=== PATIENT | female | born 1970 | race Caucasian/White ===

== ENCOUNTER 2016-11-20 14:54 | Emergency (ER) | payer OTHER ==
[~2016-11-20] VITALS: Ht 172.7 cm; Wt 94.3 kg
[~2016-11-20 14:54] MED LIST: AMPH30TA2 PO; DOCU100C31 PO; GABA1CAP5 PO; HYDR1CAP85 PO; IBUP-1427 PO; OMEP20TA PO; VENL150C PO; VENL75CA PO
[2016-11-20 14:56] VITALS: TEMP 36.7; Ht 172.7 cm; Wt 94.3 kg
[2016-11-20] MEDS ORDERED: KETOROLAC TROMETHAMINE 60 MG/2 ML VIAL IM STA (15:26)
[2016-11-20] MEDS ORDERED: TYLENOL #3 HOME PACK PO ONE (15:30)
[2016-11-20] MEDS ORDERED: AMOX500C3 PO (15:32)
--- NOTE | 2016-11-20 15:38 | EMERGENCY ROOM VISIT NOTE ---
History First contact with patient: 15:01 Chief Complaint: HEADACHE Stated Complaint: SEVERE HEADACHE/JAW/EAR PAIN History of Present Illness The patient is a 46 year old female who presents to the Emergency Room with complaints of jaw pain intermittently over the past 6 months. The patient states that she has had intermittent dental pain for the past 6 months. She states that her teeth have been falling out. She has seen a dentist and does have an appointment this week for a consultation to have her teeth extracted. The patient states that she has pain throughout her jaw which also gives her a headache and left ear pain. She states she was seen a few weeks ago at a walk- in clinic and referred here, but at that time she was in too much pain to come here. She states the pain makes it difficult for her to eat. She rates the discomfort a 7/10. She has been taking Tylenol and ibuprofen without relief. She is a smoker. She denies any fevers, chest pain, shortness of breath or neck pain/stiffness. Review of Systems A complete 10 point review of systems was reviewed with the patient with pertinent positives and negatives as per history of present illness. All else were negative. Past Medical/Surgical History Medical Problems: (1) Chronic pain syndrome (2) Diabetes mellitus type 2 (3) dyslipidemia (4) endometrial cryoablation (5) History of - section (6) History of - tubal ligation (7) History of cholecystectomy (8) Nasal polyp (9) Sepsis (10) Ulcer Surgical Problems: (1) Hx of cholecystectomy Family History Cancer Diabetes mellitus Gallbladder disease Heart disease Hypertension Kidney stones Social History Smoking Status: Current Every Day Smoker Alcohol Use: none Marital Status: single Housing Status: unknown Occupation Status: other Current/Historical Medications Scheduled Amoxicillin (Amoxil), 500 MG PO BID Gabapentin (Gabapentin), 600 MG PO TID Methadone Hcl (Methadone Hcl), 144 MG PO QAM Omeprazole (Prilosec), 20 MG PO BID Venlafaxine Hcl (Effexor Extended Rel), 75 MG PO DAILY Venlafaxine Hcl (Effexor Extended Rel), 150 MG PO DAILY Scheduled PRN Acetaminophen/Codeine (Tylenol W/Codeine #3), 1-2 TABS PO Q4H PRN for Pain Clonazepam (Klonopin), 1 MG PO DAILY PRN for Anxiety Docusate Sodium (Docusate Sodium), 100 MG PO BID PRN for Constipation Allergies Coded Allergies: Tramadol (Unverified Allergy, Unknown, SEIZURE, 06/05/16) Promethazine (Verified Adverse Reaction, Mild, JITTERY, 06/05/16) PER PATIENT, GETS JITTERY. NOT ALLERGY Physical Exam Vital Signs Date Time Temp Pulse Resp B/P Pulse Ox O2 Delivery O2 Flow Rate FiO2 11/20/16 16:15 91 18 131/70 96 11/20/16 14:56 36.7 123 18 145/77 94 Room Air Physical Exam VITALS: Vitals are noted on the nurse's note and reviewed by myself. Vital signs stable. GENERAL: This is a 46-year-old female, in no acute distress, nondiaphoretic, well-developed well-nourished. SKIN: The skin was without rashes. EARS: External auditory canals clear, tympanic membranes pearly adams without erythema or effusion bilaterally. EYES: Pupils equal round and reactive to light and accommodation. NOSE: Patent, turbinates without inflammation or discharge. No sinus tenderness. MOUTH: Mucous membranes moist. The teeth are very carious. There is no obvious swelling or erythema of the gums. There is no discharge or any sign of an abscess. NECK: Supple without nuchal rigidity. No lymphadenopathy. HEART: Regular rate and rhythm without murmurs gallops or rubs. LUNGS: Clear to auscultation bilaterally without wheezes, rales or rhonchi. NEURO: Patient was alert and oriented to person place and time. Medical Decision & Procedures Medications Administered Medications (Trade) Dose Ordered Sig/Orestes Route Start Time Stop Time Status Last Admin Dose Admin Ketorolac Tromethamine (Toradol Inj) 60 mg NOW STAT IM 11/20/16 15:26 11/20/16 15:28 DC 11/20/16 15:34 60 MG Acetaminophen/ Codeine Phosphate (TYLENOL W/ CODEINE #3 Home Pack) 1 homepack UD ONCE PO 11/20/16 15:30 11/20/16 15:31 DC 11/20/16 15:34 1 HOMEPACK Medical Decision Differential diagnosis includes dental pain, dental infection, TMJ disorder, among others. The patient was evaluated as above. Her pain appears to be dental in nature. She does not appear to have an infection. The patient was treated with an injection of Toradol here. She will be given a short course of Tylenol with codeine, but she was instructed to follow-up with her dentist for any further treatment of her chronic dental pain. This pain has been ongoing for 6 months and she was informed that the emergency department is not able to treat her chronic pain. She verbalized understanding of my assessment and treatment plan and was discharged home in good condition. Impression Primary Impression: Chronic dental pain Departure Information Dispostion Home / Self-Care Condition GOOD Prescriptions Acetaminophen/Codeine (Tylenol W/Codeine #3) 300 Mg/30 Mg Tab 1-2 TABS PO Q4H Y for Pain, #15 TAB For Initial Treatment Prov: Lexis Dunlap ., ALEX 11/20/16 Referrals No Doctor, Assigned (PCP) Patient Instructions My [facility] Additional Instructions You have been prescribed Tylenol with Codeine to be used for pain control. Take 1-2 tablets every 4-6 hours as needed for pain. This is a narcotic medication. You cannot drive or consume alcohol while on this medicine. This medicine should only be used for pain that cannot be controlled with over-the- counter pain medicines. For pain control, you can use the following [id number] medicines (if >12 yo): - Regular strength (325mg/tab) Tylenol (acetaminophen) 2 tabs every 4-6 hours as needed. Do not exceed 12 tablets in a 24 hour period. Avoid taking more than 4 grams (4000 mg) of Tylenol per day. This includes any other sources of acetaminophen you may take on a regular basis. - Regular strength (200 mg/tab) Advil (ibuprofen) 1-2 tabs every 4-6 hours as needed. Do not exceed a dose of 3200 mg per day. Follow-up with your dentist as scheduled. Return to the emergency department with high fevers, neck swelling or any other new/concerning symptoms.
[2016-11-20] MEDS ORDERED: AMXUD2505 PO (16:00)
[2016-11-20] MEDS ORDERED: ACET-749 PO (16:01)
[2016-11-20 16:15] VITALS: BP 131/70; PULSE 91; O2SAT 96
[2016-12-18] MEDS ORDERED: NRN600 PO (15:32)
[2017-03-02] MEDS ORDERED: EFFSR150 PO (15:32)
[2017-03-02] MEDS ORDERED: CLC100 PO (15:32)
[2017-03-02] MEDS ORDERED: EFFSR75 PO (15:32)
[2017-03-02] MEDS ORDERED: OMEP20CA9 PO (15:32)
[2017-03-02] MEDS ORDERED: CLON1TAB3 PO (17:35)
[2017-03-15] MEDS ORDERED: PRED-301 PO (13:07)
== END 2016-11-20 16:25 | disposition home or self-care (01) ==
LOC: C.EDB 14:55 → C.EDA 16:25
DX: K08.89 Other specified disorders of teeth and supporting structures (principal); K02.9 Dental caries, unspecified; F17.200 Nicotine dependence, unspecified, uncomplicated; G89.4 Chronic pain syndrome; E11.9 Type 2 diabetes mellitus without complications; E78.5 Hyperlipidemia, unspecified; J33.9 Nasal polyp, unspecified; Z98.51 Tubal ligation status; Z83.3 Family history of diabetes mellitus; Z82.49 Family history of ischemic heart disease and other diseases of the circulatory system; Z84.1 Family history of disorders of kidney and ureter

== ENCOUNTER 2016-12-18 17:41 | Emergency (ER) | payer OTHER ==
[~2016-12-18] VITALS: Ht 172.7 cm; Wt 94.9 kg
[~2016-12-18 17:41] MED LIST changes: +ACET-749 PO; +AMOX500C3 PO; -AMPH30TA2 PO; -DOCU100C31 PO; -GABA1CAP5 PO; -HYDR1CAP85 PO; -IBUP-1427 PO; +NRN600 PO; -OMEP20TA PO; -VENL150C PO; -VENL75CA PO
[2016-12-18 17:59] VITALS: TEMP 36.9; Ht 172.7 cm; Wt 94.9 kg
--- NOTE | 2016-12-18 18:22 | EMERGENCY ROOM VISIT NOTE ---
History Report prepared by Corinna: Kathie Hernandez Under the Supervision of: Elvira MayesO. First contact with patient: 18:02 Chief Complaint: RIB PAIN Stated Complaint: R FRONT AND BACK RIB PAIN,FEVER,SOB History of Present Illness The patient is a 46 year old female who presents to the Emergency Room with complaints of persistent, worsening right sided rib pain to the anterior and posterior aspects that began several weeks ago. She currently rates her discomfort as a 6/10 in severity. The patient states that she developed the pain a few weeks ago, but states that the pain has worsened. She states that she has difficulty holding her grandson due to the pain. The patient describes the pain as a pulsating pain and additionally associates shortness of breath. She reports a history of pneumonia and states that she is an every day smoker. The patient states that she is scheduled for mouth surgery this month for an extensive infection. She reports a fever of 101-102 degrees Fahrenheit over the past several days. The patient states that her symptoms feel worse than her pneumonia. She additionally notes multiple sick contacts. The patient denies any change in bowel movements or urinary symptoms. She denies any recent fall, trauma, or injury. The patient denies any recent travel. She denies any history of hypertension, kidney disease, or heart disease. Source of History: patient Onset: several weeks ago Position: other (right sided rib) Symptom Intensity: 6/10 Quality: other (pulsating) Timing: worsening, other (persistent) Associated Symptoms: + fevers, + SOB, No urinary symptoms Review of Systems See HPI for pertinent positives & negatives. A total of 10 systems reviewed and were otherwise negative. Past Medical & Surgical Medical Problems: (1) Chronic pain syndrome (2) Diabetes mellitus type 2 (3) dyslipidemia (4) endometrial cryoablation (5) History of - section (6) History of - tubal ligation (7) History of cholecystectomy (8) Nasal polyp (9) Sepsis (10) Ulcer Surgical Problems: (1) Hx of cholecystectomy Family History Cancer Diabetes mellitus Gallbladder disease Heart disease Hypertension Kidney stones Social History Smoking Status: Current Every Day Smoker Alcohol Use: none Marital Status: single Housing Status: unknown Occupation Status: other Current/Historical Medications Scheduled Docusate Sodium (Docusate Sodium), 100 MG PO DAILY Gabapentin (Gabapentin), 600 MG PO TID Levofloxacin (Levaquin), 750 MG PO DAILY Methadone Hcl (Methadone Hcl), 144 MG PO QAM Omeprazole (Prilosec), 20 MG PO BID Prednisone (Prednisone Tab), 3 TAB PO DAILY Venlafaxine Hcl (Effexor Extended Rel), 75 MG PO DAILY Venlafaxine Hcl (Effexor Extended Rel), 150 MG PO DAILY Scheduled PRN Clonazepam (Klonopin), 1 MG PO DAILY PRN for Anxiety Allergies Coded Allergies: Tramadol (Unverified Allergy, Unknown, SEIZURE, 06/05/16) Promethazine (Verified Adverse Reaction, Mild, JITTERY, 06/05/16) PER PATIENT, GETS JITTERY. NOT ALLERGY Physical Exam Vital Signs Date Time Temp Pulse Resp B/P (MAP) Pulse Ox O2 Delivery O2 Flow Rate FiO2 12/19/16 01:07 79 18 109/65 97 Room Air 12/19/16 01:06 79 20 97 Room Air 12/19/16 00:13 78 18 94/62 93 Room Air 12/18/16 22:49 81 20 108/55 93 Room Air 12/18/16 20:58 73 20 121/58 98 Room Air 12/18/16 19:39 84 20 133/70 94 Room Air 12/18/16 17:59 36.9 93 16 135/82 95 Room Air Physical Exam GENERAL: alert, well appearing, well nourished, no distress, non-toxic EYE EXAM: normal conjunctiva, PERRL and EOM's grossly intact OROPHARYNX: no exudate, no erythema, lips, buccal mucosa, and tongue normal and mucous membranes are dry, poor dentition. NECK: supple, no nuchal rigidity, no adenopathy, non-tender LUNGS: Decreased breath sounds at the right base posteriorly, slight crackle, no wheezes, rhonchi, or rales. Normal chest wall mechanics HEART: no murmurs, S1 normal and S2 normal ABDOMEN: abdomen soft, non-tender, normo-active bowel sounds, no masses, no rebound or guarding. BACK: Back is symmetrical on inspection and there is no deformity, no midline tenderness, no CVA tenderness. SKIN: no rashes and no bruising UPPER EXTREMITIES: upper extremities are grossly normal. LOWER EXTREMITIES: No pitting edema. NEURO EXAM: Normal sensorium, cranial nerves II-XII [grossly] intact, normal speech, no [gross] weakness of arms, no [gross] weakness of legs. [No drift. Finger to nose intact. Gross sensation intact.] Medical Decision & Procedures ER Provider Diagnostic Interpretation: Radiology results have been interpreted by the radiologist and reviewed by me. CHEST 2 VIEWS ROUTINE HISTORY: Short of breath. Cough. COMPARISON: Chest 06/05/2016. FINDINGS: The lungs are clear. Cardiac silhouette is normal in size. No pleural effusions. No pneumothorax. Cholecystectomy. Old distal left clavicle fracture. IMPRESSION: No acute process. Electronically signed by: Dawood Banda M.D. 12/18/2016 7:25 PM Dictated Date/Time: 12/18/2016 7:23 PM ABDOMINAL ULTRASOUND, RIGHT UPPER QUADRANT HISTORY: Right upper quadrant abdominal pain.. COMPARISON: Abdomen and pelvis CT 02/24/2015. FINDINGS: Pancreas: The head of the pancreas appears unremarkable. The majority of the body and tail are obscured by overlying bowel gas. Liver: The liver is echogenic consistent with fatty change. Mild intrahepatic bile duct dilatation, unchanged. Gallbladder: The gallbladder is surgically absent. CBD: 1.4 cm in diameter. This remains unchanged. Right kidney: No hydronephrosis. IMPRESSION: 1. Intra and extra hepatic bile duct dilatation, unchanged. This may be due to the patient's postcholecystectomy state. 2. Hepatic steatosis. Electronically signed by: Dawood Banda M.D. 12/18/2016 9:37 PM Dictated Date/Time: 12/18/2016 9:34 PM CTA CHEST: No central pulmonary embolus. Patchy ground-glass opacities bilaterally that may be from edema, pneumonia, hemorrhage or allergic reaction. There is a broader differential. Mediastinal and hilar adenopathy. Generous size liver and spleen. Slightly nodular liver. Cholecystectomy and biliary ectasia. Radiologist: Mirta Magana MD Study ready at 3286 and initial results transmitted at 1988 Laboratory Results 12/18/16 18:30 Red Blood Count 4.28, Mean Corpuscular Volume 92.1, Mean Corpuscular Hemoglobin 29.9, Mean Corpuscular Hemoglobin Concent 32.5, Mean Platelet Volume 9.5, Neutrophils (%) (Auto) 59.3, Lymphocytes (%) (Auto) 29.3, Monocytes (%) (Auto) 5.1, Eosinophils (%) (Auto) 5.1, Basophils (%) (Auto) 0.5, Neutrophils # (Auto) 6.35, Lymphocytes # (Auto) 3.13, Monocytes # (Auto) 0.54, Eosinophils # (Auto) 0.54, Basophils # (Auto) 0.05 12/18/16 18:30 Test 12/18/16 18:30 12/18/16 21:10 White Blood Count 10.68 K/uL (4.8-10.8) Red Blood Count 4.28 M/uL (4.2-5.4) Hemoglobin 12.8 g/dL (12.0-16.0) Hematocrit 39.4 % (37-47) Mean Corpuscular Volume 92.1 fL (80-100) Mean Corpuscular Hemoglobin 29.9 pg (25-34) Mean Corpuscular Hemoglobin Concent 32.5 g/dl (32-36) Platelet Count 226 K/uL (130-400) Mean Platelet Volume 9.5 fL (7.4-10.4) Neutrophils (%) (Auto) 59.3 % Lymphocytes (%) (Auto) 29.3 % Monocytes (%) (Auto) 5.1 % Eosinophils (%) (Auto) 5.1 % Basophils (%) (Auto) 0.5 % Neutrophils # (Auto) 6.35 K/uL (1.4-6.5) Lymphocytes # (Auto) 3.13 K/uL (1.2-3.4) Monocytes # (Auto) 0.54 K/uL (0.11-0.59) Eosinophils # (Auto) 0.54 K/uL (0-0.5) Basophils # (Auto) 0.05 K/uL (0-0.2) RDW Standard Deviation 49.8 fL (36.4-46.3) RDW Coefficient of Variation 14.9 % (11.5-14.5) Immature Granulocyte % (Auto) 0.7 % Immature Granulocyte # (Auto) 0.07 K/uL (0.00-0.02) D-Dimer 200 ug/L FEU (0-500) Anion Gap 6.0 mmol/L (3-11) Est Creatinine Clear Calc Drug Dose 92.0 ml/min Estimated GFR () 86.5 Estimated GFR (Non- 74.7 BUN/Creatinine Ratio 10.8 (10-20) Calcium Level 9.4 mg/dl (8.5-10.1) Total Bilirubin 0.2 mg/dl (0.2-1) Aspartate Amino Transf (AST/SGOT) 38 U/L (15-37) Alanine Aminotransferase (ALT/SGPT) 64 U/L (12-78) Alkaline Phosphatase 180 U/L (45-117) Troponin I < 0.015 ng/ml (0-0.045) Total Protein 7.9 gm/dl (6.4-8.2) Albumin 3.8 gm/dl (3.4-5.0) Globulin 4.1 gm/dl (2.5-4.0) Albumin/Globulin Ratio 0.9 (0.9-2) Urine Color YELLOW Urine Appearance CLEAR (CLEAR) Urine pH 5.0 (4.5-7.5) Urine Specific [place] 1.016 (1.000-1.030) Urine Protein NEG (NEG) Urine Glucose (UA) NEG (NEG) Urine Ketones NEG (NEG) Urine Occult Blood NEG (NEG) Urine Nitrite NEG (NEG) Urine Bilirubin NEG (NEG) Urine Urobilinogen NEG (NEG) Urine Leukocyte Esterase NEG (NEG) Laboratory results per my review. Medications Administered Medications (Trade) Dose Ordered Sig/Orestes Route Start Time Stop Time Status Last Admin Dose Admin Albuterol/ Ipratropium (Duoneb) 3 ml NOW STAT INH 12/18/16 18:39 12/18/16 18:40 DC 12/18/16 18:39 3 ML Ketorolac Tromethamine (Toradol Inj) 30 mg NOW STAT IV 12/18/16 19:55 12/18/16 19:56 DC 12/18/16 20:04 30 MG Albuterol/ Ipratropium (Duoneb) 3 ml NOW STAT INH 12/18/16 21:31 12/18/16 21:32 DC 12/18/16 21:31 3 ML Al Hydroxide/Mg Hydroxide (Maalox Susp) 30 ml NOW STAT PO 12/18/16 22:28 12/18/16 22:30 DC 12/18/16 22:28 30 ML Pantoprazole Sodium 40 mg/ Syringe 10 ml @ 5 mls/min NOW ONCE IV 12/18/16 22:30 12/18/16 22:31 DC 12/18/16 22:48 5 MLS/MIN Dexamethasone Sodium Phosphate (Decadron Inj) 10 mg NOW ONCE IV 12/18/16 23:45 12/18/16 23:47 DC 12/19/16 00:09 10 MG Levofloxacin (Levaquin Tab) 750 mg NOW STAT PO 12/18/16 23:45 12/18/16 23:47 DC 12/19/16 00:08 750 MG Albuterol (Ventolin Hfa Inhaler) 2 puffs NOW ONCE INH 12/19/16 00:30 12/19/16 00:31 DC 12/19/16 00:42 2 PUFFS Sodium Chloride 1,000 ml @ 999 mls/hr Q1H1M STAT IV 12/19/16 00:32 12/19/16 01:32 DC 12/19/16 00:41 999 MLS/HR ECG Indication: SOB/dyspnea Rate (beats per minute): 71 Rhythm: sinus rhythm Findings: no acute ischemic change, other (normal axis, normal intervals) ED Course 1810: The patient was evaluated in room A3. A complete history and physical exam was performed. 1838: Ordered Duoneb 3 ml INH. 1954: Ordered Toradol Inj 30 mg IV. 2130: Ordered Duoneb 3 ml INH. 2225: I reevaluated the patient and she is still having pain. She states that her breathing is better, but still notes pain. 8: Ordered Maalox Susp 30 ml PO. 2230: Ordered Pantoprazole Sodium 40 mg/Syringe 10 ml @ 5 mls/min IV. 2345: Ordered Levofloxacin 750 mg PO, Decadron Inj 10 mg IV. 0010: I reevaluated the patient and she is resting. I updated her on her results at this time. Medical Decision Differential diagnoses includes but is not limited to pneumonia, bronchitis, COPD/Asthma exacerbation, pneumothorax, pulmonary embolism, congestive heart failure, acute coronary syndrome Medication Reconciliation: I attest that I have personally reviewed the patient' s current medication list. Blood pressure screening: Patient was found to have normal blood pressure on screening and does not require follow-up. Patient well-appearing despite complaints, no hypoxia, no increased work of breathing, her main complaint was the pain along the right anterolateral ribs. Labs are reassuring, however given persistent pain CT of the chest was pursued. This revealed likely pneumonia. Patient does have a history of prior pneumonia, does continue to smoke, and has had recent sick contacts. Given the cough, chest pain, fevers, and risk factors for pulmonary infection, I feel pneumonia is most likely diagnosis. Patient started on antibiotics and steroids here, was given an MDI and spacer and did improve. Patient ambulated without any significant change in her pulse ox or significant increased work of breathing. subcontracts manager was helpful in arranging outpatient follow-up this patient has no PCP. Discussed with patient symptoms to watch and return for, she verbalized understanding was agreeable with plan. Doubt cardiac etiology, PE, concurrent vascular etiology. Patient encouraged to quit smoking. No evidence of bacteremia/sepsis, patient's IV did infiltrate and she refused to have another one established, however she was tolerating by mouth fluids. One blood pressure reading was mildly low, however all of these around it were within normal limits, I feel this one pressure reading was errant and likely not accurate. Impression Primary Impression: Chest pain Additional Impressions: Pneumonia Tobacco abuse Scribe Attestation The scribe's documentation has been prepared under my direction and personally reviewed by me in its entirety. I confirm that the note above accurately reflects all work, treatment, procedures, and medical decision making performed by me. Departure Information Dispostion Home / Self-Care Prescriptions Prednisone (Prednisone Tab) 20 Mg Tab 3 TAB PO DAILY, #12 TAB FOR 4 DAYS Prov: Jenna Albert, 12/19/16 Levofloxacin (Levaquin) 500 Mg Tab 750 MG PO DAILY for 5 Days, #8 TAB Prov: Jenna Albert, DO 12/19/16 Referrals No Doctor, Assigned (PCP) Patient Instructions My [facility] Additional Instructions Please call and follow up as scheduled with the onsite case manager with family doctor as an outpatient. Please take the antibiotics and steroids as prescribed. You may use the inhaler plus spacer up to every 4 hours as needed for frequent coughing, shortness of breath, or wheezing. You may use Tylenol and ibuprofen as needed for pain. If you have any worsening pain, develop increased trouble breathing, or coughing up blood, fevers, dizziness, vomiting, or you've any other new concerns, please return the emergency room. Problem Qualifiers Primary Impression: Chest pain Chest pain type: other chest pain Qualified Codes: R07.89 - Other chest pain Additional Impressions: Pneumonia Pneumonia type: due to unspecified organism Laterality: bilateral Lung location: lower lobe of lung Qualified Codes: J18.9 - Pneumonia, unspecified organism
[2016-12-18] MEDS ORDERED: ALBUT/IPRATROP 3MG/0.5MG NEB 3 ML VIAL INH STA ×2 (18:39→21:31)
[2016-12-18 18:46] LABS: BASO % 0.5 %; BASO ABS # 0.05 K/uL (0-0.2); COMPLETE YES; EOS % 5.1 %; HEMATOCRIT 39.4 % (37-47); IG% 0.7 %; LYMPH % 29.3 %; LYMPH ABS # 3.13 K/uL (1.2-3.4); MEAN CELL VOLUME 92.1 fL (80-100); MEAN CORPUSCULAR HEMOGLOBIN 29.9 pg (25-34); MEAN CORPUSCULAR HGB CONC 32.5 g/dl (32-36); MEAN PLATELET VOLUME 9.5 fL (7.4-10.4); MONO % 5.1 %; NEUT % 59.3 %; PLATELET COUNT 226 K/uL (130-400); RED BLOOD COUNT 4.28 M/uL (4.2-5.4); WHITE BLOOD COUNT 10.68 K/uL (4.8-10.8)
[2016-12-18 19:03] LABS: ALT/SGPT 64 U/L (12-78); AST/SGOT 38 U/L (15-37); BLOOD UREA NITROGEN 10 mg/dl (7-18); BUN/CREATININE RATIO 10.8 (10-20); CALCIUM 9.4 mg/dl (8.5-10.1); CARBON DIOXIDE 27 mmol/L (21-32); CHLORIDE 104 mmol/L (98-107); CREATININE 0.92 mg/dl (0.60-1.20); GLUCOSE 81 mg/dl (70-99); POTASSIUM 3.8 mmol/L (3.5-5.1); SODIUM 137 mmol/L (136-145)
[2016-12-18 19:08] LABS: ALB/GLOB RATIO 0.9 (0.9-2); ALKALINE PHOSPHATASE 180 U/L (45-117)
--- NOTE | 2016-12-18 19:26 | DIAGNOSTIC IMAGING REPORT ---
CHEST 2 VIEWS ROUTINE HISTORY: Short of breath. Cough. COMPARISON: Chest 06/05/2016. FINDINGS: The lungs are clear. Cardiac silhouette is normal in size. No pleural effusions. No pneumothorax. Cholecystectomy. Old distal left clavicle fracture. IMPRESSION: No acute process. Electronically signed by: Dawood Banda M.D. 12/18/2016 7:25 PM Dictated Date/Time: 12/18/2016 7:23 PM
[2016-12-18] MEDS ORDERED: KETOROLAC TROMETHAMINE 30 MG/ML VIAL IV STA (19:55)
--- NOTE | 2016-12-18 21:38 | DIAGNOSTIC IMAGING REPORT ---
ABDOMINAL ULTRASOUND, RIGHT UPPER QUADRANT HISTORY: Right upper quadrant abdominal pain.. COMPARISON: Abdomen and pelvis CT 02/24/2015. FINDINGS: Pancreas: The head of the pancreas appears unremarkable. The majority of the body and tail are obscured by overlying bowel gas. Liver: The liver is echogenic consistent with fatty change. Mild intrahepatic bile duct dilatation, unchanged. Gallbladder: The gallbladder is surgically absent. CBD: 1.4 cm in diameter. This remains unchanged. Right kidney: No hydronephrosis. IMPRESSION: 1. Intra and extra hepatic bile duct dilatation, unchanged. This may be due to the patient's postcholecystectomy state. 2. Hepatic steatosis. Electronically signed by: Dawood Banda M.D. 12/18/2016 9:37 PM Dictated Date/Time: 12/18/2016 9:34 PM
[2016-12-18 21:59] LABS: URINE APPEARANCE CLEAR (CLEAR); URINE BILIRUBIN NEG (NEG); URINE COLOR YELLOW; URINE NITRITE NEG (NEG); URINE SPECIFIC GRAVITY 1.016 (1.000-1.030); UROBILINOGEN NEG (NEG); ZZUR CULT IF INDIC CLEAN CATCH NO
[2016-12-18 22:03] LABS: MANUAL MICROSCOPIC REQUIRED? NO; REVIEW REQ? NO
[2016-12-18] MEDS ORDERED: ALUMINUM/MAGNESIUM SUSP 30 ML UDC PO STA (22:28)
[2016-12-18] MEDS ORDERED: PANTOprazole INJ 40 MG in SYRINGE 0 ML IV ONE (22:30)
[2016-12-18] MEDS ORDERED: OPTIRAY 320 IV PRN (22:45)
[2016-12-18] MEDS ORDERED: DEXAMETHASONE SOD INJ 10 MG/ML VIAL IV ONE (23:45)
[2016-12-18] MEDS ORDERED: LEVOFLOXACIN 250 MG TAB PO STA (23:45)
[2016-12-19] MEDS ORDERED: ALBUTEROL HFA 8 GM INHALER INH ONE (00:30)
[2016-12-19] MEDS ORDERED: SODIUM CHLORIDE 0.9% 1000ML 1,000 ML IV STA (00:32)
[2016-12-19 01:07] VITALS: BP 109/65; PULSE 79; O2SAT 97
[2016-12-19] MEDS ORDERED: PRED20TA2 PO (01:21)
[2016-12-19] MEDS ORDERED: LEVO-366 PO (01:21)
--- NOTE | 2016-12-19 07:52 | DIAGNOSTIC IMAGING REPORT ---
CT ANGIOGRAM OF THE CHEST CLINICAL HISTORY: Atypical chest pain. Dyspnea. COMPARISON STUDY: Chest x-ray dated 12/18/2016. Chest CT scans dated and 06/02/2008. TECHNIQUE: Following the IV administration of 88 cc of Optiray 320, CT angiogram of the chest was performed from the upper abdomen to the thoracic inlet utilizing the pulmonary embolus protocol. Images are reviewed in the axial, sagittal, and coronal planes. 3-D MIPS images are created and assessed. IV contrast was administered without complication. CT DOSE: 416.54 mGy.cm FINDINGS: Thyroid: Imaged portions of the thyroid gland are normal in size and attenuation. Thoracic aorta: The thoracic aorta is normal in caliber and demonstrates standard 3-vessel arch anatomy. No dissection is seen. Pulmonary vasculature: The pulmonary trunk is normal in caliber. There are no filling defects identified in main, lobar, or segmental pulmonary branches to suggest pulmonary embolus. Heart: The heart is normal in size and configuration, and without pericardial effusion. Lungs and pleural spaces: There are trace pleural effusions with associated atelectasis. There is multifocal patchy groundglass consolidation, greatest in the upper lobes. This is similar to the 07/29/2015 examination. The trachea and central airways are clear Mediastinum: There is mild mediastinal lymphadenopathy. Prevascular nodes measure up to 1.2 cm in short axis. [place]: Prominent hilar nodes measure up to 11 mm in short axis. Axillae: There is no axillary lymphadenopathy. Upper abdomen: There is a tiny hiatal hernia. Cholecystectomy clips are noted. The liver is enlarged and steatotic. Mild nodularity of the surface contour is questioned. The spleen is enlarged measuring 14.6 cm in length. Skeletal structures: No lytic or blastic bony lesions are seen. A large hemangioma is noted in the body of T11. IMPRESSION: 1. There is no evidence of pulmonary embolus in the main, lobar, or segmental pulmonary arteries. 2. There is multifocal groundglass consolidation within upper lobe predominance. This likely represents an infectious/inflammatory pneumonitis and is similar in appearance to the 07/29/2015 examination. Differential considerations include hemorrhage, edema, or a hypersensitivity reaction. Pulmonology follow-up is recommended. 3. Mildly enlarged mediastinal and hilar lymph nodes are likely on a reactive basis. 4. Hepatomegaly and hepatic steatosis. 5. Splenomegaly. 6. Trace pleural effusions. Electronically signed by: Cali Maharaj M.D. 12/19/2016 7:50 AM Dictated Date/Time: 12/19/2016 7:37 AM
[2017-03-02] MEDS ORDERED: EFFSR75 PO (15:32)
[2017-03-02] MEDS ORDERED: EFFSR150 PO (15:32)
[2017-03-02] MEDS ORDERED: CLC100 PO (15:32)
[2017-03-02] MEDS ORDERED: OMEP20CA9 PO (15:32)
[2017-03-02] MEDS ORDERED: CLON1TAB3 PO (17:35)
[2017-03-15] MEDS ORDERED: PRED-301 PO (13:07)
== END 2016-12-19 01:34 | disposition home or self-care (01) ==
LOC: C.EDB 17:42 → C.EDA 12-19 01:34
DX: R07.89 Other chest pain (principal); J18.9 Pneumonia, unspecified organism; F17.200 Nicotine dependence, unspecified, uncomplicated; G89.4 Chronic pain syndrome; E11.9 Type 2 diabetes mellitus without complications; E78.5 Hyperlipidemia, unspecified; Z98.51 Tubal ligation status; Z83.3 Family history of diabetes mellitus; Z82.49 Family history of ischemic heart disease and other diseases of the circulatory system; Z84.1 Family history of disorders of kidney and ureter

== ENCOUNTER 2017-01-24 21:15 | Emergency (ER) | payer OTHER ==
[~2017-01-24] VITALS: Ht 172.7 cm; Wt 96.1 kg
[~2017-01-24 21:15] MED LIST changes: -ACET-749 PO; -AMOX500C3 PO; +PRED20TA2 PO
[2017-01-24 21:21] VITALS: Ht 172.7 cm; Wt 96.1 kg
[2017-01-24] MEDS ORDERED: HYDR-5688 PO (21:46)
[2017-01-24] MEDS ORDERED: SODIUM CHLORIDE 0.9% 1000ML 1,000 ML IV STA ×2 (22:26)
[2017-01-24] MEDS ORDERED: ACETAMINOPHEN 500 MG TAB PO STA (22:26)
--- NOTE | 2017-01-24 22:44 | DIAGNOSTIC IMAGING REPORT ---
CHEST ONE VIEW PORTABLE CLINICAL HISTORY: cough, fever dyspnea COMPARISON STUDY: 12/18/2016 FINDINGS: Probable early bilateral parenchymal perihilar infiltrative change. Diaphragms smooth. Costophrenic angles sharp. IMPRESSION: Developing perihilar parenchymal infiltrates bilaterally. The above report was generated using voice recognition software. It may contain grammatical, syntax or spelling errors. Electronically signed by: Todd Reynolds M.D. 01/24/2017 10:43 PM Dictated Date/Time: 01/24/2017 10:42 PM
--- NOTE | 2017-01-24 22:57 | EMERGENCY ROOM VISIT NOTE ---
History First contact with patient: 22:14 Chief Complaint: FEVER Stated Complaint: HIGH TEMP, SEVERE HEADACHE,CHEST PAIN History of Present Illness The patient is a 46 year old female who presents to the Emergency Room with complaints of fever, headaches, body aches, chills, chest pain and cough. The patient states that 67 weeks ago, she was admitted due to pneumonia. She states that she feels she was not fully treated. She reports her symptoms have been worsening over the past few days. She states pain all over her body, especially in her back. She states the pain is primarily in her low back. She does report she has had episodes of both bowel and urinary incontinence. She states that she has a hard time taking a deep breath and has discomfort in her chest. She reports some associated nausea but no vomiting. She states she has not been taking any medications at home for her symptoms. She reports she had all of her teeth removed 12 days ago. She denies any drug use. She rates her overall discomfort 7/10. The patient denies any significant past medical history. She denies abdominal pain, neck pain/stiffness, diarrhea, or urinary symptoms. Review of Systems A complete 10 point review of systems was reviewed with the patient with pertinent positives and negatives as per history of present illness. All else were negative. Past Medical/Surgical History Medical Problems: (1) Chronic pain syndrome (2) Diabetes mellitus type 2 (3) dyslipidemia (4) endometrial cryoablation (5) History of - section (6) History of - tubal ligation (7) History of cholecystectomy (8) Nasal polyp (9) Sepsis (10) Ulcer Surgical Problems: (1) Hx of cholecystectomy Family History Cancer Diabetes mellitus Gallbladder disease Heart disease Hypertension Kidney stones Social History Smoking Status: Current Every Day Smoker Alcohol Use: none Marital Status: single Housing Status: unknown Occupation Status: other Current/Historical Medications Scheduled Amoxicillin & Pot Clavulanate (Augmentin 875-125 mg), 1 TAB PO BID Amphetamine-Dextroamphetamine 30MG (Adderall 30MG), 30 MG PO BID Docusate Sodium (Docusate Sodium), 100 MG PO DAILY Doxepin (Sinequan), 10 MG PO DAILY Doxepin (Sinequan), 25 MG PO DAILY Gabapentin (Gabapentin), 600 MG PO TID Methadone Hcl (Methadone Hcl), 144 MG PO QAM Omeprazole (Prilosec), 20 MG PO BID Propranolol (Inderal), 10 MG PO DAILY Venlafaxine Hcl (Effexor Extended Rel), 75 MG PO DAILY Venlafaxine Hcl (Effexor Extended Rel), 150 MG PO DAILY Scheduled PRN Clonazepam (Klonopin), 1 MG PO DAILY PRN for Anxiety Hydrocodone/Acetaminophen 5MG/325MG ([place] 5MG/325MG), 1 TABLET PO DIRECTED PRN for Pain Physical Exam Vital Signs Date Time Temp Pulse Resp B/P (MAP) Pulse Ox O2 Delivery O2 Flow Rate FiO2 01/25/17 02:32 84 18 125/67 96 01/25/17 01:32 84 01/25/17 01:09 37.4 87 18 112/73 95 Room Air 01/24/17 23:12 37.9 104 18 106/59 97 Room Air 01/24/17 21:21 37.5 134 16 138/74 93 Room Air Physical Exam VITALS: Vitals are noted on the nurse's note and reviewed by myself. Vital signs stable. GENERAL: This is a 46-year-old female, curled up in bed, tearful, well- developed well-nourished. SKIN: The skin was without rashes. EARS: External auditory canals clear, tympanic membranes pearly adams without erythema or effusion bilaterally. EYES: Pupils equal round and reactive to light and accommodation. Conjunctivae without injection, sclerae without icterus. Extraocular movements intact. NOSE: Patent, turbinates without inflammation or discharge. MOUTH: Mucous membranes moist. Tonsils are not enlarged. Pharynx without erythema or exudate. NECK: Supple without nuchal rigidity. No lymphadenopathy. No meningismus. HEART: Regular rate and rhythm without murmurs gallops or rubs. LUNGS: Clear to auscultation bilaterally without wheezes, rales or rhonchi. ABDOMEN: Soft, nontender to palpation. MUSCULOSKELETAL: There is tenderness to palpation across the lumbar spine. NEURO: Patient was alert and oriented to person place and time. Medical Decision & Procedures ER Provider Diagnostic Interpretation: CHEST ONE VIEW PORTABLE FINDINGS: Probable early bilateral parenchymal perihilar infiltrative change. Diaphragms smooth. Costophrenic angles sharp. IMPRESSION: Developing perihilar parenchymal infiltrates bilaterally. CT L SPINE: No acute fracture or malalignment. No destructive changes. Tarlov cysts in the sacrum. Radiologist: Mirta Magana MD Laboratory Results 01/24/17 22:43 Red Blood Count 4.41, Mean Corpuscular Volume 90.9, Mean Corpuscular Hemoglobin 28.6, Mean Corpuscular Hemoglobin Concent 31.4, Mean Platelet Volume 9.7, Neutrophils (%) (Auto) 74.5, Lymphocytes (%) (Auto) 18.8, Monocytes (%) (Auto) 4.8, Eosinophils (%) (Auto) 1.1, Basophils (%) (Auto) 0.2, Neutrophils # (Auto) 6.35, Lymphocytes # (Auto) 1.60, Monocytes # (Auto) 0.41, Eosinophils # (Auto) 0.09, Basophils # (Auto) 0.02 01/24/17 22:43 Test 01/24/17 21:41 01/24/17 22:43 01/24/17 23:02 Urine Color YELLOW Urine Appearance CLEAR (CLEAR) Urine pH 5.5 (4.5-7.5) Urine Specific [place] 1.016 (1.000-1.030) Urine Protein NEG (NEG) Urine Glucose (UA) NEG (NEG) Urine Ketones NEG (NEG) Urine Occult Blood 1+ (NEG) Urine Nitrite NEG (NEG) Urine Bilirubin NEG (NEG) Urine Urobilinogen NEG (NEG) Urine Leukocyte Esterase NEG (NEG) Urine WBC (Auto) 1-5 /hpf (0-5) Urine RBC (Auto) 0-4 /hpf (0-4) Urine Hyaline Casts (Auto) 0 /lpf (0-5) Urine Epithelial Cells (Auto) 20-30 /lpf (0-5) Urine Bacteria (Auto) NEG (NEG) White Blood Count 8.52 K/uL (4.8-10.8) Red Blood Count 4.41 M/uL (4.2-5.4) Hemoglobin 12.6 g/dL (12.0-16.0) Hematocrit 40.1 % (37-47) Mean Corpuscular Volume 90.9 fL (80-100) Mean Corpuscular Hemoglobin 28.6 pg (25-34) Mean Corpuscular Hemoglobin Concent 31.4 g/dl (32-36) Platelet Count 179 K/uL (130-400) Mean Platelet Volume 9.7 fL (7.4-10.4) Neutrophils (%) (Auto) 74.5 % Lymphocytes (%) (Auto) 18.8 % Monocytes (%) (Auto) 4.8 % Eosinophils (%) (Auto) 1.1 % Basophils (%) (Auto) 0.2 % Neutrophils # (Auto) 6.35 K/uL (1.4-6.5) Lymphocytes # (Auto) 1.60 K/uL (1.2-3.4) Monocytes # (Auto) 0.41 K/uL (0.11-0.59) Eosinophils # (Auto) 0.09 K/uL (0-0.5) Basophils # (Auto) 0.02 K/uL (0-0.2) RDW Standard Deviation 46.0 fL (36.4-46.3) RDW Coefficient of Variation 14.0 % (11.5-14.5) Immature Granulocyte % (Auto) 0.6 % Immature Granulocyte # (Auto) 0.05 K/uL (0.00-0.02) Anion Gap 7.0 mmol/L (3-11) Est Creatinine Clear Calc Drug Dose 115.1 ml/min Estimated GFR () 112.6 Estimated GFR (Non- 97.2 BUN/Creatinine Ratio 9.6 (10-20) Calcium Level 8.8 mg/dl (8.5-10.1) Magnesium Level 1.8 mg/dl (1.8-2.4) Total Bilirubin 0.2 mg/dl (0.2-1) Aspartate Amino Transf (AST/SGOT) 26 U/L (15-37) Alanine Aminotransferase (ALT/SGPT) 27 U/L (12-78) Alkaline Phosphatase 135 U/L (45-117) Total Protein 6.9 gm/dl (6.4-8.2) Albumin 3.0 gm/dl (3.4-5.0) Globulin 3.9 gm/dl (2.5-4.0) Albumin/Globulin Ratio 0.8 (0.9-2) Bedside Lactic Acid Venous 1.18 mmol/L (0.90-1.70) Medications Administered Medications (Trade) Dose Ordered Sig/Orestes Route Start Time Stop Time Status Last Admin Dose Admin Sodium Chloride 1,000 ml @ 999 mls/hr Q1H1M STAT IV 01/24/17 22:26 01/24/17 23:26 DC 01/24/17 23:09 999 MLS/HR Sodium Chloride 1,000 ml @ 999 mls/hr Q1H1M STAT IV 01/24/17 22:26 01/24/17 23:26 DC 01/24/17 23:09 999 MLS/HR Acetaminophen (Tylenol Tab) 1,000 mg NOW STAT PO 01/24/17 22:26 01/24/17 22:31 DC 01/24/17 23:10 1,000 MG Ketorolac Tromethamine (Toradol Inj) 30 mg NOW STAT IV 01/24/17 23:53 01/24/17 23:54 DC 01/25/17 00:09 30 MG Ceftriaxone Sodium (Rocephin Inj) 1 gm NOW STAT IV 01/25/17 01:36 01/25/17 01:40 DC 01/25/17 01:47 1 GM Azithromycin (Zithromax Tab) 500 mg NOW STAT PO 01/25/17 01:36 01/25/17 01:40 DC 01/25/17 01:48 500 MG ED Course The patient was evaluated as above. Labs were drawn and IV access was obtained. Patient was medicated with 1 L normal saline solution and given Tylenol orally. Patient was reassessed and requested something more for pain. She was given Toradol and an additional liter bolus. Imaging studies were performed and read by radiology as above. Patient was reevaluated and findings were discussed. She was given 1 g Rocephin and initial dose of Zithromax. Discharge instructions were reviewed with the patient. The patient verbalized understanding of my assessment and treatment plan and was discharged home in good condition. Medical Decision Differential diagnosis includes sepsis, pneumonia, bronchitis, epidural abscess , urinary tract infection, among others. The patient is a 46-year-old female who presents today complaining of fever, bodyaches and cough. The patient also complains of back pain and episodes of incontinence. Labs revealed no leukocytosis, anemia or concerning electrolyte abnormalities. Lactic acid was not elevated. Blood cultures were drawn and are pending. Urinalysis was not suggestive of infection. Chest x-ray did show developing perihilar infiltrates. Due to the patient's complaint of low back pain and incontinence, a CT scan was performed to rule out epidural abscess. This was read by stat rad and was negative. The patient was concerned because she had previously been admitted for sepsis, however on review of those records it appears that the patient had bronchitis rather than actual sepsis. She will be covered on antibiotics but I do feel she is safe to be discharged home and follow-up with her primary care provider. She was given an initial dose of Rocephin and Zithromax. However, due to potential reactions with methadone, which the patient did not admit to taking, she will be placed on Augmentin rather than Zithromax. She was instructed to return here if she has any worsening of her current condition or new/concerning symptoms. The patient's case was reviewed with Dr. Albert, ED attending physician, who agreed with my assessment and treatment plan. Based on the patient's presentation and work up, I feel the patient is stable for outpatient treatment. The patient was educated to return to the emergency department for any worsening of their current condition or new/concerning symptoms. She will follow up with her PCP. Medication Reconcilliation Current Medication List: was personally reviewed by me Blood Pressure Screening Patient's blood pressure: Normal blood pressure Impression Primary Impression: Acute bronchitis Departure Information Dispostion Home / Self-Care Condition GOOD Prescriptions Amoxicillin & Pot Clavulanate (Augmentin 875-125 mg) 1 Tab Tab 1 TAB PO BID for 7 Days, #14 TAB Prov: Lexis Dunlap ., ALEX 01/25/17 Referrals No Doctor, Assigned (PCP) Patient Instructions My [facility] Additional Instructions You were prescribed Augmentin to be taken twice daily as prescribed. This is an antibiotic. All antibiotics have the potential to cause diarrhea. Stop this medication and contact a medical provider if you were to develop any significant adverse side effects including: wheezing, shortness of breath, passing out, vomiting, or a diffuse rash. Always take antibiotics as directed and COMPLETE the ENTIRE course regardless of the improvement of your symptoms. For pain control, you can use the following [id number] medicines (if >12 yo): - Regular strength (325mg/tab) Tylenol (acetaminophen) 2 tabs every 4-6 hours as needed. Do not exceed 12 tablets in a 24 hour period. Avoid taking more than 4 grams (4000 mg) of Tylenol per day. This includes any other sources of acetaminophen you may take on a regular basis. - Regular strength (200 mg/tab) Advil (ibuprofen) 1-2 tabs every 4-6 hours as needed. Do not exceed a dose of 3200 mg per day. Rest and drink plenty of fluids. Follow-up with your primary care provider this week. Return to the emergency department with any worsening or new/concerning symptoms. Problem Qualifiers Primary Impression: Acute bronchitis
[2017-01-24 23:04] LABS: URINE APPEARANCE CLEAR (CLEAR); URINE BILIRUBIN NEG (NEG); URINE COLOR YELLOW; URINE EPITHELIAL CELL AUTO 20-30 /lpf (0-5); URINE NITRITE NEG (NEG); URINE PH 5.5 (4.5-7.5); URINE SPECIFIC GRAVITY 1.016 (1.000-1.030); UROBILINOGEN NEG (NEG); ZZUR CULT IF INDIC CLEAN CATCH NO
[2017-01-24 23:05] LABS: MANUAL MICROSCOPIC REQUIRED? NO; REVIEW REQ? NO
[2017-01-24 23:14] LABS: BASO % 0.2 %; BASO ABS # 0.02 K/uL (0-0.2); COMPLETE YES; EOS % 1.1 %; HEMATOCRIT 40.1 % (37-47); IG% 0.6 %; LYMPH % 18.8 %; MEAN CELL VOLUME 90.9 fL (80-100); MEAN CORPUSCULAR HEMOGLOBIN 28.6 pg (25-34); MEAN CORPUSCULAR HGB CONC 31.4 g/dl (32-36); MEAN PLATELET VOLUME 9.7 fL (7.4-10.4); MONO % 4.8 %; NEUT % 74.5 %; PLATELET COUNT 179 K/uL (130-400); RED BLOOD COUNT 4.41 M/uL (4.2-5.4); WHITE BLOOD COUNT 8.52 K/uL (4.8-10.8)
[2017-01-24 23:42] LABS: BUN/CREATININE RATIO 9.6 (10-20); CALCIUM 8.8 mg/dl (8.5-10.1); CREATININE 0.74 mg/dl (0.60-1.20); MAGNESIUM 1.8 mg/dl (1.8-2.4); POTASSIUM 3.6 mmol/L (3.5-5.1)
[2017-01-24 23:45] LABS: ALB/GLOB RATIO 0.8 (0.9-2)
[2017-01-24] MEDS ORDERED: KETOROLAC TROMETHAMINE 30 MG/ML VIAL IV STA (23:53)
[2017-01-25] MEDS ORDERED: OPTIRAY 320 IV PRN (01:00)
[2017-01-25 01:09] VITALS: TEMP 37.4
[2017-01-25] MEDS ORDERED: CEFTRIAXONE SOD INJ 1 GM ADDVIAL IV STA (01:36)
[2017-01-25] MEDS ORDERED: AZITHROMYCIN 250 MG TAB PO STA (01:36)
[2017-01-25] MEDS ORDERED: AMOX875T PO (02:07)
[2017-01-25 02:32] VITALS: BP 125/67; PULSE 84; O2SAT 96
--- NOTE | 2017-01-25 07:39 | DIAGNOSTIC IMAGING REPORT ---
CT SCAN OF THE LUMBAR SPINE COMBO CLINICAL HISTORY: Low back pain. Fever. Bowel and urinary incontinence. COMPARISON STUDY: Radiographs of the lumbar spine dated 10/01/2015. MRI of the lumbar spine dated 01/24/2009. CT scan of lumbar spine dated 10/17/2008. TECHNIQUE: Before and following the IV administration of 118 cc of Optiray 320, CT scan of lumbar spine is performed from the lower thoracic spine to the sacrum. Images reviewed in the axial, sagittal, and coronal planes. IV contrast was administered without complication. A dose lowering technique was utilized adhering to the principles of ALARA. CT DOSE: 2095.07 mGy.cm FINDINGS: The skeletal structures are well mineralized. There is no evidence of fracture or malalignment involving the lumbar spine. Vertebral body height and alignment are maintained. The transverse and spinous processes appear intact. There is no evidence of spondylolysis. No lytic or blastic bony lesions are seen. No erosive change is identified. There is minimal disc space narrowing and vacuum phenomenon seen at L5-S1. The remaining disc spaces are preserved. Minimal disc bulge is seen at L4-L5 and L5-S1. There is no evidence of large disc herniation or significant acquired compromise of the central canal. There is no evidence of epidural pleural fluid collection on the postcontrast series. No significant neural foraminal stenosis is suggested. The visualized sacrum and bony pelvis appear intact. Tarlov cysts are similar to prior studies. The paraspinous soft tissues are within normal limits. The visualized retroperitoneal structures are grossly normal but in completely assessed. A retroaortic left renal vein is incidentally noted. IMPRESSION: No acute bony abnormality is seen involving the lumbar spine. Dictated: 01/25/2017 7:13 AM Transcribed: 01/25/2017 7:38 AM Ba Electronically signed by: Cali Maharaj M.D. 01/25/2017 7:41 AM Dictated Date/Time: 01/25/2017 7:13 AM
[2017-03-02] MEDS ORDERED: EFFSR75 PO (15:32)
[2017-03-02] MEDS ORDERED: CLC100 PO (15:32)
[2017-03-02] MEDS ORDERED: EFFSR150 PO (15:32)
[2017-03-02] MEDS ORDERED: OMEP20CA9 PO (15:32)
[2017-03-02] MEDS ORDERED: CLON1TAB3 PO (17:35)
[2017-03-15] MEDS ORDERED: PRED-301 PO (13:07)
== END 2017-01-25 02:32 | disposition home or self-care (01) ==
LOC: C.EDB 21:17
DX: J20.9 Acute bronchitis, unspecified (principal); G89.4 Chronic pain syndrome; E11.9 Type 2 diabetes mellitus without complications; E78.5 Hyperlipidemia, unspecified; F17.200 Nicotine dependence, unspecified, uncomplicated; Z98.51 Tubal ligation status; Z83.3 Family history of diabetes mellitus; Z82.49 Family history of ischemic heart disease and other diseases of the circulatory system; Z84.1 Family history of disorders of kidney and ureter

== ENCOUNTER 2017-03-02 18:38 | Emergency (ER) | payer OTHER ==
[~2017-03-02] VITALS: Ht 172.7 cm; Wt 95.2 kg
[~2017-03-02 18:38] MED LIST changes: +CLC100 PO; +CLON1TAB3 PO; +EFFSR150 PO; +EFFSR75 PO; +HYDR-5688 PO; +OMEP20CA9 PO; -PRED20TA2 PO
[2017-03-02 18:41] VITALS: TEMP 36.5; Ht 172.7 cm; Wt 95.2 kg
[2017-03-02] MEDS ORDERED: SODIUM CHLORIDE 0.9% 1000ML 1,000 ML IV STA (19:38)
[2017-03-02 19:42] VITALS: O2SAT 96
[2017-03-02] MEDS ORDERED: ACETAMINOPHEN 325 MG TAB PO STA (20:13)
[2017-03-02 20:17] LABS: BASO % 0.3 %; BASO ABS # 0.03 K/uL (0-0.2); COMPLETE YES; HEMATOCRIT 39.1 % (37-47); IG% 0.5 %; LYMPH % 21.8 %; LYMPH ABS # 2.16 K/uL (1.2-3.4); MEAN CELL VOLUME 90.9 fL (80-100); MEAN PLATELET VOLUME 10.6 fL (7.4-10.4); MONO % 5.7 %; NEUT % 66.7 %; PLATELET COUNT 157 K/uL (130-400); WHITE BLOOD COUNT 9.93 K/uL (4.8-10.8)
[2017-03-02 20:28] LABS: BUN/CREATININE RATIO 11.5 (10-20); CALCIUM 8.9 mg/dl (8.5-10.1); CREATININE 0.87 mg/dl (0.60-1.20); POTASSIUM 3.6 mmol/L (3.5-5.1)
[2017-03-02 20:29] LABS: PARTIAL THROMBOPLASTIN RATIO 1.1; PROTHROMBIN TIME (PATIENT) 10.3 SECONDS (9.0-12.0)
[2017-03-02 20:30] LABS: ALB/GLOB RATIO 0.9 (0.9-2)
[2017-03-02] MEDS ORDERED: NRN600 PO (20:45)
[2017-03-02] MEDS ORDERED: NRN300 PO (20:45)
[2017-03-02] MEDS ORDERED: GABA-113 PO (20:45)
[2017-03-02] MEDS ORDERED: GABA1CAP4 PO (20:45)
[2017-03-02 21:07] LABS: LYME DISEASE AB IGG NEG (NEG); LYME DISEASE AB IGM NEG (NEG)
--- NOTE | 2017-03-02 21:36 | DIAGNOSTIC IMAGING REPORT ---
CHEST 2 VIEWS ROUTINE CLINICAL HISTORY: eval for pnea dyspnea COMPARISON STUDY: 01/24/2017 FINDINGS: The bones soft tissues and hemidiaphragms are normal. The cardiomediastinal silhouette is normal. The lungs are clear. The pulmonary vasculature is normal. IMPRESSION: Negative chest. The above report was generated using voice recognition software. It may contain grammatical, syntax or spelling errors. Electronically signed by: Todd Reynolds M.D. 03/02/2017 9:34 PM Dictated Date/Time: 03/02/2017 9:34 PM
[2017-03-02] MEDS ORDERED: SNQ/25 PO (21:46)
[2017-03-02] MEDS ORDERED: PROP10TA7 PO (21:46)
[2017-03-02] MEDS ORDERED: AMPH30TA2 PO (21:46)
[2017-03-02] MEDS ORDERED: DOXE10CA PO (21:46)
[2017-03-02 21:58] VITALS: BP 133/71; PULSE 91; O2SAT 96
[2017-03-02] MEDS ORDERED: METH10SO PO (22:07)
--- NOTE | 2017-03-03 01:54 | EMERGENCY ROOM VISIT NOTE ---
History Report prepared by Corinna: Jade Garcia Under the Supervision of: Dr. Gal Perez M.D. First contact with patient: 19:29 Chief Complaint: CHEST PAIN Stated Complaint: CHEST PAIN, TROUBLE BREATHING,FEVER,PAIN Nursing Triage Summary: Chest pain and feeling short winded since yesterday, states comes and goes. Body aches and no energy per pt. Admits to having nasal congestion and a moist cough. Pt states when she breathes, the pain feels worse. "I have bruising all over my legs and stomach and I don't know where they come from." per pt. History of Present Illness The patient is a 46 year old female who presents to the Emergency Room with complaints of persistent chest pain for the past 2 weeks. She describes the pain as a burning ache. It worsens when she coughs. She also has back pain with coughing. She has been feeling low energy. She has bruises all over her body and her bones feel achy. She feels a rattling in her chest when she breathes and feels congested. She has a nonproductive cough. She also had a fever of 102 and headache. She states that her symptoms feel like her previous pneumonia. She is nauseous which she attributes to the pain. She notes that her ankles are itchy. She denies any vomiting. She denies any recent tick bites. She took 2 ibuprofen and 1 Tylenol 2 hours ago for her pain. Source of History: patient Onset: 2 weeks Position: chest Quality: ache, burning Timing: other (persistent) Modifying Factors (Worsening): other (cough) Associated Symptoms: + fevers, + headache, + cough, + nausea, + back pain, + fatigue, No vomiting Note: Pt reports aching bones, bruising. Review of Systems See HPI for pertinent positives & negatives. A total of 10 systems reviewed and were otherwise negative. Past Medical & Surgical Medical Problems: (1) Chronic pain syndrome (2) Diabetes mellitus type 2 (3) dyslipidemia (4) endometrial cryoablation (5) History of - section (6) History of - tubal ligation (7) History of cholecystectomy (8) Nasal polyp (9) Sepsis (10) Ulcer Surgical Problems: (1) Hx of cholecystectomy Family History Cancer Diabetes mellitus Gallbladder disease Heart disease Hypertension Kidney stones Social History Smoking Status: Current Every Day Smoker Alcohol Use: none Marital Status: single Occupation Status: other Current/Historical Medications Scheduled Amphetamine-Dextroamphetamine 30MG (Adderall 30MG), 30 MG PO BID Docusate Sodium (Docusate Sodium), 100 MG PO DAILY Gabapentin (Gabapentin), 300 MG PO AFTERNOON Gabapentin (Gabapentin), 300 MG PO QAM Gabapentin (Neurontin), 600 MG PO HS Gabapentin (Gabapentin), 600 MG PO TID Methadone Hcl (Methadone Hcl), 149 MG PO QAM Omeprazole (Prilosec), 20 MG PO BID Propranolol (Inderal), 10 MG PO DAILY Venlafaxine Hcl (Effexor Extended Rel), 75 MG PO DAILY Venlafaxine Hcl (Effexor Extended Rel), 150 MG PO DAILY Scheduled PRN Clonazepam (Klonopin), 1 MG PO DAILY PRN for Anxiety Allergies Coded Allergies: Tramadol (Verified Allergy, Unknown, SEIZURE, 01/24/17) Promethazine (Verified Adverse Reaction, Mild, JITTERY, 01/24/17) PER PATIENT, GETS JITTERY. NOT ALLERGY Physical Exam Vital Signs Date Time Temp Pulse Resp B/P (MAP) Pulse Ox O2 Delivery O2 Flow Rate FiO2 03/02/17 21:58 91 18 133/71 96 Room Air 03/02/17 20:12 96 18 134/76 96 Room Air 03/02/17 19:42 96 Room Air 03/02/17 19:37 113 03/02/17 18:41 36.5 116 20 147/79 93 Room Air Physical Exam Constitutional: Vital signs reviewed. Eyes: Pupils are equal round reactive to light. Conjunctiva are noninjected. ENT: Pharynx is clear without erythema or exudate. Mucous membranes are moist. Neck supple without meningeal signs. Respiratory: Clear to auscultation bilaterally. Breath sounds are equal bilaterally. Cardiovascular: Tachycardic rate and regular rhythm. No rubs or gallops. GI: Soft, nondistended and nontender. Bowel sounds are present. Musculoskeletal: No peripheral edema. No lower extremity tenderness. Reproducible chest wall tenderness to palpation. Integumentary: No cyanosis. Neurological: The patient is awake and alert. Cranial nerves II-XII are intact. Motor is 5 out of 5 all extremities. Sensation is intact to light touch all extremities. Normal speech. No pronator drift. Negative Brudzinski sign. Psychiatric: Normal affect. Medical Decision & Procedures ER Provider Diagnostic Interpretation: X-ray results as stated below per interpretation by me and the radiologist: CHEST 2 VIEWS ROUTINE CLINICAL HISTORY: eval for pnea dyspnea COMPARISON STUDY: 01/24/2017 FINDINGS: The bones soft tissues and hemidiaphragms are normal. The cardiomediastinal silhouette is normal. The lungs are clear. The pulmonary vasculature is normal. IMPRESSION: Negative chest. The above report was generated using voice recognition software. It may contain grammatical, syntax or spelling errors. Electronically signed by: Todd Reynolds M.D. 03/02/2017 9:34 PM Dictated Date/Time: 03/02/2017 9:34 PM Laboratory Results 03/02/17 20:00 Red Blood Count 4.30, Mean Corpuscular Volume 90.9, Mean Corpuscular Hemoglobin 30.0, Mean Corpuscular Hemoglobin Concent 33.0, Mean Platelet Volume 10.6, Neutrophils (%) (Auto) 66.7, Lymphocytes (%) (Auto) 21.8, Monocytes (%) (Auto) 5.7, Eosinophils (%) (Auto) 5.0, Basophils (%) (Auto) 0.3, Neutrophils # (Auto) 6.62, Lymphocytes # (Auto) 2.16, Monocytes # (Auto) 0.57, Eosinophils # (Auto) 0.50, Basophils # (Auto) 0.03 03/02/17 20:00 Test 03/02/17 20:00 03/02/17 20:02 03/02/17 20:09 03/02/17 20:17 White Blood Count 9.93 K/uL (4.8-10.8) Red Blood Count 4.30 M/uL (4.2-5.4) Hemoglobin 12.9 g/dL (12.0-16.0) Hematocrit 39.1 % (37-47) Mean Corpuscular Volume 90.9 fL (80-100) Mean Corpuscular Hemoglobin 30.0 pg (25-34) Mean Corpuscular Hemoglobin Concent 33.0 g/dl (32-36) Platelet Count 157 K/uL (130-400) Mean Platelet Volume 10.6 fL (7.4-10.4) Neutrophils (%) (Auto) 66.7 % Lymphocytes (%) (Auto) 21.8 % Monocytes (%) (Auto) 5.7 % Eosinophils (%) (Auto) 5.0 % Basophils (%) (Auto) 0.3 % Neutrophils # (Auto) 6.62 K/uL (1.4-6.5) Lymphocytes # (Auto) 2.16 K/uL (1.2-3.4) Monocytes # (Auto) 0.57 K/uL (0.11-0.59) Eosinophils # (Auto) 0.50 K/uL (0-0.5) Basophils # (Auto) 0.03 K/uL (0-0.2) RDW Standard Deviation 50.0 fL (36.4-46.3) RDW Coefficient of Variation 15.0 % (11.5-14.5) Immature Granulocyte % (Auto) 0.5 % Immature Granulocyte # (Auto) 0.05 K/uL (0.00-0.02) Prothrombin Time 10.3 SECONDS (9.0-12.0) Prothromb Time International Ratio 1.0 (0.9-1.1) Activated Partial Thromboplast Time 28.2 SECONDS (21.0-31.0) Partial Thromboplastin Ratio 1.1 Anion Gap 4.0 mmol/L (3-11) Est Creatinine Clear Calc Drug Dose 97.5 ml/min Estimated GFR () 92.6 Estimated GFR (Non- 79.9 BUN/Creatinine Ratio 11.5 (10-20) Calcium Level 8.9 mg/dl (8.5-10.1) Total Bilirubin 0.3 mg/dl (0.2-1) Aspartate Amino Transf (AST/SGOT) 37 U/L (15-37) Alanine Aminotransferase (ALT/SGPT) 56 U/L (12-78) Alkaline Phosphatase 149 U/L (45-117) Total Protein 7.2 gm/dl (6.4-8.2) Albumin 3.5 gm/dl (3.4-5.0) Globulin 3.7 gm/dl (2.5-4.0) Albumin/Globulin Ratio 0.9 (0.9-2) Lyme Disease IgG Antibody NEG (NEG) Lyme Disease IgM Antibody NEG (NEG) Bedside Lactic Acid Venous 1.24 mmol/L (0.90-1.70) Bedside Troponin I < 0.030 ng/ml (0-0.045) Influenza Type A Antigen Neg for Influ A (NEG) Influenza Type B Antigen Neg for Influ B (NEG) Laboratory results as reviewed by me. Medications Administered Medications (Trade) Dose Ordered Sig/Orestes Route Start Time Stop Time Status Last Admin Dose Admin Sodium Chloride 1,000 ml @ 999 mls/hr Q1H1M STAT IV 03/02/17 19:38 03/02/17 20:38 DC 03/02/17 19:38 999 MLS/HR Acetaminophen (Tylenol Tab) 325 mg NOW STAT PO 03/02/17 20:13 03/02/17 20:14 DC 03/02/17 20:32 325 MG ECG Indication: chest pain Rate (beats per minute): 110 Rhythm: sinus tachycardia Findings: nonspecific-ST abn (V3-V6), RBBB (incomplete) ED Course 1932: The patient was evaluated in room A2. A complete history and physical exam was performed. 1937: NSS 1000 ml @ 999 mls/hr IV. 2012: Acetaminophen 325 mg PO. 2217: Upon reevaluation, the patient appeared to have improvement of her symptoms. I discussed rosi's findings with her. She verbalized agreement of the treatment plan. She was discharged home. Medical Decision This is a 46-year-old female presents with fever and malaise. Differential diagnoses: Viral syndrome, pneumonia, bronchitis, Influenza, Lyme disease, I did perform a limited focused review of portions of the patient's old chart on the electronic medical record. The patient was here January 24 for chest pain, fever, and headache. She was diagnosed with acute bronchitis and discharged on Augmentin. I did evaluate the patient as noted above. The patient is presenting with a nonproductive cough and fever. She states she feels like when she previously had pneumonia. She complains of chest pain but has very reproducible chest wall tenderness. She is not hypoxic. IV access was established. The patient was placed on a continuous structures mechanic. I did order and personally review the patient's 12-lead EKG and chest x-ray as described above. There is no evidence of pneumonia on chest x-ray. She does have some rate related nonspecific changes on her EKG. I did order and review the patient's blood work as noted in the electronic medical record. Troponin is negative. Her white blood cell count is not elevated. Lyme testing is negative. Influenza swab was also negative. I did treat the patient with normal saline IV. She was also given Tylenol for her pain. I did discuss the test results with the patient. At this time her symptoms likely seem viral in nature. I did recommend continuing [id number] remedies and close follow up with her doctor. She was discharged in good condition. Medication Reconcilliation Current Medication List: was personally reviewed by me Blood Pressure Screening Patient's blood pressure: Elevated blood pressure Blood pressure disposition: Referred to PCP Impression Primary Impression: Musculoskeletal chest pain Additional Impressions: Bronchitis Myalgia Scribe Attestation The scribe's documentation has been prepared under my direct and personally reviewed by me in its entirety. I confirm that the note above accurately reflects all work, treatment, procedures, and medical decision making performed by me. Departure Information Dispostion Home / Self-Care Referrals No Doctor, Assigned (PCP) Forms Call Back Authorization, HOME CARE DOCUMENTATION FORM, IMPORTANT VISIT INFORMATION Patient Instructions ED Chest Pain Atypical Unkn Cause, My [facility] Additional Instructions You have been examined and treated today on an emergency basis only. This is not a substitute for, or an effort to provide, complete comprehensive medical care. It is impossible to recognize and treat all injuries or illnesses in a single emergency department visit. It is therefore important that you follow up closely with your physician. Call as soon as possible for an appointment. Return for worsening symptoms or if you develop rash, vomiting or any other concerning symptoms. Problem Qualifiers
[2017-03-15] MEDS ORDERED: PRED-301 PO (13:07)
== END 2017-03-02 22:36 | disposition home or self-care (01) ==
LOC: C.EDB 18:39 → C.EDA 22:36
DX: R07.89 Other chest pain (principal); J40 Bronchitis, not specified as acute or chronic; M79.1 Myalgia; R00.0 Tachycardia, unspecified; I45.10 Unspecified right bundle-branch block; M54.9 Dorsalgia, unspecified; R50.9 Fever, unspecified; R51 Headache; R11.0 Nausea; E11.9 Type 2 diabetes mellitus without complications; E78.5 Hyperlipidemia, unspecified; Z79.899 Other long term (current) drug therapy; Z86.19 Personal history of other infectious and parasitic diseases; Z87.19 Personal history of other diseases of the digestive system; Z82.49 Family history of ischemic heart disease and other diseases of the circulatory system; Z83.3 Family history of diabetes mellitus; Z83.79 Family history of other diseases of the digestive system; Z84.1 Family history of disorders of kidney and ureter; F17.200 Nicotine dependence, unspecified, uncomplicated

== ENCOUNTER 2017-03-11 08:01 | Inpatient (IN) | payer OTHER ==
[~2017-03-11] VITALS: Ht 172.7 cm; Wt 96.4 kg
[2017-03-11] VITALS (7 sets, daily range): BP systolic 106–118; BP diastolic 65–74; PULSE 68–84; TEMP 36.6–37; O2SAT 91–94; Ht 172.7 cm; Wt 96.4 kg
[~2017-03-11 08:01] MED LIST changes: +AMPH30TA2 PO; +GABA-113 PO; +GABA1CAP4 PO; -HYDR-5688 PO; +METH10SO PO; +NRN300 PO; +PROP10TA7 PO
[2017-03-11] MEDS ORDERED: METHYLPREDNISOLONE 125 MG VIAL IV STA (08:18)
[2017-03-11] MEDS ORDERED: MAGNESIUM SULFATE 1GM / D5W 1 GM BAG IV STA (08:18)
[2017-03-11] MEDS ORDERED: ACETAMINOPHEN 500 MG TAB PO STA (08:18)
--- NOTE | 2017-03-11 08:23 | EMERGENCY ROOM VISIT NOTE ---
History Report prepared by Corinna: Yancy Fermin Under the Supervision of: Dr. Nicholas Pablo M.D. First contact with patient: 08:13 Chief Complaint: RESPIRATORY PROBLEMS Stated Complaint: SOB, CHEST CONGESTION, FEVER History of Present Illness The patient is a 46 year old female who presents to the Emergency Room with complaints of constant shortness of breath beginning 1 week ago. The patient states that she was seen here 1 week ago and has been on Augmentin. She reports that she checked her pulse ox at home and it was between 84 and 88. She notes that she is not on oxygen at home and has had respiratory difficulty or pneumonia 4 times since June. The patient complains of fever, achiness, cough , chest congestion, abdominal bloating, leg pain, back pain, nausea, and headaches. She denies any constipation, diarrhea, urinary symptoms, and vomiting. She states that she is a smoker and has been smoke a 1/2 pack a day since she has been having shortness of breath. She notes that she has an inhaler at home that she has been using every 5-6 hours. The patient states that she has been admitted before for COPD and this feels worse than her previous symptoms. She notes that laying down worsens her symptoms. Source of History: patient Onset: 1 week ago Position: other (respiratory) Quality: other (SOB) Timing: constant Modifying Factors (Worsening): other (laying down) Associated Symptoms: + fevers, + headache, + cough, + nausea, + back pain, No vomiting, No abdominal pain, No diarrhea, No urinary symptoms Note: The patient complains of fever, achiness, leg pain, chest congestion, abdominal bloating. She denies any constipation. Review of Systems See HPI for pertinent positives and negatives. A total of ten systems were reviewed and were otherwise negative. Past Medical & Surgical Medical Problems: (1) Chronic pain syndrome (2) Diabetes mellitus type 2 (3) dyslipidemia (4) endometrial cryoablation (5) Fever (6) History of - section (7) History of - tubal ligation (8) History of cholecystectomy (9) Nasal polyp (10) Sepsis (11) SOB (shortness of breath) (12) Ulcer Surgical Problems: (1) Hx of cholecystectomy Family History Cancer Diabetes mellitus Gallbladder disease Heart disease Hypertension Kidney stones Social History Smoking Status: Current Every Day Smoker Alcohol Use: none Marital Status: single Occupation Status: other Current/Historical Medications Scheduled Amphetamine-Dextroamphetamine 30MG (Adderall 30MG), 10 MG PO BID Gabapentin (Gabapentin), 300 MG PO AFTERNOON Gabapentin (Gabapentin), 300 MG PO QAM Gabapentin (Neurontin), 600 MG PO HS Methadone Hcl (Methadone Hcl), 149 MG PO QAM Omeprazole (Prilosec), 20 MG PO BID Venlafaxine Hcl (Effexor Extended Rel), 75 MG PO DAILY Venlafaxine Hcl (Effexor Extended Rel), 150 MG PO DAILY Scheduled PRN Clonazepam (Klonopin), 1 MG PO Q6 PRN for Anxiety Docusate Sodium (Docusate Sodium), 100 MG PO DAILY PRN for Constipation Hydroxyzine HCl (Hydroxyzine HCl), 1 CAP DAILY PRN for Anxiety Ibuprofen Tab (Advil), 600 MG PO Q6 PRN for Pain Ondasetron Odt (Zofran Odt), 4 MG SL Q12 PRN for Nausea Allergies Coded Allergies: Tramadol (Verified Allergy, Unknown, SEIZURE, 03/11/17) Promethazine (Verified Adverse Reaction, Mild, JITTERY, 03/11/17) PER PATIENT, GETS JITTERY. NOT ALLERGY Physical Exam Vital Signs Date Time Temp Pulse Resp B/P (MAP) Pulse Ox O2 Delivery O2 Flow Rate FiO2 03/11/17 11:57 92 Mask 6.0 03/11/17 11:13 91 18 108/61 92 Nasal Cannula 5.0 03/11/17 10:13 91 Nasal Cannula 4.0 03/11/17 10:10 37.5 92 22 125/52 93 Nasal Cannula 3.0 03/11/17 09:19 84 16 91 Nasal Cannula 4.0 03/11/17 08:33 85 Room Air 03/11/17 08:32 91 03/11/17 08:25 97 Room Air 03/11/17 08:25 85 Room Air 03/11/17 08:05 38.5 108 24 149/93 86 Room Air Physical Exam GENERAL: Awake, alert, well-appearing, in no distress HENT: Normocephalic, atraumatic. Dry mucous membranes. EYES: Normal conjunctiva. Sclera non-icteric. NECK: Supple. No nuchal rigidity. FROM. No JVD. RESPIRATORY: Labored breathing with accessory muscle use. Scattered wheezes throughout with diminished breath sounds throughout. CARDIAC: Regular rate, normal rhythm. Extremities warm and well perfused. Pulses equal. ABDOMEN: Soft, slightly distended. No tenderness to palpation. No rebound or guarding. No masses. RECTAL: Deferred. MUSCULOSKELETAL: Chest examination reveals no tenderness. The back is symmetrical on inspection without obvious abnormality. There is no CVA tenderness to palpation. No joint edema. LOWER EXTREMITIES: Calves are equal size bilaterally and non-tender. Scant edema. No discoloration. NEURO: Normal sensorium. No sensory or motor deficits noted. SKIN: No rash or jaundice noted. Medical Decision & Procedures ER Provider Diagnostic Interpretation: Radiology results as stated below per my review and radiologist interpretation: CHEST ONE VIEW PORTABLE FINDINGS: Cardiomediastinal silhouette normal. Vague patchy opacities in the right mid and lung base suggested. No effusion or pneumothorax. Osseous structures normal. Upper abdomen normal. IMPRESSION: 1. Suggestion of vague patchy opacity in the right mid and lung base. Further confirmation with PA and lateral views of the chest could be obtained as this raises concern for pneumonia. Electronically signed by: Loc Jenkins M.D. 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 Pulmonary vasculature: The study is adequate for assessment of the pulmonary vascular tree. No filling defect within the pulmonary arteries to suggest embolus. Main pulmonary artery is not enlarged. No flattening of the interventricular septum. No intracardiac intracardiac filling defect. No reflux of contrast into the hepatic veins. Remaining chest: On soft tissue windows, normal thyroid and thoracic inlet. Prominent mediastinal lymph nodes, increased in size since the prior exam. An index node in the prevascular region now measures 12 mm in short axis, previously 9 mm. Increased prominence of precarinal and subcarinal lymph nodes as well as bilateral hilar lymph nodes. Normal aorta. Normal heart size. No pericardial or pleural effusion. The spleen is mildly enlarged, similar to prior exam. On lung windows, patchy groundglass opacities have increased from prior exam, which affects the upper lobes to the greatest degree. More solid consolidation and centrilobular nodularity noted at the left lung base. No significant septal thickening. No fissural nodularity. Airways patent. On bone windows, normal osseous structures. IMPRESSION: 1. No evidence of pulmonary embolus. 2. Interval increase in patchy bilateral groundglass opacities affecting the upper lobes to the greatest degree. To be a chronic lacking in weaning process. Given the presence of increasing mediastinal and hilar lymphadenopathy, sarcoidosis is a diagnostic consideration. Other differential etiologies include pneumocystis pneumonia, chronic eosinophilic pneumonia, and hypersensitivity pneumonitis. 3. Superimposed centrilobular nodularity and more solid consolidation at the left lung base, which raises concern for bronchopneumonia. However, this could also be another manifestation of the more global pulmonary disease. Electronically signed by: Loc Jenkins M.D. 03/11/2017 11:26 AM Dictated Date/Time: 03/11/2017 11:15 AM Laboratory Results 03/11/17 08:54 Red Blood Count 4.07, Mean Corpuscular Volume 90.7, Mean Corpuscular Hemoglobin 30.2, Mean Corpuscular Hemoglobin Concent 33.3, Mean Platelet Volume 10.2, Neutrophils (%) (Auto) 78.2, Lymphocytes (%) (Auto) 12.8, Monocytes (%) (Auto) 5.5, Eosinophils (%) (Auto) 2.2, Basophils (%) (Auto) 0.3, Neutrophils # (Auto) 7.60, Lymphocytes # (Auto) 1.24, Monocytes # (Auto) 0.53, Eosinophils # (Auto) 0.21, Basophils # (Auto) 0.03 03/11/17 08:54 Test 03/11/17 08:54 03/11/17 08:59 03/11/17 09:23 03/11/17 09:30 White Blood Count 9.71 K/uL (4.8-10.8) Red Blood Count 4.07 M/uL (4.2-5.4) Hemoglobin 12.3 g/dL (12.0-16.0) Hematocrit 36.9 % (37-47) Mean Corpuscular Volume 90.7 fL (80-100) Mean Corpuscular Hemoglobin 30.2 pg (25-34) Mean Corpuscular Hemoglobin Concent 33.3 g/dl (32-36) Platelet Count 230 K/uL (130-400) Mean Platelet Volume 10.2 fL (7.4-10.4) Neutrophils (%) (Auto) 78.2 % Lymphocytes (%) (Auto) 12.8 % Monocytes (%) (Auto) 5.5 % Eosinophils (%) (Auto) 2.2 % Basophils (%) (Auto) 0.3 % Neutrophils # (Auto) 7.60 K/uL (1.4-6.5) Lymphocytes # (Auto) 1.24 K/uL (1.2-3.4) Monocytes # (Auto) 0.53 K/uL (0.11-0.59) Eosinophils # (Auto) 0.21 K/uL (0-0.5) Basophils # (Auto) 0.03 K/uL (0-0.2) RDW Standard Deviation 51.5 fL (36.4-46.3) RDW Coefficient of Variation 15.6 % (11.5-14.5) Immature Granulocyte % (Auto) 1.0 % Immature Granulocyte # (Auto) 0.10 K/uL (0.00-0.02) Anion Gap 7.0 mmol/L (3-11) Est Creatinine Clear Calc Drug Dose 120.2 ml/min Estimated GFR () 118.4 Estimated GFR (Non- 102.1 BUN/Creatinine Ratio 12.5 (10-20) Calcium Level 9.2 mg/dl (8.5-10.1) Total Bilirubin 0.4 mg/dl (0.2-1) Direct Bilirubin 0.2 mg/dl (0-0.2) Aspartate Amino Transf (AST/SGOT) 37 U/L (15-37) Alanine Aminotransferase (ALT/SGPT) 28 U/L (12-78) Alkaline Phosphatase 163 U/L (45-117) Troponin I < 0.015 ng/ml (0-0.045) Pro-B-Type Natriuretic Peptide 594 pg/ml (0-450) Total Protein 7.6 gm/dl (6.4-8.2) Albumin 3.3 gm/dl (3.4-5.0) Lipase 85 U/L (73-393) Bedside Lactic Acid Venous 0.73 mmol/L (0.90-1.70) Venous Blood pH 7.43 (7.36-7.41) Venous Blood Partial Pressure CO2 38 mmHg (38.0-50.0) Venous Blood Partial Pressure O2 68 mmHg Venous Blood HCO3 25 mmol/L Venous Blood Oxygen Saturation 92.2 % Venous Blood Base Excess 0.9 mEq/L Lactic Acid Level 0.8 mmol/L (0.4-2.0) Laboratory results reviewed by me Medications Administered Medications (Trade) Dose Ordered Sig/Orestes Route Start Time Stop Time Status Last Admin Dose Admin Albuterol/ Ipratropium (Duoneb) 12 ml ONE ONCE INH 03/11/17 08:30 03/11/17 08:31 DC 03/11/17 09:18 12 ML Methylprednisolone Sodium Succinate (Solu-Medrol IV) 125 mg NOW STAT IV 03/11/17 08:18 03/11/17 08:26 DC 03/11/17 09:03 125 MG Magnesium Sulfate (Magnesium Sulfate) 2 gm NOW STAT IV 03/11/17 08:18 03/11/17 08:26 DC 03/11/17 09:04 2 GM Azithromycin 500 mg/Dextrose 255 ml @ 125 mls/hr ONE ONCE IV 03/11/17 08:30 03/11/17 10:32 DC 03/11/17 09:07 125 MLS/HR Acetaminophen (Tylenol Tab) 1,000 mg NOW STAT PO 03/11/17 08:18 03/11/17 08:26 DC 03/11/17 09:03 1,000 MG Sodium Chloride 1,000 ml @ 999 mls/hr Q1H1M STAT IV 03/11/17 09:52 03/11/17 10:52 DC 03/11/17 10:09 999 MLS/HR Ketorolac Tromethamine (Toradol Inj) 30 mg NOW STAT IV 03/11/17 09:52 03/11/17 09:56 DC 03/11/17 10:07 30 MG Ceftriaxone Sodium 2000 mg/ Dextrose 70 ml @ 100 mls/hr ONE STAT IV 03/11/17 09:52 03/11/17 10:33 DC 03/11/17 10:23 100 MLS/HR Oxycodone/ Acetaminophen (Percocet 5-325mg Tab) 1 tab NOW ONCE PO 03/11/17 11:45 03/11/17 11:46 DC 03/11/17 11:44 1 TAB ECG Indication: SOB/dyspnea Rate (beats per minute): 86 Rhythm: normal sinus Findings: no acute ischemic change, other (normal axis, short DE) ED Course 812: The patient was evaluated in room B10. A complete history and physical exam was performed. 0818: Magnesium Sulfate 2gm IV, Solu-Medrol IV 125mg IV. 0830: Azithromycin 500mg/Dextrose 255ml @ 125mls/hr IV, Duoneb 12ml INH. 0952: Ceftriaxone Sodium 2000mg/Dextrose 70ml @ 100mls/hr IV, Toradol Inj 30mg IV, Sodium Chloride 1000 ml @ 999 mls/hr IV. 1000: Azithromycin 500mg/Dextrose IV. 1036: I reevaluated and updated the patient on her results. 1101: Discussed the patient's case with Dr. Vora [facility]. The patient will be evaluated for further treatment and disposition. 1112: Upon reexamination, the patient was doing well. I discussed the test results and treatment plan with her. The patient will be evaluated for further management. Medical Decision I reviewed the patient's past medical history, medications, and the nursing notes as described above. Differential diagnosis includes pneumonia, bronchitis, COPD exacerbation, ACS, CHF, PE, sepsis. Patient is a 46-year-old woman with a past medical history recurrent bronchitis/ pneumonia emergency department with worsening cough congestion and shortness of breath. History of present illness. The patient appears in mild distress, dyspneic, with O2 sat on room air in the mid 80s. Exam the patient has diffuse wheezing throughout with scattered rhonchi at the bases and poor air flow. Patient was continuous DuoNeb, Solu-Medrol, magnesium, azithromycin on arrival or likely worsening bronchitis. X-ray showing right lung field infiltrate concerning for pneumonia. Therefore patient's coverage was broadened with ceftriaxone for severe CAP coverage. Labs otherwise unremarkable with WBC and lactate within normal limits. EKG unremarkable and troponin negative. Therefore broad-spectrum antibiotics not indicated at this time. The patient continued to report pleuritic chest pain in the setting of her hypoxia CT PE study was ordered. Case was discussed with medicine hospitalist who will admit the patient for further management. Of note, CT negative for PE or showing groundglass opacities since prior CT scan in November. Medication Reconcilliation Current Medication List: was personally reviewed by me Blood Pressure Screening Patient's blood pressure: Elevated blood pressure Blood pressure disposition: Elevated BP felt to be situational Consults Time Called: 1040 Consulting Physician: Dr. Stevie Cannon Returned Call: 1101 Discussed the patient's case with Dr. Hubbard of [facility]. The patient will be evaluated for further treatment and disposition. Impression Primary Impression: Pneumonia Scribe Attestation The scribe's documentation has been prepared under my direction and personally reviewed by me in its entirety. I confirm that the note above accurately reflects all work, treatment, procedures, and medical decision making performed by me. Departure Information Dispostion Being Evaluated By Hospitalist Referrals No Doctor, Assigned (PCP) Patient Instructions My [facility]
[2017-03-11] MEDS ORDERED: AZITHROMYCIN IV 500 MG in DEXTROSE 5% 250ML 250 ML IV ONE ×2 (08:30→10:00)
[2017-03-11] MEDS ORDERED: ALBUT/IPRATROP 3MG/0.5MG NEB 3 ML VIAL INH ONE (08:30)
--- NOTE | 2017-03-11 08:44 | DIAGNOSTIC IMAGING REPORT ---
CHEST ONE VIEW PORTABLE CLINICAL HISTORY: 46 years-old Female presenting with CHEST PAIN. TECHNIQUE: Portable upright AP view of the chest was obtained. COMPARISON: 03/02/2017. FINDINGS: Cardiomediastinal silhouette normal. Vague patchy opacities in the right mid and lung base suggested. No effusion or pneumothorax. Osseous structures normal. Upper abdomen normal. IMPRESSION: 1. Suggestion of vague patchy opacity in the right mid and lung base. Further confirmation with PA and lateral views of the chest could be obtained as this raises concern for pneumonia. Electronically signed by: Loc Jenkisn M.D. 03/11/2017 8:43 AM Dictated Date/Time: 03/11/2017 8:40 AM
[2017-03-11 09:19] LABS: BASO % 0.3 %; BASO ABS # 0.03 K/uL (0-0.2); COMPLETE YES; EOS % 2.2 %; HEMATOCRIT 36.9 % (37-47); LYMPH % 12.8 %; LYMPH ABS # 1.24 K/uL (1.2-3.4); MEAN CELL VOLUME 90.7 fL (80-100); MEAN CORPUSCULAR HEMOGLOBIN 30.2 pg (25-34); MEAN CORPUSCULAR HGB CONC 33.3 g/dl (32-36); MEAN PLATELET VOLUME 10.2 fL (7.4-10.4); MONO % 5.5 %; NEUT % 78.2 %; PLATELET COUNT 230 K/uL (130-400); RED BLOOD COUNT 4.07 M/uL (4.2-5.4); WHITE BLOOD COUNT 9.71 K/uL (4.8-10.8)
[2017-03-11 09:34] LABS: ALT/SGPT 28 U/L (12-78); BLOOD UREA NITROGEN 9 mg/dl (7-18); BUN/CREATININE RATIO 12.5 (10-20); CALCIUM 9.2 mg/dl (8.5-10.1); CARBON DIOXIDE 26 mmol/L (21-32); CHLORIDE 103 mmol/L (98-107); CREATININE 0.71 mg/dl (0.60-1.20); GLUCOSE 120 mg/dl (70-99); POTASSIUM 3.8 mmol/L (3.5-5.1); SODIUM 136 mmol/L (136-145)
[2017-03-11 09:40] LABS: ALKALINE PHOSPHATASE 163 U/L (45-117); AST/SGOT 37 U/L (15-37)
[2017-03-11 09:44] LABS: VEN BLD GAS O2 SATURATION 92.2 %; VEN BLOOD GAS BASE EXCESS 0.9 mEq/L
[2017-03-11] MEDS ORDERED: CEFTRIAXONE SOD INJ 2,000 MG in DEXTROSE 5% 50ML 50 ML IV STA (09:52)
[2017-03-11] MEDS ORDERED: KETOROLAC TROMETHAMINE 30 MG/ML VIAL IV STA (09:52)
[2017-03-11] MEDS ORDERED: SODIUM CHLORIDE 0.9% 1000ML 1,000 ML IV STA (09:52)
[2017-03-11] MEDS ORDERED: OPTIRAY 320 IV PRN (10:45)
--- NOTE | 2017-03-11 11:27 | DIAGNOSTIC IMAGING REPORT ---
(CHEST FOR PE) ANGIO WITH CLINICAL HISTORY: 46 years-old Female presenting with hypoxia, chest congestion. TECHNIQUE: Multidetector CT angiography of the chest was performed after administration of intravenous contrast. 3-D volumetric and/or maximum intensity projection (MIP) images were subsequently reconstructed for review. IV contrast: 78 mL of Optiray 320. A dose lowering technique was used consistent with the principles of ALARA (as low as reasonably achievable). COMPARISON: None. CT DOSE (mGy.cm): The estimated cumulative dose is 499.20 mGy.cm. 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 Pulmonary vasculature: The study is adequate for assessment of the pulmonary vascular tree. No filling defect within the pulmonary arteries to suggest embolus. Main pulmonary artery is not enlarged. No flattening of the interventricular septum. No intracardiac intracardiac filling defect. No reflux of contrast into the hepatic veins. Remaining chest: On soft tissue windows, normal thyroid and thoracic inlet. Prominent mediastinal lymph nodes, increased in size since the prior exam. An index node in the prevascular region now measures 12 mm in short axis, previously 9 mm. Increased prominence of precarinal and subcarinal lymph nodes as well as bilateral hilar lymph nodes. Normal aorta. Normal heart size. No pericardial or pleural effusion. The spleen is mildly enlarged, similar to prior exam. On lung windows, patchy groundglass opacities have increased from prior exam, which affects the upper lobes to the greatest degree. More solid consolidation and centrilobular nodularity noted at the left lung base. No significant septal thickening. No fissural nodularity. Airways patent. On bone windows, normal osseous structures. IMPRESSION: 1. No evidence of pulmonary embolus. 2. Interval increase in patchy bilateral groundglass opacities affecting the upper lobes to the greatest degree. To be a chronic lacking in weaning process. Given the presence of increasing mediastinal and hilar lymphadenopathy, sarcoidosis is a diagnostic consideration. Other differential etiologies include pneumocystis pneumonia, chronic eosinophilic pneumonia, and hypersensitivity pneumonitis. 3. Superimposed centrilobular nodularity and more solid consolidation at the left lung base, which raises concern for bronchopneumonia. However, this could also be another manifestation of the more global pulmonary disease. Electronically signed by: Loc Jenkins M.D. 03/11/2017 11:26 AM Dictated Date/Time: 03/11/2017 11:15 AM
[2017-03-11] MEDS ORDERED: OXYCODONE/ACETAMINOPHEN 5-325 TAB PO ONE ×2 (11:45→18:45)
[2017-03-11] MEDS ORDERED: ENOXAPARIN 40 MG/0.4 ML SYR SQ SCH (12:15)
[2017-03-11] MEDS ORDERED: ATR25 (12:38)
[2017-03-11] MEDS ORDERED: IBUP-103 PO (12:38)
[2017-03-11] MEDS ORDERED: ONDA4TAB10 SL (12:38)
[2017-03-11] MEDS ORDERED: DOCUSATE SODIUM 100 MG CAP PO PRN (12:45)
[2017-03-11] MEDS ORDERED: ONDANSETRON INJ 2 MG/ML 2 ML VIAL IV PRN (12:45)
--- NOTE | 2017-03-11 12:46 | History and Physical ---
History & Physical Date & Time of Service: Mar 11, 2017 at 12:46 Chief Complaint: Sob, Chest Congestion, Fever Primary Care Physician: No Doctor, Assigned History of Present Illness Source: patient, family (sister), clinic records, hospital records 46 year old female with PMH of anemia, peptic ulcer with hemorrhage, fibromyalgia, Drug addiction on methadone, Depression presents to the Emergency Room with complaints of worsening dyspnea. Pt said that she has been having worsening SOB for the past week that is worst on exertion. she saw her pcp 1 week ago and was giving Augmentin with no help. she said that she has been using her albuterol inhaler with no help. She said that she checked her oxygen saturation and it was btw 84 to 88%. She also has been having fever and chills. she checked her temp at room and it was in the 102. Pt said that she has been treated for PNA 4 times since June. She states that she is a smoker and has been smoking less about 1/2 pack a day since developing dyspnea. She said that she has been having a dry coughing. She also complaints of chest tenderness that is associated with the cough. She also has been having nausea, abdominal discomfort associated with bloating. Denies any sick contact or recent travel. Denies any palpitation, dizziness, diarrhea. Past Medical/Surgical History Medical Problems: (1) Chronic pain syndrome Status: Chronic (2) Diabetes mellitus type 2 Status: Chronic (3) dyslipidemia Status: Chronic (4) endometrial cryoablation Status: Chronic (5) History of - section Status: Resolved (6) History of - tubal ligation Status: Resolved (7) History of cholecystectomy Status: Resolved (8) Nasal polyp Status: Resolved (9) Ulcer Status: Resolved Surgical Problems: (1) Hx of cholecystectomy Status: Resolved Family History Cancer Diabetes mellitus Gallbladder disease Heart disease Hypertension Kidney stones Social History Smoking Status: Current Every Day Smoker Marital Status: single Housing status: lives with family Occupational Status: other Immunizations History of Influenza Vaccine: N/A History of Tetanus Vaccine?: UTD History of Pneumococcal: Yes History of Hepatitis B Vaccine: Yes Allergies Coded Allergies: Tramadol (Verified Allergy, Unknown, SEIZURE, 03/11/17) Promethazine (Verified Adverse Reaction, Mild, JITTERY, 03/11/17) PER PATIENT, GETS JITTERY. NOT ALLERGY Home Medications Scheduled Amphetamine-Dextroamphetamine 30MG (Adderall 30MG), 10 MG PO BID Gabapentin (Gabapentin), 300 MG PO AFTERNOON Gabapentin (Gabapentin), 300 MG PO QAM Gabapentin (Neurontin), 600 MG PO HS Methadone Hcl (Methadone Hcl), 149 MG PO QAM Omeprazole (Prilosec), 20 MG PO BID Venlafaxine Hcl (Effexor Extended Rel), 75 MG PO DAILY Venlafaxine Hcl (Effexor Extended Rel), 150 MG PO DAILY Scheduled PRN Clonazepam (Klonopin), 1 MG PO Q6 PRN for Anxiety Docusate Sodium (Docusate Sodium), 100 MG PO DAILY PRN for Constipation Hydroxyzine HCl (Hydroxyzine HCl), 1 CAP DAILY PRN for Anxiety Ibuprofen Tab (Advil), 600 MG PO Q6 PRN for Pain Ondasetron Odt (Zofran Odt), 4 MG SL Q12 PRN for Nausea Review of Systems Constitutional: + fever, + chills, + weakness Eyes: No discharge ENT: No hearing loss Respiratory: + cough, + shortness of breath, + dyspnea on exertion Cardiovascular: No claudication, No palpitations Abdomen: + nausea Musculoskeletal: No calf pain Genitourinary - Female: No hematuria Neurologic: No memory loss, No paralysis Psychiatric: + anxiety Endocrine: + fatigue Hematologic / Lymphatic: + abnormal bleeding/bruising Integumentary: No rash, No itch Physical Exam Vital Signs Date Time Temp Pulse Resp B/P (MAP) Pulse Ox O2 Delivery O2 Flow Rate FiO2 03/11/17 11:57 92 Mask 6.0 03/11/17 11:13 91 18 108/61 92 Nasal Cannula 5.0 03/11/17 10:13 91 Nasal Cannula 4.0 03/11/17 10:10 37.5 92 22 125/52 93 Nasal Cannula 3.0 03/11/17 09:19 84 16 91 Nasal Cannula 4.0 03/11/17 08:33 85 Room Air 03/11/17 08:32 91 03/11/17 08:25 97 Room Air 03/11/17 08:25 85 Room Air 03/11/17 08:05 38.5 108 24 149/93 86 Room Air General Appearance: WD/WN, no apparent distress Head: normocephalic, atraumatic Eyes: PERRL, EOMI ENT: hearing grossly normal Neck: supple, no JVD Respiratory/Chest: no respiratory distress, no accessory muscle use Cardiovascular: no JVD, + tachycardia Abdomen/GI: normal bowel sounds Back: no CVA tenderness Extremities/Musculoskelatal: no calf tenderness Neurologic/Psych: alert, oriented x 3 Skin: warm/dry, no rash Diagnostics Laboratory Results Results Past 24 Hours Test 03/11/17 08:54 03/11/17 08:59 03/11/17 09:23 03/11/17 09:30 Range/Units White Blood Count 9.71 4.8-10.8 K/uL Red Blood Count 4.07 4.2-5.4 M/uL Hemoglobin 12.3 12.0-16.0 g/dL Hematocrit 36.9 37-47 % Mean Corpuscular Volume 90.7 80-100 fL Mean Corpuscular Hemoglobin 30.2 25-34 pg Mean Corpuscular Hemoglobin Concent 33.3 32-36 g/dl Platelet Count 230 130-400 K/uL Mean Platelet Volume 10.2 7.4-10.4 fL Neutrophils (%) (Auto) 78.2 % Lymphocytes (%) (Auto) 12.8 % Monocytes (%) (Auto) 5.5 % Eosinophils (%) (Auto) 2.2 % Basophils (%) (Auto) 0.3 % Neutrophils # (Auto) 7.60 1.4-6.5 K/uL Lymphocytes # (Auto) 1.24 1.2-3.4 K/uL Monocytes # (Auto) 0.53 0.11-0.59 K/uL Eosinophils # (Auto) 0.21 0-0.5 K/uL Basophils # (Auto) 0.03 0-0.2 K/uL RDW Standard Deviation 51.5 36.4-46.3 fL RDW Coefficient of Variation 15.6 11.5-14.5 % Immature Granulocyte % (Auto) 1.0 % Immature Granulocyte # (Auto) 0.10 0.00-0.02 K/uL Sodium Level 136 136-145 mmol/L Potassium Level 3.8 3.5-5.1 mmol/L Chloride Level 103 98-107 mmol/L Carbon Dioxide Level 26 21-32 mmol/L Anion Gap 7.0 3-11 mmol/L Blood Urea Nitrogen 9 7-18 mg/dl Creatinine 0.71 0.60-1.20 mg/dl Est Creatinine Clear Calc Drug Dose 120.2 ml/min Estimated GFR () 118.4 Estimated GFR (Non- 102.1 BUN/Creatinine Ratio 12.5 10-20 Random Glucose 120 70-99 mg/dl Calcium Level 9.2 8.5-10.1 mg/dl Total Bilirubin 0.4 0.2-1 mg/dl Direct Bilirubin 0.2 0-0.2 mg/dl Aspartate Amino Transf (AST/SGOT) 37 15-37 U/L Alanine Aminotransferase (ALT/SGPT) 28 12-78 U/L Alkaline Phosphatase 163 45-117 U/L Troponin I < 0.015 0-0.045 ng/ml Pro-B-Type Natriuretic Peptide 594 0-450 pg/ml Total Protein 7.6 6.4-8.2 gm/dl Albumin 3.3 3.4-5.0 gm/dl Lipase 85 73-393 U/L Bedside Lactic Acid Venous 0.73 0.90-1.70 mmol/L Venous Blood pH 7.43 7.36-7.41 Venous Blood Partial Pressure CO2 38 38.0-50.0 mmHg Venous Blood Partial Pressure O2 68 mmHg Venous Blood HCO3 25 mmol/L Venous Blood Oxygen Saturation 92.2 % Venous Blood Base Excess 0.9 mEq/L Lactic Acid Level 0.8 0.4-2.0 mmol/L Microbiology Results 03/11/17 Blood Culture, Received Pending 03/11/17 Blood Culture, Received Pending Diagnostic Radiology (CHEST FOR PE) ANGIO WITH CLINICAL HISTORY: 46 years-old Female presenting with hypoxia, chest congestion. TECHNIQUE: Multidetector CT angiography of the chest was performed after administration of intravenous contrast. 3-D volumetric and/or maximum intensity projection (MIP) images were subsequently reconstructed for review. IV contrast: 78 mL of Optiray 320. A dose lowering technique was used consistent with the principles of ALARA (as low as reasonably achievable). COMPARISON: None. CT DOSE (mGy.cm): The estimated cumulative dose is 499.20 mGy.cm. FINDINGS: Janitor topogram: Unremarkable. Pulmonary vasculature: The study is adequate for assessment of the pulmonary vascular tree. No filling defect within the pulmonary arteries to suggest embolus. Main pulmonary artery is not enlarged. No flattening of the interventricular septum. No intracardiac intracardiac filling defect. No reflux of contrast into the hepatic veins. Remaining chest: On soft tissue windows, normal thyroid and thoracic inlet. Prominent mediastinal lymph nodes, increased in size since the prior exam. An index node in the prevascular region now measures 12 mm in short axis, previously 9 mm. Increased prominence of precarinal and subcarinal lymph nodes as well as bilateral hilar lymph nodes. Normal aorta. Normal heart size. No pericardial or pleural effusion. The spleen is mildly enlarged, similar to prior exam. On lung windows, patchy groundglass opacities have increased from prior exam, which affects the upper lobes to the greatest degree. More solid consolidation and centrilobular nodularity noted at the left lung base. No significant septal thickening. No fissural nodularity. Airways patent. On bone windows, normal osseous structures. IMPRESSION: 1. No evidence of pulmonary embolus. 2. Interval increase in patchy bilateral groundglass opacities affecting the upper lobes to the greatest degree. To be a chronic lacking in weaning process. Given the presence of increasing mediastinal and hilar lymphadenopathy, sarcoidosis is a diagnostic consideration. Other differential etiologies include pneumocystis pneumonia, chronic eosinophilic pneumonia, and hypersensitivity pneumonitis. 3. Superimposed centrilobular nodularity and more solid consolidation at the left lung base, which raises concern for bronchopneumonia. However, this could also be another manifestation of the more global pulmonary disease. Electronically signed by: Loc Jenkins M.D. 03/11/2017 11:26 AM Dictated Date/Time: 03/11/2017 11:15 AM CHEST ONE VIEW PORTABLE CLINICAL HISTORY: 46 years-old Female presenting with CHEST PAIN. TECHNIQUE: Portable upright AP view of the chest was obtained. COMPARISON: 03/02/2017. FINDINGS: Cardiomediastinal silhouette normal. Vague patchy opacities in the right mid and lung base suggested. No effusion or pneumothorax. Osseous structures normal. Upper abdomen normal. IMPRESSION: 1. Suggestion of vague patchy opacity in the right mid and lung base. Further confirmation with PA and lateral views of the chest could be obtained as this raises concern for pneumonia. Electronically signed by: Loc Jenkins M.D. 03/11/2017 8:43 AM Dictated Date/Time: 03/11/2017 8:40 AM Impression Assessment and Plan Dyspnea /Hypoxia Possible related to Pneumonia Has been having recurrent pneumonia CXR showed vague patchy opacity in the right mid and lung base. CTA chest showed no evidence of PE. Interval increase in patchy bilateral groundglass opacities affecting the upper lobes to the greatest degree Received Rocephin and zithromax, and solumedrol in the ER Will continue rocephin and zitromax starting on prednisone 40mg Duoneb treatment blood cx, urine legionella spending Mediastinal and Hilar lymphadenopathy will need to r/o sarcoidosis Pulmonary consulted will check for angiotensin enzymes Hx of drug abuse Follow with the methadone clinic PDMP reviewed showed last refill for Adderall was in August Also klonopin was refilled on 02/08 for 15 tabs daily Pt said that she was prescribed it q6h and she was taking the Adderall BID Fibromyalgia On gabapentin On Ibuprofen at home, will consider Tylenol due to hx of peptic ulcer Elevated BP Possible situational Will monitor BP Anxiety On klonopin and effexor Hx Peptic ulcer with hemorrhage Stable DVT px on SCDs due to prior history of peptic ulcer bleeding about 1 yr ago CODE STATUS Full code Level of Care Med/Surg Advanced Directives Existing Living Will: No Existing Power of Epilepsy Physician: No Resuscitation Status FULL RESUSCITATION VTE Prophylaxis VTE Risk Assessment Done? Y/N: Yes Risk Level: Moderate Given or contraindicated: SCD's
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
[2017-03-11] MEDS: CLONAZEPAM 1 MG TAB PO PRN (15:22)
[2017-03-11] MEDS: ALBUT/IPRATROP 3MG/0.5MG NEB 3 ML VIAL INH SCH ×2 (15:25→19:51)
[2017-03-11] MEDS: GABAPENTIN 300 MG CAP PO SCH (20:52)
[2017-03-11] MEDS: LANSOPRAZOLE SOLUTAB 15 MG PO SCH (20:52)
[2017-03-11] MEDS ORDERED: NON-FORMULARY MEDICATION (Omeprazole (Prilosec) 20 MG) PO SCH (21:00)
[2017-03-11] MEDS ORDERED: AMPHETAMINE ASP/SULF/DEXTRAMPH 10 MG TAB PO SCH (21:00)
[2017-03-11] MEDS ORDERED: CLONAZEPAM 1 MG TAB PO ONE (23:48)
[2017-03-12] VITALS (8 sets, daily range): BP systolic 112–116; BP diastolic 67–86; PULSE 59–85; TEMP 36.6–36.9; O2SAT 91–97
[2017-03-12 05:56] LABS: HEMATOCRIT 34.9 % (37-47); MEAN CELL VOLUME 91.8 fL (80-100); MEAN CORPUSCULAR HEMOGLOBIN 29.5 pg (25-34); MEAN CORPUSCULAR HGB CONC 32.1 g/dl (32-36); MEAN PLATELET VOLUME 10.1 fL (7.4-10.4); PLATELET COUNT 216 K/uL (130-400); WHITE BLOOD COUNT 7.97 K/uL (4.8-10.8)
[2017-03-12 06:25] LABS: BUN/CREATININE RATIO 14.2 (10-20); CALCIUM 9.2 mg/dl (8.5-10.1); CREATININE 0.71 mg/dl (0.60-1.20); POTASSIUM 3.7 mmol/L (3.5-5.1)
[2017-03-12] MEDS: ALBUT/IPRATROP 3MG/0.5MG NEB 3 ML VIAL INH SCH ×4 (07:18→20:06)
[2017-03-12] MEDS: VENLAFAXINE HCL XR 75 MG CAPXR PO SCH (08:16)
[2017-03-12] MEDS: AZITHROMYCIN IV 500 MG in DEXTROSE 5% 250ML 250 ML IV SCH (08:16)
[2017-03-12] MEDS: GABAPENTIN 300 MG CAP PO SCH ×3 (08:16→21:03)
[2017-03-12] MEDS: LANSOPRAZOLE SOLUTAB 15 MG PO SCH ×2 (08:16→21:03)
[2017-03-12] MEDS: VENLAFAXINE HCL XR 150 MG CAPXR PO SCH (08:16)
[2017-03-12] MEDS: IBUPROFEN 600 MG TAB PO PRN ×2 (08:17→19:01)
[2017-03-12] MEDS: METHADONE ORAL SOLN 2 MG/1ML PO SCH (08:17)
[2017-03-12] MEDS ORDERED: PANTOprazole SOD 40 MG TAB PO SCH (09:00)
[2017-03-12] MEDS ORDERED: METHADONE PRN (09:00)
[2017-03-12] MEDS ORDERED: METHADONE ORAL SOLN 2 MG/1ML PO ONE (10:19)
[2017-03-12] MEDS: CEFTRIAXONE SOD INJ 1 GM in DEXTROSE 5% ADD-VANTAGE 50ML 50 ML IV SCH (10:51)
[2017-03-12] MEDS: CLONAZEPAM 1 MG TAB PO PRN (14:00)
--- NOTE | 2017-03-12 16:45 | Pulmonology Progress Note ---
Pulmonary Progress Note Date of Service Mar 12, 2017. Attending Dr. Gooden Subjective Patient is not feeling better today. She actually is feeling slightly worse. She states that she is having a left-sided back pain today which is slightly worse with deep breath. She continues to have SOB and on and off nagging/dry cough. Labs reviewed 03/12: WBC 7.97 Hgb 11.2 BRUCE pending Creatinine 0.71/ BUN 10 ABG yesterday: pH 7.43 pCO2 38 pO2 68 HCO3 25 O2 Sat 92.2 Blood cultures pending Patient continues on IV Ceftriaxone and Azithromycin CT of Chest showed increase in patchy b/l ground glass opacities osmany. in upper lobes. Images viewed. Increased hilar and mediastinal lymphadenopathy as well. Solid consolidation seen at left lung base as well which raised concern for superimposed PNA as well. Other systems reviewed and negative except as mentioned above. Objective CT Chest 03/11: IMPRESSION: 1. No evidence of pulmonary embolus. 2. Interval increase in patchy bilateral groundglass opacities affecting the upper lobes to the greatest degree. To be a chronic lacking in weaning process. Given the presence of increasing mediastinal and hilar lymphadenopathy, sarcoidosis is a diagnostic consideration. Other differential etiologies include pneumocystis pneumonia, chronic eosinophilic pneumonia, and hypersensitivity pneumonitis. 3. Superimposed centrilobular nodularity and more solid consolidation at the left lung base, which raises concern for bronchopneumonia. However, this could also be another manifestation of the more global pulmonary disease. VS reviewed 03/12: Temp 36.7 C HR 59-84 RR 12-18 BP 112/67-115/72 SaO2 93-96%. Currently on 1.5 L via nasal cannula General: Patient is awake, alert, cooperative, and in no acute distress. Well developed. Well-nourished. Head: Normocephalic, Atraumatic. ENT: PERRLA, No discharge, EOMI, Sclera normal Neck: Normal ROM. Trachea midline. No stridor Respiratory: Mild coarse breath sounds heard at left base. Otherwise relatively clear to auscultation. No respiratory distress. Currently with 1.5 L via nasal cannula Cardiovascular: Regular rate and rhythm. No murmur appreciate. Normal S1/S2. Abdomen: Nontender to palpation. Normal bowel sounds hear throughout. No guarding. Abdomen is soft and nontender Back: Normal inspection. Extremities: No edema, cyanosis. Normal ROM Neuro: Alert, Oriented x 3. CN II-XII grossly intact. Sensation and motor function grossly intact. Psych: Mood and affect are normal. Pulses: Dorsal pedal b/l 2+ Assessment & Plan Multifocal pneumonia superimposed on UNK chronic lung disease Hypoxia Smoker (light, 4 years) -Patient continues to have SOB, cough, and pain with deep inspiration. She is agreeable to having a surgical lung bx as an outpatient following current admission for definitive dx of chronic lung disease- possible sarcoidosis. BRUCE level pending. -Blood cultures pending. Continue Ceftriaxone and Azithromycin pending further improvement. -O2 requirement has decreased. Now on 1.5 L via nasal cannula. Continue to supplement O2 PRN to keep SaO2 >88%. -Continue Duonub as scheduled and PRN SOB. -Continue Prednisone 40 mg. Will begin taper after improvement is seen. -If improvement is not seen over the next 1-2 days, may need to consider bronchoscopy. Pulm will continue to follow Patient and plan reviewed and agree with current assessment. Data Medications: Current Inpatient Medications Medications (Trade) Dose Ordered Sig/Orestes Route Start Time Stop Time Status Last Admin Dose Admin Ioversol (Optiray 320) 100 ml UD PRN IV 03/11/17 10:45 03/15/17 10:44 Ceftriaxone Sodium 1 gm/ Dextrose 50 ml @ 100 mls/hr Q24H IV 03/12/17 10:00 03/18/17 09:59 03/12/17 10:51 100 MLS/HR Azithromycin 500 mg/Dextrose 255 ml @ 125 mls/hr DAILY IV 03/12/17 09:00 03/18/17 08:59 03/12/17 08:16 125 MLS/HR Prednisone (PredniSONE TAB) 40 mg DAILY PO 03/12/17 09:00 04/11/17 08:59 03/12/17 08:16 40 MG Albuterol/ Ipratropium (Duoneb) 3 ml QIDR INH 03/11/17 16:00 04/10/17 15:59 03/12/17 15:23 3 ML Docusate Sodium (coLACE CAP) 100 mg DAILY PRN PO 03/11/17 12:45 04/10/17 12:44 Gabapentin (Neurontin Cap) 300 mg DAILY@1400 PO 03/12/17 14:00 04/11/17 13:59 03/12/17 14:00 300 MG Gabapentin (Neurontin Cap) 300 mg QAM PO 03/12/17 09:00 04/11/17 08:59 03/12/17 08:16 300 MG Gabapentin (Neurontin Cap) 600 mg HS PO 03/11/17 21:00 04/10/17 20:59 03/11/17 20:52 600 MG Venlafaxine HCl (effeXOR EXTENDED REL CAP) 75 mg DAILY PO 03/12/17 09:00 04/11/17 08:59 03/12/17 08:16 75 MG Venlafaxine HCl (effeXOR EXTENDED REL CAP) 150 mg DAILY PO 03/12/17 09:00 04/11/17 08:59 03/12/17 08:16 150 MG Methadone HCl (Methadone HCl) 149 mg QAM PO 03/12/17 09:00 03/26/17 08:59 Future hold 03/12/17 08:17 149 MG Clonazepam (Klonopin Tab) 1 mg DAILY PRN PO 03/11/17 12:45 04/10/17 12:44 03/12/17 14:00 1 MG Ondansetron HCl (Zofran Inj) 4 mg Q6H PRN IV 03/11/17 12:45 04/10/17 12:44 Non-Formulary Medication (Patient'S Own Controlled Med) 1 ea QAM PRN N/A 03/12/17 09:00 03/26/17 08:59 Future hold 03/12/17 08:17 1 EA Lansoprazole (Prevacid Solutab) 15 mg BID PO 03/11/17 21:00 04/10/17 20:59 03/12/17 08:16 15 MG Ibuprofen (Motrin Tab) 600 mg TID PRN PO 03/11/17 18:45 04/10/17 18:44 03/12/17 08:17 600 MG Vital Signs: Date Time Temp Pulse Resp B/P (MAP) Pulse Ox O2 Delivery O2 Flow Rate FiO2 03/12/17 15:25 36.7 59 16 112/67 (82) 94 1.5 03/12/17 15:23 66 14 95 Nasal Cannula 1.5 03/12/17 11:03 64 14 93 Nasal Cannula 1.5 03/12/17 08:00 Nasal Cannula 1.0 03/12/17 07:25 36.9 84 18 115/72 (86) 95 03/12/17 07:18 66 12 96 Nasal Cannula 5.0 03/12/17 00:00 Nasal Cannula 6.0 03/11/17 23:49 36.6 69 20 118/74 (89) 94 Nasal Cannula 6.0 03/11/17 20:00 Nasal Cannula 6.0 03/11/17 19:51 68 16 94 Nasal Cannula 5.0 Laboratory Results: Last 24 Hours Test 03/12/17 05:36 White Blood Count 7.97 K/uL Red Blood Count 3.80 M/uL Hemoglobin 11.2 g/dL Hematocrit 34.9 % Mean Corpuscular Volume 91.8 fL Mean Corpuscular Hemoglobin 29.5 pg Mean Corpuscular Hemoglobin Concent 32.1 g/dl RDW Standard Deviation 52.7 fL RDW Coefficient of Variation 15.7 % Platelet Count 216 K/uL Mean Platelet Volume 10.1 fL Sodium Level 140 mmol/L Potassium Level 3.7 mmol/L Chloride Level 106 mmol/L Carbon Dioxide Level 28 mmol/L Anion Gap 6.0 mmol/L Blood Urea Nitrogen 10 mg/dl Creatinine 0.71 mg/dl Est Creatinine Clear Calc Drug Dose 120.2 ml/min Estimated GFR () 118.4 Estimated GFR (Non- 102.1 BUN/Creatinine Ratio 14.2 Random Glucose 140 mg/dl Calcium Level 9.2 mg/dl
--- NOTE | 2017-03-12 19:37 | Progress Note ---
Medicine Progress Note Date & Time of Visit: Mar 12, 2017 at 19:17. Subjective Pt was seen and examined Lying in bed with no distress Pt said that she is having tenderness around her left side of her rib that radiating to her back she said that pain worsening with coughing and deep breathing She said that she becomes shortness of breath with minimal exertion Denies any chest pain and palpitation Objective Last 8 Hrs Date Time Temp Pulse Resp B/P (MAP) Pulse Ox O2 Delivery O2 Flow Rate FiO2 03/12/17 16:00 94 Nasal Cannula 1.5 03/12/17 15:25 36.7 59 16 112/67 (82) 94 1.5 03/12/17 15:23 66 14 95 Nasal Cannula 1.5 Physical Exam: General- No acute distress Head- atraumatic Eyes- PERRL, EOMI ENT- oropharynx clear Neck- supple, no JVD Lungs- Coarse breath sound Heart- regular rhythm Abdomen- normal bowel sounds Extremities- no calf tenderness Neuro- alert, oriented x 3; PERRL, EOMI Skin- warm & dry Laboratory Results: Last 24 Hours Test 03/12/17 05:36 03/12/17 16:50 03/12/17 17:56 White Blood Count 7.97 K/uL Red Blood Count 3.80 M/uL Hemoglobin 11.2 g/dL Hematocrit 34.9 % Mean Corpuscular Volume 91.8 fL Mean Corpuscular Hemoglobin 29.5 pg Mean Corpuscular Hemoglobin Concent 32.1 g/dl RDW Standard Deviation 52.7 fL RDW Coefficient of Variation 15.7 % Platelet Count 216 K/uL Mean Platelet Volume 10.1 fL Sodium Level 140 mmol/L Potassium Level 3.7 mmol/L Chloride Level 106 mmol/L Carbon Dioxide Level 28 mmol/L Anion Gap 6.0 mmol/L Blood Urea Nitrogen 10 mg/dl Creatinine 0.71 mg/dl Est Creatinine Clear Calc Drug Dose 120.2 ml/min Estimated GFR () 118.4 Estimated GFR (Non- 102.1 BUN/Creatinine Ratio 14.2 Random Glucose 140 mg/dl Calcium Level 9.2 mg/dl Assessment & Plan Dyspnea /Hypoxia Secondary to Pneumonia Has been having recurrent pneumonia CXR showed vague patchy opacity in the right mid and lung base. CTA chest showed no evidence of PE. Interval increase in patchy bilateral groundglass opacities affecting the upper lobes to the greatest degree Received Rocephin and zithromax, and solumedrol in the ER Continue rocephin and Zithromax Continue prednisone 40mg Duoneb treatment, will add guaifenesin for the cough blood cx and urine legionella, serum mycoplasma pending Continue oxygen supplement Pulmonary on board If symptoms worsening, will consider a bronch as per pulmonary team Mediastinal and Hilar lymphadenopathy will need to r/o sarcoidosis Pulmonary consulted angiotensin converting enzymes pending Will need a lung bx as an outpatient as per pulmonary Hx of drug abuse Follow with the methadone clinic PDMP reviewed showed last refill for Adderall was in August Also klonopin was refilled on 02/08 for 15 tabs daily Pt said that she was prescribed it q6h and she was taking the Adderall BID Fibromyalgia On gabapentin On Ibuprofen at home, will consider Tylenol due to hx of peptic ulcer Elevated BP Possible situational Will monitor BP Elevated blood glucose Will check Hba1c Anxiety On klonopin and effexor Pt was taking klonopin q6hr prn Informed pt that her last script for Klonopin was ordered to take daily Hx Peptic ulcer with hemorrhage Stable DVT px on SCDs due to prior history of peptic ulcer bleeding about 1 yr ago CODE STATUS Full code Consultants: Pulmonary Current Inpatient Medications: Current Inpatient Medications Medications (Trade) Dose Ordered Sig/Orestes Route Start Time Stop Time Status Last Admin Dose Admin Ioversol (Optiray 320) 100 ml UD PRN IV 03/11/17 10:45 03/15/17 10:44 Ceftriaxone Sodium 1 gm/ Dextrose 50 ml @ 100 mls/hr Q24H IV 03/12/17 10:00 03/18/17 09:59 03/12/17 10:51 100 MLS/HR Azithromycin 500 mg/Dextrose 255 ml @ 125 mls/hr DAILY IV 03/12/17 09:00 03/18/17 08:59 03/12/17 08:16 125 MLS/HR Prednisone (PredniSONE TAB) 40 mg DAILY PO 03/12/17 09:00 04/11/17 08:59 03/12/17 08:16 40 MG Albuterol/ Ipratropium (Duoneb) 3 ml QIDR INH 03/11/17 16:00 04/10/17 15:59 03/12/17 15:23 3 ML Docusate Sodium (coLACE CAP) 100 mg DAILY PRN PO 03/11/17 12:45 04/10/17 12:44 Gabapentin (Neurontin Cap) 300 mg DAILY@1400 PO 03/12/17 14:00 04/11/17 13:59 03/12/17 14:00 300 MG Gabapentin (Neurontin Cap) 300 mg QAM PO 03/12/17 09:00 04/11/17 08:59 03/12/17 08:16 300 MG Gabapentin (Neurontin Cap) 600 mg HS PO 03/11/17 21:00 04/10/17 20:59 03/11/17 20:52 600 MG Venlafaxine HCl (effeXOR EXTENDED REL CAP) 75 mg DAILY PO 03/12/17 09:00 04/11/17 08:59 03/12/17 08:16 75 MG Venlafaxine HCl (effeXOR EXTENDED REL CAP) 150 mg DAILY PO 03/12/17 09:00 04/11/17 08:59 03/12/17 08:16 150 MG Methadone HCl (Methadone HCl) 149 mg QAM PO 03/12/17 09:00 03/26/17 08:59 Future hold 03/12/17 08:17 149 MG Clonazepam (Klonopin Tab) 1 mg DAILY PRN PO 03/11/17 12:45 04/10/17 12:44 03/12/17 14:00 1 MG Ondansetron HCl (Zofran Inj) 4 mg Q6H PRN IV 03/11/17 12:45 04/10/17 12:44 Non-Formulary Medication (Patient'S Own Controlled Med) 1 ea QAM PRN N/A 03/12/17 09:00 03/26/17 08:59 Future hold 03/12/17 08:17 1 EA Lansoprazole (Prevacid Solutab) 15 mg BID PO 03/11/17 21:00 04/10/17 20:59 03/12/17 08:16 15 MG Ibuprofen (Motrin Tab) 600 mg TID PRN PO 03/11/17 18:45 04/10/17 18:44 03/12/17 19:01 600 MG
[2017-03-12] MEDS: KETOROLAC TROMETHAMINE 30 MG/ML VIAL IV PRN (21:00)
[2017-03-12] MEDS: GUAIFENESIN/CODEINE 200MG/20MG 10ML UDC PO PRN (21:02)
[2017-03-13 06:02] LABS: HEMATOCRIT 35.1 % (37-47); MEAN CELL VOLUME 92.6 fL (80-100); MEAN CORPUSCULAR HEMOGLOBIN 28.8 pg (25-34); MEAN CORPUSCULAR HGB CONC 31.1 g/dl (32-36); PLATELET COUNT 248 K/uL (130-400); RED BLOOD COUNT 3.79 M/uL (4.2-5.4); WHITE BLOOD COUNT 8.56 K/uL (4.8-10.8)
[2017-03-13 06:12] LABS: ESTIMATED AVERAGE GLUCOSE 123 mg/dl; HA1C FLAG Normal (Normal)
[2017-03-13 06:29] LABS: BUN/CREATININE RATIO 19.3 (10-20); CALCIUM 8.9 mg/dl (8.5-10.1); CREATININE 0.75 mg/dl (0.60-1.20); POTASSIUM 3.5 mmol/L (3.5-5.1)
[2017-03-13] MEDS: ALBUT/IPRATROP 3MG/0.5MG NEB 3 ML VIAL INH SCH (07:03)
[2017-03-13 07:04] VITALS: PULSE 82; O2SAT 93
[2017-03-13 07:54] VITALS: BP 129/71; PULSE 70; TEMP 36.8; O2SAT 93
[2017-03-13] MEDS: LANSOPRAZOLE SOLUTAB 15 MG PO SCH ×2 (08:31→21:03)
[2017-03-13] MEDS: GABAPENTIN 300 MG CAP PO SCH ×3 (08:31→21:03)
[2017-03-13] MEDS: VENLAFAXINE HCL XR 75 MG CAPXR PO SCH (08:31)
[2017-03-13] MEDS: VENLAFAXINE HCL XR 150 MG CAPXR PO SCH (08:31)
[2017-03-13] MEDS: CEFTRIAXONE SOD INJ 1 GM in DEXTROSE 5% ADD-VANTAGE 50ML 50 ML IV SCH (08:32)
[2017-03-13] MEDS: AZITHROMYCIN IV 500 MG in DEXTROSE 5% 250ML 250 ML IV SCH (08:33)
[2017-03-13] MEDS: CLONAZEPAM 1 MG TAB PO PRN (08:33)
[2017-03-13] MEDS ORDERED: METHADONE ORAL SOLN 2 MG/1ML PO SCH (09:00)
--- NOTE | 2017-03-13 10:38 | Pharmacy Progress Note ---
Automatic IV to PO Conversion Date of Service: Mar 13, 2017. [facility] Pharmacy has identified patient as an appropriate candidate for automatic intravenous to oral conversion. Eligible medication: Azithromycin 500mg IV every 24 hours. Day # 2 of IV therapy. Subjective The patient is a 46 year old female admitted on Mar 11, 2017 at 12:12 for Fever, Sob. Objective Vital Signs: Vital Signs Past 12 Hours Date Time Temp Pulse Resp B/P (MAP) Pulse Ox O2 Delivery O2 Flow Rate FiO2 03/13/17 08:00 Nasal Cannula 1.5 03/13/17 07:54 36.8 70 16 129/71 (90) 93 03/13/17 07:04 82 18 93 Room Air 03/13/17 00:00 Nasal Cannula 1.5 03/12/17 23:05 36.6 65 18 116/86 (96) 97 Room Air White Blood Count: Test 03/13/17 05:46 White Blood Count 8.56 K/uL (4.8-10.8) Height (Feet): 5 Height (Inches): 8.00 Weight (Kilograms): 96.400 Type of Diet: Regular Assessment & Plan The Infectious Disease Society and the [place] [employer] recommend conversion to oral therapy once a patient is determined to be clinically stable and are able to tolerate oral medications. Patient identified as appropriate candidate for IV to PO conversion of Azithromycin 500mg daily based on the following criteria: * Afebrile for greater than or equal to 12 hours * Receiving oral/enteral medications and/or tolerating oral/enteral diet for greater than 24 hours * Improvement in clinical condition evidenced by .. WBC count of 8.56 10^3/uL and trending downward, resolution of signs/symptoms of illness * Hemodynamically stable or * Receiving oral medications and/or tolerating oral diet for greater than 24 hours Automatic conversion to: Azithromycin 500mg PO every 24 hours
[2017-03-13] MEDS: IPRATROPIUM BROMIDE/ALBUTEROL respimat INH INH SCH ×3 (12:39→21:02)
[2017-03-13] MEDS: IBUPROFEN 600 MG TAB PO PRN ×2 (12:40→19:43)
--- NOTE | 2017-03-13 14:10 | Pulmonology Progress Note ---
Pulmonary Progress Note Date of Service Mar 13, 2017. Attending Dr. Gooden Subjective Patient notes she still continues to be short of breath and intermittent cough. She also complains of vague myalgias as well as arthralgias then notes left flank pain Objective 46-year-old female with diabetes, hypertension who was admitted for shortness of breath with minimal smoking history about 0.5 PPD 4 years who is been noted to have progressive fatigue and dyspnea on exertion over the last 10 months notable abnormal CAT scans over that period of time. She's been treated with steroids and antibiotics with minimal overall relief. VS: I/O: +480cc RR: 16-18 SaO2: 93% FIO2: 1.5L RESP: Decreased breath sounds otherwise clear to auscultation bilaterally CARD: S1-S2 regular rate and rhythm no murmurs or gallops ABB: Positive bowel sounds soft nontender EXT: 1+ pitting edema bilaterally Flank: No flank pain to palpation Studies: WBC: [id number] PLT: 248 H/H: 11/35 BNP: 594 AO: 163 (03/11/17) ALB: 3.3 VBG (03/11/17) 7.43/38 Microbiology: Blood x2 no growth to date Pending: BRUCE Level Legionella IgG Urine Legionella Mycoplasma IgG & Gimp CTA Thorax (03/11/17) compared to: 12/18/2016, 07/29/2015, and CT of the ABD/Pelvis (02/24/2015) Increased Diffuse GGO changes greatest in the Upper lobes bilaterally Mediastinal and hilar adenopathy Microbiology: Urine 04/13/2017: Lactobacillus species Urine 09/09/2007: Lactobacillus species Urine 06/22/2008: Lactobacillus bacillus species Urine 02/09/2015: Gardnerella Urine 10/27/2015: Chemistry up not enterococcus Assessment & Plan 46-year-old female with progressive pulmonary filtrates and mediastinal lymphadenopathy for the last 10 months: #1 Abnormal CAT scan: Patient has diffuse groundglass changes which have been consistent nature since July 2016. Also she has notable mediastinal lymphadenopathy associated with these changes. Clinically the patient is continued to be fatigued with diffuse myalgias over that timeframe as well. As the patient's CT changes seem to be more progressive I do believe that this time she wants more thorough investigation and she has agreed to perform nevus bronchoscopy with transbronchial biopsies. The OR has been informed and we are opening up the space tomorrow 03/14/2017. Patient is also agreed to perform a HIV study and I will send off for pre-albumin level and 24-hour urine calcium at this time. Data Medications: Current Inpatient Medications Medications (Trade) Dose Ordered Sig/Orestes Route Start Time Stop Time Status Last Admin Dose Admin Ioversol (Optiray 320) 100 ml UD PRN IV 03/11/17 10:45 03/15/17 10:44 Ceftriaxone Sodium 1 gm/ Dextrose 50 ml @ 100 mls/hr Q24H IV 03/12/17 10:00 03/18/17 09:59 03/13/17 08:32 100 MLS/HR Prednisone (PredniSONE TAB) 40 mg DAILY PO 03/12/17 09:00 04/11/17 08:59 03/13/17 08:31 40 MG Docusate Sodium (coLACE CAP) 100 mg DAILY PRN PO 03/11/17 12:45 04/10/17 12:44 Gabapentin (Neurontin Cap) 300 mg DAILY@1400 PO 03/12/17 14:00 04/11/17 13:59 03/13/17 12:39 300 MG Gabapentin (Neurontin Cap) 300 mg QAM PO 03/12/17 09:00 04/11/17 08:59 03/13/17 08:31 300 MG Gabapentin (Neurontin Cap) 600 mg HS PO 03/11/17 21:00 04/10/17 20:59 03/12/17 21:03 600 MG Venlafaxine HCl (effeXOR EXTENDED REL CAP) 75 mg DAILY PO 03/12/17 09:00 04/11/17 08:59 03/13/17 08:31 75 MG Venlafaxine HCl (effeXOR EXTENDED REL CAP) 150 mg DAILY PO 03/12/17 09:00 04/11/17 08:59 03/13/17 08:31 150 MG Methadone HCl (Methadone HCl) 149 mg QAM PO 03/12/17 09:00 03/26/17 08:59 Future hold 03/12/17 08:17 149 MG Clonazepam (Klonopin Tab) 1 mg DAILY PRN PO 03/11/17 12:45 04/10/17 12:44 03/13/17 08:33 1 MG Ondansetron HCl (Zofran Inj) 4 mg Q6H PRN IV 03/11/17 12:45 04/10/17 12:44 Non-Formulary Medication (Patient'S Own Controlled Med) 1 ea QAM PRN N/A 03/12/17 09:00 03/26/17 08:59 Future hold 03/12/17 08:17 1 EA Lansoprazole (Prevacid Solutab) 15 mg BID PO 03/11/17 21:00 04/10/17 20:59 03/13/17 08:31 15 MG Ibuprofen (Motrin Tab) 600 mg TID PRN PO 03/11/17 18:45 04/10/17 18:44 03/13/17 12:40 600 MG Codeine Phosphate/ Guaifenesin (Robitussin-AC Sugar Free Syrup) 10 ml Q6H PRN PO 03/12/17 19:45 04/11/17 19:44 03/12/17 21:02 10 ML Ketorolac Tromethamine (Toradol Inj) 30 mg Q6H PRN IV 03/12/17 20:45 03/17/17 20:44 03/12/17 21:00 30 MG Albuterol/ Ipratropium (Combivent Respimat Inh) 1 puffs QID INH 03/13/17 13:00 04/12/17 12:59 03/13/17 12:39 1 PUFFS Azithromycin (Zithromax Tab) 500 mg DAILY PO 03/14/17 09:00 03/18/17 08:59 Vital Signs: Date Time Temp Pulse Resp B/P (MAP) Pulse Ox O2 Delivery O2 Flow Rate FiO2 03/13/17 08:00 Nasal Cannula 1.5 03/13/17 07:54 36.8 70 16 129/71 (90) 93 03/13/17 07:04 82 18 93 Room Air 03/13/17 00:00 Nasal Cannula 1.5 03/12/17 23:05 36.6 65 18 116/86 (96) 97 Room Air 03/12/17 20:08 85 14 91 Room Air 03/12/17 16:00 94 Nasal Cannula 1.5 03/12/17 15:25 36.7 59 16 112/67 (82) 94 1.5 03/12/17 15:23 66 14 95 Nasal Cannula 1.5 Laboratory Results: Last 24 Hours Test 03/12/17 16:50 03/13/17 05:46 White Blood Count 8.56 K/uL Red Blood Count 3.79 M/uL Hemoglobin 10.9 g/dL Hematocrit 35.1 % Mean Corpuscular Volume 92.6 fL Mean Corpuscular Hemoglobin 28.8 pg Mean Corpuscular Hemoglobin Concent 31.1 g/dl RDW Standard Deviation 54.0 fL RDW Coefficient of Variation 16.1 % Platelet Count 248 K/uL Mean Platelet Volume 10.0 fL Sodium Level 141 mmol/L Potassium Level 3.5 mmol/L Chloride Level 107 mmol/L Carbon Dioxide Level 26 mmol/L Anion Gap 8.0 mmol/L Blood Urea Nitrogen 15 mg/dl Creatinine 0.75 mg/dl Est Creatinine Clear Calc Drug Dose 113.8 ml/min Estimated GFR () 110.8 Estimated GFR (Non- 95.6 BUN/Creatinine Ratio 19.3 Random Glucose 127 mg/dl Estimated Average Glucose 123 mg/dl Hemoglobin A1c 5.9 % Calcium Level 8.9 mg/dl
[2017-03-13 15:34] VITALS: BP 132/82; PULSE 90; TEMP 37.1; O2SAT 96
[2017-03-13 16:00] VITALS: O2SAT 96
--- NOTE | 2017-03-13 16:16 | Anesthesiology Progress Note ---
Anesthesia Progress Note Date of Service Mar 13, 2017. Progress Notes The patient is a 46 y/o female scheduled for EBUS tomorrow. She has had SOB and chest congestion for the past week. She check a pulse oximeter at home and found it to read in the 80s so she came to the hospital. The patient does not have known COPD, however she uses albuterol since having multiple episodes of pneumonia in the past year. She has been started on antibiotics for possible pneumonia and given Duonebs. The EBUS is being performed to diagnose any other underlying lung disease. Other PMH includes GERD, a peptic ulcer, fibromyalgia , anemia, anxiety, depression, obesity, and migraines. The patient smokes 0.5 ppd x4 years. The patient had a CXR that showed vague patchy opacities and possible R lung base pneumonia. She had a chest CT that showed patchy bilateral ground glass opacities with possible L centrilobular pneumonia. Her EKG shows sinus rhythm with short LA. Labs are significant for hgb 10.9 and BNP of 594. On exam the patient has good neck extension, is MP 2, and edentulous. On auscultation her lungs have slight rhonchi in the bases bilaterally. Heart is RRR. Carotids are negative for bruits. The patient was consented for general anesthesia. She was counseled to remain NPO after midnight except for sips of water with pills.
[2017-03-13] MEDS ORDERED: PHENYLEPHRINE 100MCG/ML 5ML SYR IV PRN (16:30)
[2017-03-13] MEDS ORDERED: EpHEDrine SULFATE INJ 50 MG/ML AMP IV PRN (16:30)
[2017-03-13] MEDS ORDERED: HYDROmorphone INJ 2 MG/ML SYR/VIAL IV PRN (16:30)
[2017-03-13] MEDS ORDERED: ATROPINE SULFATE 0.1 MG/ML 5ML SYR IV PRN (16:30)
[2017-03-13] MEDS ORDERED: MEPERIDINE HCL 25 MG/ML CARP IV PRN (16:30)
[2017-03-13] MEDS ORDERED: LABETALOL HCL IV 5 MG/ML 20ML IV PRN (16:30)
[2017-03-13] MEDS ORDERED: ONDANSETRON INJ 2 MG/ML 2 ML VIAL IV PRN (16:30)
[2017-03-13] MEDS ORDERED: FENTANYL CITRATE INJ 50 MCG/1 ML 2 ML VIAL IV PRN (16:30)
[2017-03-13] MEDS ORDERED: FLUMAZENIL 0.1 MG/1 ML 10 ML VIAL IV PRN (16:30)
[2017-03-13] MEDS ORDERED: NALOXONE HCL 0.4 MG/1 ML VIAL/CARP IV PRN (16:30)
[2017-03-13] MEDS: GUAIFENESIN/CODEINE 200MG/20MG 10ML UDC PO PRN (16:45)
[2017-03-13] MEDS: KETOROLAC TROMETHAMINE 30 MG/ML VIAL IV PRN (16:50)
--- NOTE | 2017-03-13 19:45 | Progress Note ---
Medicine Progress Note Date & Time of Visit: Mar 13, 2017 at 19:37. Subjective Pt was seen and examined Sitting at the edge of the bed with no distress Pt said that she feels slightly better she said that the cough slightly improved continue to have pain when cough denies any chest pain, palpitation and fever Objective Last 8 Hrs Date Time Temp Pulse Resp B/P (MAP) Pulse Ox O2 Delivery O2 Flow Rate FiO2 03/13/17 15:34 37.1 90 18 132/82 (99) 96 Room Air Physical Exam: General- No acute distress Head- atraumatic Eyes- PERRL, EOMI ENT- oropharynx clear Neck- supple, no JVD Lungs- No wheezing Heart- regular rhythm Abdomen- normal bowel sounds Extremities- no calf tenderness Neuro- alert, oriented x 3; PERRL, EOMI Skin- warm & dry Laboratory Results: Last 24 Hours Test 03/13/17 05:46 03/13/17 14:29 White Blood Count 8.56 K/uL Red Blood Count 3.79 M/uL Hemoglobin 10.9 g/dL Hematocrit 35.1 % Mean Corpuscular Volume 92.6 fL Mean Corpuscular Hemoglobin 28.8 pg Mean Corpuscular Hemoglobin Concent 31.1 g/dl RDW Standard Deviation 54.0 fL RDW Coefficient of Variation 16.1 % Platelet Count 248 K/uL Mean Platelet Volume 10.0 fL Sodium Level 141 mmol/L Potassium Level 3.5 mmol/L Chloride Level 107 mmol/L Carbon Dioxide Level 26 mmol/L Anion Gap 8.0 mmol/L Blood Urea Nitrogen 15 mg/dl Creatinine 0.75 mg/dl Est Creatinine Clear Calc Drug Dose 113.8 ml/min Estimated GFR () 110.8 Estimated GFR (Non- 95.6 BUN/Creatinine Ratio 19.3 Random Glucose 127 mg/dl Estimated Average Glucose 123 mg/dl Hemoglobin A1c 5.9 % Calcium Level 8.9 mg/dl Assessment & Plan Dyspnea /Hypoxia Secondary to Pneumonia Has been having recurrent pneumonia CXR showed vague patchy opacity in the right mid and lung base. CTA chest showed no evidence of PE. Interval increase in patchy bilateral groundglass opacities affecting the upper lobes to the greatest degree Received Rocephin and zithromax, and solumedrol in the ER Continue rocephin and Zithromax Continue prednisone 40mg Duoneb treatment, will add guaifenesin for the cough blood cx and urine legionella, serum mycoplasma pending Continue oxygen supplement Pulmonary on board If symptoms worsening, will consider a bronch as per pulmonary team 03/13 Slightly improved continue prednisone case discussed with Dr. Gooden, plan to have bronch tomorrow NPO after midnight HIV test pending Mediastinal and Hilar lymphadenopathy will need to r/o sarcoidosis Pulmonary consulted angiotensin converting enzymes pending schedule for bronch tomorrow Bacteremia Blood cx positive for gram positive cocci will start on IV vanco Will consult ID repeat blood cx tomorrow consider echo monitor CBC Hx of drug abuse Follow with the methadone clinic PDMP reviewed showed last refill for Adderall was in August Also klonopin was refilled on 02/08 for 15 tabs daily Pt said that she was prescribed it q6h and she was taking the Adderall BID Fibromyalgia On gabapentin On Ibuprofen at home, will consider Tylenol due to hx of peptic ulcer Elevated BP Possible situational Will monitor BP BP control Elevated blood glucose Hba1c 5.9 advised pt about Diet and losing weight Tobacco abuse Counseling on smoking cessation Anxiety On klonopin and effexor Pt was taking klonopin q6hr prn Informed pt that her last script for Klonopin was ordered to take daily Hx Peptic ulcer with hemorrhage Stable DVT px on SCDs due to prior history of peptic ulcer bleeding about 1 yr ago CODE STATUS Full code Disposition Schedule for bronchoscopy tomorrow Consultants: Pulmonary Current Inpatient Medications: Current Inpatient Medications Medications (Trade) Dose Ordered Sig/Orestes Route Start Time Stop Time Status Last Admin Dose Admin Ioversol (Optiray 320) 100 ml UD PRN IV 03/11/17 10:45 03/15/17 10:44 Ceftriaxone Sodium 1 gm/ Dextrose 50 ml @ 100 mls/hr Q24H IV 03/12/17 10:00 03/18/17 09:59 03/13/17 08:32 100 MLS/HR Prednisone (PredniSONE TAB) 40 mg DAILY PO 03/12/17 09:00 04/11/17 08:59 03/13/17 08:31 40 MG Docusate Sodium (coLACE CAP) 100 mg DAILY PRN PO 03/11/17 12:45 04/10/17 12:44 Gabapentin (Neurontin Cap) 300 mg DAILY@1400 PO 03/12/17 14:00 04/11/17 13:59 03/13/17 12:39 300 MG Gabapentin (Neurontin Cap) 300 mg QAM PO 03/12/17 09:00 04/11/17 08:59 03/13/17 08:31 300 MG Gabapentin (Neurontin Cap) 600 mg HS PO 03/11/17 21:00 04/10/17 20:59 03/12/17 21:03 600 MG Venlafaxine HCl (effeXOR EXTENDED REL CAP) 75 mg DAILY PO 03/12/17 09:00 04/11/17 08:59 03/13/17 08:31 75 MG Venlafaxine HCl (effeXOR EXTENDED REL CAP) 150 mg DAILY PO 03/12/17 09:00 04/11/17 08:59 03/13/17 08:31 150 MG Methadone HCl (Methadone HCl) 149 mg QAM PO 03/12/17 09:00 03/26/17 08:59 Future hold 03/12/17 08:17 149 MG Clonazepam (Klonopin Tab) 1 mg DAILY PRN PO 03/11/17 12:45 04/10/17 12:44 03/13/17 08:33 1 MG Ondansetron HCl (Zofran Inj) 4 mg Q6H PRN IV 03/11/17 12:45 04/10/17 12:44 Non-Formulary Medication (Patient'S Own Controlled Med) 1 ea QAM PRN N/A 03/12/17 09:00 03/26/17 08:59 Future hold 03/12/17 08:17 1 EA Lansoprazole (Prevacid Solutab) 15 mg BID PO 03/11/17 21:00 04/10/17 20:59 03/13/17 08:31 15 MG Ibuprofen (Motrin Tab) 600 mg TID PRN PO 03/11/17 18:45 04/10/17 18:44 03/13/17 12:40 600 MG Codeine Phosphate/ Guaifenesin (Robitussin-AC Sugar Free Syrup) 10 ml Q6H PRN PO 03/12/17 19:45 04/11/17 19:44 03/13/17 16:45 10 ML Ketorolac Tromethamine (Toradol Inj) 30 mg Q6H PRN IV 03/12/17 20:45 03/17/17 20:44 03/13/17 16:50 30 MG Albuterol/ Ipratropium (Combivent Respimat Inh) 1 puffs QID INH 03/13/17 13:00 04/12/17 12:59 03/13/17 16:45 1 PUFFS Azithromycin (Zithromax Tab) 500 mg DAILY PO 03/14/17 09:00 03/18/17 08:59 Dextrose 1,000 ml @ 50 mls/hr Q20H IV 03/14/17 00:00 04/13/17 00:00 Hydromorphone HCl (Dilaudid Inj) 0.5 mg Q5M PRN IV 03/13/17 16:30 03/13/17 21:30 Fentanyl Citrate (Fentanyl Inj) 25 mcg Q5M PRN IV 03/13/17 16:30 03/13/17 21:30 Naloxone HCl (Narcan Inj) 0.2 mg Q2M PRN IV 03/13/17 16:30 03/13/17 21:30 Meperidine HCl (Demerol Inj) 12.5 mg Q5M PRN IV 03/13/17 16:30 03/13/17 21:30 Ondansetron HCl (Zofran Inj) 4 mg ONE PRN IV 03/13/17 16:30 03/13/17 21:30 Flumazenil (Romazicon Inj) 0.2 mg Q2M PRN IV 03/13/17 16:30 03/13/17 21:30 Labetalol HCl (Normodyne IV) 5 mg Q5M PRN IV 03/13/17 16:30 03/13/17 21:30 Ephedrine Sulfate (EpHEDrine SULFATE INJ) 5 mg Q5M PRN IV 03/13/17 16:30 03/13/17 21:30 Atropine Sulfate (Atropine Sulfate 0.1MG/Ml Inj) 0.5 mg Q1M PRN IV 03/13/17 16:30 03/13/17 21:30 Phenylephrine HCl (Hector-Synephrine 500MCG/5ML Syr) 100 mcg Q5M PRN IV 03/13/17 16:30 03/13/17 21:30
[2017-03-13] MEDS ORDERED: VANCOMYCIN CONSULT ACTIVE PRN (20:30)
[2017-03-13] MEDS ORDERED: VANCOMYCIN INJ 1,000 MG in SODIUM CHLORIDE 0.9% 250ML 250 ML IV SCH (21:00)
[2017-03-13] MEDS ORDERED: VANCOMYCIN INJ 2,250 MG in SODIUM CHLORIDE 0.9% 500ML 500 ML IV SCH (21:00)
[2017-03-14] VITALS (7 sets, daily range): BP systolic 115–130; BP diastolic 70–78; PULSE 56–69; TEMP 36.4–37; O2SAT 92–96
[2017-03-14] MEDS ORDERED: DEXTROSE 5% 1000ML 1,000 ML IV SCH
--- NOTE | 2017-03-14 00:31 | Pharmacy Progress Note ---
Pharmacy Antibiotic Consult Date of Service: Mar 14, 2017. Pharmacy Dosing Scope * Pharmacy is consulted to initiate Vancomycin IV dosing therapy, order appropriate labs and adjust drug dose/frequency. Subjective * The patient is a 46 year old female admitted on Mar 11, 2017 at 12:12. Objective Height (Feet): 5 Height (Inches): 8.00 Weight (Kilograms): 96.400 Lab Results (24hrs): Test 03/13/17 05:46 03/13/17 14:29 White Blood Count 8.56 K/uL (4.8-10.8) Red Blood Count 3.79 M/uL (4.2-5.4) Hemoglobin 10.9 g/dL (12.0-16.0) Hematocrit 35.1 % (37-47) Mean Corpuscular Volume 92.6 fL (80-100) Mean Corpuscular Hemoglobin 28.8 pg (25-34) Mean Corpuscular Hemoglobin Concent 31.1 g/dl (32-36) RDW Standard Deviation 54.0 fL (36.4-46.3) RDW Coefficient of Variation 16.1 % (11.5-14.5) Platelet Count 248 K/uL (130-400) Mean Platelet Volume 10.0 fL (7.4-10.4) Sodium Level 141 mmol/L (136-145) Potassium Level 3.5 mmol/L (3.5-5.1) Chloride Level 107 mmol/L (98-107) Carbon Dioxide Level 26 mmol/L (21-32) Anion Gap 8.0 mmol/L (3-11) Blood Urea Nitrogen 15 mg/dl (7-18) Creatinine 0.75 mg/dl (0.60-1.20) Est Creatinine Clear Calc Drug Dose 113.8 ml/min Estimated GFR () 110.8 Estimated GFR (Non- 95.6 BUN/Creatinine Ratio 19.3 (10-20) Random Glucose 127 mg/dl (70-99) Estimated Average Glucose 123 mg/dl Hemoglobin A1c 5.9 % (4.5-5.6) Calcium Level 8.9 mg/dl (8.5-10.1) Micro Results: Item Value Date Time Blood Culture - Preliminary Resulted 03/11/17 0848 Blood Gram Positive Cocci Assessment & Plan * Loading dose: 2250mg IV (~ 23.3mg/kg) X 1 dose then 1500mg IV (~25.5mg/kg) every 10 hours. * Goal peak level estimate: between 30-40 mcg/mL. * Goal trough level estimate: between 16-20 mcg/mL. * Trough level is ordered for 0130 on 03/15/17. Pharmacy will continue to follow and will adjust dose/frequency as necessary. Thank you
[2017-03-14] MEDS ORDERED: VANCOMYCIN INJ 1,500 MG in SODIUM CHLORIDE 0.9% 500ML 500 ML IV SCH (06:00)
[2017-03-14] MEDS: KETOROLAC TROMETHAMINE 30 MG/ML VIAL IV PRN ×2 (06:41→18:54)
[2017-03-14 08:08] LABS: HEMATOCRIT 34.8 % (37-47); MEAN CELL VOLUME 90.6 fL (80-100); MEAN CORPUSCULAR HEMOGLOBIN 29.9 pg (25-34); MEAN PLATELET VOLUME 9.7 fL (7.4-10.4); PLATELET COUNT 257 K/uL (130-400); RED BLOOD COUNT 3.84 M/uL (4.2-5.4); WHITE BLOOD COUNT 8.11 K/uL (4.8-10.8)
[2017-03-14 08:16] LABS: PROTHROMBIN TIME (PATIENT) 10.7 SECONDS (9.0-12.0)
[2017-03-14 08:35] LABS: BUN/CREATININE RATIO 15.2 (10-20); CALCIUM 9.1 mg/dl (8.5-10.1); CREATININE 0.82 mg/dl (0.60-1.20); POTASSIUM 3.4 mmol/L (3.5-5.1)
[2017-03-14] MEDS: LANSOPRAZOLE SOLUTAB 15 MG PO SCH ×2 (08:44→20:46)
[2017-03-14] MEDS: VENLAFAXINE HCL XR 150 MG CAPXR PO SCH (08:44)
[2017-03-14] MEDS: IPRATROPIUM BROMIDE/ALBUTEROL respimat INH INH SCH ×4 (08:44→20:44)
[2017-03-14] MEDS: GABAPENTIN 300 MG CAP PO SCH ×3 (08:44→20:45)
[2017-03-14] MEDS: AZITHROMYCIN 250 MG TAB PO SCH (08:44)
[2017-03-14] MEDS: VENLAFAXINE HCL XR 75 MG CAPXR PO SCH (08:45)
[2017-03-14] MEDS: METHADONE ORAL SOLN 2 MG/1ML PO SCH (08:45)
[2017-03-14] MEDS: CEFTRIAXONE SOD INJ 1 GM in DEXTROSE 5% ADD-VANTAGE 50ML 50 ML IV SCH (09:33)
--- NOTE | 2017-03-14 09:51 | History & Physical Bridge Note ---
H&P Re-Evaluation Bridge Note: I have examined the patient, reviewed the History & Physical and in the interval since the performance of the History & Physical I have noted the following changes of clinical significance: No changes noted
--- NOTE | 2017-03-14 10:53 | Medical Consult ---
Consultation Date of Consultation: Mar 14, 2017. Attending Physician: Carlos Freeman M.D. Reason for Consultation: Positive blood culture for gram-positive cocci History of Present Illness 46-year-old female with history of fibromyalgia, peptic ulcer disease, chronic anemia, depression, who was admitted with 1 week history of progressively worsening cough, shortness of breath, generalized aches and pains, with low- grade fever. She states that she has had at least 4 separate bouts of pneumonia since June requiring antibiotic therapy. She had rheumatologic workup in the past which was unremarkable. She has had low IgA level documented in 2008. She has now been found to have worsening infiltrates on chest x-ray along with worsening regional adenopathy, and bronchoscopy is planned for later today. Blood cultures now reported, 1 bottle, positive for gram-positive cocci. She denies any significant travel or exposure history. No pets. I ordered HIV testing this morning which was negative. Other serologic studies are pending. Patient currently being treated with vancomycin , azithromycin, ceftriaxone Past Medical/Surgical History Medical Problems: (1) Anxiety Status: Acute (2) Bilateral pneumonia Status: Acute (3) Chest pain Status: Acute (4) Chronic dental pain Status: Acute (5) Fever Status: Acute (6) Musculoskeletal pain Status: Acute (7) Pneumonia Status: Acute (8) Pneumonia Status: Acute (9) Pneumonia Status: Acute (10) Tobacco abuse Status: Acute (11) Upper abdominal pain Status: Acute Medical Problems: (1) Chronic pain syndrome (2) Diabetes mellitus type 2 (3) dyslipidemia (4) endometrial cryoablation (5) Fever (6) History of - section (7) History of - tubal ligation (8) History of cholecystectomy (9) Nasal polyp (10) Sepsis (11) SOB (shortness of breath) (12) Ulcer Surgical Problems: (1) Hx of cholecystectomy Family History Cancer Diabetes mellitus Gallbladder disease Heart disease Hypertension Kidney stones Social History Smoking Status: Current Every Day Smoker Marital Status: single Occupation Status: other Allergies Coded Allergies: Tramadol (Verified Allergy, Unknown, SEIZURE, 03/11/17) Promethazine (Verified Adverse Reaction, Mild, JITTERY, 03/11/17) PER PATIENT, GETS JITTERY. NOT ALLERGY Current Inpatient Medications Current Inpatient Medications Medications (Trade) Dose Ordered Sig/Orestes Route Start Time Stop Time Status Last Admin Dose Admin Ioversol (Optiray 320) 100 ml UD PRN IV 03/11/17 10:45 03/15/17 10:44 Ceftriaxone Sodium 1 gm/ Dextrose 50 ml @ 100 mls/hr Q24H IV 03/12/17 10:00 03/18/17 09:59 03/14/17 09:33 100 MLS/HR Prednisone (PredniSONE TAB) 40 mg DAILY PO 03/12/17 09:00 04/11/17 08:59 03/14/17 08:44 40 MG Docusate Sodium (coLACE CAP) 100 mg DAILY PRN PO 03/11/17 12:45 04/10/17 12:44 Gabapentin (Neurontin Cap) 300 mg DAILY@1400 PO 03/12/17 14:00 04/11/17 13:59 03/13/17 12:39 300 MG Gabapentin (Neurontin Cap) 300 mg QAM PO 03/12/17 09:00 04/11/17 08:59 03/14/17 08:44 300 MG Gabapentin (Neurontin Cap) 600 mg HS PO 03/11/17 21:00 04/10/17 20:59 03/13/17 21:03 600 MG Venlafaxine HCl (effeXOR EXTENDED REL CAP) 75 mg DAILY PO 03/12/17 09:00 04/11/17 08:59 03/14/17 08:45 75 MG Venlafaxine HCl (effeXOR EXTENDED REL CAP) 150 mg DAILY PO 03/12/17 09:00 04/11/17 08:59 03/14/17 08:44 150 MG Methadone HCl (Methadone HCl) 149 mg QAM PO 03/12/17 09:00 03/26/17 08:59 Future hold 03/14/17 08:45 149 MG Clonazepam (Klonopin Tab) 1 mg DAILY PRN PO 03/11/17 12:45 04/10/17 12:44 03/13/17 08:33 1 MG Ondansetron HCl (Zofran Inj) 4 mg Q6H PRN IV 03/11/17 12:45 04/10/17 12:44 Non-Formulary Medication (Patient'S Own Controlled Med) 1 ea QAM PRN N/A 03/12/17 09:00 03/26/17 08:59 Future hold 03/12/17 08:17 1 EA Lansoprazole (Prevacid Solutab) 15 mg BID PO 03/11/17 21:00 04/10/17 20:59 03/14/17 08:44 15 MG Ibuprofen (Motrin Tab) 600 mg TID PRN PO 03/11/17 18:45 04/10/17 18:44 03/13/17 19:43 600 MG Codeine Phosphate/ Guaifenesin (Robitussin-AC Sugar Free Syrup) 10 ml Q6H PRN PO 03/12/17 19:45 04/11/17 19:44 03/13/17 16:45 10 ML Ketorolac Tromethamine (Toradol Inj) 30 mg Q6H PRN IV 03/12/17 20:45 03/17/17 20:44 03/14/17 06:41 30 MG Albuterol/ Ipratropium (Combivent Respimat Inh) 1 puffs QID INH 03/13/17 13:00 04/12/17 12:59 03/14/17 08:44 1 PUFFS Azithromycin (Zithromax Tab) 500 mg DAILY PO 03/14/17 09:00 03/18/17 08:59 03/14/17 08:44 500 MG Dextrose 1,000 ml @ 50 mls/hr Q20H IV 03/14/17 00:00 04/13/17 00:00 03/14/17 00:00 50 MLS/HR Vancomycin HCl (Consult) 1 ea UD PRN N/A 03/13/17 20:30 04/12/17 20:29 Vancomycin HCl 1500 mg/Sodium Chloride 530 ml @ 200 mls/hr Q10H IV 03/14/17 06:00 03/28/17 05:59 03/14/17 06:28 200 MLS/HR Review of Systems All systems were reviewed and are negative except as per HPI Physical Exam Date Time Temp Pulse Resp B/P (MAP) Pulse Ox O2 Delivery O2 Flow Rate FiO2 03/14/17 08:30 Room Air 03/14/17 07:33 36.4 69 18 122/74 (90) 95 03/14/17 00:08 36.8 56 18 123/75 (91) 93 Room Air 03/14/17 00:00 Room Air 03/13/17 16:00 96 Room Air 2.0 03/13/17 15:34 37.1 90 18 132/82 (99) 96 Room Air General Appearance: WD/WN, no apparent distress Head: normocephalic, atraumatic Eyes: normal inspection, sclerae normal ENT: normal ENT inspection, pharynx normal Neck: supple, no adenopathy, trachea midline Respiratory/Chest: chest non-tender, no respiratory distress, no accessory muscle use, + rales Cardiovascular: regular rate, rhythm, no gallop, no murmur Abdomen/GI: normal bowel sounds, non tender, soft, no organomegaly Back: normal inspection, no CVA tenderness Extremities/Musculoskelatal: normal inspection, no calf tenderness, non-tender Neurologic/Psych: alert, normal mood/affect, oriented x 3 Skin: normal color, warm/dry, no rash Lymphatic: no adenopathy Laboratory Results RUN DATE: 03/14/17 [facility] LAB PAGE 1 RUN TIME: 728 Specimen Inquiry [id number] # : [id number] AGE/SX: 46/F ROOM: [facility] REG : 03/11/[address]: Carlos Freeman M.D. : 1970 BED: 2 DIS : STATUS: ADM IN TLOC: SPEC #: [id number] NADYA: 03/11/17 STATUS: RES REQ #: [id number] RECD: 03/11/[address] [facility] DR: Nicholas Pablo M.D. SOURCE: BLOOD ENTR: 03/11/[address] [facility] [address]: Lena Amaya, Assigned [facility]: ORDERED: BLOOD CULTURE Procedure Result Verified Site BLD CULT Preliminary 03/14/17 Organism 1 GRAM POSITIVE COCCI SENS SENSITIVITIES DEPENDENT ON FURTHER IDENTIFICATION Phoned Positive Blood Culture Gram Stain Report to ROMMEL CHRISTIAN on 03/13/17 At 1808 By YAYA. Results were verbalized back to YAYA. Last 24 Hours Test 03/13/17 14:29 03/14/17 07:51 White Blood Count 8.11 K/uL Red Blood Count 3.84 M/uL Hemoglobin 11.5 g/dL Hematocrit 34.8 % Mean Corpuscular Volume 90.6 fL Mean Corpuscular Hemoglobin 29.9 pg Mean Corpuscular Hemoglobin Concent 33.0 g/dl RDW Standard Deviation 52.2 fL RDW Coefficient of Variation 15.6 % Platelet Count 257 K/uL Mean Platelet Volume 9.7 fL Prothrombin Time 10.7 SECONDS Prothromb Time International Ratio 1.0 Activated Partial Thromboplast Time 26.6 SECONDS Partial Thromboplastin Ratio 1.0 Sodium Level 139 mmol/L Potassium Level 3.4 mmol/L Chloride Level 105 mmol/L Carbon Dioxide Level 26 mmol/L Anion Gap 8.0 mmol/L Blood Urea Nitrogen 13 mg/dl Creatinine 0.82 mg/dl Est Creatinine Clear Calc Drug Dose 104.1 ml/min Estimated GFR () 99.5 Estimated GFR (Non- 85.8 BUN/Creatinine Ratio 15.2 Random Glucose 120 mg/dl Calcium Level 9.1 mg/dl Prealbumin 27.4 mg/dl HIV (1&2) Ab and P24 Ag, 4th Gener NEG Patient Name: SWAPNA MCKEON Unit Number: [id number] Dictated: 03/11/171114 Transcribed: 03/11/171114 PBS Printed Date/Time: [~ rep prt dt]/[~ rep prt tm] [~ rep ct labl] - [~ rep ct ivnm] [facility] [place] [address] Dictated: 03/11/171114 Transcribed: 03/11/171114 PBS Printed Date/Time: [~ rep prt dt]/[~ rep prt tm] [~ rep ct labl] - [~ rep ct ivnm] (CHEST FOR PE) ANGIO WITH CLINICAL HISTORY: 46 years-old Female presenting with hypoxia, chest congestion. TECHNIQUE: Multidetector CT angiography of the chest was performed after administration of intravenous contrast. 3-D volumetric and/or maximum intensity projection (MIP) images were subsequently reconstructed for review. IV contrast: 78 mL of Optiray 320. A dose lowering technique was used consistent with the principles of ALARA (as low as reasonably achievable). COMPARISON: None. CT DOSE (mGy.cm): The estimated cumulative dose is 499.20 mGy.cm. 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 Pulmonary vasculature: The study is adequate for assessment of the pulmonary vascular tree. No filling defect within the pulmonary arteries to suggest embolus. Main pulmonary artery is not enlarged. No flattening of the interventricular septum. No intracardiac intracardiac filling defect. No reflux of contrast into the hepatic veins. Remaining chest: On soft tissue windows, normal thyroid and thoracic inlet. Prominent mediastinal lymph nodes, increased in size since the prior exam. An index node in the prevascular region now measures 12 mm in short axis, previously 9 mm. Increased prominence of precarinal and subcarinal lymph nodes as well as bilateral hilar lymph nodes. Normal aorta. Normal heart size. No pericardial or pleural effusion. The spleen is mildly enlarged, similar to prior exam. On lung windows, patchy groundglass opacities have increased from prior exam, which affects the upper lobes to the greatest degree. More solid consolidation and centrilobular nodularity noted at the left lung base. No significant septal thickening. No fissural nodularity. Airways patent. On bone windows, normal osseous structures. IMPRESSION: 1. No evidence of pulmonary embolus. 2. Interval increase in patchy bilateral groundglass opacities affecting the upper lobes to the greatest degree. To be a chronic lacking in weaning process. Given the presence of increasing mediastinal and hilar lymphadenopathy, sarcoidosis is a diagnostic consideration. Other differential etiologies include pneumocystis pneumonia, chronic eosinophilic pneumonia, and hypersensitivity pneumonitis. 3. Superimposed centrilobular nodularity and more solid consolidation at the left lung base, which raises concern for bronchopneumonia. However, this could also be another manifestation of the more global pulmonary disease. Electronically signed by: Loc Jenkins M.D. 03/11/2017 11:26 AM Dictated Date/Time: 03/11/2017 11:15 AM The status of this report is Signed. Draft = Not yet reviewed or approved by Radiologist. Signed = Reviewed and approved by Radiologist. <AttendingPhy></AttendingPhy> <FamilyPhy>No Doctor, Assigned</FamilyPhy> < PrimaryPhy>No Doctor, Assigned</PrimaryPhy> <UnitNumber>[id number]</UnitNumber> <VisitNumber>[id number]</VisitNumber> <PatientName>SWAPNA MCKEON</ PatientName> <DateOfBirth>1970</DateOfBirth> <Location>C.EDB</Location> < ServiceDate>03/11/17</ServiceDate> <MNE>ESINDI</MNE> <OrderingPhy>Nicholas Pablo M.D.</OrderingPhy> <OrderingPhyMNE>f rep ord dr castro</OrderingPhyMNE> <DictatingPhyMNE>f rep dict dr castro</DictatingPhyMNE> <CCListMNE>f rep ct mne</ CCListMNE> <AdmittingPhyMNE>f pt admit dr castro</AdmittingPhyMNE> <AttendingPhyMNE >f pt attend dr castro</AttendingPhyMNE> <ConsultingPhyMNE>f pt consult dr castro</ConsultingPhyMNE> <FamilyPhyMNE>f pt fam dr castro</FamilyPhyMNE> <OtherPhyMNE>f pt other dr castro</OtherPhyMNE> < PrimaryPhyMNE>f pt prim care dr castro</PrimaryPhyMNE> <ReferringPhyMNE>f pt referring dr castro</ReferringPhyMNE> Assessment & Plan 46-year-old female with progressive pulmonary infiltrates and adenopathy associated with arthralgias, with positive blood cultures for gram-positive cocci. 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 However patient will be continued on vancomycin pending final identification. Patient covered adequately for potential infectious pathogens, and await bronchoscopy and further serologic studies. Will follow. Case discussed with Pulmonary service.
[2017-03-14] MEDS ORDERED: FENTANYL CITRATE INJ 50 MCG/1 ML 2 ML VIAL ONE ×2 (12:49→14:42)
[2017-03-14] MEDS ORDERED: PROPOFOL IV EMULSION 10 MG/ML 20 ML VIAL IV ONE ×3 (12:49→14:35)
[2017-03-14] MEDS ORDERED: DEXAMETHASONE SOD INJ 4 MG/ML VIAL ONE (12:49)
[2017-03-14] MEDS ORDERED: MIDAZOLAM HCL 1 MG/ML 2ML VIAL ONE (12:49)
[2017-03-14] MEDS ORDERED: ONDANSETRON INJ 2 MG/ML 2 ML VIAL ONE (12:49)
[2017-03-14] MEDS ORDERED: LIDOCAINE HCL 2% 2 ML VIAL (20MG/ML) ONE (12:49)
--- NOTE | 2017-03-14 13:55 | ECHOCARDIOGRAM REPORT ---
*NOTICE TO RECEIVING LIBERTARIAN AGENCY This information is strictly Confidential and protected under [place] law. [place] law prohibits you from making any further disclosure of this information unless further disclosure is expressly permitted by the written consent of the person to whom it pertains or is authorized by law. A general authorization for the release of medical or other information is not sufficient for this purpose. Hospital accepts no responsibility if the information is made available to any other person, INCLUDING THE PATIENT. Interpretation Summary * Name: SWAPNA MCKEON Study Date: 03/14/2017 07:59 AM BP: 123/75 mmHg * Patient Location: [facility] HR: 62 * : 1970 (M/d/yyyy) Gender: Female Height: 68 in * Age: 46 yrs Ethnicity: CA Weight: 212 lb * Ordering Physician: Pete * Performed By: Kinza Powers RCS * * Reason For Study: Endocarditis * BSA: 2.1 m2 * -- Conclusions -- * The left ventricular wall motion is normal. * The LV Ejection Fraction = 60-65%. * There is mild mitral regurgitation. * Compared to the prior study dated 03/08/12, mild mitral regurgitation was also reported at that time. * There is no evidence of valvular vegetation within the scope of this imaging modality. * If clinical suspicion for endocarditis remains high, consider transesophageal echocardiogram. Procedure Details * A complete two-dimensional transthoracic echocardiogram was performed (2D, M-mode, Doppler and color flow Doppler). Left Ventricle * The left ventricle is normal in size. * There is normal left ventricular wall thickness. * Left ventricular systolic function is normal. * Ejection Fraction = 60-65%. * The left ventricular wall motion is normal. Right Ventricle * The right ventricle is normal size. * The right ventricular systolic function is normal as assessed by tricuspid annular plane systolic excursion (TAPSE) (normal >1.5 cm). Atria * The left atrial size is normal. * Right atrial size is normal. * There is no evidence of atrial septal defect, but resolution does not allow assessment for a patent foramen ovale. Mitral Valve * The mitral valve is normal. * There is no mitral valve stenosis. * There is mild mitral regurgitation. Tricuspid Valve * The tricuspid valve is normal. * There is no tricuspid stenosis. * Significant tricuspid regurgitation is absent. * Doppler findings do not suggest pulmonary hypertension. Aortic Valve * The aortic valve is trileaflet. * Aortic stenosis is absent. * There is no significant aortic regurgitation. Pulmonic Valve * The pulmonary valve is not well seen, but the Doppler examination is normal without significant regurgitation or stenosis. Great Vessels * The aortic root and proximal ascending aorta are normal sized. Pericardium/Pleural * There is no pericardial effusion. Great Vessels * Normal inferior vena cava diameter and respiratory variation suggests normal central venous pressure. * Normal inferior vena cava size and collapsability with sniff indicates a normal right atrial pressure of 3 mmHg Left Ventricular Diastolic Function * The LV diastolic function is normal. MMode 2D Measurements and Calculations IVSd 0.98 cm IVSs 1.3 cm LVIDd 4.7 cm LVIDs 3.3 cm LVPWd 0.94 cm LVPWs 1.3 cm IVS/LVPW 1.0 FS 28.8 % EDV(Teich) 102.3 ml ESV(Teich) 45.6 ml EF(Teich) 55.4 % EDV(cubed) 103.7 ml ESV(cubed) 37.5 ml EF(cubed) 63.9 % % IVS thick 33.0 % % LVPW thick 34.6 % LV mass(C)d 156.1 grams LV mass(C)dI 74.5 grams/m\S\2 LV mass(C)s 142.3 grams LV mass(C)sI 67.9 grams/m\S\2 SV(Teich) 56.6 ml SI(Teich) 27.0 ml/m\S\2 SV(cubed) 66.2 ml SI(cubed) 31.6 ml/m\S\2 Ao root diam 3.3 cm Ao root area 8.8 cm\S\2 ACS 1.1 cm LA dimension 3.2 cm asc Aorta Diam 2.0 cm LA/Ao 0.97 Doppler Measurements and Calculations MV E max champ 112.1 cm/sec MV A max champ 79.4 cm/sec MV E/A 1.4 MV P1/2t max champ 131.6 cm/sec MV P1/2t 84.4 msec MVA(P1/2t) 2.6 cm\S\2 MV dec slope 456.4 cm/sec\S\2 MV dec time 0.20 sec Ao V2 max 120.0 cm/sec Ao max PG 5.8 mmHg Ao max PG (full) 1.7 mmHg LV V1 max PG 4.0 mmHg LV V1 max 100.5 cm/sec PA V2 max 85.8 cm/sec PA max PG 2.9 mmHg TR max champ 210.1 cm/sec
[2017-03-14] MEDS ORDERED: ONDANSETRON INJ 2 MG/ML 2 ML VIAL IV PRN (14:30)
[2017-03-14] MEDS ORDERED: EpHEDrine SULFATE INJ 50 MG/ML AMP IV PRN (14:30)
[2017-03-14] MEDS ORDERED: ATROPINE SULFATE 0.1 MG/ML 5ML SYR IV PRN (14:30)
[2017-03-14] MEDS ORDERED: FENTANYL CITRATE INJ 50 MCG/1 ML 2 ML VIAL IV PRN (14:30)
[2017-03-14] MEDS ORDERED: PROMETHAZINE HCL INJ 6.25 MG in SODIUM CHLORIDE 0.9% 50ML 50 ML IV PRN (14:30)
--- NOTE | 2017-03-14 14:32 | Bronchoscopy Procedure Note ---
Bronchoscopy Procedure Note Procedure: Flexible-Bronchoscopy, EBUS, Tbbx, GETA, bronchial lavage left upper lobe Consent: Obtained through the patient placed into the chart Pre-Procedural Dx: Mediastinal adenopathy with abnormal CT Post-Procedural Dx: Mediastinal lymphadenopathy with notable granulomas Analgesia: GETA Sedation: GETA Procedure: The Olympus video bronchoscope and EBUS scope were used for this procedure Initially the flexible bronchoscope was used for evaluation of the airways. The LMA was properly positioned at the level of the glottis. Vocal cords: Anatomically within normal limits Trachea: Diffuse mucous secretions along with 90% EDAC Vania: Anatomically within normal limits Right bronchial tree: Right mainstem bronchus: Anatomically within normal limits Right upper lobe: Anatomically within normal limits Bronchus intermedius: Anatomically within normal limits Right middle lobe: Anatomically within normal limits Right lower lobe: Anatomically within normal limits Findings: Diffuse mucous secretions Left bronchial tree: Left mainstem bronchus: 90% EDAC Left upper lobe: Anatomically within normal limits Lingula: Anatomically within normal limits Left lower lobe: Anatomically within normal limits Findings: Diffuse mucous secretions EBUS/LIZBETH: Tbbx Geetha Stations: 7: # of passes 3 4R: # of passes passes 3 4L: # of passes 3 EBL: Complications: None Follow-up: Return to her inpatient room
--- NOTE | 2017-03-14 15:10 | Anesthesiology Progress Note ---
Anesthesia Post Op Note Date & Time Mar 14, 2017 at 15:10 Vital Signs Pain Intensity: 4 Vital Signs Past 12 Hours Date Time Temp Pulse Resp B/P (MAP) Pulse Ox O2 Delivery O2 Flow Rate FiO2 03/14/17 15:00 36.5 63 20 134/80 92 Room Air 03/14/17 14:50 67 20 129/81 97 Oxymask 10 03/14/17 14:40 70 20 104/71 97 Oxymask 10 03/14/17 14:30 36.4 92 20 120/87 98 Oxymask 10 03/14/17 08:30 Room Air 03/14/17 07:33 36.4 69 18 122/74 (90) 95 Notes Mental Status: alert / awake / arousable, participated in evaluation Pt Amnestic to Procedure: Yes Nausea / Vomiting: adequately controlled Pain: adequately controlled Airway Patency, RR, SpO2: stable & adequate BP & HR: stable & adequate Hydration State: stable & adequate Anesthetic Complications: no major complications apparent
[2017-03-14] MEDS ORDERED: NURSING VERBAL MED ORDER ONE (17:45)
--- NOTE | 2017-03-14 17:50 | Progress Note ---
Medicine Progress Note Date & Time of Visit: Mar 14, 2017 at 11:41. Subjective Pt was seen and examined Lying in bed with no distress Pt said that her breathing is slightly better Pt said that she is coughing less today Denies any chest pain, palpitation and SOB Objective Last 8 Hrs Date Time Temp Pulse Resp B/P (MAP) Pulse Ox O2 Delivery O2 Flow Rate FiO2 03/14/17 16:30 37.0 64 18 115/71 (86) 93 Room Air 10.0 03/14/17 16:22 37.0 64 18 115/71 (86) 93 Room Air 03/14/17 15:28 36.7 63 20 130/78 (95) Room Air 03/14/17 15:00 36.5 63 20 134/80 92 Room Air 03/14/17 14:50 67 20 129/81 97 Oxymask 10 03/14/17 14:40 70 20 104/71 97 Oxymask 10 03/14/17 14:30 36.4 92 20 120/87 98 Oxymask 10 Physical Exam: General- No acute distress Head- atraumatic Eyes- PERRL, EOMI ENT- oropharynx clear Neck- supple, no JVD Lungs- No wheezing Heart- regular rhythm Abdomen- normal bowel sounds Extremities- no calf tenderness Neuro- alert, oriented x 3; PERRL, EOMI Skin- warm & dry Laboratory Results: Last 24 Hours Test 03/14/17 07:51 03/14/17 14:52 White Blood Count 8.11 K/uL Red Blood Count 3.84 M/uL Hemoglobin 11.5 g/dL Hematocrit 34.8 % Mean Corpuscular Volume 90.6 fL Mean Corpuscular Hemoglobin 29.9 pg Mean Corpuscular Hemoglobin Concent 33.0 g/dl RDW Standard Deviation 52.2 fL RDW Coefficient of Variation 15.6 % Platelet Count 257 K/uL Mean Platelet Volume 9.7 fL Prothrombin Time 10.7 SECONDS Prothromb Time International Ratio 1.0 Activated Partial Thromboplast Time 26.6 SECONDS Partial Thromboplastin Ratio 1.0 Sodium Level 139 mmol/L Potassium Level 3.4 mmol/L Chloride Level 105 mmol/L Carbon Dioxide Level 26 mmol/L Anion Gap 8.0 mmol/L Blood Urea Nitrogen 13 mg/dl Creatinine 0.82 mg/dl Est Creatinine Clear Calc Drug Dose 104.1 ml/min Estimated GFR () 99.5 Estimated GFR (Non- 85.8 BUN/Creatinine Ratio 15.2 Random Glucose 120 mg/dl Calcium Level 9.1 mg/dl Prealbumin 27.4 mg/dl Procalcitonin < 0.05 ng/ml HIV (1&2) Ab and P24 Ag, 4th Gener NEG Bedside Glucose 162 mg/dl Date/Time Source Procedure Growth Status 03/14/17 00:00 Bronchial Washings Left Upper Lobe Fungal Smear Pending Received 03/14/17 00:00 Bronchial Washings Left Upper Lobe Fungal Culture Pending Received 03/14/17 00:00 Bronchial Washings Left Upper Lobe Acid Fast Stain Pending Received 03/14/17 00:00 Bronchial Washings Left Upper Lobe Mycobacterial Culture Pending Received 03/14/17 00:00 Bronchial Washings Left Upper Lobe Gram Stain Pending Received 03/14/17 00:00 Bronchial Washings Left Upper Lobe Bronchoalveolar Lavage Culture Pending Received Assessment & Plan Dyspnea /Hypoxia Secondary to Pneumonia Has been having recurrent pneumonia CXR showed vague patchy opacity in the right mid and lung base. CTA chest showed no evidence of PE. Interval increase in patchy bilateral groundglass opacities affecting the upper lobes to the greatest degree Received Rocephin and zithromax, and solumedrol in the ER Continue rocephin and Zithromax Continue prednisone 40mg Duoneb treatment, will add guaifenesin for the cough blood cx and urine legionella, serum mycoplasma pending Continue oxygen supplement Pulmonary on board If symptoms worsening, will consider a bronch as per pulmonary team 03/14 Clinically improved Prednisone taper NPO for the bronch today HIV ab negative Mediastinal and Hilar lymphadenopathy will need to r/o sarcoidosis Pulmonary consulted angiotensin converting enzymes pending Bronch done today and tissue sent for bx No complication Bacteremia Blood cx positive for gram positive cocci will start on IV vanco Will consult ID repeat blood cx tomorrow consider echo monitor CBC 03/14 Lab called to inform the positive blood cx was due to contamination D/C vanco Hx of drug abuse Follow with the methadone clinic PDMP reviewed showed last refill for Adderall was in August Also klonopin was refilled on 02/08 for 15 tabs daily Pt said that she was prescribed it q6h and she was taking the Adderall BID Fibromyalgia On gabapentin On Ibuprofen at home, will consider Tylenol due to hx of peptic ulcer Elevated BP Possible situational Will monitor BP BP control Elevated blood glucose Hba1c 5.9 D/C D5 water will start on a sliding scale because of the elevated BS from the steroid advised pt about Diet and losing weight Tobacco abuse Counseling on smoking cessation Anxiety On klonopin and effexor Pt was taking klonopin q6hr prn Informed pt that her last script for Klonopin was ordered to take daily Hx Peptic ulcer with hemorrhage Stable DVT px on SCDs due to prior history of peptic ulcer bleeding about 1 yr ago CODE STATUS Full code Disposition Possible d/c tomorrow Consultants: Pulmonary Current Inpatient Medications: Current Inpatient Medications Medications (Trade) Dose Ordered Sig/Orestes Route Start Time Stop Time Status Last Admin Dose Admin Ioversol (Optiray 320) 100 ml UD PRN IV 03/11/17 10:45 03/15/17 10:44 Ceftriaxone Sodium 1 gm/ Dextrose 50 ml @ 100 mls/hr Q24H IV 03/12/17 10:00 03/18/17 09:59 03/14/17 09:33 100 MLS/HR Prednisone (PredniSONE TAB) 40 mg DAILY PO 03/12/17 09:00 04/11/17 08:59 03/14/17 08:44 40 MG Docusate Sodium (coLACE CAP) 100 mg DAILY PRN PO 03/11/17 12:45 04/10/17 12:44 Gabapentin (Neurontin Cap) 300 mg DAILY@1400 PO 03/12/17 14:00 04/11/17 13:59 03/13/17 12:39 300 MG Gabapentin (Neurontin Cap) 300 mg QAM PO 03/12/17 09:00 04/11/17 08:59 03/14/17 08:44 300 MG Gabapentin (Neurontin Cap) 600 mg HS PO 03/11/17 21:00 04/10/17 20:59 03/13/17 21:03 600 MG Venlafaxine HCl (effeXOR EXTENDED REL CAP) 75 mg DAILY PO 03/12/17 09:00 04/11/17 08:59 03/14/17 08:45 75 MG Venlafaxine HCl (effeXOR EXTENDED REL CAP) 150 mg DAILY PO 03/12/17 09:00 04/11/17 08:59 03/14/17 08:44 150 MG Methadone HCl (Methadone HCl) 149 mg QAM PO 03/12/17 09:00 03/26/17 08:59 Future hold 03/14/17 08:45 149 MG Clonazepam (Klonopin Tab) 1 mg DAILY PRN PO 03/11/17 12:45 04/10/17 12:44 03/13/17 08:33 1 MG Ondansetron HCl (Zofran Inj) 4 mg Q6H PRN IV 03/11/17 12:45 04/10/17 12:44 Non-Formulary Medication (Patient'S Own Controlled Med) 1 ea QAM PRN N/A 03/12/17 09:00 03/26/17 08:59 Future hold 03/12/17 08:17 1 EA Lansoprazole (Prevacid Solutab) 15 mg BID PO 03/11/17 21:00 04/10/17 20:59 03/14/17 08:44 15 MG Ibuprofen (Motrin Tab) 600 mg TID PRN PO 03/11/17 18:45 04/10/17 18:44 03/13/17 19:43 600 MG Codeine Phosphate/ Guaifenesin (Robitussin-AC Sugar Free Syrup) 10 ml Q6H PRN PO 03/12/17 19:45 04/11/17 19:44 03/13/17 16:45 10 ML Ketorolac Tromethamine (Toradol Inj) 30 mg Q6H PRN IV 03/12/17 20:45 03/17/17 20:44 03/14/17 06:41 30 MG Albuterol/ Ipratropium (Combivent Respimat Inh) 1 puffs QID INH 03/13/17 13:00 04/12/17 12:59 03/14/17 17:32 1 PUFFS Azithromycin (Zithromax Tab) 500 mg DAILY PO 03/14/17 09:00 03/18/17 08:59 03/14/17 08:44 500 MG Dextrose 1,000 ml @ 50 mls/hr Q20H IV 03/14/17 00:00 04/13/17 00:00 03/14/17 00:00 50 MLS/HR Miscellaneous Information (Nursing Verbal Med Order) 1 ea ONE ONCE N/A 03/14/17 17:45 03/14/17 17:46 UNV
[2017-03-14] MEDS ORDERED: GLUCOSE 40% GEL 15 GM TUBE PO PRN (18:00)
[2017-03-14] MEDS ORDERED: GLUCOSE 10 TABS/TUBE PO PRN (18:00)
[2017-03-14] MEDS ORDERED: GLUCAGON FOR INJ 1 MG VIAL SQ PRN (18:00)
[2017-03-14] MEDS ORDERED: DEXTROSE 50% 50 ML SYR IV PRN (18:00)
[2017-03-14] MEDS ORDERED: POTASSIUM CHLORIDE 20 MEQ TABCR PO ONE (18:30)
[2017-03-14] MEDS: CLONAZEPAM 1 MG TAB PO PRN (18:53)
[2017-03-14] MEDS: GUAIFENESIN/CODEINE 200MG/20MG 10ML UDC PO PRN (18:53)
[2017-03-14] MEDS: INSULIN ASPART 100 UNITS/ML 3 ML PEN SC SCH ×3 (18:57→20:49)
[2017-03-14 21:50] LABS: CALCIUM URINE < 5.0 mg/dl
[2017-03-14 21:54] LABS: URINE COLLECTION TIME 24 HOURS
[2017-03-15] MEDS ORDERED: VANCOMYCIN TROUGH SCH (01:30)
[2017-03-15 07:18] VITALS: BP 128/80; PULSE 67; TEMP 36.8; O2SAT 96
[2017-03-15 07:56] LABS: BUN/CREATININE RATIO 18.9 (10-20); CREATININE 0.74 mg/dl (0.60-1.20); POTASSIUM 3.7 mmol/L (3.5-5.1)
[2017-03-15] MEDS: IPRATROPIUM BROMIDE/ALBUTEROL respimat INH INH SCH ×2 (08:22→12:57)
[2017-03-15] MEDS: GABAPENTIN 300 MG CAP PO SCH ×2 (08:23→14:07)
[2017-03-15] MEDS: VENLAFAXINE HCL XR 150 MG CAPXR PO SCH (08:23)
[2017-03-15] MEDS: LANSOPRAZOLE SOLUTAB 15 MG PO SCH (08:23)
[2017-03-15] MEDS: VENLAFAXINE HCL XR 75 MG CAPXR PO SCH (08:24)
[2017-03-15] MEDS: AZITHROMYCIN 250 MG TAB PO SCH (08:25)
[2017-03-15] MEDS: INSULIN ASPART 100 UNITS/ML 3 ML PEN SC SCH ×2 (08:31→12:49)
[2017-03-15] MEDS: METHADONE ORAL SOLN 2 MG/1ML PO SCH (08:41)
[2017-03-15] MEDS: CLONAZEPAM 1 MG TAB PO PRN (08:41)
--- NOTE | 2017-03-15 10:02 | Anesthesiology Progress Note ---
Anesthesia Post Op Note Date & Time Mar 15, 2017 at 10:01 Vital Signs Pain Intensity: 7.0 Vital Signs Past 12 Hours Date Time Temp Pulse Resp B/P (MAP) Pulse Ox O2 Delivery O2 Flow Rate FiO2 03/15/17 07:18 36.8 67 18 128/80 (96) 96 Room Air 03/15/17 00:00 Room Air 03/14/17 23:05 36.7 56 18 120/70 (87) 96 Nasal Cannula 2.0 Notes Mental Status: alert / awake / arousable, participated in evaluation Pt Amnestic to Procedure: Yes Nausea / Vomiting: adequately controlled Pain: adequately controlled Airway Patency, RR, SpO2: stable & adequate BP & HR: stable & adequate Hydration State: stable & adequate Anesthetic Complications: no major complications apparent
[2017-03-15] MEDS: CEFTRIAXONE SOD INJ 1 GM in DEXTROSE 5% ADD-VANTAGE 50ML 50 ML IV SCH (10:22)
[2017-03-15 11:45] LABS: LEGIONELLA ANTIGEN NOT DETECTED (NOT DETECTED)
--- NOTE | 2017-03-15 13:01 | Progress Note ---
Medicine Progress Note Date & Time of Visit: Mar 15, 2017 at 12:45. Subjective Pt was seen and examined Lying in bed comfortable with no distress Pt said that she feels much better she said that her cough improved significantly Denies any chest pain, palpitation, dizziness and sob Objective Last 8 Hrs Date Time Temp Pulse Resp B/P (MAP) Pulse Ox O2 Delivery O2 Flow Rate FiO2 03/15/17 11:07 Room Air 03/15/17 07:18 36.8 67 18 128/80 (96) 96 Room Air Physical Exam: General- No acute distress Head- atraumatic Eyes- PERRL, EOMI ENT- oropharynx clear Neck- supple, no JVD Lungs- No wheezing Heart- regular rhythm Abdomen- normal bowel sounds Extremities- no calf tenderness Neuro- alert, oriented x 3; PERRL, EOMI Skin- warm & dry Laboratory Results: Last 24 Hours Test 03/14/17 14:52 03/14/17 19:40 03/15/17 06:50 03/15/17 07:29 Bedside Glucose 162 mg/dl 121 mg/dl Urine Collection Time 24 HOURS Urine Total Volume 2800 mL Urine Calcium mg% < 5.0 mg/dl Urine Calcium 24 Hour < 140.0 mg/24 HR Sodium Level 137 mmol/L Potassium Level 3.7 mmol/L Chloride Level 103 mmol/L Carbon Dioxide Level 27 mmol/L Anion Gap 7.0 mmol/L Blood Urea Nitrogen 14 mg/dl Creatinine 0.74 mg/dl Est Creatinine Clear Calc Drug Dose 115.3 ml/min Estimated GFR () 112.6 Estimated GFR (Non- 97.2 BUN/Creatinine Ratio 18.9 Random Glucose 103 mg/dl Calcium Level 9.0 mg/dl Test 03/15/17 11:07 Bedside Glucose 137 mg/dl Assessment & Plan Dyspnea /Hypoxia Secondary to Pneumonia Has been having recurrent pneumonia CXR showed vague patchy opacity in the right mid and lung base. CTA chest showed no evidence of PE. Interval increase in patchy bilateral groundglass opacities affecting the upper lobes to the greatest degree Received Rocephin and zithromax, and solumedrol in the ER Continue rocephin and Zithromax Continue prednisone 40mg Duoneb treatment, will add guaifenesin for the cough blood cx and urine legionella, serum mycoplasma pending Continue oxygen supplement Pulmonary on board If symptoms worsening, will consider a bronch as per pulmonary team 03/15 received 5 days of Zithromax and Rocephin S/p bronch yesterday Lung biopsy pending Case discussed with Pulmonology Dr. Goodne Need to follow with pulmonology in about 1 to 2 weeks 2 step exercise done and pt does not qualify for oxygen supplement Continue prednisone taper Urine for legionella negative HIV ab negative HIV RNA pending Mediastinal and Hilar lymphadenopathy will need to r/o sarcoidosis Pulmonary consulted angiotensin converting enzymes pending Bronch done on 03/14, biopsy pending will need more outpatient work up as per pulmonology Follow up with pulmonology in about 2 weeks Bacteremia Blood cx positive for gram positive cocci will start on IV vanco Will consult ID repeat blood cx tomorrow consider echo monitor CBC 03/15 Lab called to inform the positive blood cx was due to contamination D/C vanco ID on board Hx of drug abuse Follow with the methadone clinic PDMP reviewed showed last refill for Adderall was in August Also klonopin was refilled on 02/08 for 15 tabs daily Pt said that she was prescribed it q6h and she was taking the Adderall BID Fibromyalgia On gabapentin On Ibuprofen at home, will consider Tylenol due to hx of peptic ulcer Elevated BP Possible situational Will monitor BP BP control Elevated blood glucose Hba1c 5.9 D/C D5 water will start on a sliding scale because of the elevated BS from the steroid advised pt about Diet and losing weight Tobacco abuse Counseling on smoking cessation Nicotine patch Anxiety On klonopin and effexor Pt was taking klonopin q6hr prn Informed pt that her last script for Klonopin was ordered to take daily Hx Peptic ulcer with hemorrhage Stable DVT px on SCDs due to prior history of peptic ulcer bleeding about 1 yr ago CODE STATUS Full code Disposition Will discharge today after 2 steps Follow up with Dr. Escudero on 03/21 @ 4:45 pm Follow up with pulmonology with Dr. Gooden or Veronica JOHNSON in about 2 weeks (call to schedule appointment) Address: [address] [place] [address]. Phone : [phone] Consultants: Pulmonary ID Procedures: Bronchoscopy with biopsy Current Inpatient Medications: Current Inpatient Medications Medications (Trade) Dose Ordered Sig/Orestes Route Start Time Stop Time Status Last Admin Dose Admin Ceftriaxone Sodium 1 gm/ Dextrose 50 ml @ 100 mls/hr Q24H IV 03/12/17 10:00 03/18/17 09:59 03/15/17 10:22 100 MLS/HR Docusate Sodium (coLACE CAP) 100 mg DAILY PRN PO 03/11/17 12:45 04/10/17 12:44 Gabapentin (Neurontin Cap) 300 mg DAILY@1400 PO 03/12/17 14:00 04/11/17 13:59 03/13/17 12:39 300 MG Gabapentin (Neurontin Cap) 300 mg QAM PO 03/12/17 09:00 04/11/17 08:59 03/15/17 08:23 300 MG Gabapentin (Neurontin Cap) 600 mg HS PO 03/11/17 21:00 04/10/17 20:59 03/14/17 20:45 600 MG Venlafaxine HCl (effeXOR EXTENDED REL CAP) 75 mg DAILY PO 03/12/17 09:00 04/11/17 08:59 03/15/17 08:24 75 MG Venlafaxine HCl (effeXOR EXTENDED REL CAP) 150 mg DAILY PO 03/12/17 09:00 04/11/17 08:59 03/15/17 08:23 150 MG Methadone HCl (Methadone HCl) 149 mg QAM PO 03/12/17 09:00 03/26/17 08:59 Future hold 03/15/17 08:41 149 MG Clonazepam (Klonopin Tab) 1 mg DAILY PRN PO 03/11/17 12:45 04/10/17 12:44 03/15/17 08:41 1 MG Ondansetron HCl (Zofran Inj) 4 mg Q6H PRN IV 03/11/17 12:45 04/10/17 12:44 Non-Formulary Medication (Patient'S Own Controlled Med) 1 ea QAM PRN N/A 03/12/17 09:00 03/26/17 08:59 Future hold 03/12/17 08:17 1 EA Lansoprazole (Prevacid Solutab) 15 mg BID PO 03/11/17 21:00 04/10/17 20:59 03/15/17 08:23 15 MG Ibuprofen (Motrin Tab) 600 mg TID PRN PO 03/11/17 18:45 04/10/17 18:44 03/13/17 19:43 600 MG Codeine Phosphate/ Guaifenesin (Robitussin-AC Sugar Free Syrup) 10 ml Q6H PRN PO 03/12/17 19:45 04/11/17 19:44 03/14/17 18:53 10 ML Ketorolac Tromethamine (Toradol Inj) 30 mg Q6H PRN IV 03/12/17 20:45 03/17/17 20:44 03/14/17 18:54 30 MG Albuterol/ Ipratropium (Combivent Respimat Inh) 1 puffs QID INH 03/13/17 13:00 04/12/17 12:59 03/15/17 08:22 1 PUFFS Azithromycin (Zithromax Tab) 500 mg DAILY PO 03/14/17 09:00 03/18/17 08:59 03/15/17 08:25 500 MG Prednisone (PredniSONE TAB) 20 mg DAILY PO 03/15/17 09:00 04/11/17 08:59 03/15/17 08:22 20 MG Insulin Aspart (novoLOG ASPART) SLIDING SCALE If C... ACHS SC 03/14/17 21:00 04/13/17 20:59 03/15/17 08:31 1 UNITS Glucose (Glucose 40% Gel) 15-30 GRAMS 15 GRAMS... UD PRN PO 03/14/17 18:00 04/13/17 17:59 Glucose (Glucose Chew Tab) 4-8 Tablets 4 Tabl... UD PRN PO 03/14/17 18:00 04/13/17 17:59 Dextrose (Dextrose 50% 50ML Syringe) 25-50ML OF 50% DW IV FOR... UD PRN IV 03/14/17 18:00 04/13/17 17:59 Glucagon (Glucagon Inj) 1 mg UD PRN SQ 03/14/17 18:00 04/13/17 17:59
[2017-03-15] MEDS ORDERED: PRED-301 PO (13:07)
--- NOTE | 2017-03-15 13:12 | Discharge Instructions ---
Discharge Instructions Date of Service Mar 15, 2017. Admission Reason for Admission: Fever,Sob Discharge Discharge Diagnosis / Problem: Fever, Dyspnea/ Hypoxia, Mediastinal and Hilar lymphadenopathy Discharge Goals Goal(s): Decrease discomfort, Improve function, Improve disease control Activity Recommendations Activity Limitations: resume your previous activity (as tolerated) . Instructions / Follow-Up Instructions / Follow-Up Follow up with Dr. Escudero on 03/21 @ 4:45 pm Follow up with pulmonology with Dr. Gooden or Veronica JOHNSON in about 2 weeks (call to schedule appointment) Address: [address] [place] [address]. Phone : [phone] Continue prednisone taper Counseling about smoking cessation Continue follow up with the methadone clinic Follow a health diet and exercise Current Hospital Diet Patient's current hospital diet: Regular Diet, Diabetes Type 2 Diet Discharge Diet Recommended Diet: Regular Diet Procedures Procedures Performed: Endobronchial Ultrasound Guided Bronchoscopy, Flexible Bronchoscopy, Trans-Tracheal and Bronchial Needle Aspiration, Bronchial Lavage Pending Studies Studies pending at discharge: yes List of pending studies: Bronchoscopy biopsy pending Laboratory Results Hemoglobin A1c Test 03/13/17 05:46 Range/Units Estimated Average Glucose 123 mg/dl Hemoglobin A1c 5.9 H 4.5-5.6 % Medical Emergencies . Who to Call and When: Medical Emergencies: If at any time you feel your situation is an emergency, please call 911 immediately. . Non-Emergent Contact Non-Emergency issues call your: Primary Care Provider Call Non-Emergent contact if: you have any medication questions (due to hx of Peptic ulcer bleeding) . . "Provider Documentation" section prepared by Carlos Freeman. . VTE Core Measure Inpt VTE Proph given/why not?: SCD's [place] Drug Monitoring Program Search Results: patient reviewed within database
[2017-03-15 13:46] VITALS: BP 128/80; PULSE 67; TEMP 36.8; O2SAT 96
--- NOTE | 2017-03-15 13:50 | Pulmonology Progress Note ---
Pulmonary Progress Note Date of Service Mar 15, 2017. Attending Dr. Gooden Subjective Patient is feeling much improved today. She states that she is breathing well, and she is experiencing very little SOB. She is s/p EBUS with Transbronchial bx. Lymph node pathology along with BAL path and cultures are pending. The patient is anticipating D/C this afternoon. She continues on Azithromycin and Ceftriaxone. Labs reviewed 03/15: Creatinine 0.74 BUN 14 Calcium 9.0 Electrolytes stable. VS reviewed: Afebrile HR 56-67 BP 128/80 SaO2 96% on room air Objective General: Patient is awake, alert, cooperative, and in no acute distress. Well developed. Well-nourished. Head: Normocephalic, Atraumatic. ENT: PERRLA, No discharge, EOMI, Sclera normal Neck: Normal ROM. Trachea midline. No stridor Respiratory: One or 2 crackles in the MACEY, but otherwise clear. Normal breath sounds. No respiratory distress. No accessory muscle use. Cardiovascular: Regular rate and rhythm. No murmur appreciate. Normal S1/S2. Abdomen: Normal bowel sounds hear throughout. Back: Normal inspection. Extremities: No edema, cyanosis. Normal ROM Neuro: Alert, Oriented x 3. CN II-XII grossly intact. Sensation and motor function grossly intact. Psych: Mood and affect are normal. Assessment & Plan Progressive pulmonary infiltrates with mediastinal lymphadenopathy -Patient is overall improved. Her breathing is much easier, and she is anticipating D/C this afternoon. -Will continue workup as an outpatient and review pathology reports/cultures/ labs as outpatient Dyspnea/Hypoxia- resolved, patient is saturating well on room air currently Pneumonia- completed 5 days of Zithromax and Ceftriaxone, continues prednisone taper She will need follow up with [facility] [place] Pulmonary in 1-2 weeks as an outpatient. Pulm will sign off. Thank you Patient seen examined and agree with above plan. Data Medications: Current Inpatient Medications Medications (Trade) Dose Ordered Sig/Orestes Route Start Time Stop Time Status Last Admin Dose Admin Ceftriaxone Sodium 1 gm/ Dextrose 50 ml @ 100 mls/hr Q24H IV 03/12/17 10:00 03/18/17 09:59 03/15/17 10:22 100 MLS/HR Docusate Sodium (coLACE CAP) 100 mg DAILY PRN PO 03/11/17 12:45 04/10/17 12:44 Gabapentin (Neurontin Cap) 300 mg DAILY@1400 PO 03/12/17 14:00 04/11/17 13:59 03/13/17 12:39 300 MG Gabapentin (Neurontin Cap) 300 mg QAM PO 03/12/17 09:00 04/11/17 08:59 03/15/17 08:23 300 MG Gabapentin (Neurontin Cap) 600 mg HS PO 03/11/17 21:00 04/10/17 20:59 03/14/17 20:45 600 MG Venlafaxine HCl (effeXOR EXTENDED REL CAP) 75 mg DAILY PO 03/12/17 09:00 04/11/17 08:59 03/15/17 08:24 75 MG Venlafaxine HCl (effeXOR EXTENDED REL CAP) 150 mg DAILY PO 03/12/17 09:00 04/11/17 08:59 03/15/17 08:23 150 MG Methadone HCl (Methadone HCl) 149 mg QAM PO 03/12/17 09:00 03/26/17 08:59 Future hold 03/15/17 08:41 149 MG Clonazepam (Klonopin Tab) 1 mg DAILY PRN PO 03/11/17 12:45 04/10/17 12:44 03/15/17 08:41 1 MG Ondansetron HCl (Zofran Inj) 4 mg Q6H PRN IV 03/11/17 12:45 04/10/17 12:44 Non-Formulary Medication (Patient'S Own Controlled Med) 1 ea QAM PRN N/A 03/12/17 09:00 03/26/17 08:59 Future hold 03/12/17 08:17 1 EA Lansoprazole (Prevacid Solutab) 15 mg BID PO 03/11/17 21:00 04/10/17 20:59 03/15/17 08:23 15 MG Ibuprofen (Motrin Tab) 600 mg TID PRN PO 03/11/17 18:45 04/10/17 18:44 03/13/17 19:43 600 MG Codeine Phosphate/ Guaifenesin (Robitussin-AC Sugar Free Syrup) 10 ml Q6H PRN PO 03/12/17 19:45 04/11/17 19:44 03/14/17 18:53 10 ML Ketorolac Tromethamine (Toradol Inj) 30 mg Q6H PRN IV 03/12/17 20:45 03/17/17 20:44 03/14/17 18:54 30 MG Albuterol/ Ipratropium (Combivent Respimat Inh) 1 puffs QID INH 03/13/17 13:00 04/12/17 12:59 03/15/17 12:57 1 PUFFS Azithromycin (Zithromax Tab) 500 mg DAILY PO 03/14/17 09:00 03/18/17 08:59 03/15/17 08:25 500 MG Prednisone (PredniSONE TAB) 20 mg DAILY PO 03/15/17 09:00 04/11/17 08:59 03/15/17 08:22 20 MG Insulin Aspart (novoLOG ASPART) SLIDING SCALE If C... ACHS SC 03/14/17 21:00 04/13/17 20:59 03/15/17 12:49 2 UNITS Glucose (Glucose 40% Gel) 15-30 GRAMS 15 GRAMS... UD PRN PO 03/14/17 18:00 04/13/17 17:59 Glucose (Glucose Chew Tab) 4-8 Tablets 4 Tabl... UD PRN PO 03/14/17 18:00 04/13/17 17:59 Dextrose (Dextrose 50% 50ML Syringe) 25-50ML OF 50% DW IV FOR... UD PRN IV 03/14/17 18:00 04/13/17 17:59 Glucagon (Glucagon Inj) 1 mg UD PRN SQ 03/14/17 18:00 04/13/17 17:59 I & O: 24-Hour Column 03/16/17 07:59 Intake Total 240 ml Balance 240 ml Vital Signs: Date Time Temp Pulse Resp B/P (MAP) Pulse Ox O2 Delivery O2 Flow Rate FiO2 03/15/17 11:07 Room Air 03/15/17 07:18 36.8 67 18 128/80 (96) 96 Room Air 03/15/17 00:00 Room Air 03/14/17 23:05 36.7 56 18 120/70 (87) 96 Nasal Cannula 2.0 03/14/17 16:30 37.0 64 18 115/71 (86) 93 Room Air 10.0 03/14/17 16:22 37.0 64 18 115/71 (86) 93 Room Air 03/14/17 16:00 92 Room Air 03/14/17 15:28 36.7 63 20 130/78 (95) Room Air 03/14/17 15:00 36.5 63 20 134/80 92 Room Air 03/14/17 14:50 67 20 129/81 97 Oxymask 10 03/14/17 14:40 70 20 104/71 97 Oxymask 10 03/14/17 14:30 36.4 92 20 120/87 98 Oxymask 10 Laboratory Results: Last 24 Hours Test 03/14/17 14:52 03/14/17 17:31 03/14/17 19:40 03/14/17 20:03 Bedside Glucose 162 mg/dl 207 mg/dl 160 mg/dl Urine Collection Time 24 HOURS Urine Total Volume 2800 mL Urine Calcium mg% < 5.0 mg/dl Urine Calcium 24 Hour < 140.0 mg/24 HR Test 03/15/17 06:50 03/15/17 07:29 03/15/17 11:07 Sodium Level 137 mmol/L Potassium Level 3.7 mmol/L Chloride Level 103 mmol/L Carbon Dioxide Level 27 mmol/L Anion Gap 7.0 mmol/L Blood Urea Nitrogen 14 mg/dl Creatinine 0.74 mg/dl Est Creatinine Clear Calc Drug Dose 115.3 ml/min Estimated GFR () 112.6 Estimated GFR (Non- 97.2 BUN/Creatinine Ratio 18.9 Random Glucose 103 mg/dl Calcium Level 9.0 mg/dl Bedside Glucose 121 mg/dl 137 mg/dl
[2017-03-15 23:16] LABS: LEGIONELLA PNEUMOPHILA IGG AB <1:64 TITER
--- NOTE | 2017-03-19 02:54 | Discharge Summary ---
Discharge Summary Date of Service Mar 19, 2017. Discharge Summary Admission Date: Mar 11, 2017 at 12:12 Discharge Date: Mar 15, 2017 Discharge Disposition: Home Principal Diagnosis: Fever/Dyspnea Secondary Diagnoses/Problems: Anxiety Mediastinal and Hilar lymphadenopathy [place] Abuse Elevated BP Hx of drug abuse Fibromyalgia Hx Peptic ulcer with hemorrhage Procedures: Bronchoscopy with biopsy Consultations: Pulmonary ID Medication Reconciliation New Medications: Prednisone (Prednisone) 5 Mg Tab 5 MG PO UD for 15 Days, TAB take 20 mg for 3 days, then 15 mg for 3 days, then 10 mg for 3 days, then continue 5 mg daily Continued Medications: Clonazepam (Klonopin) 1 Mg Tab 1 MG PO DAILY PRN for Anxiety, TAB Docusate Sodium (Docusate Sodium) 100 Mg Cap 100 MG PO DAILY PRN for Constipation Gabapentin (Gabapentin) 300 Mg Cap 300 MG PO AFTERNOON Gabapentin (Gabapentin) 300 Mg Cap 300 MG PO QAM Gabapentin (Neurontin) 300 Mg Cap 600 MG PO HS, CAP Hydroxyzine HCl (Hydroxyzine HCl) 25 Mg Tab 1 CAP DAILY PRN for Anxiety Ibuprofen Tab (Advil) 200 Mg Tab 600 MG PO Q6 PRN for Pain, TAB Methadone Hcl (Methadone Hcl) 10 Mg/5 Ml [place] 149 MG PO QAM Omeprazole (Prilosec) 20 Mg Cap 20 MG PO BID Ondasetron Odt (Zofran Odt) 4 Mg Tab 4 MG SL Q12 PRN for Nausea, #6 TAB Venlafaxine Hcl (Effexor Extended Rel) 75 Mg Capcr 75 MG PO DAILY TAKE ONE 75 MG CAPSULE ALONG WITH ONE 150 MG CAPSULE TO EQUAL 225 MG DAILY DOSE Venlafaxine Hcl (Effexor Extended Rel) 150 Mg Capcr 150 MG PO DAILY TAKE ONE 150 MG CAPSULE ALONG WITH ONE 75 MG CAPSULE TO EQUAL 225 MG DAILY DOSE Admission Information HPI (per Admitting provider): 46 year old female with PMH of anemia, peptic ulcer with hemorrhage, fibromyalgia, Drug addiction on methadone, Depression presents to the Emergency Room with complaints of worsening dyspnea. Pt said that she has been having worsening SOB for the past week that is worst on exertion. she saw her pcp 1 week ago and was giving Augmentin with no help. she said that she has been using her albuterol inhaler with no help. She said that she checked her oxygen saturation and it was btw 84 to 88%. She also has been having fever and chills. she checked her temp at room and it was in the 102. Pt said that she has been treated for PNA 4 times since June. She states that she is a smoker and has been smoking less about 1/2 pack a day since developing dyspnea. She said that she has been having a dry coughing. She also complaints of chest tenderness that is associated with the cough. She also has been having nausea, abdominal discomfort associated with bloating. Denies any sick contact or recent travel. Denies any palpitation, dizziness, diarrhea. Physical Exam (per Admitting): General Appearance: WD/WN, no apparent distress Head: normocephalic, atraumatic Eyes: PERRL, EOMI ENT: hearing grossly normal Neck: supple, no JVD Respiratory/Chest: no respiratory distress, no accessory muscle use Cardiovascular: no JVD, + tachycardia Abdomen/GI: normal bowel sounds Back: no CVA tenderness Extremities/Musculoskelatal: no calf tenderness Neurologic/Psych: alert, oriented x 3 Skin: warm/dry, no rash Hospital Course Dyspnea /Hypoxia Secondary to Pneumonia Has been having recurrent pneumonia CXR showed vague patchy opacity in the right mid and lung base. CTA chest showed no evidence of PE. Interval increase in patchy bilateral groundglass opacities affecting the upper lobes to the greatest degree Received Rocephin and zithromax, and solumedrol in the ER Continue rocephin and Zithromax Continue prednisone 40mg Duoneb treatment, will add guaifenesin for the cough blood cx and urine legionella, serum mycoplasma pending Continue oxygen supplement Pulmonary on board If symptoms worsening, will consider a bronch as per pulmonary team 03/15 received 5 days of Zithromax and Rocephin S/p bronch yesterday Lung biopsy pending Case discussed with Pulmonology Dr. Gooden Need to follow with pulmonology in about 1 to 2 weeks 2 step exercise done and pt does not qualify for oxygen supplement Continue prednisone taper Urine for legionella negative HIV ab negative HIV RNA pending Mediastinal and Hilar lymphadenopathy will need to r/o sarcoidosis Pulmonary consulted angiotensin converting enzymes pending Bronch done on 03/14, biopsy pending will need more outpatient work up as per pulmonology Follow up with pulmonology in about 2 weeks Bacteremia Blood cx positive for gram positive cocci will start on IV vanco Will consult ID repeat blood cx tomorrow consider echo monitor CBC 03/15 Lab called to inform the positive blood cx was due to contamination D/C vanco ID on board Hx of drug abuse Follow with the methadone clinic PDMP reviewed showed last refill for Adderall was in August Also klonopin was refilled on 02/08 for 15 tabs daily Pt said that she was prescribed it q6h and she was taking the Adderall BID Fibromyalgia On gabapentin On Ibuprofen at home, will consider Tylenol due to hx of peptic ulcer Elevated BP Possible situational Will monitor BP BP control Elevated blood glucose Hba1c 5.9 D/C D5 water will start on a sliding scale because of the elevated BS from the steroid advised pt about Diet and losing weight Tobacco abuse Counseling on smoking cessation Nicotine patch Anxiety On klonopin and effexor Pt was taking klonopin q6hr prn Informed pt that her last script for Klonopin was ordered to take daily Hx Peptic ulcer with hemorrhage Stable DVT px on SCDs due to prior history of peptic ulcer bleeding about 1 yr ago CODE STATUS Full code Disposition Will discharge today after 2 steps Follow up with Dr. Escudero on 03/21 @ 4:45 pm Follow up with pulmonology with Dr. Gooden or Veronica JOHNSON in about 2 weeks (call to schedule appointment) Address: [address] [place] [address]. Phone : [phone] Total time spent on discharge = 35 minutes This includes examination of the patient, discharge planning, medication reconciliation, and communication with other providers. Discharge Instructions Discharge Instructions Date of Service Mar 15, 2017. Admission Reason for Admission: Fever,Sob Discharge Discharge Diagnosis / Problem: Fever, Dyspnea/ Hypoxia, Mediastinal and Hilar lymphadenopathy Discharge Goals Goal(s): Decrease discomfort, Improve function, Improve disease control Activity Recommendations Activity Limitations: resume your previous activity (as tolerated) . Instructions / Follow-Up Instructions / Follow-Up Follow up with Dr. Escudero on 03/21 @ 4:45 pm Follow up with pulmonology with Dr. Gooden or Veronica JOHNSON in about 2 weeks (call to schedule appointment) Address: [address] [facility] [place], [place]. Phone : [phone] Continue prednisone taper Counseling about smoking cessation Continue follow up with the methadone clinic Follow a health diet and exercise Current Hospital Diet Patient's current hospital diet: Regular Diet, Diabetes Type 2 Diet Discharge Diet Recommended Diet: Regular Diet Procedures Procedures Performed: Endobronchial Ultrasound Guided Bronchoscopy, Flexible Bronchoscopy, Trans-Tracheal and Bronchial Needle Aspiration, Bronchial Lavage Laboratory Results Hemoglobin A1c Test 03/13/17 05:46 Range/Units Estimated Average Glucose 123 mg/dl Hemoglobin A1c 5.9 H 4.5-5.6 % Medical Emergencies . Who to Call and When: Medical Emergencies: If at any time you feel your situation is an emergency, please call 911 immediately. . Non-Emergent Contact Non-Emergency issues call your: Primary Care Provider Call Non-Emergent contact if: you have any medication questions (due to hx of Peptic ulcer bleeding) . . "Provider Documentation" section prepared by Carlos Freeman. . VTE Core Measure Inpt VTE Proph given/why not?: SCD's [place] Drug Monitoring Program Search Results: patient reviewed within database Additional Copies To Francoise ESCUDERO M.D.
== END 2017-03-15 15:07 | disposition home or self-care (01) | DRG 167 ==
LOC: C.EDB 08:06 → C.MED 12:12 → ENRESERV 12:41 → C.MS2W 03-14 12:56
PROVIDERS: ADMIT Internal Medicine; ATTEND Internal Medicine
PROC: 0B9G8ZX Drainage of Left Upper Lung Lobe, Via Natural or Artificial Opening Endoscopic, Diagnostic (ICD-10-PCS; principal; 2017-03-14 13:00)
DX: J18.9 Pneumonia, unspecified organism (principal); F11.20 Opioid dependence, uncomplicated; D86.1 Sarcoidosis of lymph nodes; F41.9 Anxiety disorder, unspecified; M79.7 Fibromyalgia; E11.9 Type 2 diabetes mellitus without complications; F17.200 Nicotine dependence, unspecified, uncomplicated; Z79.899 Other long term (current) drug therapy; Z87.01 Personal history of pneumonia (recurrent); Z87.11 Personal history of peptic ulcer disease; Z83.3 Family history of diabetes mellitus; Z82.49 Family history of ischemic heart disease and other diseases of the circulatory system; Z84.1 Family history of disorders of kidney and ureter

== ENCOUNTER → 2017-04-12 | Outpatient (CLI) | payer OTHER ==
[~2017-04-12] MED LIST changes: -AMPH30TA2 PO; +ATR25; +IBUP-103 PO; -NRN600 PO; +ONDA4TAB10 SL; -PROP10TA7 PO
--- NOTE | 2017-04-12 16:09 | DIAGNOSTIC IMAGING REPORT ---
L RIBS UNILATERAL W/CHEST CLINICAL HISTORY: Left-sided rib pain. COMPARISON STUDY: Chest radiograph and chest CT March 11, 2017. FINDINGS: Bilateral airspace opacities shown on exam of March 01 have resolved. There is no pneumothorax or pleural effusion. Pulmonary vascularity is normal. Cardiomediastinal silhouette is normal. There are old, healed fractures of the left fifth and sixth ribs. No acute left rib fractures are identified. IMPRESSION: 1. No pneumothorax. No acute left-sided rib fractures. Old left fifth and sixth rib fractures. 2. Interval resolution of airspace opacities within the lungs which were shown on chest CT of March 11, 2017. Electronically signed by: Devin May M.D. 04/12/2017 4:08 PM Dictated Date/Time: 04/12/2017 4:05 PM
--- NOTE | 2017-04-12 16:13 | DIAGNOSTIC IMAGING REPORT ---
RIGHT FOOT 3 VIEWS CLINICAL HISTORY: Right foot pain. Fall. FINDINGS: 3 views of the right foot are compared to study dated 02/27/2016. The skeletal structures are well mineralized. No acute fracture is seen. There is cortical thickening in the second and third metatarsal shaft, likely representing healed fractures. The joint spaces of the foot are well-maintained. The overlying soft tissues are within normal limits. IMPRESSION: 1. No acute fracture is seen. 2. Cortical thickening in the second and third metatarsal shafts likely represents healed stress fractures. Electronically signed by: Cali Maharaj M.D. 04/12/2017 4:12 PM Dictated Date/Time: 04/12/2017 4:04 PM
== END | disposition home or self-care (01) ==
LOC: C.RDSM 15:42
PROVIDERS: ATTEND Physician Assistant
DX: R07.81 Pleurodynia (principal); M79.671 Pain in right foot; Z87.81 Personal history of (healed) traumatic fracture

== ENCOUNTER → 2017-05-25 | Outpatient (CLI) | payer OTHER | END | disposition home or self-care (01) | LOC: C.CPL 09:09 | PROVIDERS: ATTEND Emergency Medicine Emergency Medical Services | DX: F11.20 Opioid dependence, uncomplicated (principal) ==

== ENCOUNTER → 2017-08-31 | Outpatient (CLI) | payer OTHER ==
[~2017-08-31] MED LIST changes: +GABA-1219 PO; -GABA1CAP4 PO
--- NOTE | 2017-08-31 10:33 | DIAGNOSTIC IMAGING REPORT ---
TWO VIEW CHEST CLINICAL HISTORY: Sarcoidosis. Dyspnea. FINDINGS: PA and lateral chest radiographs are compared to chest x-ray and chest CT dated 03/11/2017. The cardiomediastinal silhouette is unremarkable. The lungs and pleural spaces are clear. There is no pneumothorax. The bony thorax appears intact. IMPRESSION: No active disease in the chest. Electronically signed by: Cali Maharaj M.D. 08/31/2017 10:32 AM Dictated Date/Time: 08/31/2017 10:31 AM
[2017-08-31 10:36] LABS: BASO % 0.5 %; BASO ABS # 0.03 K/uL (0-0.2); EOS % 2.2 %; EOS ABS # 0.14 K/uL (0-0.5); HEMATOCRIT 43.3 % (37-47); HEMOGLOBIN 14.8 g/dL (12.0-16.0); IG# 0.06 K/uL (0.00-0.02); LYMPH % 25.3 %; LYMPH ABS # 1.61 K/uL (1.2-3.4); MEAN CELL VOLUME 88.4 fL (80-100); MEAN CORPUSCULAR HEMOGLOBIN 30.2 pg (25-34); MEAN CORPUSCULAR HGB CONC 34.2 g/dl (32-36); MEAN PLATELET VOLUME 9.4 fL (7.4-10.4); MONO % 5.2 %; MONO ABS # 0.33 K/uL (0.11-0.59); NEUT % 65.9 %; NEUT ABS # 4.19 K/uL (1.4-6.5); PLATELET COUNT 250 K/uL (130-400); RED CELL DISTRIBUTION WIDTH CV 14.2 % (11.5-14.5); WHITE BLOOD COUNT 6.36 K/uL (4.8-10.8)
[2017-08-31 11:16] LABS: BLOOD UREA NITROGEN 13 mg/dl (7-18); CALCIUM 9.3 mg/dl (8.5-10.1); CARBON DIOXIDE 23 mmol/L (21-32); CREATININE 0.95 mg/dl (0.60-1.20); GLUCOSE 122 mg/dl (70-99); POTASSIUM 3.6 mmol/L (3.5-5.1); SODIUM 135 mmol/L (136-145)
[2017-08-31 11:21] LABS: INFLUENZA A PCR Neg for Influ A (NEG); INFLUENZA B PCR Neg for Influ B (NEG)
== END | disposition home or self-care (01) ==
LOC: C.LAB1850 09:43
PROVIDERS: ATTEND Physician Assistant
DX: R50.9 Fever, unspecified (principal); D86.9 Sarcoidosis, unspecified; R06.02 Shortness of breath

== ENCOUNTER 2018-11-24 09:34 | Inpatient (IN) ==
--- OUTSIDE RECORDS SUMMARY | 2018-11-24 09:37 | External Medical Summary | Continuity of Care Document ---
:1970 Author Name Madno Mark, Provider Address Unavailable Unavailable , Care Team Providers Name Role Phone Hannah Mark, John Unavailable [email or web address] Ash JOHNSON, Magaly Unavailable [email or web address] Navid Mark, Cari Unavailable [email or web address] Berkley Mark, Gal Unavailable [email or web address] Unavailable Unavailable Unavailable Unavailable Unavailable Problems Vitamin D deficiency (268.9) (E55.9) Bone pain (733.90) (M89.8X9) Elevated rheumatoid factor (795.79) (R76.8) Abnormal radionuclide bone scan (794.9) (R94.8) Pelvic pain (R10.2) Polyarthropathy or polyarthritis of multiple sites (716.59) (M13.0) Allergic rhinitis (477.9) (J30.9) Shortness of breath (786.05) (R06.02) Tobacco use disorder (305.1) (F17.200) Sinusitis (473.9) (J32.9) Acute bronchitis (466.0) (J20.9) Fibromyalgia (729.1) (M79.7) Migraine variant (346.20) (G43.809) Peptic ulcer (533.90) (K27.9) Polyarthropathy Of The Thigh (716.55) Polyarthropathy Of The Upper Arm (716.52) Polyarthropathy Of The Shoulder (716.51) Polyarthropathy Of The Lower Leg (716.56) Migraine headache (346.90) (G43.909) Hilar adenopathy (785.6) (R59.0) History of pneumonia (V12.61) (Z87.01) C. difficile diarrhea (008.45) (A04.72) Sarcoidosis (135) (D86.9) Right hip pain (719.45) (M25.551) Fever (780.60) (R50.9) Chest pain (786.50) (R07.9) Substance abuse (305.90) (F19.10) Encounter for routine gynecological exam ination with Papanicolaou smear of cervix (V72.31) (Z01.419) Hypertension (401.9) (I10) Allergies and Adverse Reactions Phenergan TABS (Allergy) Medications Nystatin SUSP Refills: 0 Vancomycin HCl CAPS Refills: 0 Cipro TABS Refills: 0 Allergy 24-HR 180 MG Oral Tablet; TAKE 1 TABLET DAILY NEEDED FOR ALLERGIES. Deedee Gooden Start: 16-Oct-2017 Quantity: 30 Refills: 3 Ventolin HFA 108 (90 Base) MCG/ACT Inhal ation Aerosol Solution; INHALE 2 PUFFS EVERY 4 HOURS NEEDED ALEX Aleman Magaly 18 GM Inhaler Quantity: 1 Refills: 5 Omeprazole 20 MG Oral Capsule Delayed Release; TAKE 1 CAPSUL E DAILY. Quantity: 30 Refills: 5 Methadone HCl - 10 MG Oral Tablet; 85mg daily Refills: 0 Xanax 0.5 MG Oral Tablet; TAKE 1 TABLET AT BEDTIME NEEDED . Start: 07-Jun-2018 Refills: 0 Vitamin D (Ergocalciferol) 06792 UNIT Or al Capsule; TAKE 1 CAPSULE Weekly On Sunday morning for 12 weeks Deedee Shoemaker Start: 18-Apr-2018 Quantity: 12 Refills: 0 Procedures History of Cholecystotomy Status: Comple rupert History of Tonsillectomy Status: Complet ed History of Section Status: Comp leted History of Ankle Repair Status: Complete d History of Section Status: Comp leted Immunizations Immunizations not documented Family History Unknown Family Member Family history of hypertension (V17.49) Status: Active Comments: Family History (Z82.49) Social History - Smoking Status Current every day smoker Plan of Treatment Planned Observations Planned Goals not documented Results No Known Results Results not documented Encounters Appointment; Ney Mendenhall PA-C 07-Aug-2018 9:15 Encounter Diagnosis: Problem not documented Appointment; Jenae Galdamez CRNP 24-Jun-2018 8:30 Encounter Diagnosis: Problem not documented Appointment; Cari Shoemaker M.D. 07-Jun-2018 11:40 Encounter Diagnosis: Problem not documented Appointment; Ney Mendenhall PA-C 09-May-2018 10:00 Encounter Diagnosis: Problem not documented Appointment; Cari Shoemaker M.D. 17-Apr-2018 14:00 Encounter Diagnosis: Problem not documented Appointment; Ney Mendenhall PA-C 28-Mar-2018 10:30 Encounter Diagnosis: Problem not documented Appointment; Magaly Aleman PA-C 05-Mar-2018 11:15 Encounter Diagnosis: Problem not documented Appointment; Gal Gooden M.D. 20-Nov-2017 15:00 Encounter Diagnosis: Problem not documented Appointment; Pulmonary, Funct Testing 20-Nov-2017 14:00 Encounter Diagnosis: Problem not documented Appointment; Gal Gooden M.D. 16-Oct-2017 14:30 Encounter Diagnosis: Problem not documented Appointment; Magaly Aleman PA-C 13-Sep-2017 9:15 Encounter Diagnosis: Problem not documented Appointment; Med [facility], Nursing Station 31-Aug-2017 9:00 Encounter Diagnosis: Problem not documented Appointment; Magaly Aleman PA-C 31-Aug-2017 8:30 Encounter Diagnosis: Problem not documented Appointment; Nina Hinojosa CRNP 14-May-2017 10:45 Encounter Diagnosis: Problem not documented Appointment; Veronica Law PA-C 03-May-2017 14:00 Encounter Diagnosis: Problem not documented Appointment; Veronica Law PA-C 26-Apr-2017 13:30 Encounter Diagnosis: Problem not documented
[2018-11-24] MEDS ORDERED: SODIUM CHLORIDE 0.9% 1000ML 1,000 ML IV SCH (09:45)
[2018-11-24] MEDS ORDERED: ONDANSETRON INJ 2 MG/ML 2 ML VIAL IV STA ×2 (09:47→12:12)
[2018-11-24 10:11] LABS: Basophils # (auto) 0.01 K/uL (0-0.2); Basophils % (auto) 0.1 %; Eosinophils # (auto) 0.01 K/uL (0-0.5); Eosinophils % (auto) 0.1 %; Hematocrit (blood only) 42.2 % (37-47); Hemoglobin 14.4 g/dL (12.0-16.0); Immature Granulocytes # (auto) 0.03 K/uL (0.00-0.02); Immature Granulocytes % (auto) 0.4 %; Lymphocytes # (auto) 0.29 K/uL (1.2-3.4); Lymphocytes % (auto) 3.8 %; Mean Corpuscular Hgb Conc 34.1 g/dL (32-36); Mean Corpuscular Volume 84.9 fL (80-100); Mean Platelet Volume 10.4 fL (7.4-10.4); Monocytes # (auto) 0.03 K/uL (0.11-0.59); Monocytes % (auto) 0.4 %; Neutrophils # (auto) 7.35 K/uL (1.4-6.5); Neutrophils % (auto) 95.2 %; Platelet Count 136 K/uL (130-400); RDW Coefficient of Variation 13.8 % (11.5-14.5); RDW Standard Deviation 42.4 fL (36.4-46.3); Red Blood Count 4.97 M/uL (4.2-5.4); White Blood Count 7.72 K/uL (4.8-10.8)
[2018-11-24] MEDS ORDERED: ACETAMINOPHEN 500 MG TAB PO STA (10:16)
[2018-11-24] MEDS ORDERED: SODIUM CHLORIDE 0.9% 1000ML 2,000 ML IV ONE (10:17)
[2018-11-24 10:18] LABS: iSTAT Creatinine 0.7 mg/dl (0.6-1.3); iSTAT Hemoglobin 14.6 g/dl (12.0-16.0); iSTAT Ionized Calcium 1.08 mmol/l (1.12-1.32); iSTAT Potassium 3.7 mEq/L (3.3-5.0)
[2018-11-24 10:24] LABS: INR 1.1 (0.9-1.1); Partial Thromboplastin Ratio 0.9; Partial Thromboplastin Time 25.1 Seconds (21.0-31.0)
[2018-11-24 10:31] LABS: Albumin Level 3.6 gm/dl (3.4-5.0); BUN Creatinine Ratio 7.5 (10-20); Creatinine Clr Calc Pharmacy 63.6 ml/min; Est GFR (African American) 63.2; Est GFR (Non-African American) 54.5; Potassium 3.7 mmol/L (3.5-5.1)
[2018-11-24 10:34] LABS: Bilirubin,Total 0.9 mg/dl (0.2-1); Globulin 3.5 gm/dl (2.5-4.0); Total Protein 7.1 gm/dl (6.4-8.2)
[2018-11-24] MEDS ORDERED: IOVERSOL 100ml IV PRN (11:07)
[2018-11-24] MEDS ORDERED: PIPERACILLIN/TAZOBACTAM 4.5 GM/120 ML BAG IV ONE (11:17)
[2018-11-24] MEDS ORDERED: PIPERACILL/TAZOBAC CONSULT ACTIVE PRN ×2 (11:17→15:27)
--- NOTE | 2018-11-24 11:30 | CT Scan Report ---
CT SCAN OF THE ABDOMEN AND PELVIS WITH IV CONTRAST CLINICAL HISTORY: Generalized abdominal pain. Vomiting and fever. COMPARISON STUDY: Abdominal CT dated 06/27/2018. TECHNIQUE: Following the IV administration of 95 cc of Optiray 320, CT scan of the abdomen and pelvi s is performed from the lung bases to the proximal femora. Images are reviewed in the axial, sagittal , and coronal planes. IV contrast was administered without complication. A dose lowering technique wa s utilized adhering to the principles of ALARA. CT DOSE: 372.65 mGy.cm FINDINGS: Lung bases: The heart is normal in size and without pericardial effusion. The lung bases are clear no ting dependent atelectasis. Liver: The contrast-enhanced liver is mildly enlarged measuring 18.9 cm in length. The liver is other mccracken normal in contour and attenuation. There is mild intrahepatic biliary ductal dilatation. The hep atic veins and portal veins are patent. Gallbladder: Surgically absent noting clips in the gallbladder fossa. Spleen: The spleen is enlarged, measuring 14.3 cm in length. Pancreas: Unremarkable. Adrenal glands: Unremarkable. Kidneys: The contrast enhanced kidneys are normal in size and without hydronephrosis. The kidneys enh ance symmetrically. There is mild bilateral perinephric stranding, left greater than right. This is n ew from 06/27/2018. A retroaortic left renal vein is incidentally noted. Abdominal vasculature: The abdominal aorta is normal in course and caliber. Bowel: There is moderate colonic fecal retention. No bowel obstruction is seen. There are mildly dist ended and fluid-filled loops of small bowel. No bowel wall thickening or surrounding inflammation is identified. The appendix is well-visualized and normal, and filled with hyperdense material. Peritoneum: There is no intraperitoneal free air or abdominal ascites. There is a fat-containing umbi lical hernia. Lymphadenopathy: None. Pelvic viscera: The bladder wall appears mildly thickened end there is faint pericystic stranding. Th e uterus and adnexa are normal as visualized. Skeletal structures: A large hemangioma is noted in the body of T11. No lytic or blastic lesions are seen. IMPRESSION: 1. Findings suggest cystitis. Correlation with clinical findings and urinalysis will be required. 2. There is bilateral perinephric stranding, new from 06/27/2018. Again, correlation with clinical find ings and urinalysis will be required. 3. There are mildly distended and fluid-filled loops of small bowel with no wall thickening or surrou nding inflammatory change. Correlate clinically for evidence of a mild enteritis. 4. Mild hepatosplenomegaly. 5. Additional findings as above. Electronically signed by: Cali Maharaj M.D. 11/24/2018 11:29 AM
[2018-11-24 11:45] LABS: Appearance Urine Clear (Clear); Bacteria Urine Automated Negative (Negative); Bilirubin Urine Negative (Negative); Blood Urine Negative (Negative); Color Urine Orange; Epithelial Cell Urine Auto >30 /lpf (0-5); Glucose Urine UA Negative (Negative); Ketones Urine Negative (Negative); Leukocyte Esterase Urine Negative (Negative); Nitrite Urine Negative (Negative); Protein Urine 1+ (Negative); RBC Urine Automated 0-4 /hpf (0-4); Specific Gravity Urine 1.012 (1.000-1.030); Urobilinogen Urine Positive (Negative); pH Urine 5.5 (4.5-7.5)
[2018-11-24 12:05] LABS: Amphetamines+Metham, Urine Neg (Neg); Barbiturates, Urine Neg (Neg); Benzodiazepine, Urine Neg (Neg); Cocaine, Urine Neg (Neg); MDMA (Ecstacy), Urine Neg (Neg); Methadone, Urine Neg (Neg); Opiate, Urine Pos (Neg); Phencyclidine, Urine Neg (Neg)
[2018-11-24] MEDS ORDERED: MoRPHine SULFATE 10 MG/ML CARP/VIAL IV STA (12:12)
[2018-11-24] MEDS ORDERED: MoRPHine SULFATE 4 MG/ML 1 ML CARP\\VIAL ONE (12:15)
[2018-11-24] MEDS ORDERED: MoRPHine SULFATE 2 MG/ML CARP ONE (12:16)
[2018-11-24 12:52] LABS: Creatine Kinase 45 U/L (26-192); Creatine Kinase MB < 1.0 ng/ml (0.5-3.6); Troponin I < 0.015 ng/ml (0-0.045)
[2018-11-24] MEDS ORDERED: VANCOMYCIN CONSULT ACTIVE PRN ×2 (13:07→15:43)
[2018-11-24] MEDS ORDERED: VANCOMYCIN HCL 2,000 MG in SODIUM CHLORIDE 0.9% 500 ML IV ONE (13:07)
--- NOTE | 2018-11-24 13:19 | Ultrasound Report ---
ULTRASOUND RIGHT UPPER QUADRANT ABDOMEN CLINICAL HISTORY: Elevated hepatic transaminases. COMPARISON STUDY: Abdominal CT performed the same day 11/24/2018. Abdominal ultrasound dated 12/18/2016. TECHNIQUE: Real-time, grayscale, and color flow sonography of the right upper quadrant of the abdomen was performed. Images are reviewed in the transverse and longitudinal planes. FINDINGS: Liver: The liver is enlarged, measuring over 18 cm in length. Echotexture is heterogeneous. There is mild central intrahepatic biliary ductal dilatation. The main portal vein is patent. Gallbladder: The gallbladder is surgically absent. The common bile duct measures up to 1.3 cm in diam eter. There is no evidence of choledocholithiasis by ultrasound. Pancreas: Visualized portions of the pancreatic head and body are normal in appearance. The splenic v ein is patent. Right kidney: Survey images of the right kidney demonstrate normal size and echotexture. There is no hydronephrosis. Ascites: None. IMPRESSION: 1. No acute sonographic abnormality is identified in the right upper quadrant noting status post chol ecystectomy. 2. Intra and extrahepatic biliary ductal dilatation is unchanged dating back to 2016. There is no son ographic evidence of choledocholithiasis. 3. Hepatomegaly. Electronically signed by: Cali Maharaj M.D. 11/24/2018 1:18 PM
[2018-11-24 13:25] LABS: Hepatitis B Surface Antigen Neg (Neg)
[2018-11-24 13:47] LABS: HCO3 ABG 19 mmol/L (19-24); PCO2 ABG 29 mmHg (35-46); PO2 ABG 62 mm/Hg (80-95); pH ABG 7.44 (7.35-7.45)
--- NOTE | 2018-11-24 13:52 | History & Physical Report ---
Date of Service November 24, 2018 Assessment & Plan (1) Sepsis: Documented by tachycardia, anion gap, elevated lactic acid levels, left shift. Blood and urine cultures obtained. Currently on Zosyn and vancomycin. Present on Admission?: Yes (2) IV drug user: She has been injecting crushed morphine. This raises the possibility of bacteremia and/or endocarditis. Blood cultures are possible, endocarditis work- up should be pursued Present on Admission?: Yes (3) Transaminitis: New onset. Serial lab studies. Hopefully this will improve and resolve with treatment of underlying infectious process (4) Acute gastritis: History of peptic ulcer disease. Will treat with Protonix and Carafate. Parenteral antiemetics as needed Present on Admission?: Yes (5) Opioid abuse: She has been on methadone and Suboxone in the past. Consider pain management evaluation (6) DVT prophylaxis: Lovenox subcu History of Present Illness Chief Complaint: Epigastric pain, nausea, vomiting Primary Care Provider: Ney Mendenhall PA-C 48-year-old female with a history of peptic ulcer disease who has had several days of epigastric pain nausea and vomiting. She may have had some hematemesis but is unsure. No coffee-ground emesis. No melena or hematochezia. When she arrived and was evaluated in the ED she was found to be septic. Lactic acid is 5.4, she has a fever, tachycardia, mildly elevated anion gap and a normal white count with a left shift. Abdominal CT scan raises the possibility of cystitis and possibly early pyelonephritis but the urine analysis is unremarkable. Urine culture has been ordered. She has recently crushed morphine and use this intravenously. This raises the possibility of endocarditis although she does not currently have a murmur. If blood cultures are positive, this will need to be pursued further. Liver enzymes are elevated which is new for her. Abdominal ultrasound is unremarkable. She has been treated for sarcoidosis but has been off prednisone for approximately 2 months. She is opioid dependent from chronic back pain. Currently blood pressure is stable and she is alert and oriented. Allergies Allergy/AdvReac Type Severity Reaction Status Date / Time tramadol Allergy U SEIZURE Verified 08/30/18 14:33 promethazine AdvReac TN JITTERY Verified 08/30/18 14:33 Home Medications Home Medications Medication Instructions Recorded Confirmed Type albuterol sulfate 2 puff INHALATION Q4 PRN 06/12/18 11/24/18 History clonazepam 1 mg PO DAILY PRN 06/12/18 11/24/18 History docusate sodium [Colace] 100 mg PO BID PRN 06/12/18 11/24/18 History ergocalciferol (vitamin D2) 50,000 unit PO WK 06/12/18 11/24/18 History fluoxetine 20 mg PO QAM 06/12/18 11/24/18 History gabapentin 600 mg PO TID 06/12/18 11/24/18 History hydroxyzine pamoate 50 mg PO DAILY PRN 06/12/18 11/24/18 History olanzapine 5 mg TRANSLINGUAL HS 06/12/18 11/24/18 History perphenazine 4 mg PO DAILY PRN 06/12/18 11/24/18 History propranolol 10 mg PO DAILY PRN 06/12/18 11/24/18 History topiramate 50 mg PO QAM 06/12/18 11/24/18 History topiramate 100 mg PO HS 06/12/18 11/24/18 History diphenoxylate-atropine [Lomotil] 1 tab PO Q8H PRN #15 tab 06/27/18 11/24/18 Rx methadone 165 mg PO QAM 06/27/18 11/24/18 History Past Med/Surg History Medical History Gastroparesis (Chronic) Sarcoid (Chronic) Migraine Surgical History Hx of cholecystectomy (Resolved) History of cholecystectomy History of esophagogastroduodenoscopy (EGD) History of open reduction and internal fixation (ORIF) procedure LEFT ANKLE History of tonsillectomy Family History Other Cancer Diabetes Heart disease Hypertension Lung disease Social History Preferred Language: Polish Communication Ability: Effective Beliefs That Will Affect Care: None marital status: Single Current Living Situation: Alone current occupational status: employed Feels Safe at Home: Yes Smoking Status: Current every day smoker Tobacco Type: cigarettes Cigarettes Per Day: HX OF 1/2 PPD Second Hand Exposure: No Hx Alcohol Use: No Hx Substance Use: No (PT IS ON DAILY METHADONE DOSING, SEE EMR) Review of Systems Review of Systems: All systems reviewed & are unremarkable except as noted in HPI & below Gastrointestinal: Epigastric discomfort. Protracted nausea and vomiting. No coffee-ground emesis. No melena or hematochezia Musculoskeletal: Chronic low back pain Physical Exam Constitutional: WD/WN, vitals as above Alert and oriented. Eyes: PERRL, conjunctivae normal, anicteric sclerae ENMT: external ear and nose normal, oropharynx normal Neck: trachea midline, no thyromegaly Respiratory: normal respiratory effort, lungs clear to auscultation Cardiovascular: Rate/Rhythm: regular rate and + tachycardic Heart Sounds: normal S1 and normal S2; no murmur Gastrointestinal (Abdomen): Nondistended. Active bowel sounds. Epigastric tenderness. No rebound or guarding Musculoskeletal: no cyanosis or clubbing, extremities motor strength 5/5 Skin: no rashes, warm and dry Neurologic: CN's II-XI intact bilaterally and moves all extremities; no focal motor deficits Psychiatric: A+Ox3, euthymic affect Results & Data Vital Signs (Past 12 Hours) Vital Signs Temp Pulse Pulse Resp BP BP Pulse Ox 11/24/18 11:44 37.7 C H 11/24/18 11:20 119 H 20 111/78 96 11/24/18 09:59 136 H 11/24/18 09:42 98 11/24/18 09:20 39.2 C H 146 H 26 H 127/101 H 97 Laboratory Results 11/24/18 09:54 11/24/18 09:54 (1) Sepsis Sepsis type: sepsis due to unspecified organism Qualified Code(s): A41.9 - Sepsis, unspecified organism
[2018-11-24 13:53] LABS: Hepatitis C IgG 13Yrs+Old_Rflx Neg (Neg)
[2018-11-24 14:05] LABS: Salicylate 3.7 mg/dl (2.8-20)
[2018-11-24] MEDS ORDERED: ALBUTEROL HFA 8 GM INHALER INH PRN (15:27)
[2018-11-24] MEDS ORDERED: ONDANSETRON INJ 2 MG/ML 2 ML VIAL IV PRN (15:27)
[2018-11-24] MEDS ORDERED: DOCUSATE SODIUM 100 MG CAP PO PRN (15:27)
[2018-11-24] MEDS ORDERED: PROPRANOLOL HCL 10 MG TAB PO PRN (15:27)
--- NOTE | 2018-11-24 15:40 | Emergency Department Note ---
Entered by Laura Daugherty acting as a scribe for Selena Laughlin MD History of Present Illness General Chief complaint: Abdominal Pain Time Seen by Provider: 11/24/18 09:39 Source: patient History of Present Illness Provider complaint: abdominal pain Onset (ago): day(s) (last night) Location: abdomen Quality: + other (pain) Associated symptoms: + fever/chills (chills), + nausea/vomiting and + other (diarrhea) Treatments prior to arrival: other (Prilosec) The patient is a 48 year old female who presents to the Emergency Department with complaints of abdominal pain beginning last night. She states that she was also vomiting blood and states that this began at 0130 this morning. The patient states that this has happened to her before. She states that she also has a headache, chills, and had diarrhea. She states that her diarrhea was dark. The patient states that she follows with Dr. Chicas and that she last saw him about 6 months ago. She denies a history of a blood transfusion. She states that she takes Prilosec. The patient denies alcohol use and denies being around sick contact. She reports a history of sarcoidosis. Home Medications Home Medications Medication Instructions Recorded Confirmed Type albuterol sulfate 2 puff INHALATION Q4 PRN 06/12/18 11/24/18 History clonazepam 1 mg PO DAILY PRN 06/12/18 11/24/18 History docusate sodium [Colace] 100 mg PO BID PRN 06/12/18 11/24/18 History ergocalciferol (vitamin D2) 50,000 unit PO WK 06/12/18 11/24/18 History fluoxetine 20 mg PO QAM 06/12/18 11/24/18 History gabapentin 600 mg PO TID 06/12/18 11/24/18 History hydroxyzine pamoate 50 mg PO DAILY PRN 06/12/18 11/24/18 History olanzapine 5 mg TRANSLINGUAL HS 06/12/18 11/24/18 History perphenazine 4 mg PO DAILY PRN 06/12/18 11/24/18 History propranolol 10 mg PO DAILY PRN 06/12/18 11/24/18 History topiramate 50 mg PO QAM 06/12/18 11/24/18 History topiramate 100 mg PO HS 06/12/18 11/24/18 History diphenoxylate-atropine [Lomotil] 1 tab PO Q8H PRN #15 tab 06/27/18 11/24/18 Rx methadone 165 mg PO QAM 06/27/18 11/24/18 History Allergies Allergy/AdvReac Type Severity Reaction Status Date / Time tramadol Allergy U SEIZURE Verified 08/30/18 14:33 promethazine AdvReac MD JITTERY Verified 08/30/18 14:33 Past Med/Surg History Medical History DVT prophylaxis Opioid abuse (Chronic) Acute gastritis (Acute) Transaminitis (Acute) IV drug user (Acute) Sepsis (Acute) Gastroparesis (Chronic) Sarcoid (Chronic) Migraine Surgical History Hx of cholecystectomy (Resolved) History of cholecystectomy History of esophagogastroduodenoscopy (EGD) History of open reduction and internal fixation (ORIF) procedure LEFT ANKLE History of tonsillectomy Family History Other Cancer Diabetes Heart disease Hypertension Lung disease Social History Preferred Language: [place] Communication Ability: Effective Beliefs That Will Affect Care: None marital status: Single Current Living Situation: Parent current occupational status: employed Other Information That Helps Us Care for You: No Feels Safe at Home: Yes Safety Concerns: Feels Safe At This Time Smoking Status: Current every day smoker Tobacco Type: cigarettes Cigarettes Per Day: 20 Do You Dip or Chew Tobacco: No Second Hand Exposure: No Hx Alcohol Use: No Hx Substance Use: Yes (PT IS ON DAILY METHADONE DOSING, SEE EMR) Review of Systems See HPI for pertinent positives & negatives. and A total of 10 systems reviewed and were otherwise negative Physical Exam Vital Signs Vital Signs - 24 hr 11/24/18 09:20 11/24/18 09:42 11/24/18 09:59 Temperature 39.2 C H Temperature Source Oral Sepsis Recent Fever Within 48 Hours Yes Sepsis New/Unexplained Change in Mental Status No Sepsis Action Taken by Nursing Physician Notified Pulse Rate 146 H Pulse Rate [Apical] 136 H Pulse Rhythm Regular Pulse Strength Normal Respiratory Rate 26 H Respiratory Effort / Characteristics Non-Labored Respiratory Depth Normal Blood Pressure 127/101 H Blood Pressure [Right Arm] Blood Pressure Mean 109 Blood Pressure Mean [Right Arm] Blood Pressure Position Sitting Pulse Oximetry 97 98 Oxygen Delivery Method Room Air Room Air 11/24/18 11:20 11/24/18 11:44 Temperature 37.7 C H Temperature Source Oral Sepsis Recent Fever Within 48 Hours Sepsis New/Unexplained Change in Mental Status Sepsis Action Taken by Nursing Pulse Rate Pulse Rate [Apical] 119 H Pulse Rhythm Pulse Strength Respiratory Rate 20 Respiratory Effort / Characteristics Respiratory Depth Blood Pressure Blood Pressure [Right Arm] 111/78 Blood Pressure Mean Blood Pressure Mean [Right Arm] 89 Blood Pressure Position Pulse Oximetry 96 Oxygen Delivery Method Vital signs reviewed. General: Uncomfortable-appearing female, in no significant distress. HEENT: No scleral icterus, PERRLA, neck supple. Atraumatic. Cardiovascular: Regular rate and rhythm, no extra sounds. Pulmonary: Clear to auscultation bilaterally, normal work of breathing. Abdomen: Soft, nontender, nondistended, positive bowel sounds. Musculoskeletal: Atraumatic, no peripheral edema. Neurologic: Patient awake alert and oriented x 3, no meningeal signs. Skin: Warm, dry, no rash Rectal: Normal mucosa. Guaiac negative. Course 0941: The patient was evaluated in room A12B. A history and physical were performed. 1022: I updated the patient that she will be getting a CT scan. 1204: I reevaluated the patient. She stated that she last injected 1 week ago. 1310: I updated the patient who verbalized agreement and understanding of the treatment plan. 1317: I discussed the patient's case with Dr. Alf Rossi who will evaluate the patient for further management. Consultations Consultation #1: Dr. Alf Rossi Time: 13:17 Administered Medications Clonazepam (Klonopin) 1 mg PO BID PRN PRN Reason: Anxiety Stop: 12/24/18 15:26 Last Admin: 11/26/18 21:33 Dose: 1 mg Documented by: [id number] Admin: 11/26/18 13:21 Dose: 1 mg Documented by: [id number] Admin: 11/25/18 20:08 Dose: 1 mg Documented by: [id number] Admin: 11/24/18 15:47 Dose: 1 mg Documented by: [id number] Fluoxetine HCl (Prozac) 20 mg PO QAM BARB Stop: 12/25/18 08:59 Last Admin: 11/26/18 08:56 Dose: 20 mg Documented by: [id number] Admin: 11/25/18 07:51 Dose: 20 mg Documented by: [id number] Gabapentin (Neurontin) 600 mg PO TID BARB Stop: 12/24/18 15:26 Last Admin: 11/26/18 20:46 Dose: 600 mg Documented by: [id number] Admin: 11/26/18 13:22 Dose: 600 mg Documented by: [id number] Admin: 11/26/18 08:56 Dose: 600 mg Documented by: [id number] Admin: 11/25/18 20:10 Dose: 600 mg Documented by: [id number] Admin: 11/25/18 13:47 Dose: 600 mg Documented by: [id number] Admin: 11/25/18 07:50 Dose: 600 mg Documented by: [id number] Admin: 11/24/18 20:31 Dose: 600 mg Documented by: [id number] Admin: 11/24/18 16:26 Dose: 600 mg Documented by: [id number] Sodium Chloride (Nss 1000ml) 1,000 mls @ 150 mls/hr IV .Q6H40M BARB Stop: 12/24/18 15:26 Last Infusion: 11/27/18 04:09 Dose: 0 mls/hr Documented by: [id number] Admin: 11/27/18 01:37 Dose: 150 mls/hr Documented by: [id number] Infusion: 11/26/18 22:34 Dose: 150 mls/hr Documented by: [id number] Infusion: 11/26/18 17:59 Dose: 150 mls/hr Documented by: [id number] Infusion: 11/26/18 13:19 Dose: 0 mls/hr Documented by: [id number] Admin: 11/26/18 11:13 Dose: 150 mls/hr Documented by: [id number] Infusion: 11/26/18 11:13 Dose: 0 mls/hr Documented by: [id number] Infusion: 11/26/18 08:51 Dose: 0 mls/hr Documented by: [id number] Admin: 11/26/18 03:16 Dose: 150 mls/hr Documented by: [id number] Infusion: 11/26/18 02:50 Dose: 150 mls/hr Documented by: [id number] Admin: 11/25/18 20:09 Dose: 150 mls/hr Documented by: [id number] Infusion: 11/25/18 20:09 Dose: 150 mls/hr Documented by: [id number] Admin: 11/25/18 13:47 Dose: 150 mls/hr Documented by: [id number] Infusion: 11/25/18 13:47 Dose: 150 mls/hr Documented by: [id number] Admin: 11/25/18 07:44 Dose: 150 mls/hr Documented by: [id number] Infusion: 11/25/18 07:44 Dose: 150 mls/hr Documented by: [id number] Infusion: 11/25/18 01:35 Dose: 150 mls/hr Documented by: [id number] Infusion: 11/24/18 23:26 Dose: 0 mls/hr Documented by: [id number] Admin: 11/24/18 23:23 Dose: 150 mls/hr Documented by: [id number] Infusion: 11/24/18 22:43 Dose: 150 mls/hr Documented by: [id number] Admin: 11/24/18 16:02 Dose: 150 mls/hr Documented by: [id number] Vancomycin HCl 1,250 mg/ (Sodium Chloride) 275 mls @ 125 mls/hr IV Q10H BARB Stop: 12/09/18 09:59 Last Admin: 11/27/18 04:05 Dose: 125 mls/hr Documented by: [id number] Infusion: 11/26/18 20:10 Dose: 0 mls/hr Documented by: [id number] Admin: 11/26/18 17:57 Dose: 125 mls/hr Documented by: [id number] Infusion: 11/26/18 11:13 Dose: 0 mls/hr Documented by: [id number] Admin: 11/26/18 08:50 Dose: 125 mls/hr Documented by: [id number] Infusion: 11/26/18 00:40 Dose: 0 mls/hr Documented by: [id number] Admin: 11/25/18 22:28 Dose: 125 mls/hr Documented by: [id number] Infusion: 11/25/18 14:41 Dose: 0 mls/hr Documented by: [id number] Admin: 11/25/18 12:10 Dose: 125 mls/hr Documented by: [id number] Ioversol (Optiray 320 100ml) 95 ml IV ONCE PRN PRN Reason: Interaction Checking Stop: 11/28/18 11:06 Last Admin: 11/24/18 11:08 Dose: 95 ml Documented by: [id number] Lidocaine (Lidoderm 5%) 1 patch TD QAM [facility] Stop: 12/26/18 08:59 Last Admin: 11/26/18 08:55 Dose: Not Given Documented by: [id number] Methylphenidate HCl (Ritalin) 20 mg PO BID@0900,1600 [facility] Stop: 12/09/18 10:44 Last Admin: 11/26/18 17:20 Dose: 20 mg Documented by: [id number] Admin: 11/26/18 11:15 Dose: 20 mg Documented by: [id number] Admin: 11/25/18 16:24 Dose: 20 mg Documented by: [id number] Admin: 11/25/18 12:05 Dose: 20 mg Documented by: [id number] Miscellaneous (Remove Lidoderm Patch) 1 ea N/A DAILY@2100 [facility] Stop: 12/25/18 20:59 Last Admin: 11/26/18 20:44 Dose: Not Given Documented by: [id number] Admin: 11/25/18 20:16 Dose: 1 ea Documented by: [id number] Morphine Sulfate (Morphine Sulfate) 2 mg IV Q3H PRN PRN Reason: Pain Stop: 12/08/18 15:26 Last Admin: 11/26/18 08:48 Dose: 2 mg Documented by: [id number] Admin: 11/26/18 04:45 Dose: 2 mg Documented by: [id number] Admin: 11/26/18 01:30 Dose: 2 mg Documented by: [id number] Admin: 11/25/18 22:29 Dose: 2 mg Documented by: [id number] Admin: 11/25/18 19:25 Dose: 2 mg Documented by: [id number] Admin: 11/25/18 16:24 Dose: 2 mg Documented by: [id number] Admin: 11/25/18 12:09 Dose: 2 mg Documented by: [id number] Admin: 11/25/18 07:51 Dose: 2 mg Documented by: [id number] Admin: 11/25/18 03:59 Dose: 2 mg Documented by: [id number] Admin: 11/24/18 23:21 Dose: 2 mg Documented by: [id number] Admin: 11/24/18 19:31 Dose: 2 mg Documented by: [id number] Admin: 11/24/18 15:47 Dose: 2 mg Documented by: [id number] Morphine Sulfate (Morphine Sulfate) 4 mg IV Q4H PRN PRN Reason: Severe Pain Stop: 12/10/18 11:58 Last Admin: 11/27/18 04:08 Dose: 4 mg Documented by: [id number] Admin: 11/26/18 21:33 Dose: 4 mg Documented by: [id number] Admin: 11/26/18 17:54 Dose: 4 mg Documented by: [id number] Admin: 11/26/18 13:08 Dose: 4 mg Documented by: [id number] Olanzapine (Zyprexa Zydis Od) 5 mg PO HS BARB Stop: 12/24/18 20:59 Last Admin: 11/26/18 20:46 Dose: 5 mg Documented by: [id number] Admin: 11/25/18 20:09 Dose: 5 mg Documented by: [id number] Admin: 11/24/18 20:31 Dose: 5 mg Documented by: [id number] Pantoprazole Sodium (Protonix) 40 mg PO BID BARB Stop: 12/24/18 20:59 Last Admin: 11/26/18 20:47 Dose: 40 mg Documented by: [id number] Admin: 11/26/18 08:56 Dose: 40 mg Documented by: [id number] Admin: 11/25/18 20:09 Dose: 40 mg Documented by: [id number] Admin: 11/25/18 07:50 Dose: 40 mg Documented by: [id number] Admin: 11/24/18 20:31 Dose: 40 mg Documented by: [id number] Sucralfate (Carafate) 1 gm PO QID BARB Stop: 12/24/18 16:59 Last Admin: 11/26/18 20:46 Dose: 1 gm Documented by: [id number] Admin: 11/26/18 17:21 Dose: 1 gm Documented by: [id number] Admin: 11/26/18 13:10 Dose: 1 gm Documented by: [id number] Admin: 11/26/18 08:55 Dose: 1 gm Documented by: [id number] Admin: 11/25/18 20:08 Dose: 1 gm Documented by: [id number] Admin: 11/25/18 16:31 Dose: 1 gm Documented by: [id number] Admin: 11/25/18 13:47 Dose: 1 gm Documented by: [id number] Admin: 11/25/18 07:50 Dose: 1 gm Documented by: [id number] Admin: 11/24/18 20:31 Dose: 1 gm Documented by: [id number] Admin: 11/24/18 16:27 Dose: 1 gm Documented by: [id number] Topiramate (Topamax) 100 mg PO HS [facility] Stop: 12/24/18 20:59 Last Admin: 11/26/18 20:47 Dose: 100 mg Documented by: [id number] Admin: 11/25/18 20:09 Dose: 100 mg Documented by: [id number] Admin: 11/24/18 20:31 Dose: 100 mg Documented by: [id number] Topiramate (Topamax) 50 mg PO QAM BARB Stop: 12/25/18 08:59 Last Admin: 11/26/18 08:57 Dose: 50 mg Documented by: [id number] Admin: 11/25/18 07:50 Dose: 50 mg Documented by: [id number] Discontinued Medications Acetaminophen (Tylenol) 1,000 mg PO NOW STA Stop: 11/24/18 10:17 Last Admin: 11/24/18 10:53 Dose: 1,000 mg Documented by: [id number] Sodium Chloride (Nss 1000ml) 1,000 mls @ 999 mls/hr IV .Q1H1M BARB Stop: 11/24/18 10:45 Last Admin: 11/24/18 10:23 Dose: Not Given Documented by: [id number] Ranitidine HCl 50 mg/ Dextrose 102 mls @ 200 mls/hr IV NOW STA Stop: 11/24/18 10:13 Last Infusion: 11/24/18 10:54 Dose: 0 mls/hr Documented by: [id number] Admin: 11/24/18 10:19 Dose: 200 mls/hr Documented by: [id number] Sodium Chloride (Nss 1000ml) 2,000 mls @ 999 mls/hr IV .Q2H1M ONE Stop: 11/24/18 12:17 Last Infusion: 11/24/18 12:30 Dose: 0 mls/hr Documented by: [id number] Admin: 11/24/18 10:20 Dose: 999 mls/hr Documented by: [id number] Piperacillin Sod/Tazobactam Sod (Zosyn) 4.5 gm in 120 mls @ 240 mls/hr IV NOW ONE Stop: 11/24/18 11:46 Last Infusion: 11/24/18 12:56 Dose: 0 mls/hr Documented by: [id number] Admin: 11/24/18 12:20 Dose: 240 mls/hr Documented by: [id number] Vancomycin HCl 2,000 mg/ (Sodium Chloride) 540 mls @ 200 mls/hr IV NOW ONE; Protocol Stop: 11/24/18 15:48 Last Infusion: 11/24/18 16:40 Dose: 0 mls/hr Documented by: [id number] Admin: 11/24/18 13:56 Dose: 200 mls/hr Documented by: [id number] Piperacillin Sod/Tazobactam (Sod 3.375 gm/ Dextrose) 115 mls @ 28.75 mls/hr IV Q8H BARB; Protocol Stop: 12/08/18 15:59 Last Infusion: 11/26/18 13:11 Dose: 0 mls/hr Documented by: [id number] Admin: 11/26/18 08:53 Dose: 28.8 mls/hr Documented by: [id number] Infusion: 11/26/18 04:54 Dose: 0 mls/hr Documented by: [id number] Admin: 11/26/18 00:53 Dose: 28.8 mls/hr Documented by: [id number] Infusion: 11/25/18 20:23 Dose: 0 mls/hr Documented by: [id number] Admin: 11/25/18 16:23 Dose: 28.8 mls/hr Documented by: [id number] Infusion: 11/25/18 12:15 Dose: 0 mls/hr Documented by: [id number] Admin: 11/25/18 07:39 Dose: 28.8 mls/hr Documented by: [id number] Infusion: 11/25/18 04:00 Dose: 0 mls/hr Documented by: [id number] Admin: 11/24/18 23:22 Dose: 28.8 mls/hr Documented by: [id number] Infusion: 11/24/18 21:24 Dose: 0 mls/hr Documented by: [id number] Admin: 11/24/18 16:27 Dose: 28.8 mls/hr Documented by: [id number] Vancomycin HCl 1,250 mg/ (Sodium Chloride) 275 mls @ 125 mls/hr IV Q14H BARB Stop: 11/27/18 00:00 Last Infusion: 11/25/18 01:35 Dose: 0 mls/hr Documented by: [id number] Admin: 11/24/18 23:23 Dose: 125 mls/hr Documented by: [id number] Sodium Chloride (Nss 1000ml) 500 mls @ 999 mls/hr IV .Q31M ONE Stop: 11/25/18 07:18 Last Infusion: 11/25/18 07:55 Dose: 0 mls/hr Documented by: [id number] Admin: 11/25/18 06:55 Dose: 999 mls/hr Documented by: [id number] Lidocaine (Lidoderm 5%) 1 patch TD ONE STA Stop: 11/25/18 10:37 Last Admin: 11/25/18 12:05 Dose: 1 patch Documented by: [id number] Morphine Sulfate (Morphine Sulfate) 6 mg IV NOW STA Stop: 11/24/18 12:13 Last Admin: 11/24/18 12:30 Dose: Not Given Documented by: [id number] Morphine Sulfate (Morphine Sulfate) Confirm Administered Dose 4 mg .ROUTE .STK- MED ONE Stop: 11/24/18 12:16 Last Admin: 11/24/18 12:19 Dose: 4 mg Documented by: [id number] Morphine Sulfate (Morphine Sulfate) Confirm Administered Dose 2 mg .ROUTE .STK- MED ONE Stop: 11/24/18 12:17 Last Admin: 11/24/18 12:19 Dose: 2 mg Documented by: [id number] Ondansetron HCl (Zofran) 4 mg IV NOW STA Stop: 11/24/18 09:48 Last Admin: 11/24/18 10:53 Dose: 4 mg Documented by: [id number] Ondansetron HCl (Zofran) 4 mg IV NOW STA Stop: 11/24/18 12:13 Last Admin: 11/24/18 15:45 Dose: Not Given Documented by: [id number] Medical Decision Making Differential Diagnosis Differential diagnosis: Etiologies such as esophagitis, variceal bleed, Boerhaaves, Bovill-Fournier tear, gastritis, peptic ulcer disease, AVM, inflammatory bowel disease, ischemia, diverticulosis, colitis, malignancy, coagulopathy, thrombocytopenia, fissure, hemorrhoid, epistaxis , as well as others were entertained. Medical Records Attestation: I reviewed the patient's medical records. Home Medications Current Medication List: was personally reviewed by me Laboratory Data Attestation: I reviewed the patient's lab results. Result diagrams: 11/27/18 03:44 11/27/18 03:44 Lab Results 11/24/18 11/24/18 11/24/18 Range/Units 09:42 09:54 09:54 WBC 7.72 (4.8-10.8) K/uL RBC 4.97 (4.2-5.4) M/uL Hgb 14.4 (12.0-16.0) g/dL POC Hgb (12.0-16.0) g/dl Hct 42.2 (37-47) % POC Hct (37-47) % MCV 84.9 (80-100) fL MCH 29.0 (25-34) pg MCHC 34.1 (32-36) g/dL RDW Std Deviation 42.4 (36.4-46.3) fL RDW Coeff of Zoë 13.8 (11.5-14.5) % Plt Count 136 (130-400) K/uL MPV 10.4 (7.4-10.4) fL Immature Gran % (Auto) 0.4 % Neut % (Auto) 95.2 % Lymph % (Auto) 3.8 % Creek % (Auto) 0.4 % Eos % (Auto) 0.1 % Baso % (Auto) 0.1 % Immature Gran # (Auto) 0.03 H (0.00-0.02) K/uL Neut # (Auto) 7.35 H (1.4-6.5) K/uL Lymph # (Auto) 0.29 L (1.2-3.4) K/uL Creek # (Auto) 0.03 L (0.11-0.59) K/uL Eos # (Auto) 0.01 (0-0.5) K/uL Baso # (Auto) 0.01 (0-0.2) K/uL PT 11.0 (9.0-12.0) Seconds INR 1.1 (0.9-1.1) APTT 25.1 (21.0-31.0) Seconds PTT Ratio 0.9 ABG pH (7.35-7.45) ABG pCO2 (35-46) mmHg ABG pO2 (80-95) mm/Hg ABG HCO3 (19-24) mmol/L ABG O2 Saturation (90-95) % ABG Base Excess (-9-1.8) mEq/L Ish Test (Pos) Barometric Pressure mm/Hg Oxygen Given POC Sodium (135-144) mEq/L Sodium (136-145) mmol/L POC Potassium (3.3-5.0) mEq/L Potassium (3.5-5.1) mmol/L POC Chloride (101-112) mEq/L Chloride (98-107) mmol/L Carbon Dioxide (21-32) mmol/L POC Total CO2 (24-31) mEq/l Anion Gap (3-11) POC Anion Gap (16-25) mmol/L POC BUN (7-18) mg/dl BUN (7-18) mg/dl Creatinine (0.6-1.2) mg/dl POC Creatinine (0.6-1.3) mg/dl Est Cr Clr Drug Dosing ml/min Est GFR ( Amer) Est GFR (Non-Af Amer) BUN/Creatinine Ratio (10-20) Glucose (70-99) mg/dl POC Glucose (other) (70-99) mg/dl Lactate (0.4-2.0) mmol/L Calcium (8.5-10.1) mg/dl POC Ioniz Calcium Neel (1.12-1.32) mmol/l Total Bilirubin (0.2-1) mg/dl AST (15-37) U/L ALT (12-78) U/L Alkaline Phosphatase (45-117) U/L Total Creatine Kinase (26-192) U/L CK-MB (CK-2) (0.5-3.6) ng/ml CK/CKMB % Calc Troponin I (0-0.045) ng/ml Total Protein (6.4-8.2) gm/dl Albumin (3.4-5.0) gm/dl Globulin (2.5-4.0) gm/dl Albumin/Globulin Ratio (0.9-2) Lipase (73-393) U/L Urine Color Urine Appearance (Clear) Urine pH (4.5-7.5) Ur Specific Calhoun (1.000-1.030) Urine Protein (Negative) Urine Glucose (UA) (Negative) Urine Ketones (Negative) Urine Blood (Negative) Urine Nitrite (Negative) Urine Bilirubin (Negative) Urine Urobilinogen (Negative) Ur Leukocyte Esterase (Negative) Urine WBC (Auto) (0-5) /hpf Urine RBC (Auto) (0-4) /hpf U Hyaline Cast (Auto) (0-5) /lpf U Epithel Cells (Auto) (0-5) /lpf Urine Bacteria (Auto) (Negative) POC Stool Occult Blood Negative (Negative) Salicylates (2.8-20) mg/dl Urine Opiates Screen (Neg) Ur Methadone, Qual (Neg) Acetaminophen (10-30) ug/ml Urine Barbiturates (Neg) Ur Phencyclidine (PCP) (Neg) U Amphetamin/Meth Scrn (Neg) MDMA (Ecstasy) Screen (Neg) U Benzodiazepines Scrn (Neg) Ur Cocaine Metabolite (Neg) U Marijuana (THC) Screen (Neg) Hepatitis A IgM Ab (NON-REACTIVE) Hep Bs Antigen (Neg) Hep B Core IgM Ab (NON-REACTIVE) Hepatitis C Antibody (Neg) Blood Type Antibody Screen 11/24/18 11/24/18 11/24/18 Range/Units 09:54 09:54 09:54 WBC (4.8-10.8) K/uL RBC (4.2-5.4) M/uL Hgb (12.0-16.0) g/dL POC Hgb (12.0-16.0) g/dl Hct (37-47) % POC Hct (37-47) % MCV (80-100) fL MCH (25-34) pg MCHC (32-36) g/dL RDW Std Deviation (36.4-46.3) fL RDW Coeff of Zoë (11.5-14.5) % Plt Count (130-400) K/uL MPV (7.4-10.4) fL Immature Gran % (Auto) % Neut % (Auto) % Lymph % (Auto) % Creek % (Auto) % Eos % (Auto) % Baso % (Auto) % Immature Gran # (Auto) (0.00-0.02) K/uL Neut # (Auto) (1.4-6.5) K/uL Lymph # (Auto) (1.2-3.4) K/uL Creek # (Auto) (0.11-0.59) K/uL Eos # (Auto) (0-0.5) K/uL Baso # (Auto) (0-0.2) K/uL PT (9.0-12.0) Seconds INR (0.9-1.1) APTT (21.0-31.0) Seconds PTT Ratio ABG pH (7.35-7.45) ABG pCO2 (35-46) mmHg ABG pO2 (80-95) mm/Hg ABG HCO3 (19-24) mmol/L ABG O2 Saturation (90-95) % ABG Base Excess (-9-1.8) mEq/L Ish Test (Pos) Barometric Pressure mm/Hg Oxygen Given POC Sodium (135-144) mEq/L Sodium 137 (136-145) mmol/L POC Potassium (3.3-5.0) mEq/L Potassium 3.7 (3.5-5.1) mmol/L POC Chloride (101-112) mEq/L Chloride 104 (98-107) mmol/L Carbon Dioxide 20 L (21-32) mmol/L POC Total CO2 (24-31) mEq/l Anion Gap 13.0 H (3-11) POC Anion Gap (16-25) mmol/L POC BUN (7-18) mg/dl BUN 9 (7-18) mg/dl Creatinine 1.18 (0.6-1.2) mg/dl POC Creatinine (0.6-1.3) mg/dl Est Cr Clr Drug Dosing 63.6 ml/min Est GFR ( Amer) 63.2 Est GFR (Non-Af Amer) 54.5 BUN/Creatinine Ratio 7.5 L (10-20) Glucose 167 H (70-99) mg/dl POC Glucose (other) (70-99) mg/dl Lactate (0.4-2.0) mmol/L Calcium 9.0 (8.5-10.1) mg/dl POC Ioniz Calcium Neel (1.12-1.32) mmol/l Total Bilirubin 0.9 (0.2-1) mg/dl AST 926 H (15-37) U/L ALT 294 H (12-78) U/L Alkaline Phosphatase 485 H (45-117) U/L Total Creatine Kinase 45 (26-192) U/L CK-MB (CK-2) < 1.0 (0.5-3.6) ng/ml CK/CKMB % Calc TNP Troponin I < 0.015 (0-0.045) ng/ml Total Protein 7.1 (6.4-8.2) gm/dl Albumin 3.6 (3.4-5.0) gm/dl Globulin 3.5 (2.5-4.0) gm/dl Albumin/Globulin Ratio 1.0 (0.9-2) Lipase 50 L (73-393) U/L Urine Color Urine Appearance (Clear) Urine pH (4.5-7.5) Ur Specific Calhoun (1.000-1.030) Urine Protein (Negative) Urine Glucose (UA) (Negative) Urine Ketones (Negative) Urine Blood (Negative) Urine Nitrite (Negative) Urine Bilirubin (Negative) Urine Urobilinogen (Negative) Ur Leukocyte Esterase (Negative) Urine WBC (Auto) (0-5) /hpf Urine RBC (Auto) (0-4) /hpf U Hyaline Cast (Auto) (0-5) /lpf U Epithel Cells (Auto) (0-5) /lpf Urine Bacteria (Auto) (Negative) POC Stool Occult Blood (Negative) Salicylates (2.8-20) mg/dl Urine Opiates Screen (Neg) Ur Methadone, Qual (Neg) Acetaminophen (10-30) ug/ml Urine Barbiturates (Neg) Ur Phencyclidine (PCP) (Neg) U Amphetamin/Meth Scrn (Neg) MDMA (Ecstasy) Screen (Neg) U Benzodiazepines Scrn (Neg) Ur Cocaine Metabolite (Neg) U Marijuana (THC) Screen (Neg) Hepatitis A IgM Ab (NON-REACTIVE) Hep Bs Antigen (Neg) Hep B Core IgM Ab (NON-REACTIVE) Hepatitis C Antibody (Neg) Blood Type O Positive Antibody Screen NEGATIVE 11/24/18 11/24/18 11/24/18 Range/Units 10:03 10:03 10:05 WBC (4.8-10.8) K/uL RBC (4.2-5.4) M/uL Hgb (12.0-16.0) g/dL POC Hgb 14.6 (12.0-16.0) g/dl Hct (37-47) % POC Hct 43 (37-47) % MCV (80-100) fL MCH (25-34) pg MCHC (32-36) g/dL RDW Std Deviation (36.4-46.3) fL RDW Coeff of Zoë (11.5-14.5) % Plt Count (130-400) K/uL MPV (7.4-10.4) fL Immature Gran % (Auto) % Neut % (Auto) % Lymph % (Auto) % Creek % (Auto) % Eos % (Auto) % Baso % (Auto) % Immature Gran # (Auto) (0.00-0.02) K/uL Neut # (Auto) (1.4-6.5) K/uL Lymph # (Auto) (1.2-3.4) K/uL Creek # (Auto) (0.11-0.59) K/uL Eos # (Auto) (0-0.5) K/uL Baso # (Auto) (0-0.2) K/uL PT (9.0-12.0) Seconds INR (0.9-1.1) APTT (21.0-31.0) Seconds PTT Ratio ABG pH (7.35-7.45) ABG pCO2 (35-46) mmHg ABG pO2 (80-95) mm/Hg ABG HCO3 (19-24) mmol/L ABG O2 Saturation (90-95) % ABG Base Excess (-9-1.8) mEq/L Ish Test (Pos) Barometric Pressure mm/Hg Oxygen Given POC Sodium 136 (135-144) mEq/L Sodium (136-145) mmol/L POC Potassium 3.7 (3.3-5.0) mEq/L Potassium (3.5-5.1) mmol/L POC Chloride 103 (101-112) mEq/L Chloride (98-107) mmol/L Carbon Dioxide (21-32) mmol/L POC Total CO2 16 L (24-31) mEq/l Anion Gap (3-11) POC Anion Gap 22.0 (16-25) mmol/L POC BUN 7 (7-18) mg/dl BUN (7-18) mg/dl Creatinine (0.6-1.2) mg/dl POC Creatinine 0.7 (0.6-1.3) mg/dl Est Cr Clr Drug Dosing ml/min Est GFR ( Amer) Est GFR (Non-Af Amer) BUN/Creatinine Ratio (10-20) Glucose (70-99) mg/dl POC Glucose (other) 179 H (70-99) mg/dl Lactate (0.4-2.0) mmol/L Calcium (8.5-10.1) mg/dl POC Ioniz Calcium Neel 1.08 L (1.12-1.32) mmol/l Total Bilirubin (0.2-1) mg/dl AST (15-37) U/L ALT (12-78) U/L Alkaline Phosphatase (45-117) U/L Total Creatine Kinase (26-192) U/L CK-MB (CK-2) (0.5-3.6) ng/ml CK/CKMB % Calc Troponin I (0-0.045) ng/ml Total Protein (6.4-8.2) gm/dl Albumin (3.4-5.0) gm/dl Globulin (2.5-4.0) gm/dl Albumin/Globulin Ratio (0.9-2) Lipase (73-393) U/L Urine Color Urine Appearance (Clear) Urine pH (4.5-7.5) Ur Specific [place] (1.000-1.030) Urine Protein (Negative) Urine Glucose (UA) (Negative) Urine Ketones (Negative) Urine Blood (Negative) Urine Nitrite (Negative) Urine Bilirubin (Negative) Urine Urobilinogen (Negative) Ur Leukocyte Esterase (Negative) Urine WBC (Auto) (0-5) /hpf Urine RBC (Auto) (0-4) /hpf U Hyaline Cast (Auto) (0-5) /lpf U Epithel Cells (Auto) (0-5) /lpf Urine Bacteria (Auto) (Negative) POC Stool Occult Blood (Negative) Salicylates (2.8-20) mg/dl Urine Opiates Screen (Neg) Ur Methadone, Qual (Neg) Acetaminophen (10-30) ug/ml Urine Barbiturates (Neg) Ur Phencyclidine (PCP) (Neg) U Amphetamin/Meth Scrn (Neg) MDMA (Ecstasy) Screen (Neg) U Benzodiazepines Scrn (Neg) Ur Cocaine Metabolite (Neg) U Marijuana (THC) Screen (Neg) Hepatitis A IgM Ab NON-REACTIVE (NON-REACTIVE) Hep Bs Antigen Neg (Neg) Hep B Core IgM Ab NON-REACTIVE (NON-REACTIVE) Hepatitis C Antibody Neg (Neg) Blood Type Antibody Screen 11/24/18 11/24/18 11/24/18 Range/Units 11:15 11:15 11:58 WBC (4.8-10.8) K/uL RBC (4.2-5.4) M/uL Hgb (12.0-16.0) g/dL POC Hgb (12.0-16.0) g/dl Hct (37-47) % POC Hct (37-47) % MCV (80-100) fL MCH (25-34) pg MCHC (32-36) g/dL RDW Std Deviation (36.4-46.3) fL RDW Coeff of Zoë (11.5-14.5) % Plt Count (130-400) K/uL MPV (7.4-10.4) fL Immature Gran % (Auto) % Neut % (Auto) % Lymph % (Auto) % Creek % (Auto) % Eos % (Auto) % Baso % (Auto) % Immature Gran # (Auto) (0.00-0.02) K/uL Neut # (Auto) (1.4-6.5) K/uL Lymph # (Auto) (1.2-3.4) K/uL Creek # (Auto) (0.11-0.59) K/uL Eos # (Auto) (0-0.5) K/uL Baso # (Auto) (0-0.2) K/uL PT (9.0-12.0) Seconds INR (0.9-1.1) APTT (21.0-31.0) Seconds PTT Ratio ABG pH (7.35-7.45) ABG pCO2 (35-46) mmHg ABG pO2 (80-95) mm/Hg ABG HCO3 (19-24) mmol/L ABG O2 Saturation (90-95) % ABG Base Excess (-9-1.8) mEq/L Ish Test (Pos) Barometric Pressure mm/Hg Oxygen Given POC Sodium (135-144) mEq/L Sodium (136-145) mmol/L POC Potassium (3.3-5.0) mEq/L Potassium (3.5-5.1) mmol/L POC Chloride (101-112) mEq/L Chloride (98-107) mmol/L Carbon Dioxide (21-32) mmol/L POC Total CO2 (24-31) mEq/l Anion Gap (3-11) POC Anion Gap (16-25) mmol/L POC BUN (7-18) mg/dl BUN (7-18) mg/dl Creatinine (0.6-1.2) mg/dl POC Creatinine (0.6-1.3) mg/dl Est Cr Clr Drug Dosing ml/min Est GFR ( Amer) Est GFR (Non-Af Amer) BUN/Creatinine Ratio (10-20) Glucose (70-99) mg/dl POC Glucose (other) (70-99) mg/dl Lactate 5.4 H* (0.4-2.0) mmol/L Calcium (8.5-10.1) mg/dl POC Ioniz Calcium Neel (1.12-1.32) mmol/l Total Bilirubin (0.2-1) mg/dl AST (15-37) U/L ALT (12-78) U/L Alkaline Phosphatase (45-117) U/L Total Creatine Kinase (26-192) U/L CK-MB (CK-2) (0.5-3.6) ng/ml CK/CKMB % Calc Troponin I (0-0.045) ng/ml Total Protein (6.4-8.2) gm/dl Albumin (3.4-5.0) gm/dl Globulin (2.5-4.0) gm/dl Albumin/Globulin Ratio (0.9-2) Lipase (73-393) U/L Urine Color [place] Urine Appearance Clear (Clear) Urine pH 5.5 (4.5-7.5) Ur Specific [place] 1.012 (1.000-1.030) Urine Protein 1+ H (Negative) Urine Glucose (UA) Negative (Negative) Urine Ketones Negative (Negative) Urine Blood Negative (Negative) Urine Nitrite Negative (Negative) Urine Bilirubin Negative (Negative) Urine Urobilinogen Positive H (Negative) Ur Leukocyte Esterase Negative (Negative) Urine WBC (Auto) 1-5 (0-5) /hpf Urine RBC (Auto) 0-4 (0-4) /hpf U Hyaline Cast (Auto) 1-5 (0-5) /lpf U Epithel Cells (Auto) >30 H (0-5) /lpf Urine Bacteria (Auto) Negative (Negative) POC Stool Occult Blood (Negative) Salicylates (2.8-20) mg/dl Urine Opiates Screen Pos H (Neg) Ur Methadone, Qual Neg (Neg) Acetaminophen (10-30) ug/ml Urine Barbiturates Neg (Neg) Ur Phencyclidine (PCP) Neg (Neg) U Amphetamin/Meth Scrn Neg (Neg) MDMA (Ecstasy) Screen Neg (Neg) U Benzodiazepines Scrn Neg (Neg) Ur Cocaine Metabolite Neg (Neg) U Marijuana (THC) Screen Neg (Neg) Hepatitis A IgM Ab (NON-REACTIVE) Hep Bs Antigen (Neg) Hep B Core IgM Ab (NON-REACTIVE) Hepatitis C Antibody (Neg) Blood Type Antibody Screen 11/24/18 11/24/18 Range/Units 13:21 13:30 WBC (4.8-10.8) K/uL RBC (4.2-5.4) M/uL Hgb (12.0-16.0) g/dL POC Hgb (12.0-16.0) g/dl Hct (37-47) % POC Hct (37-47) % MCV (80-100) fL MCH (25-34) pg MCHC (32-36) g/dL RDW Std Deviation (36.4-46.3) fL RDW Coeff of Zoë (11.5-14.5) % Plt Count (130-400) K/uL MPV (7.4-10.4) fL Immature Gran % (Auto) % Neut % (Auto) % Lymph % (Auto) % Creek % (Auto) % Eos % (Auto) % Baso % (Auto) % Immature Gran # (Auto) (0.00-0.02) K/uL Neut # (Auto) (1.4-6.5) K/uL Lymph # (Auto) (1.2-3.4) K/uL Creek # (Auto) (0.11-0.59) K/uL Eos # (Auto) (0-0.5) K/uL Baso # (Auto) (0-0.2) K/uL PT (9.0-12.0) Seconds INR (0.9-1.1) APTT (21.0-31.0) Seconds PTT Ratio ABG pH 7.44 (7.35-7.45) ABG pCO2 29 L (35-46) mmHg ABG pO2 62 L (80-95) mm/Hg ABG HCO3 19 (19-24) mmol/L ABG O2 Saturation 93.0 (90-95) % ABG Base Excess -4.1 (-9-1.8) mEq/L Ish Test UNK (Pos) Barometric Pressure 725.7 mm/Hg Oxygen Given RA POC Sodium (135-144) mEq/L Sodium (136-145) mmol/L POC Potassium (3.3-5.0) mEq/L Potassium (3.5-5.1) mmol/L POC Chloride (101-112) mEq/L Chloride (98-107) mmol/L Carbon Dioxide (21-32) mmol/L POC Total CO2 (24-31) mEq/l Anion Gap (3-11) POC Anion Gap (16-25) mmol/L POC BUN (7-18) mg/dl BUN (7-18) mg/dl Creatinine (0.6-1.2) mg/dl POC Creatinine (0.6-1.3) mg/dl Est Cr Clr Drug Dosing ml/min Est GFR ( Amer) Est GFR (Non-Af Amer) BUN/Creatinine Ratio (10-20) Glucose (70-99) mg/dl POC Glucose (other) (70-99) mg/dl Lactate (0.4-2.0) mmol/L Calcium (8.5-10.1) mg/dl POC Ioniz Calcium Neel (1.12-1.32) mmol/l Total Bilirubin (0.2-1) mg/dl AST (15-37) U/L ALT (12-78) U/L Alkaline Phosphatase (45-117) U/L Total Creatine Kinase (26-192) U/L CK-MB (CK-2) (0.5-3.6) ng/ml CK/CKMB % Calc Troponin I (0-0.045) ng/ml Total Protein (6.4-8.2) gm/dl Albumin (3.4-5.0) gm/dl Globulin (2.5-4.0) gm/dl Albumin/Globulin Ratio (0.9-2) Lipase (73-393) U/L Urine Color Urine Appearance (Clear) Urine pH (4.5-7.5) Ur Specific [place] (1.000-1.030) Urine Protein (Negative) Urine Glucose (UA) (Negative) Urine Ketones (Negative) Urine Blood (Negative) Urine Nitrite (Negative) Urine Bilirubin (Negative) Urine Urobilinogen (Negative) Ur Leukocyte Esterase (Negative) Urine WBC (Auto) (0-5) /hpf Urine RBC (Auto) (0-4) /hpf U Hyaline Cast (Auto) (0-5) /lpf U Epithel Cells (Auto) (0-5) /lpf Urine Bacteria (Auto) (Negative) POC Stool Occult Blood (Negative) Salicylates 3.7 (2.8-20) mg/dl Urine Opiates Screen (Neg) Ur Methadone, Qual (Neg) Acetaminophen 12 (10-30) ug/ml Urine Barbiturates (Neg) Ur Phencyclidine (PCP) (Neg) U Amphetamin/Meth Scrn (Neg) MDMA (Ecstasy) Screen (Neg) U Benzodiazepines Scrn (Neg) Ur Cocaine Metabolite (Neg) U Marijuana (THC) Screen (Neg) Hepatitis A IgM Ab (NON-REACTIVE) Hep Bs Antigen (Neg) Hep B Core IgM Ab (NON-REACTIVE) Hepatitis C Antibody (Neg) Blood Type Antibody Screen Imaging Data Radiologist's Impression: Radiology results as stated below per my review and the radiologist's interpretation: CT SCAN OF THE ABDOMEN AND PELVIS WITH IV CONTRAST CLINICAL HISTORY: Generalized abdominal pain. Vomiting and fever. COMPARISON STUDY: Abdominal CT dated 06/27/2018. TECHNIQUE: Following the IV administration of 95 cc of Optiray 320, CT scan of the abdomen and pelvis is performed from the lung bases to the proximal femora. Images are reviewed in the axial, sagittal, and coronal planes. IV contrast was administered without complication. A dose lowering technique was utilized adhering to the principles of ALARA. CT DOSE: 372.65 mGy.cm FINDINGS: Lung bases: The heart is normal in size and without pericardial effusion. The lung bases are clear noting dependent atelectasis. Liver: The contrast-enhanced liver is mildly enlarged measuring 18.9 cm in length. The liver is otherwise normal in contour and attenuation. There is mild intrahepatic biliary ductal dilatation. The hepatic veins and portal veins are patent. Gallbladder: Surgically absent noting clips in the gallbladder fossa. Spleen: The spleen is enlarged, measuring 14.3 cm in length. Pancreas: Unremarkable. Adrenal glands: Unremarkable. Kidneys: The contrast enhanced kidneys are normal in size and without hydronephrosis. The kidneys enhance symmetrically. There is mild bilateral perinephric stranding, left greater than right. This is new from 06/27/2018. A retroaortic left renal vein is incidentally noted. Abdominal vasculature: The abdominal aorta is normal in course and caliber. Bowel: There is moderate colonic fecal retention. No bowel obstruction is seen. There are mildly distended and fluid-filled loops of small bowel. No bowel wall thickening or surrounding inflammation is identified. The appendix is well-visualized and normal, and filled with hyperdense material. Peritoneum: There is no intraperitoneal free air or abdominal ascites. There is a fat-containing umbilical hernia. Lymphadenopathy: None. Pelvic viscera: The bladder wall appears mildly thickened end there is faint pericystic stranding. The uterus and adnexa are normal as visualized. Skeletal structures: A large hemangioma is noted in the body of T11. No lytic or blastic lesions are seen. IMPRESSION: 1. Findings suggest cystitis. Correlation with clinical findings and urinalysis will be required. 2. There is bilateral perinephric stranding, new from 06/27/2018. Again, correlation with clinical findings and urinalysis will be required. 3. There are mildly distended and fluid-filled loops of small bowel with no wall thickening or surrounding inflammatory change. Correlate clinically for evidence of a mild enteritis. 4. Mild hepatosplenomegaly. 5. Additional findings as above. Electronically signed by: Cali Maharaj M.D. 11/24/2018 11:29 AM ULTRASOUND RIGHT UPPER QUADRANT ABDOMEN CLINICAL HISTORY: Elevated hepatic transaminases. COMPARISON STUDY: Abdominal CT performed the same day 11/24/2018. Abdominal ultrasound dated 12/18/2016. TECHNIQUE: Real-time, grayscale, and color flow sonography of the right upper quadrant of the abdomen was performed. Images are reviewed in the transverse and longitudinal planes. FINDINGS: Liver: The liver is enlarged, measuring over 18 cm in length. Echotexture is heterogeneous. There is mild central intrahepatic biliary ductal dilatation. The main portal vein is patent. Gallbladder: The gallbladder is surgically absent. The common bile duct measures up to 1.3 cm in diameter. There is no evidence of choledocholithiasis by ultrasound. Pancreas: Visualized portions of the pancreatic head and body are normal in appearance. The splenic vein is patent. Right kidney: Survey images of the right kidney demonstrate normal size and echotexture. There is no hydronephrosis. Ascites: None. IMPRESSION: 1. No acute sonographic abnormality is identified in the right upper quadrant noting status post cholecystectomy. 2. Intra and extrahepatic biliary ductal dilatation is unchanged dating back to 2017. There is no sonographic evidence of choledocholithiasis. 3. Hepatomegaly. Electronically signed by: Cali Maharaj M.D. 11/24/2018 1:18 PM ECG Data Attestation: I personally reviewed and interpreted this ECG as follows: Indication: abdominal pain Rate (beats per minute): 140 Rhythm: sinus tachycardia Findings: no PAC, no PVC, no ST depression, no ST elevation, no acute ischemic change and no ectopy Blood Pressure Blood Pressure Findings: Normal blood pressure MDM Narrative This pt was evaluated and appeared to be in some discomfort. Pt is noted to be febrile with tachycardic. PO tylenol was given. IVF were initiated. Lab work indicates an elevated WBC, elevated LFTs. Pt stool is guaiac neg, her initial complaint was dark stools and abd pain. IV pepcid and zofran were given. Ct scan of the abd and pelvis was ordered. THis study is read as above, however noting only changes c/w cystitis. UA is negative. US of RUQ was ordered given elevated LFTs, abd pain and fever, there is no evidence of retained stone. After a few hours in the ED and difficulty obtaining blood, pt was forthcoming regarding IVDA. She has not been taking suboxone as it makes her "sick." She has been crushing and injecting morphine tabs. She states these are "clean" needles but she does reuse them. Three sets of blood cultures were ordered. Lab had difficulty obtaining lactate sample, but it is noted to be elevated at 5.4. IV vanco and zosyn had been ordered. IVF continued. The pt will require endocarditis evaluation. She was given 1 dose of IV morphine for pain. Pt was d.w the hospitalist Dr Barbour for further management. Pt is aware of the plan and agrees. Impression & Plan Sepsis, IV drug user, Hepatitis Discharge Plan Visit Data *Final* Discharge Date/Time: 11/24/18 14:48 Chief Complaint: Abdominal Pain ED Provider: Selena Laughlin Discharge Problem: Sepsis, IV drug user, Hepatitis Patient Disposition: Admitted As Inpatient Discharge Instructions Interventions: ED Discharge Assessment Last Done: 11/24/18 14:48 The scribe's documentation has been prepared under my direction and personally reviewed by me in its entirety. I confirm that the note above accurately reflects all work, treatment, procedures, and medical decision making performed by me.
[2018-11-24] MEDS: MoRPHine SULFATE 2 MG/ML CARP IV PRN ×3 (15:47→23:21)
[2018-11-24] MEDS: clonazePAM 1 MG TAB PO PRN (15:47)
[2018-11-24] MEDS: SODIUM CHLORIDE 0.9% 1000ML 1,000 ML IV SCH ×2 (16:02→23:23)
[2018-11-24] MEDS: GABAPENTIN 600 MG TAB PO SCH ×2 (16:26→20:31)
[2018-11-24] MEDS: SUCRALFATE 1 GM/10 ML UDC PO SCH ×2 (16:27→20:31)
[2018-11-24] MEDS: PIPERACILLIN/TAZOBACTAM 3.375 GM in DEXTROSE 5% 100 ML IV SCH ×2 (16:27→23:22)
[2018-11-24] MEDS: TOPIRAMATE 100 MG TAB PO SCH (20:31)
[2018-11-24] MEDS: PANTOprazole 40 MG TAB PO SCH (20:31)
[2018-11-24] MEDS: OLANZAPINE ZYDIS 5 MG ORALLY DIS. TAB PO SCH (20:31)
[2018-11-25] MEDS: MoRPHine SULFATE 2 MG/ML CARP IV PRN ×6 (03:59→22:29)
[2018-11-25 04:14] LABS: Albumin Level 2.7 gm/dl (3.4-5.0); BUN Creatinine Ratio 10.1 (10-20); Bilirubin,Total 0.5 mg/dl (0.2-1); Calcium 7.7 mg/dl (8.5-10.1); Creatinine Clr Calc Pharmacy 98.8 ml/min; Est GFR (African American) 105.8; Est GFR (Non-African American) 91.3; Globulin 2.6 gm/dl (2.5-4.0); Potassium 3.5 mmol/L (3.5-5.1); Total Protein 5.3 gm/dl (6.4-8.2)
[2018-11-25 04:28] LABS: Basophils # (auto) 0.02 K/uL (0-0.2); Basophils % (auto) 0.2 %; Eosinophils # (auto) 0.15 K/uL (0-0.5); Eosinophils % (auto) 1.2 %; Hematocrit (blood only) 32.3 % (37-47); Hemoglobin 10.9 g/dL (12.0-16.0); Immature Granulocytes # (auto) 0.04 K/uL (0.00-0.02); Immature Granulocytes % (auto) 0.3 %; Lymphocytes # (auto) 2.27 K/uL (1.2-3.4); Lymphocytes % (auto) 18.6 %; Mean Corpuscular Hgb Conc 33.7 g/dL (32-36); Mean Corpuscular Volume 86.1 fL (80-100); Mean Platelet Volume 10.6 fL (7.4-10.4); Monocytes # (auto) 0.92 K/uL (0.11-0.59); Monocytes % (auto) 7.5 %; Neutrophils # (auto) 8.83 K/uL (1.4-6.5); Neutrophils % (auto) 72.2 %; Platelet Count 121 K/uL (130-400); RDW Coefficient of Variation 14.3 % (11.5-14.5); RDW Standard Deviation 45.5 fL (36.4-46.3); Red Blood Count 3.75 M/uL (4.2-5.4); White Blood Count 12.23 K/uL (4.8-10.8)
[2018-11-25] MEDS ORDERED: SODIUM CHLORIDE 0.9% 1000ML 500 ML IV ONE (06:48)
[2018-11-25] MEDS: PIPERACILLIN/TAZOBACTAM 3.375 GM in DEXTROSE 5% 100 ML IV SCH ×2 (07:39→16:23)
[2018-11-25] MEDS: SODIUM CHLORIDE 0.9% 1000ML 1,000 ML IV SCH ×3 (07:44→20:09)
[2018-11-25] MEDS: PANTOprazole 40 MG TAB PO SCH ×2 (07:50→20:09)
[2018-11-25] MEDS: GABAPENTIN 600 MG TAB PO SCH ×3 (07:50→20:10)
[2018-11-25] MEDS: TOPIRAMATE 50 MG TAB PO SCH (07:50)
[2018-11-25] MEDS: SUCRALFATE 1 GM/10 ML UDC PO SCH ×4 (07:50→20:08)
[2018-11-25] MEDS: FLUOXETINE HCL 20 MG CAP PO SCH (07:51)
--- NOTE | 2018-11-25 10:18 | Infectious Disease Consult ---
Date of Consultation November 25, 2018 Assessment & Plan (1) Gram positive sepsis: continue vanco for now, repeat blood cultures x 2. agree with echo. follow culture data. if back pain continues suggest mri History of Present Illness Attending Physician: Derik Parker pt admitted with abd pain and n/v. ct abd revealed perinephric stranding but UA negative and pt without gu symptoms. she is now c/o back pain, states it is chronic but worse today, states current pain meds not helping. has h/o opiate dependence and recent use of IVDA, UDS + opiates. She had elevated lactate on admission and isolated fever of 39.2, now afebrile. blood cultures obtained, gpr 2/2 sets on IV vanoc and zosyn pending additional culture data.echo pending. wbc 12, creat nml. LFTs also elevated, no h/o liver disease, ct abd showed mild hepatosplenomegaly. HCV ab negative. She ate clear liquids for breakfast this morning and tolerated well. denies cough, sob, cp, no n/v/d currently. Allergies Allergy/AdvReac Type Severity Reaction Status Date / Time tramadol Allergy U SEIZURE Verified 08/30/18 14:33 promethazine AdvReac [place] JITTERY Verified 08/30/18 14:33 Home Medications Home Medications Medication Instructions Recorded Confirmed Type albuterol sulfate 2 puff INHALATION Q4 PRN 06/12/18 11/24/18 History clonazepam 1 mg PO DAILY PRN 06/12/18 11/24/18 History docusate sodium [Colace] 100 mg PO BID PRN 06/12/18 11/24/18 History ergocalciferol (vitamin D2) 50,000 unit PO WK 06/12/18 11/24/18 History fluoxetine 20 mg PO QAM 06/12/18 11/24/18 History gabapentin 600 mg PO TID 06/12/18 11/24/18 History hydroxyzine pamoate 50 mg PO DAILY PRN 06/12/18 11/24/18 History olanzapine 5 mg TRANSLINGUAL HS 06/12/18 11/24/18 History perphenazine 4 mg PO DAILY PRN 06/12/18 11/24/18 History propranolol 10 mg PO DAILY PRN 06/12/18 11/24/18 History topiramate 50 mg PO QAM 06/12/18 11/24/18 History topiramate 100 mg PO HS 06/12/18 11/24/18 History diphenoxylate-atropine [Lomotil] 1 tab PO Q8H PRN #15 tab 06/27/18 11/24/18 Rx methadone 165 mg PO QAM 06/27/18 11/24/18 History Patient History Medical History DVT prophylaxis Opioid abuse (Chronic) Acute gastritis (Acute) Transaminitis (Acute) IV drug user (Acute) Sepsis (Acute) Gastroparesis (Chronic) Sarcoid (Chronic) Migraine Surgical History Hx of cholecystectomy (Resolved) History of cholecystectomy History of esophagogastroduodenoscopy (EGD) History of open reduction and internal fixation (ORIF) procedure LEFT ANKLE History of tonsillectomy Family History Other Cancer Diabetes Heart disease Hypertension Lung disease Social History Preferred Language: Yoruba Communication Ability: Effective Beliefs That Will Affect Care: None marital status: Single Current Living Situation: Parent current occupational status: employed Other Information That Helps Us Care for You: No Feels Safe at Home: Yes Safety Concerns: Feels Safe At This Time Smoking Status: Current every day smoker Tobacco Type: cigarettes Cigarettes Per Day: 20 Do You Dip or Chew Tobacco: No Second Hand Exposure: No Hx Alcohol Use: No Hx Substance Use: Yes (PT IS ON DAILY METHADONE DOSING, SEE EMR) Review of Systems Review of Systems: All systems reviewed & are unremarkable except as noted in HPI & below Physical Exam Constitutional: WD/WN, vitals as above Eyes: PERRL, conjunctivae normal, anicteric sclerae ENMT: external ear and nose normal, oropharynx normal Neck: normal visual inspection Respiratory: normal respiratory effort, lungs clear to auscultation Cardiovascular: RRR, no murmur, no edema Gastrointestinal (Abdomen): normal bowel sounds, soft, nontender, no hepatosplenomegaly Musculoskeletal: no cyanosis or clubbing, extremities motor strength 5/5 Skin: no rashes, warm and dry Psychiatric: A+Ox3, euthymic affect Results & Data Vital Signs (Past 12 Hours) Vital Signs Temp Pulse Resp BP BP Pulse Ox 11/25/18 07:18 36.6 C 70 17 80/52 L 97 11/25/18 06:37 83/50 L 11/25/18 06:28 36.7 C 64 16 76/36 L 95 11/25/18 03:03 36.6 C 64 16 90/55 L 97 11/24/18 23:05 36.8 C 73 16 94/60 L 95 Laboratory Results Microbiology 11/24/18 11:58 Blood Anaerobic Blood Culture - Preliminary Gram positive bacilli 11/24/18 12:00 Blood Anaerobic Blood Culture - Preliminary Gram positive bacilli
--- NOTE | 2018-11-25 10:35 | Hospitalist Progress Note ---
Date of Service November 25, 2018 Assessment & Plan (1) Sepsis: Documented by tachycardia, anion gap, elevated lactic acid levels, left shift. Blood and urine cultures obtained. Currently on Zosyn and vancomycin. On 11/25, labs appear to be improving. Patient has bacteremia, which is likely from her IV drug abuse. Patient reports she does this because her pain is not controlled, however, putting it IV does not change the dosage. Plus it carries the risk of IV drug use. (2) IV drug user: She has been injecting crushed morphine. This raises the possibility of bacteremia and/or endocarditis. Blood cultures are possible, endocarditis work- up should be pursued. (3) Transaminitis: New onset. Serial lab studies. Hopefully this will improve and resolve with treatment of underlying infectious process (4) Acute gastritis: History of peptic ulcer disease. Will treat with Protonix and Carafate. Parenteral antiemetics as needed (5) Opioid abuse: She has been on methadone and Suboxone in the past. Consider pain management evaluation. (6) Chronic back pain: will restart home dose of narcotics. Will monitor. Placed on lidoderm patch (7) DVT prophylaxis: Lovenox subcu Spent 35 minutes in management of patient. This included chart reviwe and discussion with consultants. Will transfer to med surg Subjective 48 yo female reports having some left sided chest pain and left sided back pain.. She reports not feeling right, just off. She reports she is injecting morphine into her veins though initially she denied IV drug use. She is asking for ritalin, which she normally takes at home. Review of Systems Review of Systems: All systems reviewed & are unremarkable except as noted in HPI & below Physical Exam Physical Exam: Constitutional: WD/WN, vitals as above Alert and oriented. Eyes: PERRL, conjunctivae normal, anicteric sclerae ENMT: external ear and nose normal, oropharynx normal Neck: trachea midline, no thyromegaly Respiratory: normal respiratory effort, lungs clear to auscultation Cardiovascular: Rate/Rhythm: regular rate and + tachycardic Heart Sounds: normal S1 and normal S2; no murmur Gastrointestinal (Abdomen): Nondistended. Active bowel sounds. Epigastric tenderness. No rebound or guarding Musculoskeletal: no cyanosis or clubbing, extremities motor strength 5/5 Skin: no rashes, warm and dry Neurologic: CN's II-XI intact bilaterally and moves all extremities; no focal motor deficits Psychiatric: A+Ox3, euthymic affect Results & Data Vital Signs (Past 12 Hours) Vital Signs Temp Pulse Resp BP BP Pulse Ox 11/25/18 07:18 36.6 C 70 17 80/52 L 97 11/25/18 06:37 83/50 L 11/25/18 06:28 36.7 C 64 16 76/36 L 95 11/25/18 03:03 36.6 C 64 16 90/55 L 97 11/24/18 23:05 36.8 C 73 16 94/60 L 95 (1) Sepsis Sepsis type: sepsis due to unspecified organism Qualified Code(s): A41.9 - Sepsis, unspecified organism
[2018-11-25] MEDS ORDERED: LIDOCAINE 5% 1 PATCH TD STA (10:36)
[2018-11-25] MEDS ORDERED: VANCOMYCIN HCL 1,250 MG in SODIUM CHLORIDE 0.9% 250 ML IV SCH ×2 (12:00)
[2018-11-25] MEDS: METHYLPHENIDATE HCL 10 MG TABLET PO SCH ×2 (12:05→16:24)
[2018-11-25] MEDS: VANCOMYCIN HCL 1,250 MG in SODIUM CHLORIDE 0.9% 250 ML IV SCH ×2 (12:10→22:28)
--- NOTE | 2018-11-25 14:58 | Pharmacy Report ---
Pharmacy Abx Initial Consult - Date of Service November 25, 2018 - Pharmacy Dosing Scope Date of Consult: 11/24/18 Consultation requested by: Dr. Barbour Pharmacy is consulted to initiate vancomycin and Zosyn IV dosing therapy, order appropriate labs and adjust drug dose/frequency. - Subjective The patient is a 48 year old F admitted on 11/24/18 13:48. - Objective Height: 5 ft 8 in Weight: 79.3 kg Vital Signs (Past 12hrs): Vital Signs Temp Pulse Resp BP BP Pulse Ox 11/25/18 11:50 36.8 C 60 16 100/63 98 11/25/18 10:38 103/65 108/70 11/25/18 07:18 36.6 C 70 17 80/52 L 97 11/25/18 06:37 83/50 L 11/25/18 06:28 36.7 C 64 16 76/36 L 95 11/25/18 03:03 36.6 C 64 16 90/55 L 97 Lab Results (24hrs): Laboratory Tests (24 Hours) 11/25/18 11/25/18 03:34 03:34 WBC 12.23 H Neut # (Auto) 8.83 H Creatinine 0.77 D Est Cr Clr Drug Dosing 98.8 Micro Results: 11/25/18 10:52 Aerobic Blood Culture - Pending Blood Anaerobic Blood Culture - Pending 11/25/18 10:52 Aerobic Blood Culture - Pending Blood Anaerobic Blood Culture - Pending - Assessment & Plan Assessment 48 year old F receiving empiric vancomycin and Zosyn IV for treatment of sepsis (positive blood cultures x 2) and possible infective endocarditis. Patient has a history of IV drug abuse Blood cultures x 2 (11/24): gram positive bacilli not anthracis (anaerobic bottles) * Per phone call with microbiology, this may be Bacillus cereus, which would correlate with hx of IV drug abuse * No sensitivities to follow with these cultures. However, vancomycin is considered a preferred antibiotic for this pathogen * Contamination vs. true infection? - both sets of blood cultures positive from 11/24 Plan Vancomycin IV * Estimated PK Parameters: Vd 0.7 L/kg, Manuel 0.057 hr-1, t1/2 12 hr * Loading dose: 2000 mg (26 mg/kg) * Maintenance dose: 1250 mg IV (16 mg/kg) every 10 hours * Goal trough level for bacteremia (possible endocarditis) : 15 to 20 mcg/mL * Trough level ordered for 11/26/18 Piperacillin/tazobactam * 4.5 g bolus administered over 30 minutes, then 3.375 g IV extended infusion every 8 hours for CrCl greater than 20 mL/min Pharmacy will continue to follow and will adjust dose/frequency as necessary. Thank you.
[2018-11-25] MEDS ORDERED: BUPRENORPHINE HCL 8 MG SUBL SL PRN (18:59)
[2018-11-25] MEDS: clonazePAM 1 MG TAB PO PRN (20:08)
[2018-11-25] MEDS: OLANZAPINE ZYDIS 5 MG ORALLY DIS. TAB PO SCH (20:09)
[2018-11-25] MEDS: TOPIRAMATE 100 MG TAB PO SCH (20:09)
[2018-11-26] MEDS: PIPERACILLIN/TAZOBACTAM 3.375 GM in DEXTROSE 5% 100 ML IV SCH ×2 (00:53→08:53)
[2018-11-26] MEDS: MoRPHine SULFATE 2 MG/ML CARP IV PRN ×3 (01:30→08:48)
[2018-11-26] MEDS: SODIUM CHLORIDE 0.9% 1000ML 1,000 ML IV SCH ×2 (03:16→11:13)
[2018-11-26 05:22] LABS: Basophils # (auto) 0.03 K/uL (0-0.2); Basophils % (auto) 0.5 %; Eosinophils # (auto) 0.17 K/uL (0-0.5); Eosinophils % (auto) 2.6 %; Hemoglobin 11.1 g/dL (12.0-16.0); Immature Granulocytes # (auto) 0.01 K/uL (0.00-0.02); Immature Granulocytes % (auto) 0.2 %; Lymphocytes # (auto) 2.05 K/uL (1.2-3.4); Lymphocytes % (auto) 30.8 %; Mean Corpuscular Hgb Conc 32.6 g/dL (32-36); Mean Corpuscular Volume 87.4 fL (80-100); Mean Platelet Volume 10.6 fL (7.4-10.4); Monocytes # (auto) 0.51 K/uL (0.11-0.59); Monocytes % (auto) 7.7 %; Neutrophils # (auto) 3.89 K/uL (1.4-6.5); Neutrophils % (auto) 58.2 %; Platelet Count 120 K/uL (130-400); RDW Coefficient of Variation 14.5 % (11.5-14.5); RDW Standard Deviation 46.3 fL (36.4-46.3); Red Blood Count 3.89 M/uL (4.2-5.4); White Blood Count 6.66 K/uL (4.8-10.8)
[2018-11-26] MEDS ORDERED: VANCOMYCIN TROUGH ONE ×2 (05:30→07:30)
[2018-11-26 05:39] LABS: Albumin Level 2.6 gm/dl (3.4-5.0); BUN Creatinine Ratio 9.2 (10-20); Calcium 7.9 mg/dl (8.5-10.1); Creatinine Clr Calc Pharmacy 72.5 ml/min; Est GFR (African American) 72.7; Est GFR (Non-African American) 62.8; Potassium 3.7 mmol/L (3.5-5.1)
[2018-11-26 05:42] LABS: Albumin Globulin Ratio 0.9 (0.9-2); Bilirubin,Total 0.3 mg/dl (0.2-1); Globulin 2.9 gm/dl (2.5-4.0); Total Protein 5.5 gm/dl (6.4-8.2)
[2018-11-26] MEDS: VANCOMYCIN HCL 1,250 MG in SODIUM CHLORIDE 0.9% 250 ML IV SCH ×2 (08:50→17:57)
[2018-11-26] MEDS: SUCRALFATE 1 GM/10 ML UDC PO SCH ×4 (08:55→20:46)
[2018-11-26] MEDS: LIDOCAINE 5% 1 PATCH TD SCH (08:55)
[2018-11-26] MEDS: FLUOXETINE HCL 20 MG CAP PO SCH (08:56)
[2018-11-26] MEDS: PANTOprazole 40 MG TAB PO SCH ×2 (08:56→20:47)
[2018-11-26] MEDS: GABAPENTIN 600 MG TAB PO SCH ×3 (08:56→20:46)
[2018-11-26] MEDS: TOPIRAMATE 50 MG TAB PO SCH (08:57)
[2018-11-26] MEDS: METHYLPHENIDATE HCL 10 MG TABLET PO SCH ×2 (11:15→17:20)
--- NOTE | 2018-11-26 11:56 | Pharmacy Report ---
Pharmacy Abx Dose Short Note - Date of Service November 26, 2018 - Assessment & Plan Assessment * Ms Mosley is a 48 year old F receiving empiric vancomycin and Zosyn IV for treatment of bacteremia (positive blood cultures x 2) and possible infective endocarditis. * Patient has a history of IV drug abuse * Blood cultures x 2 (11/24): gram positive bacilli not anthracis (anaerobic bottles) * Per phone call with microbiology, this may be Bacillus cereus, which would correlate with hx of IV drug abuse -- No sensitivities to follow with these cultures. However, vancomycin is considered a preferred antibiotic for this pathogen * Contamination vs. true infection? - both sets of blood cultures positive from 11/24 Plan Vancomycin * Trough level of 22.9 mcg/mL is slightly supratherapeutic, however, level was drawn 2hr early d/t re-timing of the vanc. Expect that level would have been therapeutic if timed appropriately. * Continue dose of 1250 mg IV every 10 hours * Goal trough level for bacteremia/?endocarditis: 18 to 20 mcg/mL * Trough level ordered for: tomorrow morning, to ensure that dosing is appropriate Zosyn 3.375gm IV q8h, extended 4hr infusions Pharmacy will continue to follow and will adjust dose/frequency as necessary. Thank you.
[2018-11-26] MEDS: MoRPHine SULFATE 4 MG/ML 1 ML CARP\\VIAL IV PRN ×3 (13:08→21:33)
[2018-11-26] MEDS: clonazePAM 1 MG TAB PO PRN ×2 (13:21→21:33)
--- NOTE | 2018-11-26 13:25 | Infectious Disease Progress Nt ---
Date of Service November 26, 2018 Assessment & Plan (1) Gram positive sepsis: continue vanco for now, repeat blood cultures x 2. agree with echo. follow culture data. will ask for further ID, pt was injected morphine, unclear if gpr skin roro, oral roro (? licking needles), would normally suspect gpr as skin roro but with repeat + cultures, will need additional workup. discussed with primary. Subjective pt resting comfortably, comfortable. c/o increased back pain earlier today, MRI spine ordered, echo pending. Initial blood cultures growing gpr, no sensitivities done, repeat blood cultures on 11/25 now with 1/2 sets gpr as well. remains on IV abx. afebrile. wbc nml. LFTs improving. no jaundice. Review of Systems Review of Systems: All systems reviewed & are unremarkable except as noted in HPI & below Physical Exam Constitutional: WD/WN, vitals as above Eyes: PERRL, conjunctivae normal, anicteric sclerae ENMT: external ear and nose normal, oropharynx normal Neck: normal visual inspection Respiratory: normal respiratory effort, lungs clear to auscultation Cardiovascular: RRR, no murmur, no edema Gastrointestinal (Abdomen): normal bowel sounds, soft, nontender, no hepatosplenomegaly Musculoskeletal: no cyanosis or clubbing, extremities motor strength 5/5 Skin: no rashes, warm and dry Psychiatric: A+Ox3, euthymic affect Results & Data Vital Signs (Past 12 Hours) Vital Signs Temp Pulse Resp BP Pulse Ox 11/26/18 07:19 36.8 C 66 16 160/89 H 99 Laboratory Results Microbiology 11/24/18 12:00 Blood Aerobic Blood Culture - Preliminary No growth in Aerobic bottle after 48 hours. 11/24/18 12:00 Blood Anaerobic Blood Culture - Preliminary Bacillus species not anthracis 11/24/18 11:58 Blood Aerobic Blood Culture - Preliminary No growth in Aerobic bottle after 48 hours. 11/24/18 11:58 Blood Anaerobic Blood Culture - Preliminary Bacillus species not anthracis 11/25/18 10:52 Blood Aerobic Blood Culture - Preliminary Gram positive bacilli 11/24/18 19:00 Urine,Clean Catch Urine Culture - Final No growth - less than 1,000 colonies/mL. 11/24/18 13:21 Blood Aerobic Blood Culture - Preliminary No growth in Aerobic bottle after 24 hours. 11/24/18 13:21 Blood Anaerobic Blood Culture - Preliminary No growth in Anaerobic bottle after 24 hours.
--- NOTE | 2018-11-26 14:27 | XRay Report ---
TWO VIEW CHEST CLINICAL HISTORY: Atypical chest pain.. FINDINGS: PA and lateral chest radiographs are compared to study dated 06/27/2018 and correlated with c hest CT dated 06/12/2018. The cardiomediastinal silhouette is unremarkable. There is mild bibasilar a telectasis. Trace pleural effusions are suspected. No airspace consolidation is seen typical for pneu monia. There is no pneumothorax. The bony thorax appears intact. Cholecystectomy clips are noted in t he right upper quadrant. IMPRESSION: Trace pleural effusions and bibasilar atelectasis. Electronically signed by: Cali Maharaj M.D. 11/26/2018 2:26 PM
--- NOTE | 2018-11-26 14:42 | Magnetic Resonance Report ---
THORACIC SPINE MRI HISTORY: Back pain. rule out osteo or abscess in thoracic. TECHNIQUE: Multiplanar multisequence MRI of the thoracic spine was performed without the use of contr ast. COMPARISON: Thoracic spine 06/14/2018. FINDINGS: Alignment and curvature intact. No acute fracture or subluxation within the thoracic spine. Paraspina l soft tissues are unremarkable. Stable T11 vertebral body hemangioma. The thoracic spinal cord is no rmal in course, caliber, and signal intensity. Small bilateral pleural effusions are noted. No disc h erniations. No significant central canal or neural foraminal narrowing. Mild disc space narrowing thr oughout the majority of the thoracic spine, unchanged. Mild inferior endplate concavity from T5 throu gh T7, unchanged. This could represent Schmorl's nodes rather than old compression fractures. There i s also a new minimal superior endplate concavity at T1. This favors an old compression fracture resul ting in less than 10% loss of height. No associated marrow edema to suggest an acute injury. There is also a stable hemangioma within the right T12 pedicle measuring 1.5 cm. IMPRESSION: 1. No acute fracture or subluxation within the thoracic spine. 2. No evidence for discitis/osteomyelitis on this noncontrast study. 3. There is a new minimal superior endplate cavity at T1. This favors an old compression fracture res ulting in less than 10% loss of height. No associated marrow edema to suggest an acute injury. 4. . Mild inferior endplate concavity from T5 through T7, unchanged. This could represent Schmorl's n odes rather than old compression fractures. 5. Small bilateral pleural effusions. Electronically signed by: Dawood Banda M.D. 11/26/2018 2:41 PM
[2018-11-26] MEDS: OLANZAPINE ZYDIS 5 MG ORALLY DIS. TAB PO SCH (20:46)
[2018-11-26] MEDS: TOPIRAMATE 100 MG TAB PO SCH (20:47)
--- NOTE | 2018-11-26 22:43 | Hospitalist Progress Note ---
Date of Service November 26, 2018 Assessment & Plan (1) Sepsis: Documented by tachycardia, anion gap, elevated lactic acid levels, left shift. Blood and urine cultures obtained. Currently on Zosyn and vancomycin. On 11/26, labs appear to be improving. Patient has bacteremia, which is likely from her IV drug abuse. Awaiting ID cultures final identification. (2) IV drug user: She has been injecting crushed morphine. This raises the possibility of bacteremia and/or endocarditis. Blood cultures are possible, Echo cardiogram ordered, MRI of back also ordered. (3) Transaminitis: New onset. Serial lab studies. Hopefully this will improve and resolve with treatment of underlying infectious process (4) Acute gastritis: History of peptic ulcer disease. Will treat with Protonix and Carafate. Parenteral antiemetics as needed (5) Opioid abuse: She has been on methadone and Suboxone in the past. Consider pain managem ent evaluation. (6) Chronic back pain: will restart home dose of narcotics. Will monitor. Placed on lidoderm patch (7) [facility] Spent 25 minutes in management of patient. This included chart reviwe and discussion with consultants. Subjective Patient continues to report back pain. Patient states the back pain has not really improved since she has been here. Patient denies any nausea, vomiting, diarrhea. Review of Systems Review of Systems: All systems reviewed & are unremarkable except as noted in HPI & below Physical Exam Physical Exam: Constitutional: WD/WN, vitals as above Alert and oriented. Eyes: PERRL, conjunctivae normal, anicteric sclerae ENMT: external ear and nose normal, oropharynx normal Neck: trachea midline, no thyromegaly Respiratory: normal respiratory effort, lungs clear to auscultation Cardiovascular: Rate/Rhythm: regular rate and + tachycardic Heart Sounds: normal S1 and normal S2; no murmur Gastrointestinal (Abdomen): Nondistended. Active bowel sounds. Epigastric tenderness. No rebound or guarding Musculoskeletal: no cyanosis or clubbing, extremities motor strength 5/5 Skin: no rashes, warm and dry Neurologic: CN's II-XI intact bilaterally and moves all extremities; no focal motor deficits Psychiatric: A+Ox3, euthymic affect Results & Data Vital Signs (Past 12 Hours) Vital Signs Temp Pulse Resp BP Pulse Ox 06/04/19 15:57 36.9 C 56 L 18 144/87 H 98 (1) Sepsis Sepsis type: sepsis due to unspecified organism Qualified Code(s): A41.9 - Sepsis, unspecified organism
[2018-11-27] MEDS: SODIUM CHLORIDE 0.9% 1000ML 1,000 ML IV SCH ×2 (01:37→16:00)
[2018-11-27] MEDS ORDERED: Nursing to Pharmacy Communication ONE (01:38)
[2018-11-27] MEDS: VANCOMYCIN HCL 1,250 MG in SODIUM CHLORIDE 0.9% 250 ML IV SCH ×2 (04:05→18:49)
[2018-11-27] MEDS: MoRPHine SULFATE 4 MG/ML 1 ML CARP\\VIAL IV PRN ×5 (04:08→21:04)
[2018-11-27 04:22] LABS: Basophils # (auto) 0.02 K/uL (0-0.2); Basophils % (auto) 0.4 %; Eosinophils % (auto) 5.7 %; Hematocrit (blood only) 33.2 % (37-47); Hemoglobin 11.1 g/dL (12.0-16.0); Immature Granulocytes # (auto) 0.02 K/uL (0.00-0.02); Immature Granulocytes % (auto) 0.4 %; Lymphocytes # (auto) 1.96 K/uL (1.2-3.4); Lymphocytes % (auto) 37.3 %; Mean Corpuscular Hgb Conc 33.4 g/dL (32-36); Mean Corpuscular Volume 85.6 fL (80-100); Monocytes # (auto) 0.34 K/uL (0.11-0.59); Monocytes % (auto) 6.5 %; Neutrophils # (auto) 2.62 K/uL (1.4-6.5); Neutrophils % (auto) 49.7 %; Platelet Count 137 K/uL (130-400); RDW Coefficient of Variation 14.3 % (11.5-14.5); RDW Standard Deviation 44.8 fL (36.4-46.3); Red Blood Count 3.88 M/uL (4.2-5.4); White Blood Count 5.26 K/uL (4.8-10.8)
[2018-11-27 04:39] LABS: Albumin Level 2.8 gm/dl (3.4-5.0); BUN Creatinine Ratio 9.2 (10-20); Creatinine Clr Calc Pharmacy 101.5 ml/min; Est GFR (African American) 109.2; Est GFR (Non-African American) 94.3; Potassium 3.1 mmol/L (3.5-5.1)
[2018-11-27 04:42] LABS: Bilirubin,Total 0.3 mg/dl (0.2-1); Globulin 2.9 gm/dl (2.5-4.0); Total Protein 5.7 gm/dl (6.4-8.2)
[2018-11-27] MEDS: METHYLPHENIDATE HCL 10 MG TABLET PO SCH ×2 (09:08→16:59)
[2018-11-27] MEDS: GABAPENTIN 600 MG TAB PO SCH ×3 (09:08→21:03)
[2018-11-27] MEDS: PANTOprazole 40 MG TAB PO SCH ×2 (09:08→21:03)
[2018-11-27] MEDS: SUCRALFATE 1 GM/10 ML UDC PO SCH ×4 (09:08→21:02)
[2018-11-27] MEDS: TOPIRAMATE 50 MG TAB PO SCH (09:09)
[2018-11-27] MEDS: ERGOCALCIFEROL 50,000 UNITS CAP PO SCH (09:09)
[2018-11-27] MEDS: LIDOCAINE 5% 1 PATCH TD SCH (09:09)
[2018-11-27] MEDS: FLUOXETINE HCL 20 MG CAP PO SCH (09:09)
--- NOTE | 2018-11-27 11:01 | Pharmacy Report ---
Pharmacy Abx Dose Short Note - Date of Service November 27, 2018 - Assessment & Plan Assessment Laboratory Tests 11/27/18 03:44 Vancomycin Trough 22.3 48 year old F receiving Vancomycin for treatment of bacteremia and possible endocarditis. She had been on Vancomycin 1250 mg IV q10h. Trough before 0400 dose obtained today after 4 doses of this Vanco regimen. Day #4 of antimicrobial therapy. Plan Vancomycin * Trough level of 22.3 mcg/mL is supratherapeutic. * Changed to 1250 mg IV every 12 hours * Goal trough level for endocarditis: 18 to 20 mcg/mL * Trough level ordered for: 11/29 @ 0530 AM Pharmacy will continue to follow and will adjust dose/frequency as necessary. Thank you.
[2018-11-27] MEDS: POTASSIUM CHLORIDE 10 MEQ TABCR PO SCH ×2 (11:35→21:02)
--- NOTE | 2018-11-27 12:51 | Infectious Disease Progress Nt ---
Date of Service November 27, 2018 Assessment & Plan (1) Gram positive sepsis: continue vanco for now, repeat blood cultures x 2. echo/mri negative. follow culture data. asked for further ID, pt was injected morphine, unclear if gpr skin roro, oral roro (? licking needles), would normally suspect gpr as skin roro but with repeat + cultures, will need additional workup Subjective Cultures from blood now + 6/2,6/3,6/4, all gpr. spoke with lab this am, will do additional ID/sensitivity Pt does have recent h/o IVDA. MRI t spine and echo negative for metastatic sites of infection. afebrile. c/o back pain, appears comfortable, eating lunch. tolerating abx, remains on vanco. blood cultures repeated today, pending. no abd pain, no n/v/d. no cp, sob, cough. wbc 5.2 Review of Systems Review of Systems: All systems reviewed & are unremarkable except as noted in HPI & below Physical Exam Constitutional: WD/WN, vitals as above Eyes: PERRL, conjunctivae normal, anicteric sclerae ENMT: external ear and nose normal, oropharynx normal Neck: normal visual inspection Respiratory: normal respiratory effort, lungs clear to auscultation Cardiovascular: RRR, no murmur, no edema Gastrointestinal (Abdomen): normal bowel sounds, soft, nontender, no hepatosplenomegaly Musculoskeletal: no cyanosis or clubbing, extremities motor strength 5/5 Skin: no rashes, warm and dry Psychiatric: A+Ox3, euthymic affect Results & Data Vital Signs (Past 12 Hours) Vital Signs Temp Pulse Resp BP Pulse Ox 11/27/18 07:39 36.9 C 66 20 133/75 98 Laboratory Results Microbiology 11/25/18 10:52 Blood Aerobic Blood Culture - Preliminary Bacillus species not anthracis 11/25/18 10:52 Blood Anaerobic Blood Culture - Final 11/24/18 12:00 Blood Aerobic Blood Culture - Final Bacillus species not anthracis 11/24/18 12:00 Blood Anaerobic Blood Culture - Final Bacillus species not anthracis 11/26/18 14:27 Blood Aerobic Blood Culture - Preliminary Gram positive bacilli 11/24/18 13:21 Blood Aerobic Blood Culture - Preliminary Gram positive bacilli 11/24/18 13:21 Blood Anaerobic Blood Culture - Preliminary No growth in Anaerobic bottle after 48 hours. 11/25/18 10:52 Blood Anaerobic Blood Culture - Final 11/24/18 11:58 Blood Aerobic Blood Culture - Preliminary No growth in Aerobic bottle after 48 hours. 11/24/18 11:58 Blood Anaerobic Blood Culture - Preliminary Bacillus species not anthracis 11/24/18 19:00 Urine,Clean Catch Urine Culture - Final No growth - less than 1,000 colonies/mL.
[2018-11-27 15:07] LABS: Hydrocodone Urine NEGATIVE NG/ML (CUTOFF=50); Hydromor Urine 448 NG/ML (CUTOFF=50); Morphine Urine >20000 NG/ML (CUTOFF=50); Norhydrocodone Conf Ur NEGATIVE NG/ML (CUTOFF=50); Noroxycodone Urine NEGATIVE NG/ML (CUTOFF=50); Oxycodone Urine NEGATIVE NG/ML (CUTOFF=50)
[2018-11-27] MEDS: clonazePAM 1 MG TAB PO PRN (21:04)
[2018-11-27] MEDS: OLANZAPINE ZYDIS 5 MG ORALLY DIS. TAB PO SCH (21:04)
[2018-11-27] MEDS: TOPIRAMATE 100 MG TAB PO SCH (21:04)
--- NOTE | 2018-11-27 22:21 | Hospitalist Progress Note ---
Date of Service November 27, 2018 Assessment & Plan (1) Sepsis: Documented by tachycardia, anion gap, elevated lactic acid levels, left shift. Blood and urine cultures obtained. Currently on Zosyn and vancomycin. On 11/27, labs appear to be improving. Patient has bacteremia, which is likely from her IV drug abuse. Patient cannot be discharged on IV line for IV antibiotics. Will continue to monitor for now. (2) IV drug user: She has been injecting crushed morphine. This raises the possibility of bacteremia and/or endocarditis. Blood cultures have been postive 09/26 were postivie with gram positive bacilli. Will obtain further identification. This process may take a week. Patient cannot be discharged with an IV line. (3) Transaminitis: Resolved. (4) Acute gastritis: History of peptic ulcer disease. Will treat with Protonix and Carafate. Parenteral antiemetics as needed (5) Opioid abuse: She has been on methadone and Suboxone in the past. Consider pain management evaluation. (6) Chronic back pain: will restart home dose of narcotics. Will monitor. Placed on lidoderm patch (7) DVT prophylaxis: Lovenox subcu Spent 25 minutes in management of patient. Subjective Patient appears to be in a better mood today. Patient is having less pain today. Will continue to monitor. Review of Systems Review of Systems: All systems reviewed & are unremarkable except as noted in HPI & below Physical Exam Physical Exam: Constitutional: WD/WN, vitals as above Alert and oriented. Eyes: PERRL, conjunctivae normal, anicteric sclerae ENMT: external ear and nose normal, oropharynx normal Neck: trachea midline, no thyromegaly Respiratory: normal respiratory effort, lungs clear to auscultation Cardiovascular: Rate/Rhythm: regular rate and + tachycardic Heart Sounds: normal S1 and normal S2; no murmur Gastrointestinal (Abdomen): Nondistended. Active bowel sounds. Epigastric tenderness. No rebound or guarding Musculoskeletal: no cyanosis or clubbing, extremities motor strength 5/5 Skin: no rashes, warm and dry Neurologic: CN's II-XI intact bilaterally and moves all extremities; no focal motor deficits Psychiatric: A+Ox3, euthymic affect Results & Data Vital Signs (Past 12 Hours) Vital Signs Temp Pulse Resp BP Pulse Ox 11/27/18 15:47 36.9 C 83 18 141/90 H 96 (1) Sepsis Sepsis type: sepsis due to unspecified organism Qualified Code(s): A41.9 - Sepsis, unspecified organism
[2018-11-28] MEDS: MoRPHine SULFATE 4 MG/ML 1 ML CARP\\VIAL IV PRN ×5 (04:31→20:34)
[2018-11-28] MEDS: VANCOMYCIN HCL 1,250 MG in SODIUM CHLORIDE 0.9% 250 ML IV SCH ×2 (05:42→18:25)
[2018-11-28] MEDS: SUCRALFATE 1 GM/10 ML UDC PO SCH ×4 (08:03→20:33)
[2018-11-28] MEDS: LIDOCAINE 5% 1 PATCH TD SCH (08:04)
[2018-11-28] MEDS: POTASSIUM CHLORIDE 10 MEQ TABCR PO SCH ×2 (08:04→20:33)
[2018-11-28] MEDS: PANTOprazole 40 MG TAB PO SCH ×2 (08:05→20:33)
[2018-11-28] MEDS: GABAPENTIN 600 MG TAB PO SCH ×3 (08:05→20:33)
[2018-11-28] MEDS: FLUOXETINE HCL 20 MG CAP PO SCH (08:05)
[2018-11-28] MEDS: METHYLPHENIDATE HCL 10 MG TABLET PO SCH ×2 (08:05→16:12)
[2018-11-28] MEDS: TOPIRAMATE 50 MG TAB PO SCH (08:06)
[2018-11-28] MEDS: clonazePAM 1 MG TAB PO PRN ×2 (12:04→20:41)
--- NOTE | 2018-11-28 15:05 | Infectious Disease Progress Nt ---
Date of Service November 28, 2018 Assessment & Plan (1) Gram positive sepsis: continue vanco for now, repeat blood cultures 6/5 negative to date. echo/mri negative. follow culture data. asked for further ID, pt was injected morphine, unclear if gpr skin roro, oral roro (? licking needles), would normally suspect gpr as skin roro but with repeat + cultures, will need additional workup Discussed with primary, she is not a candidate for IV abx via picc due to recent IVDA. Paperwork has been started for IV Dalvance x 2 doses at [facility] post d/c. awaiting insurance approval. If blood cultures negative tomorrow, could be d/c home wiht plans for IV Dalvance post d/c. Subjective 6/5 cultures negative to date, all previous culture growing gpr, isolate sent to [place] for further ID and sensitivity. afebrile. estimated time for return of culture results is 1 week. h/o recent IVDA, not a candidate for IV abx post d/c. wbc nml. echo and mri spine negative. Results & Data Vital Signs (Past 12 Hours) Vital Signs Temp Pulse Resp BP Pulse Ox 11/28/18 08:00 36.7 C 75 20 117/69 97 Laboratory Results Microbiology 11/26/18 14:37 Blood Aerobic Blood Culture - Preliminary No growth in Aerobic bottle after 48 hours. 11/26/18 14:37 Blood Anaerobic Blood Culture - Preliminary No growth in Anaerobic bottle after 48 hours. 11/26/18 14:27 Blood Aerobic Blood Culture - Preliminary Bacillus species not anthracis 11/26/18 14:27 Blood Anaerobic Blood Culture - Preliminary No growth in Anaerobic bottle after 48 hours. 11/27/18 10:46 Blood Aerobic Blood Culture - Preliminary No growth in Aerobic bottle after 24 hours. 11/27/18 10:46 Blood Anaerobic Blood Culture - Preliminary No growth in Anaerobic bottle after 24 hours. 11/27/18 10:39 Blood Aerobic Blood Culture - Preliminary No growth in Aerobic bottle after 24 hours. 11/27/18 10:39 Blood Anaerobic Blood Culture - Preliminary No growth in Anaerobic bottle after 24 hours. 11/24/18 13:21 Blood Aerobic Blood Culture - Preliminary Bacillus species not anthracis 11/24/18 13:21 Blood Anaerobic Blood Culture - Preliminary No growth in Anaerobic bottle after 48 hours. 11/25/18 10:52 Blood Aerobic Blood Culture - Preliminary Bacillus species not anthracis 11/25/18 10:52 Blood Anaerobic Blood Culture - Final 11/25/18 10:52 Blood Aerobic Blood Culture - Preliminary Bacillus species not anthracis 11/25/18 10:52 Blood Anaerobic Blood Culture - Final 11/24/18 11:58 Blood Aerobic Blood Culture - Preliminary No growth in Aerobic bottle after 48 hours. 11/24/18 11:58 Blood Anaerobic Blood Culture - Preliminary Bacillus species not anthracis 11/24/18 12:00 Blood Aerobic Blood Culture - Final Bacillus species not anthracis 11/24/18 12:00 Blood Anaerobic Blood Culture - Final Bacillus species not anthracis 11/24/18 19:00 Urine,Clean Catch Urine Culture - Final No growth - less than 1,000 colonies/mL.
[2018-11-28] MEDS: TOPIRAMATE 100 MG TAB PO SCH (20:33)
[2018-11-28] MEDS: OLANZAPINE ZYDIS 5 MG ORALLY DIS. TAB PO SCH (20:34)
--- NOTE | 2018-11-28 23:05 | Hospitalist Progress Note ---
Date of Service November 28, 2018 Assessment & Plan (1) Sepsis: Documented by tachycardia, anion gap, elevated lactic acid levels, left shift. Blood and urine cultures obtained. Currently on Zosyn and vancomycin. On 11/29, labs continue to improve. Patient has bacteremia, which is likely from her IV drug abuse. Patient cannot be discharged on IV line for IV antibiotics. Will continue to monitor for now. (2) IV drug user: She has been injecting crushed morphine. This raises the possibility of bacteremia and/or endocarditis. Blood cultures have been postive 5 of first 6 culutres were positive with gram positive bacilli. Will obtain further identification. This process may take a week. Patient cannot be discharged with an IV line. Patient will be discharged on Dalvnace. Awaiting authorization. (3) Transaminitis: Resolved. (4) Acute gastritis: History of peptic ulcer disease. Will treat with Protonix and Carafate. Parenteral antiemetics as needed (5) Opioid abuse: She has been on methadone and Suboxone in the past. Consider pain management evaluation. (6) Chronic back pain: will restart home dose of narcotics. Also placed on morphine. Will monitor. Placed on lidoderm patch (7) DVT prophylaxis: Lovenox subcu Spent 25 minutes in management of patient. Subjective Patient reports feeling better. Patient has no new complaints. Review of Systems Review of Systems: All systems reviewed & are unremarkable except as noted in HPI & below Physical Exam Physical Exam: Constitutional: WD/WN, vitals as above Alert and oriented. Eyes: PERRL, conjunctivae normal, anicteric sclerae ENMT: external ear and nose normal, oropharynx normal Neck: trachea midline, no thyromegaly Respiratory: normal respiratory effort, lungs clear to auscultation Cardiovascular: Rate/Rhythm: regular rate and + tachycardic Heart Sounds: normal S1 and normal S2; no murmur Gastrointestinal (Abdomen): Nondistended. Active bowel sounds. nontender. No rebound or guarding Musculoskeletal: no cyanosis or clubbing, extremities motor strength 5/5 Skin: no rashes, warm and dry Neurologic: CN's II-XI intact bilaterally and moves all extremities; no focal motor deficits Psychiatric: A+Ox3, euthymic affect Results & Data Vital Signs (Past 12 Hours) Vital Signs Temp Pulse Resp BP Pulse Ox 11/28/18 15:09 36.9 C 87 22 130/83 94 (1) Sepsis Sepsis type: sepsis due to unspecified organism Qualified Code(s): A41.9 - Sepsis, unspecified organism
[2018-11-29] MEDS: MoRPHine SULFATE 4 MG/ML 1 ML CARP\\VIAL IV PRN ×5 (01:08→22:32)
[2018-11-29] MEDS ORDERED: VANCOMYCIN TROUGH ONE (05:30)
[2018-11-29] MEDS: VANCOMYCIN HCL 1,250 MG in SODIUM CHLORIDE 0.9% 250 ML IV SCH ×2 (06:08→18:43)
[2018-11-29 06:28] LABS: Creatinine Clr Calc Pharmacy 86.5 ml/min; Est GFR (Non-African American) 77.7
[2018-11-29] MEDS: SUCRALFATE 1 GM/10 ML UDC PO SCH ×4 (08:26→22:30)
[2018-11-29] MEDS: LIDOCAINE 5% 1 PATCH TD SCH (08:27)
[2018-11-29] MEDS: POTASSIUM CHLORIDE 10 MEQ TABCR PO SCH ×2 (08:27→22:30)
[2018-11-29] MEDS: FLUOXETINE HCL 20 MG CAP PO SCH (08:30)
[2018-11-29] MEDS: GABAPENTIN 600 MG TAB PO SCH ×3 (08:30→22:30)
[2018-11-29] MEDS: PANTOprazole 40 MG TAB PO SCH ×2 (08:30→22:30)
[2018-11-29] MEDS: METHYLPHENIDATE HCL 10 MG TABLET PO SCH ×2 (08:31→16:27)
[2018-11-29] MEDS: TOPIRAMATE 50 MG TAB PO SCH (08:31)
--- NOTE | 2018-11-29 11:01 | Pharmacy Report ---
Pharmacy Abx Dose Short Note - Date of Service November 29, 2018 - Assessment & Plan Assessment Laboratory Tests 11/29/18 05:21 Vancomycin Trough 19.9 48 year old F receiving Vancomycin for treatment of Gram positive bacilli bacteremia most likely from IV drug abuse. Day #6 of Vancomycin therapy. Patient is currently on Vanco 1250 mg IV q12h. Trough reported today after 3 doses of q12h schedule. Trough is at steady state. Renal function has remained stable- Crcl = 86.5 today. Plan Vancomycin * Trough level of 19.9 mcg/mL is therapeutic. * Continue dose of 1250 mg IV every 12 hours. * Goal trough level for Bacteremia: 15 to 20 mcg/mL * Will re-order trough in 3 days if patient remains admitted and continues to be on IV Vancomycin. Pharmacy will continue to follow and will adjust dose/frequency as necessary. Thank you.
[2018-11-29] MEDS: clonazePAM 1 MG TAB PO PRN ×2 (13:26→22:31)
--- NOTE | 2018-11-29 14:26 | Infectious Disease Progress Nt ---
Date of Service November 29, 2018 Assessment & Plan (1) Gram positive sepsis: continue vanco for now, repeat blood cultures 6/5 negative to date. echo/mri negative. follow culture data. asked for further ID, pt was injected morphine, unclear if gpr skin roro, oral roro (? licking needles), would normally suspect gpr as skin roro but with repeat + cultures, will need additional workup Discussed with primary, she is not a candidate for IV abx via picc due to recent IVDA. Paperwork has been started for IV Dalvance x 2 doses at [facility] post d/c. awaiting insurance approval. If blood cultures negative tomorrow, could be d/c home with plans for IV Dalvance post d/c. no approval received to date regarding IV Dalvance or co pay info. Continue vanco, await insurance approval. Subjective pt repeat blood cultures remain negative. tolerating vanco, echo mri spine negative. Awaiting insurance approval for Dalvance as outpt as she is not a candidate for picc line due to recent IVDA. Paperwork was submitted but have not received any information back regarding approval/ co pay. Results & Data Vital Signs (Past 12 Hours) Vital Signs Temp Pulse Resp BP Pulse Ox 11/29/18 07:00 36.6 C 74 18 115/75 99 Laboratory Results Microbiology 11/24/18 11:58 Blood Aerobic Blood Culture - Final No growth in Aerobic bottle after 5 days. 11/24/18 11:58 Blood Anaerobic Blood Culture - Preliminary Bacillus species not anthracis 11/27/18 10:46 Blood Aerobic Blood Culture - Preliminary No growth in Aerobic bottle after 48 hours. 11/27/18 10:46 Blood Anaerobic Blood Culture - Preliminary No growth in Anaerobic bottle after 48 hours. 11/27/18 10:39 Blood Aerobic Blood Culture - Preliminary No growth in Aerobic bottle after 48 hours. 11/27/18 10:39 Blood Anaerobic Blood Culture - Preliminary No growth in Anaerobic bottle after 48 hours. 11/26/18 14:37 Blood Aerobic Blood Culture - Preliminary No growth in Aerobic bottle after 48 hours. 11/26/18 14:37 Blood Anaerobic Blood Culture - Preliminary No growth in Anaerobic bottle after 48 hours. 11/26/18 14:27 Blood Aerobic Blood Culture - Preliminary Bacillus species not anthracis 11/26/18 14:27 Blood Anaerobic Blood Culture - Preliminary No growth in Anaerobic bottle after 48 hours. 11/24/18 13:21 Blood Aerobic Blood Culture - Preliminary Bacillus species not anthracis 11/24/18 13:21 Blood Anaerobic Blood Culture - Preliminary No growth in Anaerobic bottle after 48 hours. 11/25/18 10:52 Blood Aerobic Blood Culture - Preliminary Bacillus species not anthracis 11/25/18 10:52 Blood Anaerobic Blood Culture - Final 11/25/18 10:52 Blood Aerobic Blood Culture - Preliminary Bacillus species not anthracis 11/25/18 10:52 Blood Anaerobic Blood Culture - Final 11/24/18 12:00 Blood Aerobic Blood Culture - Final Bacillus species not anthracis 11/24/18 12:00 Blood Anaerobic Blood Culture - Final Bacillus species not anthracis 11/24/18 19:00 Urine,Clean Catch Urine Culture - Final No growth - less than 1,000 colonies/mL.
[2018-11-29] MEDS: OLANZAPINE ZYDIS 5 MG ORALLY DIS. TAB PO SCH (22:31)
[2018-11-29] MEDS: TOPIRAMATE 100 MG TAB PO SCH (22:31)
--- NOTE | 2018-11-29 23:01 | Hospitalist Progress Note ---
Date of Service November 29, 2018 Assessment & Plan (1) Sepsis: Documented by tachycardia, anion gap, elevated lactic acid levels, left shift. Blood and urine cultures obtained. Currently on Zosyn and vancomycin. On 11/29, labs appear to be improving. Patient has bacteremia, which is likely from her IV drug abuse. Patient cannot be discharged on IV line for IV antibiotics. Will continue to monitor for now. Will be on dalsmithwick as an outpatient. Awaiting insurance auth (2) IV drug user: She has been injecting crushed morphine. This raises the possibility of bacteremia and/or endocarditis. Blood cultures have been postive 09/26 were postivie with gram positive bacilli. Will obtain further identification. This process may take a week. Patient cannot be discharged with an IV line. (3) Transaminitis: Resolved. (4) Acute gastritis: History of peptic ulcer disease. Will treat with Protonix and Carafate. Parenteral antiemetics as needed (5) Opioid abuse: She has been on methadone and Suboxone in the past. Consider pain management evaluation as an ouutpatient. (6) Chronic back pain: will restart home dose of narcotics. Will monitor. Placed on lidoderm patch Pain appears to be better controlled with narcotics and lidoderm patch. (7) DVT prophylaxis: Lovenox subcu Spent 25 minutes in management of patient. Subjective Patient reports no new symptoms. Review of Systems Review of Systems: All systems reviewed & are unremarkable except as noted in HPI & below Physical Exam Physical Exam: Constitutional: WD/WN, vitals as above Alert and oriented. Eyes: PERRL, conjunctivae normal, anicteric sclerae ENMT: external ear and nose normal, oropharynx normal Neck: trachea midline, no thyromegaly Respiratory: normal respiratory effort, lungs clear to auscultation Cardiovascular: Rate/Rhythm: regular rate and + tachycardic Heart Sounds: normal S1 and normal S2; no murmur Gastrointestinal (Abdomen): Nondistended. Active bowel sounds. nontender. No rebound or guarding Musculoskeletal: no cyanosis or clubbing, extremities motor strength 5/5 Skin: no rashes, warm and dry Neurologic: CN's II-XI intact bilaterally and moves all extremities; no focal motor deficits Psychiatric: A+Ox3, euthymic affect Results & Data Vital Signs (Past 12 Hours) Vital Signs Temp Pulse Resp BP Pulse Ox 11/29/18 15:10 37.1 C 84 16 110/73 97 (1) Sepsis Sepsis type: sepsis due to unspecified organism Qualified Code(s): A41.9 - Sepsis, unspecified organism
[2018-11-30] MEDS: VANCOMYCIN HCL 1,250 MG in SODIUM CHLORIDE 0.9% 250 ML IV SCH ×2 (05:57→18:24)
[2018-11-30] MEDS: LIDOCAINE 5% 1 PATCH TD SCH ×2 (08:02→08:07)
[2018-11-30] MEDS: POTASSIUM CHLORIDE 10 MEQ TABCR PO SCH ×2 (08:02→20:54)
[2018-11-30] MEDS: SUCRALFATE 1 GM/10 ML UDC PO SCH ×4 (08:02→20:53)
[2018-11-30] MEDS: GABAPENTIN 600 MG TAB PO SCH ×3 (08:03→20:55)
[2018-11-30] MEDS: PANTOprazole 40 MG TAB PO SCH ×2 (08:04→20:55)
[2018-11-30] MEDS: FLUOXETINE HCL 20 MG CAP PO SCH (08:05)
[2018-11-30] MEDS: TOPIRAMATE 50 MG TAB PO SCH (08:06)
[2018-11-30] MEDS: METHYLPHENIDATE HCL 10 MG TABLET PO SCH ×2 (08:30→16:50)
[2018-11-30] MEDS: MoRPHine SULFATE 4 MG/ML 1 ML CARP\\VIAL IV PRN ×4 (08:31→22:25)
[2018-11-30] MEDS: OLANZAPINE ZYDIS 5 MG ORALLY DIS. TAB PO SCH (20:54)
[2018-11-30] MEDS: TOPIRAMATE 100 MG TAB PO SCH (20:54)
[2018-11-30] MEDS: clonazePAM 1 MG TAB PO PRN (21:03)
--- NOTE | 2018-11-30 23:52 | Hospitalist Progress Note ---
Date of Service November 30, 2018 Assessment & Plan (1) Sepsis: Documented by tachycardia, anion gap, elevated lactic acid levels, left shift. Blood and urine cultures obtained. Currently on Zosyn and vancomycin. On 11/30, Patient appears to be clinically back to her baseline. Labs were improving on last check on 11/27 Patient has bacteremia, which is likely from her IV drug abuse. Patient cannot be discharged on IV line for IV antibiotics. Will continue to monitor for now. Will be on dalvance as an outpatient. ID has completed the paperwork, and this has been sent, awaiting approval. (2) IV drug user: She has been injecting crushed morphine. This raises the possibility of bacteremia and/or endocarditis. Blood cultures have been postive 5 of first 6 culutres were positive with gram positive bacilli. Will obtain further identification. This process may take a week. Patient cannot be discharged with an IV line. Patient will be discharged on Dalvnace. Awaiting authorization. (3) Transaminitis: Resolved. (4) Acute gastritis: History of peptic ulcer disease. Will treat with Protonix and Carafate. Parenteral antiemetics as needed (5) Opioid abuse: She has been on methadone and Suboxone in the past. Consider pain management evaluation. (6) Chronic back pain: will restart home dose of narcotics. Also placed on morphine. Will monitor. Placed on lidoderm patch. Patient has been requirng large amount of morphie while here. Will need to taper OUTPATIENT. (7) DVT prophylaxis: Lovenox subcu Spent 25 minutes in management of patient. Subjective Patient reports no new complaints. Back pain appears to be controlled. Review of Systems Review of Systems: All systems reviewed & are unremarkable except as noted in HPI & below Physical Exam Physical Exam: Constitutional: WD/WN, vitals as above Alert and oriented. Eyes: PERRL, conjunctivae normal, anicteric sclerae ENMT: external ear and nose normal, oropharynx normal Neck: trachea midline, no thyromegaly Respiratory: normal respiratory effort, lungs clear to auscultation Cardiovascular: Rate/Rhythm: regular rate and + tachycardic Heart Sounds: normal S1 and normal S2; no murmur Gastrointestinal (Abdomen): Nondistended. Active bowel sounds. nontender. No rebound or guarding Musculoskeletal: no cyanosis or clubbing, extremities motor strength 5/5 Skin: no rashes, warm and dry Neurologic: CN's II-XI intact bilaterally and moves all extremities; no fo tiarra motor deficits Psychiatric: A+Ox3, euthymic affect Results & Data Vital Signs (Past 12 Hours) Vital Signs Temp Pulse Resp BP Pulse Ox 11/30/18 14:55 36.1 C L 93 H 20 125/75 96 (1) Sepsis Sepsis type: sepsis due to unspecified organism Qualified Code(s): A41.9 - Sepsis, unspecified organism
[2018-12-01] MEDS ORDERED: VANCOMYCIN TROUGH ONE (05:30)
[2018-12-01] MEDS: VANCOMYCIN HCL 1,250 MG in SODIUM CHLORIDE 0.9% 250 ML IV SCH ×2 (06:04→18:31)
[2018-12-01] MEDS: MoRPHine SULFATE 4 MG/ML 1 ML CARP\\VIAL IV PRN ×4 (06:11→21:22)
[2018-12-01 06:19] LABS: Creatinine Clr Calc Pharmacy 98.8 ml/min; Est GFR (African American) 105.8; Est GFR (Non-African American) 91.3
[2018-12-01] MEDS: SUCRALFATE 1 GM/10 ML UDC PO SCH ×4 (07:47→21:26)
[2018-12-01] MEDS: POTASSIUM CHLORIDE 10 MEQ TABCR PO SCH ×2 (07:47→21:27)
[2018-12-01] MEDS: LIDOCAINE 5% 1 PATCH TD SCH (07:48)
[2018-12-01] MEDS: GABAPENTIN 600 MG TAB PO SCH ×3 (07:50→21:27)
[2018-12-01] MEDS: PANTOprazole 40 MG TAB PO SCH ×2 (07:51→21:27)
[2018-12-01] MEDS: METHYLPHENIDATE HCL 10 MG TABLET PO SCH ×2 (07:52→15:54)
[2018-12-01] MEDS: FLUOXETINE HCL 20 MG CAP PO SCH (07:52)
[2018-12-01] MEDS: TOPIRAMATE 50 MG TAB PO SCH (07:53)
--- NOTE | 2018-12-01 09:22 | Pharmacy Report ---
Pharmacy Abx Dose Short Note - Date of Service December 01, 2018 - Assessment & Plan Assessment 48 year old F receiving Vancomycin 1250mg q12h for treatment of GPB bacteremia. Day # 8 of antimicrobial therapy. Awaiting insurance approval to receive Dalvance as an outpt. Cannot be discharged with a PICC due to history of IVDA. Laboratory Tests 12/01/18 05:47 Vancomycin Trough 19.8 Plan Vancomycin * Trough level of 19.8 mcg/mL is therapeutic. * Continue dose of 1250 mg IV every 12 hours. * Will check another level in ~4 doses if patient is still admitted to ensure levels are not supratherapeutic. Pharmacy will continue to follow and will adjust dose/frequency as necessary. Thank you.
[2018-12-01] MEDS: clonazePAM 1 MG TAB PO PRN (21:22)
[2018-12-01] MEDS: TOPIRAMATE 100 MG TAB PO SCH (21:29)
[2018-12-01] MEDS: OLANZAPINE ZYDIS 5 MG ORALLY DIS. TAB PO SCH (21:29)
--- NOTE | 2018-12-01 22:54 | Hospitalist Progress Note ---
Date of Service December 01, 2018 Assessment & Plan (1) Sepsis: Documented by tachycardia, anion gap, elevated lactic acid levels, left shift. Blood and urine cultures obtained. Currently on Zosyn and vancomycin. On 12/01, Patient appears to be clinically improving. Labs last check on 11/27. Patient has bacteremia, which is likely from her IV drug abuse. Patient cannot be discharged on IV line for IV antibiotics. Will continue to monitor for now. Will be on dalvance as an outpatient. Awaiting insurance approval.ID completed paperwork. (2) IV drug user: She has been injecting crushed morphine. This raises the possibility of bacteremia and/or endocarditis. Blood cultures have been postive 5 of first 6 culutres were positive with gram positive bacilli. Will obtain further identification. This process may take a week. Patient cannot be discharged with an IV line. Patient will be discharged on Dalvnace. Awaiting authorization. (3) Transaminitis: Resolved. (4) Acute gastritis: History of peptic ulcer disease. Will treat with Protonix and Carafate. Parenteral antiemetics as needed (5) Opioid abuse: She has been on methadone and Suboxone in the past. Consider pain management evaluation. (6) Chronic back pain: will restart home dose of narcotics. Also placed on morphine IV. Will monitor. Placed on lidoderm patch Patient is a known drug user, will be had to taper during hospital stay. Recommend tapering as outpatient. (7) DVT prophylaxis: Lovenox subcu Spent 25 minutes in management of patient. Subjective Patient reports no new symptoms at this time.. Review of Systems Review of Systems: All systems reviewed & are unremarkable except as noted in HPI & below Physical Exam Physical Exam: Constitutional: WD/WN, vitals as above Alert and oriented. Eyes: PERRL, conjunctivae normal, anicteric sclerae ENMT: external ear and nose normal, oropharynx normal Neck: trachea midline, no thyromegaly Respiratory: normal respiratory effort, lungs clear to auscultation Cardiovascular: Rate/Rhythm: regular rate and + tachycardic Heart Sounds: normal S1 and normal S2; no murmur Gastrointestinal (Abdomen): Nondistended. Active bowel sounds. nontender. No rebound or guarding Musculoskeletal: no cyanosis or clubbing, extremities motor strength 5/5 Skin: no rashes, warm and dry Neurologic: CN's II-XI intact bilaterally and moves all extremities; no focal motor deficits Psychiatric: A+Ox3, euthymic affect Results & Data Vital Signs (Past 12 Hours) Vital Signs Temp Pulse Resp BP Pulse Ox 12/01/18 14:58 37.0 C 98 H 20 141/84 H 100 (1) Sepsis Sepsis type: sepsis due to unspecified organism Qualified Code(s): A41.9 - Sepsis, unspecified organism
[2018-12-02] MEDS: MoRPHine SULFATE 4 MG/ML 1 ML CARP\\VIAL IV PRN ×3 (05:42→16:57)
[2018-12-02] MEDS: VANCOMYCIN HCL 1,250 MG in SODIUM CHLORIDE 0.9% 250 ML IV SCH ×2 (06:22→18:44)
[2018-12-02] MEDS: PANTOprazole 40 MG TAB PO SCH ×2 (08:21→20:52)
[2018-12-02] MEDS: METHYLPHENIDATE HCL 10 MG TABLET PO SCH ×2 (08:21→15:58)
[2018-12-02] MEDS: GABAPENTIN 600 MG TAB PO SCH ×3 (08:21→20:52)
[2018-12-02] MEDS: TOPIRAMATE 50 MG TAB PO SCH (08:22)
[2018-12-02] MEDS: LIDOCAINE 5% 1 PATCH TD SCH (08:22)
[2018-12-02] MEDS: FLUOXETINE HCL 20 MG CAP PO SCH (08:22)
[2018-12-02] MEDS: POTASSIUM CHLORIDE 10 MEQ TABCR PO SCH ×2 (08:22→20:53)
[2018-12-02] MEDS: SUCRALFATE 1 GM/10 ML UDC PO SCH ×4 (08:22→20:52)
--- NOTE | 2018-12-02 09:23 | Hospitalist Progress Note ---
Date of Service December 02, 2018 Assessment & Plan (1) Sepsis: Documented by tachycardia, anion gap, elevated lactic acid levels, left shift. Blood and urine cultures obtained. Currently on Zosyn and vancomycin. Patient has bacteremia, which is likely from her IV drug abuse. Patient is a bacillus species which is yet to be speciated or have sensitivities found Will be on dalvance as an outpatient, infectious disease is trying to arrange for outpatient Dalvance as the easiest solution to her problems Awaiting insurance approval. (2) IV drug user: She has been injecting crushed morphine. This raises the possibility of bacteremia and/or endocarditis. Blood cultures have been postive 5 of first 6 culutres were positive with gram positive bacilli. Will obtain further identification. (3) Transaminitis: Resolved. (4) Acute gastritis: History of peptic ulcer disease. Will treat with Protonix and Carafate. Parenteral antiemetics as needed (5) Opioid abuse: She has been on methadone and Suboxone in the past. Consider pain management evaluation as an ouutpatient. Patient is a complaining of increasing pain we will institute Nucynta therapy scheduled Tylenol consider adding Celebrex despite her gastritis as listed above (6) Chronic back pain: will restart home dose of narcotics. Adding Nucynta Tylenol additional to her lidoderm patch (7) DVT prophylaxis: Lovenox subcu Subjective Patient was seen in her room she seems fairly comfortable she said her she was having pain her pain seem out of proportion to the physical finding she was not grimacing tachypneic tachycardic and she said she had leg pain with straight leg raising but did not grimace or wince when I straighten her legs. She also complained of some incontinence and was describing having some cystic structures in her spine for which she is supposed to see Dr. Hanson at [facility] for possible surgery. Review of Systems Review of Systems: ROS: well nourished well developed. No double vision blurry vision No problems with speech or swallowing No palpitations, chest pain or pressure No Wheezing or breathing issues No abdominal pain nausea vomiting diarrhea changes in appetite or weight No burning urine urine frequency or changes in color No focal joint pain or muscle pain No skin rashes or oral lesions No unusual bruising or bleeding No focused back pain or numbness or loss of strength No changes in memory or confusion Physical Exam Physical Exam: The patient appeared well nourished and normally developed. She did not appear to be in pain from outward physical signs Vital signs as documented. Head exam is unremarkable. normocephalic, atraumatic Neck is without jugular venous distension, thyromegaly, or lymphademopathy Lungs are clear to auscultation and percussion. Cardiac exam reveals Rhythm is regular. First and second heart sounds normal. Abdominal exam reveals normal bowel sounds, no masses, no organomegaly Extremities are nonedematous and both pedal pulses are present She claims of having pain with straight leg raising but there were no associated wincing or pain type movements is additionally her reflexes are equal bilaterally at the patella Neurologic exam is A&Ox3, no focal deficits, strength is equal bilateral Psychologically seems neither anxious or depressed Skin is warm Dry without bruises or lesions Results & Data Vital Signs (Past 12 Hours) Vital Signs Temp Pulse Resp BP Pulse Ox 12/02/18 07:26 36.8 C 77 16 113/72 96 12/01/18 23:00 36.9 C 76 18 109/66 97 (1) Sepsis Sepsis type: sepsis due to unspecified organism Qualified Code(s): A41.9 - Sepsis, unspecified organism
[2018-12-02] MEDS: ACETAMINOPHEN 500 MG TAB PO SCH (20:52)
[2018-12-02] MEDS: TOPIRAMATE 100 MG TAB PO SCH (20:52)
[2018-12-02] MEDS: TAPENTADOL HCL 50 MG TAB PO PRN (20:52)
[2018-12-02] MEDS: OLANZAPINE ZYDIS 5 MG ORALLY DIS. TAB PO SCH (20:53)
[2018-12-02] MEDS: clonazePAM 1 MG TAB PO PRN (22:39)
[2018-12-03] MEDS: MoRPHine SULFATE 4 MG/ML 1 ML CARP\\VIAL IV PRN ×6 (00:12→22:14)
[2018-12-03] MEDS: VANCOMYCIN HCL 1,250 MG in SODIUM CHLORIDE 0.9% 250 ML IV SCH ×2 (05:15→18:19)
[2018-12-03 06:17] LABS: Creatinine Clr Calc Pharmacy 85.5 ml/min; Est GFR (African American) 88.8; Est GFR (Non-African American) 76.6
[2018-12-03] MEDS: TAPENTADOL HCL 50 MG TAB PO PRN ×2 (07:49→20:31)
[2018-12-03] MEDS: METHYLPHENIDATE HCL 10 MG TABLET PO SCH ×2 (07:50→16:36)
[2018-12-03] MEDS: GABAPENTIN 600 MG TAB PO SCH ×3 (07:50→20:17)
[2018-12-03] MEDS: PANTOprazole 40 MG TAB PO SCH ×2 (07:50→20:19)
[2018-12-03] MEDS: ACETAMINOPHEN 500 MG TAB PO SCH ×2 (07:50→20:18)
[2018-12-03] MEDS: FLUOXETINE HCL 20 MG CAP PO SCH (07:51)
[2018-12-03] MEDS: POTASSIUM CHLORIDE 10 MEQ TABCR PO SCH ×2 (07:51→20:17)
[2018-12-03] MEDS: SUCRALFATE 1 GM/10 ML UDC PO SCH ×4 (07:51→20:18)
[2018-12-03] MEDS: LIDOCAINE 5% 1 PATCH TD SCH (07:51)
[2018-12-03] MEDS: TOPIRAMATE 50 MG TAB PO SCH (07:51)
--- NOTE | 2018-12-03 17:52 | Hospitalist Progress Note ---
Date of Service December 03, 2018 Assessment & Plan (1) Sepsis: Documented by tachycardia, anion gap, elevated lactic acid levels, left shift. Blood and urine cultures obtained. Currently on Zosyn and vancomycin. Patient has bacteremia, which is likely from her IV drug abuse. Patient is a bacillus species which is yet to be speciated or have sensitivities found Insurance has rejected Dalvance as an outpatient option we are currently trying to wrangle with the patient about what the appropriate treatment course would be as she does need probably an extended treatment. There is concern that she may use any intravenous vascular access device at home for surreptitious medication use subsequently options may be half-way placement versus empty treatment with daily IV sticks (2) IV drug user: She has been injecting crushed morphine. This raises the possibility of bacteremia and/or endocarditis. Blood cultures have been postive 5 of first 6 culutres were positive with gram positive bacilli. Pending further identification. (3) Transaminitis: Resolved. (4) Acute gastritis: History of peptic ulcer disease. Will treat with Protonix and Carafate. Parenteral antiemetics as needed (5) Opioid abuse: She has been on methadone and Suboxone in the past. Consider pain management evaluation as an outpatient. Patient is a complaining of increasing pain we will institute Nucynta therapy scheduled Tylenol consider adding Celebrex despite her gastritis as listed above (6) Chronic back pain: will restart home dose of narcotics. Adding Nucynta Tylenol additional to her lidoderm patch (7) DVT prophylaxis: Lovenox subcu Subjective Patient has no new complaints of back pain is in fairly comfortable condition were having challenges arranging the logistics of her outpatient treatment for her bacillus species bacteremia that was gained likely from intravenous drug abuse Patient claims to not have the desire anymore to pursue any intravenous drug abuse and is guaranteeing she will never do it again Review of Systems Review of Systems: ROS: well nourished well developed. No double vision blurry vision No problems with speech or swallowing No palpitations, chest pain or pressure No Wheezing or breathing issues No abdominal pain nausea vomiting diarrhea changes in appetite or weight No burning urine urine frequency or changes in color No focal joint pain or muscle pain No skin rashes or oral lesions No unusual bruising or bleeding Persistent chronic focused back pain or numbness or loss of strength No changes in memory or confusion Physical Exam Physical Exam: The patient appeared well nourished and normally developed. Vital signs as documented. Head exam is unremarkable. normocephalic, atraumatic Neck is without jugular venous distension, thyromegaly, or lymphademopathy Lungs are clear to auscultation and percussion. Cardiac exam reveals Rhythm is regular. First and second heart sounds normal. Abdominal exam reveals normal bowel sounds, no masses, no organomegaly Extremities are nonedematous and both pedal pulses are present Neurologic exam is A&Ox3, no focal deficits, strength is equal bilateral Psychologically seems neither anxious or depressed Skin is warm Dry without bruises or lesions Results & Data Vital Signs (Past 12 Hours) Vital Signs Temp Pulse Resp BP Pulse Ox 12/03/18 15:41 37.5 C 85 18 123/72 96 12/03/18 07:58 36.8 C 91 H 16 115/79 97 (1) Sepsis Sepsis type: sepsis due to unspecified organism Qualified Code(s): A41.9 - Sepsis, unspecified organism
[2018-12-03] MEDS: OLANZAPINE ZYDIS 5 MG ORALLY DIS. TAB PO SCH (20:18)
[2018-12-03] MEDS: TOPIRAMATE 100 MG TAB PO SCH (20:19)
[2018-12-03] MEDS: clonazePAM 1 MG TAB PO PRN (20:27)
[2018-12-04] MEDS: MoRPHine SULFATE 4 MG/ML 1 ML CARP\\VIAL IV PRN ×4 (03:06→22:40)
[2018-12-04] MEDS: VANCOMYCIN HCL 1,250 MG in SODIUM CHLORIDE 0.9% 250 ML IV SCH ×2 (05:40→17:18)
[2018-12-04] MEDS: ERGOCALCIFEROL 50,000 UNITS CAP PO SCH (08:10)
[2018-12-04] MEDS: PANTOprazole 40 MG TAB PO SCH ×2 (08:10→20:05)
[2018-12-04] MEDS: FLUOXETINE HCL 20 MG CAP PO SCH (08:10)
[2018-12-04] MEDS: TOPIRAMATE 50 MG TAB PO SCH (08:10)
[2018-12-04] MEDS: POTASSIUM CHLORIDE 10 MEQ TABCR PO SCH ×2 (08:10→20:07)
[2018-12-04] MEDS: GABAPENTIN 600 MG TAB PO SCH ×3 (08:10→20:07)
[2018-12-04] MEDS: ACETAMINOPHEN 500 MG TAB PO SCH ×2 (08:11→20:06)
[2018-12-04] MEDS: METHYLPHENIDATE HCL 10 MG TABLET PO SCH ×2 (08:11→15:36)
[2018-12-04] MEDS: SUCRALFATE 1 GM/10 ML UDC PO SCH ×4 (08:11→20:04)
[2018-12-04] MEDS: LIDOCAINE 5% 1 PATCH TD SCH (08:12)
[2018-12-04] MEDS ORDERED: KETOROLAC 30 MG/ML VIAL IV ONE (14:50)
[2018-12-04] MEDS ORDERED: LORazepam 1 MG TAB PO STA (14:56)
--- NOTE | 2018-12-04 15:55 | Hospitalist Progress Note ---
Date of Service December 04, 2018 Assessment & Plan (1) Sepsis: Documented by tachycardia, anion gap, elevated lactic acid levels, left shift. Blood and urine cultures obtained. Currently on Zosyn and vancomycin. 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 Patient is a bacillus species which continues yet to be speciated or have sensitivities found assuring proper treatment with limited risk prohibits her to be home with iv access, however daily iv access as an outpt with a new iv will likely have her run out of sites. continue to work on Dalvance approval (2) IV drug user: She has been injecting crushed morphine. This raises the possibility of bacteremia and/or endocarditis. Blood cultures have been postive 5 of first 6 culutres were positive with gram positive bacilli. Pending further identification. (3) Transaminitis: Resolved. (4) Acute gastritis: History of peptic ulcer disease. Will treat with Protonix and Carafate. Parenteral antiemetics as needed (5) Opioid abuse: She has been on methadone and Suboxone in the past. Consider pain management evaluation as an outpatient. Patient is a complaining of increasing pain we will institute Nucynta therapy scheduled Tylenol consider adding Celebrex despite her gastritis as listed above (6) Chronic back pain: will restart home dose of narcotics. Adding Nucynta Tylenol additional to her lidoderm patch pain has intensified 12/04, agrees to toradol and ativan x 1 dose (7) DVT prophylaxis: Lovenox subcu Subjective Is having a bad day today with increasing back pain with some spasm. She claims pain radiating to her posterior legs. She denies any recent movement that initiated or worsen his pain. We remain in a holding pattern to try to get Dalvance prescription approved by insurance. Otherwise she is no complaints or problems Review of Systems Review of Systems: ROS: well nourished well developed. In mild to moderate distress No double vision blurry vision No problems with speech or swallowing No palpitations, chest pain or pressure No Wheezing or breathing issues No abdominal pain nausea vomiting diarrhea changes in appetite or weight No burning urine urine frequency or changes in color No focal joint pain or muscle pain No skin rashes or oral lesions No unusual bruising or bleeding Complains of back pain starting around her beltline radiating down her back to her legs with some mild paresthesias No changes in memory or confusion Physical Exam Physical Exam: The patient appeared to be in mild to moderate distress Vital signs as documented. Head exam is unremarkable. normocephalic, atraumatic Neck is without jugular venous distension, thyromegaly, or lymphademopathy Lungs are clear to auscultation and percussion. Cardiac exam reveals Rhythm is regular. First and second heart sounds normal. Abdominal exam reveals normal bowel sounds, no masses, no organomegaly Extremities are nonedematous and both pedal pulses are present Neurologic exam is A&Ox3, upon confrontational testing is difficult to describe focal deficits likewise there is no significant pain to straight leg raising and no diminished sensation to objective exam Psychologically seems neither anxious or depressed Skin is warm Dry without bruises or lesions Results & Data Vital Signs (Past 12 Hours) Vital Signs Temp Pulse Resp BP Pulse Ox 12/04/18 15:51 36.9 C 77 22 100/66 99 12/04/18 07:58 36.9 C 72 18 112/63 95 (1) Sepsis Sepsis type: sepsis due to unspecified organism Qualified Code(s): A41.9 - Sepsis, unspecified organism
[2018-12-04] MEDS: clonazePAM 1 MG TAB PO PRN (20:03)
[2018-12-04] MEDS: TOPIRAMATE 100 MG TAB PO SCH (20:05)
[2018-12-04] MEDS: OLANZAPINE ZYDIS 5 MG ORALLY DIS. TAB PO SCH (20:05)
[2018-12-04] MEDS: TAPENTADOL HCL 50 MG TAB PO PRN (20:12)
[2018-12-05] MEDS: MoRPHine SULFATE 2 MG/ML CARP IV PRN ×3 (02:18→13:35)
[2018-12-05] MEDS: VANCOMYCIN HCL 1,250 MG in SODIUM CHLORIDE 0.9% 250 ML IV SCH ×2 (05:31→17:03)
[2018-12-05] MEDS: ACETAMINOPHEN 500 MG TAB PO SCH ×2 (08:18→20:56)
[2018-12-05] MEDS: SUCRALFATE 1 GM/10 ML UDC PO SCH ×4 (08:18→20:55)
[2018-12-05] MEDS: FLUOXETINE HCL 20 MG CAP PO SCH (08:18)
[2018-12-05] MEDS: GABAPENTIN 600 MG TAB PO SCH ×3 (08:18→20:55)
[2018-12-05] MEDS: POTASSIUM CHLORIDE 10 MEQ TABCR PO SCH ×2 (08:18→20:54)
[2018-12-05] MEDS: PANTOprazole 40 MG TAB PO SCH ×2 (08:19→20:55)
[2018-12-05] MEDS: TOPIRAMATE 50 MG TAB PO SCH (08:19)
[2018-12-05] MEDS: LIDOCAINE 5% 1 PATCH TD SCH (08:20)
[2018-12-05] MEDS: METHYLPHENIDATE HCL 10 MG TABLET PO SCH ×2 (10:06→15:15)
[2018-12-05] MEDS: TAPENTADOL HCL 50 MG TAB PO PRN ×2 (10:21→20:53)
[2018-12-05] MEDS: MoRPHine SULFATE 4 MG/ML 1 ML CARP\\VIAL IV PRN ×2 (17:11→22:54)
[2018-12-05] MEDS: OLANZAPINE ZYDIS 5 MG ORALLY DIS. TAB PO SCH (20:54)
[2018-12-05] MEDS: clonazePAM 1 MG TAB PO PRN (20:54)
[2018-12-05] MEDS: TOPIRAMATE 100 MG TAB PO SCH (20:56)
[2018-12-06] MEDS ORDERED: VANCOMYCIN TROUGH ONE (05:30)
[2018-12-06] MEDS: VANCOMYCIN HCL 1,250 MG in SODIUM CHLORIDE 0.9% 250 ML IV SCH ×2 (06:22→17:04)
[2018-12-06] MEDS: MoRPHine SULFATE 2 MG/ML CARP IV PRN ×2 (06:23→11:40)
[2018-12-06] MEDS: ACETAMINOPHEN 500 MG TAB PO SCH ×2 (07:49→20:56)
[2018-12-06] MEDS: FLUOXETINE HCL 20 MG CAP PO SCH (07:50)
[2018-12-06] MEDS: GABAPENTIN 600 MG TAB PO SCH ×3 (07:50→20:53)
[2018-12-06] MEDS: PANTOprazole 40 MG TAB PO SCH ×2 (07:50→20:53)
[2018-12-06] MEDS: TOPIRAMATE 50 MG TAB PO SCH (07:50)
[2018-12-06] MEDS: POTASSIUM CHLORIDE 10 MEQ TABCR PO SCH ×2 (07:50→20:55)
[2018-12-06] MEDS: LIDOCAINE 5% 1 PATCH TD SCH (07:51)
[2018-12-06] MEDS: SUCRALFATE 1 GM/10 ML UDC PO SCH ×4 (07:51→20:53)
[2018-12-06] MEDS: METHYLPHENIDATE HCL 10 MG TABLET PO SCH ×2 (08:03→15:17)
--- NOTE | 2018-12-06 08:31 | Pharmacy Report ---
Pharmacy Abx Dose Short Note - Date of Service December 06, 2018 - Assessment & Plan Laboratory Tests 12/06/18 05:48 Vancomycin Trough 19.1 Microbiology 11/27/18 10:46 Blood Aerobic Blood Culture - Final 11/27/18 10:46 Blood Anaerobic Blood Culture - Final No growth in Aerobic bottle after 5 days. No growth in Anaerobic bottle after 5 days. 11/27/18 10:39 Blood Aerobic Blood Culture - Final 11/27/18 10:39 Blood Anaerobic Blood Culture - Final No growth in Aerobic bottle after 5 days. No growth in Anaerobic bottle after 5 days. 11/26/18 14:37 Blood Anaerobic Blood Culture - Final No growth in Anaerobic bottle after 5 days. 11/26/18 14:27 Blood Anaerobic Blood Culture - Final No growth in Anaerobic bottle after 5 days. 11/26/18 14:37 Blood Aerobic Blood Culture - Preliminary 11/26/18 14:37 Blood Bacillus species not anthracis 11/26/18 14:27 Blood Aerobic Blood Culture - Preliminary 11/26/18 14:27 Blood Bacillus species not anthracis Assessment 48 year old F receiving IV Vancomycin for treatment of Bacillus sp. Last blood culture on 11/27 shows No Growth. Day # 13 of IV Vancomycin. Awaiting insurance approval to receive Dalvance x 2 doses as an outpt at [facility]. Cannot be discharged with a PICC due to history of IVDA. Plan Vancomycin * Trough level of 19.1 mcg/mL is therapeutic * Continue dose of 1250 mg IV every 12 hours * Goal trough level for bacteremia : 15 to 20 mcg/mL * No further levels ordered, will order again in 4-5 days if patient still on Vancomycin at that time Pharmacy will continue to follow and will adjust dose/frequency as necessary. Thank you.
[2018-12-06] MEDS: TAPENTADOL HCL 50 MG TAB PO PRN ×3 (08:42→21:40)
--- NOTE | 2018-12-06 13:18 | Hospitalist Progress Note ---
Date of Service December 06, 2018 Assessment & Plan (1) Sepsis: Documented by tachycardia, anion gap, elevated lactic acid levels, left shift. Blood and urine cultures /6 show bacillus species Currently on vancomycin. 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 Patient is a bacillus species which continues yet to be speciated or have sensitivities found assuring proper treatment with limited risk prohibits her to be home with iv access, however daily iv access as an outpt with a new iv will likely have her run out of sites. continue to work on [employer] approval (2) IV drug user: She has been injecting crushed morphine. This raises the possibility of bacteremia and/or endocarditis. Blood cultures have been postive 5 of first 6 culutres were positive with gram positive bacilli. remains Pending further identification. (3) Transaminitis: Resolved. (4) Acute gastritis: History of peptic ulcer disease. Will treat with Protonix and Carafate. Parenteral antiemetics as needed (5) Opioid abuse: She has been on methadone and Suboxone in the past. Consider pain management evaluation as an outpatient. Patient is a complaining of increasing pain we will institute Nucynta therapy scheduled Tylenol consider adding Celebrex despite her gastritis as listed above (6) Chronic back pain: will restart home dose of narcotics. Adding Nucynta Tylenol additional to her lidoderm patch pain has intensified 12/04, will have MRI to evaluate for bacterial seeding of back (7) DVT prophylaxis: Lovenox subcu Subjective She has persistent lower back pain which waxes and wanes we are still awaiting insurance approval for her Dalvance therapy claims of some radicular components to her pain there is negative straight leg raising today on exam Review of Systems Review of Systems: ROS: well nourished well developed. No double vision blurry vision No problems with speech or swallowing No palpitations, chest pain or pressure No Wheezing or breathing issues No abdominal pain nausea vomiting diarrhea changes in appetite or weight No burning urine urine frequency or changes in color No focal joint pain or muscle pain No skin rashes or oral lesions No unusual bruising or bleeding Persistent lower back pain with radiation to both legs but not below her knees No changes in memory or confusion Physical Exam Physical Exam: The patient appeared well nourished and normally developed. Vital signs as documented. Head exam is unremarkable. normocephalic, atraumatic Neck is without jugular venous distension, thyromegaly, or lymphademopathy Lungs are clear to auscultation and percussion. Cardiac exam reveals Rhythm is regular. First and second heart sounds normal. Abdominal exam reveals normal bowel sounds, no masses, no organomegaly Extremities are nonedematous and both pedal pulses are present Neurologic exam is A&Ox3, no focal deficits, strength is equal bilateral, reproducible back pain to palpation her lumbar spine and SI joints negative straight leg raising bilaterally negative gross loss of sensation Psychologically seems neither anxious or depressed Skin is warm Dry without bruises or lesions Results & Data Vital Signs (Past 12 Hours) Vital Signs Temp Pulse Resp BP Pulse Ox 12/06/18 06:54 36.8 C 79 18 100/70 97 PG Care Time/CCT Total # of Minutes Spent Total Time Spent with Patient: Total time spent is greater than 50% in coordinat ion of care (as documented) at patient's floor/unit and/or counseling patient: (1) Sepsis Sepsis type: sepsis due to unspecified organism Qualified Code(s): A41.9 - Sepsis, unspecified organism
[2018-12-06] MEDS: MoRPHine SULFATE 4 MG/ML 1 ML CARP\\VIAL IV PRN (17:25)
[2018-12-06] MEDS: LORazepam 1 MG/2 ML VIAL IV PRN (19:05)
--- NOTE | 2018-12-06 20:14 | Magnetic Resonance Report ---
MRI OF THE LUMBAR SPINE WITHOUT CONTRAST CLINICAL HISTORY: Low back pain radiating to right hip. Radiculopathy. Lower extremity numbness. COMPARISON STUDY: Lumbar spine MRI June 14, 2018. TECHNIQUE: Utilizing a 1.5 Jessie magnet and dedicated coil, multiplanar, multiecho imaging of the [facility] spine was performed without IV contrast. FINDINGS: For purposes of numbering on this exam, the L5-S1 disc space is assigned to axial image 27 of 30. Not e is made of a 2.4 cm hemangioma within the T11 vertebral body. This is unchanged. There is also a he mangioma within the right pedicle of T12. This is unchanged. There is no suspicious marrow replacemen t. This exam is mildly compromised by motion artifact. There is no intracanalicular mass or fluid col lection. 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 These are unchanged. Paravertebral soft tissues are unremarkable. Slight loss of height of the superior endplate of L3 is unchanged. The re is no acute compression fracture. Slight concavity of the inferior endplate of L2 is unchanged. L1-2: The central canal and neural foramen are patent. L2-3: The central canal and neural foramen are patent. L3-4: The central canal and neural foramen are patent. There is mild facet arthrosis. L4-5: There is a small central annular tear with small disc protrusion. The central canal and neural foramen are patent. There is mild facet arthrosis. L5-S1: There is a small central disc protrusion. The central canal and neural from are patent. There is disc bulge. Facet arthrosis is noted. IMPRESSION: 1. No acute process within the lumbar spine by MRI. 2. No significant change since MRI June 14, 2018. Mild degenerative disc disease and facet arthro sis at L4-L5 and L5-S1. 3. Exam mildly compromised by motion artifact. Electronically signed by: Devin May M.D. 12/06/2018 8:13 PM
[2018-12-06] MEDS: TOPIRAMATE 100 MG TAB PO SCH (20:54)
[2018-12-06] MEDS: OLANZAPINE ZYDIS 5 MG ORALLY DIS. TAB PO SCH (20:54)
[2018-12-07] MEDS: MoRPHine SULFATE 2 MG/ML CARP IV PRN ×2 (00:35→12:16)
[2018-12-07] MEDS: VANCOMYCIN HCL 1,250 MG in SODIUM CHLORIDE 0.9% 250 ML IV SCH ×2 (06:20→18:24)
[2018-12-07 06:59] LABS: Creatinine Clr Calc Pharmacy 82.7 ml/min; Est GFR (African American) 85.3; Est GFR (Non-African American) 73.6
[2018-12-07] MEDS: ACETAMINOPHEN 500 MG TAB PO SCH ×2 (07:32→20:52)
[2018-12-07] MEDS: SUCRALFATE 1 GM/10 ML UDC PO SCH (07:33)
[2018-12-07] MEDS: GABAPENTIN 600 MG TAB PO SCH ×3 (07:33→20:50)
[2018-12-07] MEDS: POTASSIUM CHLORIDE 10 MEQ TABCR PO SCH ×2 (07:33→20:49)
[2018-12-07] MEDS: FLUOXETINE HCL 20 MG CAP PO SCH (07:33)
[2018-12-07] MEDS: TOPIRAMATE 50 MG TAB PO SCH (07:33)
[2018-12-07] MEDS: PANTOprazole 40 MG TAB PO SCH ×2 (07:34→20:52)
[2018-12-07] MEDS: LIDOCAINE 5% 1 PATCH TD SCH (07:34)
[2018-12-07] MEDS: METHYLPHENIDATE HCL 10 MG TABLET PO SCH ×2 (07:41→17:40)
[2018-12-07] MEDS: TAPENTADOL HCL 50 MG TAB PO PRN (07:41)
[2018-12-07] MEDS: methylPREDNISolone 40 MG in SYRINGE 0 ML IV SCH ×2 (13:48→21:37)
--- NOTE | 2018-12-07 14:04 | Hospitalist Progress Note ---
Date of Service December 07, 2018 Assessment & Plan (1) Sepsis: Documented by tachycardia, anion gap, elevated lactic acid levels, left shift. Blood and urine cultures 5/6 show bacillus species Currently on vancomycin. 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 Patient is a bacillus species which continues yet to be speciated or have sensitivities found assuring proper treatment with limited risk prohibits her to be home with iv access, however daily iv access as an outpt with a new iv will likely have her run out of sites. continue to work on Dalvance approval discussed with case management about giving Dalvance and have the patient home come back in a week for him to treatment for Dalvance in lieu of have the patient stay in the hospital without a defined endpoint. Consideration of quinolone therapy for the bacillus species? Will discuss with infectious disease (2) IV drug user: She has been injecting crushed morphine. This raises the possibility of bacteremia and/or endocarditis. Blood cultures have been postive 5 of first 6 culutres were positive with gram positive bacilli. remains (3) Transaminitis: Resolved. We will repeat laboratories (4) Acute gastritis: History of peptic ulcer disease. Will treat with Protonix and Carafate. Parenteral antiemetics as needed. Patient states her peptic ulcer disease did occur when she had significant nonsteroidal use we will cautiously use steroids at this time (5) Opioid abuse: She has been on methadone and Suboxone in the past. Consider pain management evaluation as an outpatient. Patient is a complaining of increasing pain we will institute Nucynta therapy scheduled Tylenol consider adding Celebrex despite her gastritis as listed above (6) Chronic back pain: will restart home dose of narcotics. MSIR stopping Nucynta, continuing Tylenol additional to her lidoderm patch MRI of her lumbar spine shows no significant mechanical issues that would correlate with her pain Plan medical therapy to try to help with inflammatory changes (7) DVT prophylaxis: Lovenox subcu Subjective Patient continues with persistent back pain review of MRI shows no significant lumbar spine changes as her symptoms are seemingly resolve around radicular lower extremity pain. She also is having some psychological distress from being in the hospital without a defined disposition now for almost 14 days. Patient and I did review her medications I did discourage her from persistent use of short acting opiates we will try a short course of the next day or 2. We will try steroid therapy and repeat a Lyme titer. In the past she has had an elevated GAYATHRI patient states that she has pain all over is difficult to describe pain she feels in her large joints even to the point time where her skin feels uncomfortable for her Review of Systems Review of Systems: ROS: well nourished well developed. Mild to moderate distress No double vision blurry vision No problems with speech or swallowing No palpitations, chest pain or pressure No Wheezing or breathing issues No abdominal pain nausea vomiting diarrhea changes in appetite or weight No burning urine urine frequency or changes in color Complains of bilateral hip and knee pain. However the hip pain is mostly sacroiliac joint related she is No skin rashes or oral lesions No unusual bruising or bleeding Her back pain is relegated to her lumbar spine and sacroiliac areas she claims to have radicular pain to the posterior legs but nothing past the knee without evidence of paresthesias or sensory loss No changes in memory or confusion Physical Exam Physical Exam: The patient appeared well nourished in mild to moderate distress Vital signs as documented. Head exam is unremarkable. normocephalic, atraumatic Neck is without jugular venous distension, thyromegaly, or lymphademopathy Lungs are clear to auscultation and percussion. Cardiac exam reveals Rhythm is regular. First and second heart sounds normal. Abdominal exam reveals normal bowel sounds, no masses, no organomegaly Extremities are nonedematous and both pedal pulses are present Neurologic exam is A&Ox3, no focal deficits, strength is equal bilateral no straight leg raising issues there are no tender points consistent with fibromyalgia, she does have focal tenderness in lumbar spine and sacroiliac joint areas Psychologically seems both anxious and depressed Skin is warm Dry without bruises or lesions Results & Data Vital Signs (Past 12 Hours) Vital Signs Temp Pulse Resp BP Pulse Ox 12/07/18 11:30 37.5 C 97 H 20 128/80 97 12/07/18 07:30 36.9 C 90 20 130/72 98 (1) Sepsis Sepsis type: sepsis due to unspecified organism Qualified Code(s): A41.9 - Sepsis, unspecified organism
[2018-12-07] MEDS: MoRPHine SULFATE IR 15 MG TAB (IMMEDIATE RELEASE) PO PRN (17:13)
[2018-12-07] MEDS: TOPIRAMATE 100 MG TAB PO SCH (20:50)
[2018-12-07] MEDS: OLANZAPINE ZYDIS 5 MG ORALLY DIS. TAB PO SCH (20:51)
[2018-12-07] MEDS: clonazePAM 1 MG TAB PO PRN (21:52)
[2018-12-07] MEDS: MoRPHine SULFATE 4 MG/ML 1 ML CARP\\VIAL IV PRN (21:53)
[2018-12-08] MEDS: MoRPHine SULFATE IR 15 MG TAB (IMMEDIATE RELEASE) PO PRN ×2 (01:55→10:57)
[2018-12-08] MEDS: VANCOMYCIN HCL 1,250 MG in SODIUM CHLORIDE 0.9% 250 ML IV SCH ×2 (05:46→18:21)
[2018-12-08 06:40] LABS: Lyme Ab IgG w/WB Rflx Negative (Negative); Lyme Ab IgM w/WB Rflx Negative (Negative)
[2018-12-08] MEDS: ACETAMINOPHEN 500 MG TAB PO SCH ×2 (07:47→20:40)
[2018-12-08] MEDS: FLUOXETINE HCL 20 MG CAP PO SCH (07:47)
[2018-12-08] MEDS: PANTOprazole 40 MG TAB PO SCH ×2 (07:47→20:41)
[2018-12-08] MEDS: POTASSIUM CHLORIDE 10 MEQ TABCR PO SCH ×2 (07:48→20:42)
[2018-12-08] MEDS: TOPIRAMATE 50 MG TAB PO SCH (07:48)
[2018-12-08] MEDS: GABAPENTIN 600 MG TAB PO SCH ×3 (07:48→20:41)
[2018-12-08] MEDS: LIDOCAINE 5% 1 PATCH TD SCH (07:49)
[2018-12-08] MEDS: MoRPHine SULFATE 2 MG/ML CARP IV PRN (08:05)
[2018-12-08] MEDS: METHYLPHENIDATE HCL 10 MG TABLET PO SCH ×2 (08:05→15:55)
[2018-12-08] MEDS: methylPREDNISolone 40 MG in SYRINGE 0 ML IV SCH ×2 (10:00→20:45)
--- NOTE | 2018-12-08 13:49 | Hospitalist Progress Note ---
Date of Service December 08, 2018 Assessment & Plan (1) Sepsis: Documented by tachycardia, anion gap, elevated lactic acid levels, left shift. Blood and urine cultures 5/6 show bacillus species Currently on vancomycin. 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 Patient is a bacillus species which continues yet to be speciated or have sensitivities found assuring proper treatment with limited risk prohibits her to be home with iv access, however daily iv access as an outpt with a new iv will likely have her run out of sites. continue to work on Dalvance approval discussed with case management about giving Dalvance and have the patient home come back in a week for him to treatment for Dalvance in lieu of have the patient stay in the hospital without a defined endpoint. Consideration of quinolone therapy for the bacillus species? (2) IV drug user: At home home she had been injecting crushed morphine. This raises the possibility of bacteremia and/or endocarditis. Blood cultures have been postive 5 of first 6 culutres were positive with gram positive bacilli. Concerns for sending home with iv access, will consider if we can arrange for mtu folllow up with iv placed weekly for dalvance (3) Transaminitis: Resolved. We will repeat laboratories (4) Acute gastritis: History of peptic ulcer disease. Will treat with Protonix and Carafate. Parenteral antiemetics as needed. Patient states her peptic ulcer disease did occur when she had significant nonsteroidal use, steroids without gi upset (5) Opioid abuse: She has been on methadone and Suboxone in the past. Consider pain management evaluation as an outpatient. Patient wishes to reutrn to long acting Nucynta therapy, steroids plus scheduled Tylenol (6) Chronic back pain: will restart home dose of narcotics. MSIR stopping Nucynta, continuing Tylenol additional to her lidoderm patch MRI of her lumbar spine shows no significant mechanical issues that would correlate with her pain Plan medical therapy to try to help with inflammatory changes (7) DVT prophylaxis: Lovenox subcu Subjective pts pain still remains variable, pt feels nucynta did a better job than morphine IR. steroids affect maybe helping Review of Systems Review of Systems: ROS: well nourished well developed. No double vision blurry vision No problems with speech or swallowing No palpitations, chest pain or pressure No Wheezing or breathing issues No abdominal pain nausea vomiting diarrhea changes in appetite or weight No burning urine urine frequency or changes in color No focal joint pain or muscle pain No skin rashes or oral lesions No unusual bruising or bleeding chronic mild back pain with no loss of strength No changes in memory or confusion Physical Exam Physical Exam: The patient appeared well nourished and normally developed. Vital signs as documented. Head exam is unremarkable. normocephalic, atraumatic Neck is without jugular venous distension, thyromegaly, or lymphademopathy Lungs are clear to auscultation and percussion. Cardiac exam reveals Rhythm is regular. First and second heart sounds normal. Abdominal exam reveals normal bowel sounds, no masses, no organomegaly Extremities are nonedematous and both pedal pulses are present Neurologic exam is A&Ox3, no focal deficits, strength is equal bilateral Psychologically seems neither anxious or depressed Skin is warm Dry without bruises or lesions Results & Data Vital Signs (Past 12 Hours) Vital Signs Temp Pulse Resp BP Pulse Ox 12/08/18 07:22 37.1 C 91 H 16 116/69 96 PG Care Time/CCT Total # of Minutes Spent Total Time Spent with Patient: Total time spent is greater than 50% in coordination of care (as documented) at patient's floor/unit and/or counseling patient: (1) Sepsis Sepsis type: sepsis due to unspecified organism Qualified Code(s): A41.9 - Sepsis, unspecified organism
[2018-12-08] MEDS: TAPENTADOL HCL ER 50 MG TABCR PO SCH (14:11)
[2018-12-08] MEDS: MoRPHine SULFATE 4 MG/ML 1 ML CARP\\VIAL IV PRN (18:32)
[2018-12-08] MEDS: clonazePAM 1 MG TAB PO PRN (20:40)
[2018-12-08] MEDS: OLANZAPINE ZYDIS 5 MG ORALLY DIS. TAB PO SCH (20:41)
[2018-12-08] MEDS: TOPIRAMATE 100 MG TAB PO SCH (20:42)
[2018-12-09] MEDS: VANCOMYCIN HCL 1,250 MG in SODIUM CHLORIDE 0.9% 250 ML IV SCH (06:05)
[2018-12-09] MEDS: TAPENTADOL HCL ER 50 MG TABCR PO SCH ×2 (06:05→17:32)
[2018-12-09] MEDS: METHYLPHENIDATE HCL 10 MG TABLET PO SCH ×2 (07:55→15:22)
[2018-12-09] MEDS: ACETAMINOPHEN 500 MG TAB PO SCH ×2 (07:56→20:14)
[2018-12-09] MEDS: MoRPHine SULFATE 4 MG/ML 1 ML CARP\\VIAL IV PRN ×3 (07:56→20:10)
[2018-12-09] MEDS: POTASSIUM CHLORIDE 10 MEQ TABCR PO SCH ×2 (07:56→20:14)
[2018-12-09] MEDS: TOPIRAMATE 50 MG TAB PO SCH (07:56)
[2018-12-09] MEDS: methylPREDNISolone 40 MG in SYRINGE 0 ML IV SCH ×2 (07:56→20:11)
[2018-12-09] MEDS: PANTOprazole 40 MG TAB PO SCH ×2 (07:57→20:15)
[2018-12-09] MEDS: GABAPENTIN 600 MG TAB PO SCH ×3 (07:57→20:15)
[2018-12-09] MEDS: LIDOCAINE 5% 1 PATCH TD SCH (07:57)
[2018-12-09] MEDS: FLUOXETINE HCL 20 MG CAP PO SCH (07:57)
[2018-12-09] MEDS: LORazepam 1 MG/2 ML VIAL IV PRN (11:13)
[2018-12-09] MEDS: AMOXICILLIN 500 MG CAP PO SCH (20:14)
[2018-12-09] MEDS: TOPIRAMATE 100 MG TAB PO SCH (20:15)
[2018-12-09] MEDS: OLANZAPINE ZYDIS 5 MG ORALLY DIS. TAB PO SCH (20:15)
[2018-12-09] MEDS: clonazePAM 1 MG TAB PO PRN (20:19)
--- NOTE | 2018-12-09 23:15 | Hospitalist Progress Note ---
Date of Service December 09, 2018 Assessment & Plan (1) Sepsis: Documented by tachycardia, anion gap, elevated lactic acid levels, left shift. Blood and urine cultures 5/6 show bacillus species Currently on vancomycin. 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 Patient is a bacillus species which continues yet to be speciated or have sensitivities found assuring proper treatment with limited risk prohibits her to be home with iv access, however daily iv access as an outpt with a new iv will likely have her run out of sites. continue to work on Dalvance approval discussed with case management about giving Dalvance and have the patient home come back in a week for him to treatment for Dalvance in lieu of have the patient stay in the hospital without a defined endpoint. Consideration of quinolone therapy for the bacillus species? On 12/09 Patient has been on IV antibiotics for 2 weeks. Had discussion with ID, will switch to PO amoxicillin for an additional 14 days. Patient iwll be discharge in AM if no fevers while on PO antibiotics. Dose will be amoxicillin 500mg PO TID. (2) IV drug user: At home home she had been injecting crushed morphine. This raises the possibility of bacteremia and/or endocarditis. Blood cultures have been postive 5 of first 6 culutres were positive with gram positive bacilli. Concerns for sending home with iv access (3) Transaminitis: Resolved. We will repeat laboratories (4) Acute gastritis: History of peptic ulcer disease. Will treat with Protonix and Carafate. Parenteral antiemetics as needed. Patient states her peptic ulcer disease did occur when she had significant nonsteroidal use, steroids without gi upset (5) Opioid abuse: She has been on methadone and Suboxone in the past. Consider pain management evaluation as an outpatient. Patient wishes to reutrn to long acting Nucynta therapy, steroids plus scheduled Tylenol (6) Chronic back pain: will restart home dose of narcotics. MSIR stopping Nucynta, continuing Tylenol additional to her lidoderm patch MRI of her lumbar spine shows no significant mechanical issues that would correlate with her pain Plan medical therapy to try to help with inflammatory changes (7) DVT prophylaxis: Lovenox subcu Spent 37 minutes in management of patient. Subjective Patient reports feeling well. Patient has no new complaints. Review of Systems Review of Systems: ROS: well nourished well developed. No double vision blurry vision No problems with speech or swallowing No palpitations, chest pain or pressure No Wheezing or breathing issues No abdominal pain nausea vomiting diarrhea changes in appetite or weight No burning urine urine frequency or changes in color No focal joint pain or muscle pain No skin rashes or oral lesions No unusual bruising or bleeding chronic mild back pain with no loss of strength No changes in memory or confusion Gastrointestinal: Epigastric discomfort. Protracted nausea and vomiting. No coffee-ground emesis. No melena or hematochezia Musculoskeletal: Chronic low back pain Physical Exam Physical Exam: The patient appeared well nourished and normally developed. Vital signs as documented. Head exam is unremarkable. normocephalic, atraumatic Neck is without jugular venous distension, thyromegaly, or lymphademopathy Lungs are clear to auscultation and percussion. Cardiac exam reveals Rhythm is regular. First and second heart sounds normal. Abdominal exam reveals normal bowel sounds, no masses, no organomegaly Extremities are nonedematous and both pedal pulses are present Neurologic exam is A&Ox3, no focal deficits, strength is equal bilateral Psychologically seems neither anxious or depressed Skin is warm Dry without bruises or lesions Results & Data Vital Signs (Past 12 Hours) Vital Signs Temp Pulse Resp BP Pulse Ox 12/09/18 15:35 37.1 C 102 H 22 152/88 H 96 PG Care Time/CCT Total # of Minutes Spent Total Time Spent with Patient: Total time spent is greater than 50% in coordination of care (as documented) at patient's floor/unit and/or counseling patient: (1) Sepsis Sepsis type: sepsis due to unspecified organism Qualified Code(s): A41.9 - Sepsis, unspecified organism
[2018-12-10] MEDS: MoRPHine SULFATE 4 MG/ML 1 ML CARP\\VIAL IV PRN ×2 (05:11→09:15)
[2018-12-10] MEDS: TAPENTADOL HCL ER 50 MG TABCR PO SCH (05:11)
[2018-12-10 08:29] LABS: Hemoglobin 12.2 g/dL (12.0-16.0); Mean Corpuscular Hgb Conc 34.9 g/dL (32-36); Mean Corpuscular Volume 82.9 fL (80-100); Mean Platelet Volume 9.5 fL (7.4-10.4); Platelet Count 158 K/uL (130-400); RDW Coefficient of Variation 15.6 % (11.5-14.5); RDW Standard Deviation 46.5 fL (36.4-46.3); Red Blood Count 4.22 M/uL (4.2-5.4); White Blood Count 10.58 K/uL (4.8-10.8)
[2018-12-10 08:59] LABS: Calcium 9.6 mg/dl (8.5-10.1); Creatinine Clr Calc Pharmacy 84.5 ml/min; Est GFR (African American) 87.6; Est GFR (Non-African American) 75.6; Potassium 3.4 mmol/L (3.5-5.1)
[2018-12-10] MEDS: METHYLPHENIDATE HCL 10 MG TABLET PO SCH (09:16)
[2018-12-10] MEDS: GABAPENTIN 600 MG TAB PO SCH ×2 (09:16→13:43)
[2018-12-10] MEDS: PANTOprazole 40 MG TAB PO SCH (09:16)
[2018-12-10] MEDS: POTASSIUM CHLORIDE 10 MEQ TABCR PO SCH (09:17)
[2018-12-10] MEDS: methylPREDNISolone 40 MG in SYRINGE 0 ML IV SCH (09:17)
[2018-12-10] MEDS: ACETAMINOPHEN 500 MG TAB PO SCH (09:17)
[2018-12-10] MEDS: TOPIRAMATE 50 MG TAB PO SCH (09:17)
[2018-12-10] MEDS: FLUOXETINE HCL 20 MG CAP PO SCH (09:17)
[2018-12-10] MEDS: AMOXICILLIN 500 MG CAP PO SCH ×2 (09:18→13:43)
[2018-12-10] MEDS: LIDOCAINE 5% 1 PATCH TD SCH (09:18)
--- NOTE | 2018-12-17 11:57 | Discharge Summary ---
Date of Service December 10, 2018 Admission HPI Per Admitting Provider 48-year-old female with a history of peptic ulcer disease who has had several days of epigastric pain nausea and vomiting. She may have had some hematemesis but is unsure. No coffee-ground emesis. No melena or hematochezia. When she arrived and was evaluated in the ED she was found to be septic. Lactic acid is 5.4, she has a fever, tachycardia, mildly elevated anion gap and a normal white count with a left shift. Abdominal CT scan raises the possibility of cystitis and possibly early pyelonephritis but the urine analysis is unremarkable. Urine culture has been ordered. She has recently crushed morphine and use this intravenously. This raises the possibility of endocarditis although she does not currently have a murmur. If blood cultures are positive, this will need to be pursued further. Liver enzymes are elevated which is new for her. Abdominal ultrasound is unremarkable. She has been treated for sarcoidosis but has been off prednisone for approximately 2 months. She is opioid dependent from chronic back pain. Currently blood pressure is stable and she is alert and oriented. Principal Diagnosis Sepsis/ bacteremia Discharge Exam The patient appeared well nourished and normally developed. Vital signs as documented. Head exam is unremarkable. normocephalic, atraumatic Neck is without jugular venous distension, thyromegaly, or lymphademopathy Lungs are clear to auscultation and percussion. Cardiac exam reveals Rhythm is regular. First and second heart sounds normal. Abdominal exam reveals normal bowel sounds, no masses, no organomegaly Extremities are nonedematous and both pedal pulses are present Neurologic exam is A&Ox3, no focal deficits, strength is equal bilateral Psychologically seems neither anxious or depressed Skin is warm Dry without bruises or lesions Discharge Data Allergies Allergy/AdvReac Type Severity Reaction Status Date / Time tramadol Allergy U SEIZURE Verified 08/30/18 14:33 promethazine AdvReac NM JITTERY Verified 08/30/18 14:33 Consultations 11/24/18 13:17 ED Decision to Admit Stat 11/25/18 08:54 Consult Infectious Diseases Routine Ordered Studies 11/24/18 10:15 CT abd pelvis IV con only Stat 11/24/18 12:12 US abdomen limited Stat 11/26/18 11:58 MR thoracic spine wo con Routine 12/06/18 13:15 MR lumbar spine wo con Routine Hospital Course (1) Sepsis: Documented by tachycardia, anion gap, elevated lactic acid levels, left shift. Blood and urine cultures 5/ show bacillus species Currently on vancomycin. 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 Patient is a bacillus species which continues yet to be speciated or have sensitivities found assuring proper treatment with limited risk prohibits her to be home with iv access, however daily iv access as an outpt with a new iv will likely have her run out of sites. continue to work on Dalvance approval discussed with case management about giving Dalvance and have the patient home come back in a week for him to treatment for Dalvance in lieu of have the patient stay in the hospital without a defined endpoint. Consideration of quinolone therapy for the bacillus species? On 12/09 Patient has been on IV antibiotics for 2 weeks. Had discussion with ID, will switch to PO amoxicillin for an additional 14 days. Patient will be discharge in AM if no fevers while on PO antibiotics. Dose will be amoxicillin 500mg PO TID. On 12/10 Patient was discharged. (2) IV drug user: At home home she had been injecting crushed morphine. This raises the possibility of bacteremia and/or endocarditis. Blood cultures have been postive 5 of first 6 culutres were positive with gram positive bacilli. Concerns for sending home with iv access. Patient will be discharged on home antibiotics. (3) Transaminitis: Resolved. We will repeat laboratories (4) Acute gastritis: History of peptic ulcer disease. Will treat with Protonix and Carafate. Parenteral antiemetics as needed. Patient states her peptic ulcer disease did occur when she had significant nonsteroidal use, steroids without gi upset (5) Opioid abuse: She has been on methadone and Suboxone in the past. Consider pain management evaluation as an outpatient. Patient wishes to return to long acting Nucynta therapy, steroids plus scheduled Tylenol (6) Chronic back pain: will restart home dose of narcotics. MSIR stopping Nucynta, continuing Tylenol additional to her lidoderm patch MRI of her lumbar spine shows no significant mechanical issues that would correlate with her pain Plan medical therapy to try to help with inflammatory changes (7) DVT prophylaxis: Lovenox subcu Total Time Total Time Spent Total Time Spent (In Minutes): 31 Total Time Includes: Examination of the Patient, Discharge Planning and Medication Reconciliation Discharge Plan Discharge Items Patient Disposition: Home - Self-Care Reason For Visit: SEPSIS Discharge Diagnosis: Bacteremia Discharge Goals: Decrease discomfort Activity: Resume your previous activity Non-emergency contact: Primary Care Provider Call non-emergency contact if: you have any medication questions Follow-up/Referrals: Ney Mendenhall PA-C [Primary Care Provider] - (Cornelio Mendenhall's office will call you directly for a follow up appt. ) Diet: Regular Addtl Provider Instructions: Followup with PCP and pain clinic. Prescriptions: New amoxicillin 500 mg Capsule 500 mg PO TID Qty: 40 RF: 0 methylphenidate HCl 10 mg Tablet 20 mg PO DAILY@0900,1600 Qty: 0 RF: 0 pantoprazole 40 mg Tablet,Delayed Release (Dr/Ec) 40 mg PO DAILY Qty: 30 RF: 0 potassium chloride [Klor-Con M10] 10 mEq Tablet,Er Particles/Crystals 20 meq PO BID Qty: 14 RF: 0 Nucynta ER 50 mg Tablet Extended Release 12 Hr 50 mg PO Q12@0600,1800 Qty: 30 RF: 0 lidocaine 4 % adhesive patch,medicated 1 patch topical QAM Qty: 30 RF: 0 oxycodone 5 mg tablet 5 mg PO Q6H PRN (Reason: pain) Qty: 20 RF: 0 Continued diphenoxylate-atropine [Lomotil] 2.5-0.025 mg tablet 1 tab PO Q8H PRN (Reason: diarrhea) Qty: 15 RF: 0 clonazepam 1 mg tablet 1 mg PO DAILY PRN (Reason: Anxiety) Qty: 15 RF: 0 fluoxetine 20 mg capsule 20 mg PO QAM RF: 0 docusate sodium [Colace] 100 mg Capsule 100 mg PO BID PRN (Reason: Constipation) RF: 0 albuterol sulfate 90 mcg/actuation Hfa Aerosol Inhaler 2 puff INHALATION Q4 PRN (Reason: Shortness Of Breath) RF: 0 gabapentin 600 mg tablet 600 mg PO TID RF: 0 olanzapine 5 mg tablet,disintegrating 5 mg Translingual HS RF: 0 propranolol 10 mg tablet 10 mg PO DAILY PRN (Reason: Anxiety) RF: 0 topiramate 100 mg tablet 100 mg PO HS RF: 0 topiramate 50 mg tablet 50 mg PO QAM RF: 0 ergocalciferol (vitamin D2) 50,000 unit capsule 50,000 unit PO WK RF: 0 Discontinued methadone 10 mg Tablet 165 mg PO QAM RF: 0 hydroxyzine pamoate 50 mg capsule 50 mg PO DAILY PRN (Reason: Anxiety) RF: 0 perphenazine 4 mg tablet 4 mg PO DAILY PRN (Reason: Psychosis) RF: 0 Stand-Alone Forms: Call Back Authorization, [facility] Discharge Orders: Discharge Order (Routine); Ordered 12/10/18 Ordered By: Derik Parker Admission Data Admit Date/Time: 11/24/18 13:48 Attending Provider: Derik Parker Admit Provider: Akil Barbour Primary Care Provider: Ney Mendenhall Other Providers: Akil Barbour ; Asad Summers ; Derik Parker Service: Medical Other Interventions: Discharge Summary Assessment (RN) Last Done: 12/10/18 13:18 DC Date/Time DO NOT enter until pt leaves facility: 12/10/18 14:05
== END 2018-12-10 14:05 | disposition home or self-care (01) | DRG 872 ==
LOC: ED 09:34 → 2S 13:48 → SUATTDRO 13:48 → 2S 14:48 → 4E 11-25 10:35

== ENCOUNTER 2018-12-17 12:49 | Observation (INO) ==
[2018-12-17] MEDS ORDERED: SODIUM CHLORIDE 0.9% 500 ML IV STA (13:08)
[2018-12-17] MEDS ORDERED: SODIUM CHLORIDE 0.9% 1000ML 2,000 ML IV ONE (13:29)
[2018-12-17] MEDS ORDERED: ACETAMINOPHEN 1,000 MG/100 ML VIAL IV STA (13:29)
[2018-12-17 13:37] LABS: Basophils # (auto) 0.01 K/uL (0-0.2); Basophils % (auto) 0.2 %; Eosinophils # (auto) 0.07 K/uL (0-0.5); Eosinophils % (auto) 1.6 %; Hematocrit (blood only) 31.8 % (37-47); Hemoglobin 10.6 g/dL (12.0-16.0); Immature Granulocytes # (auto) 0.03 K/uL (0.00-0.02); Immature Granulocytes % (auto) 0.7 %; Lymphocytes # (auto) 0.29 K/uL (1.2-3.4); Lymphocytes % (auto) 6.5 %; Mean Corpuscular Hgb Conc 33.3 g/dL (32-36); Mean Corpuscular Volume 85.7 fL (80-100); Mean Platelet Volume 10.3 fL (7.4-10.4); Monocytes # (auto) 0.13 K/uL (0.11-0.59); Monocytes % (auto) 2.9 %; Neutrophils # (auto) 3.93 K/uL (1.4-6.5); Neutrophils % (auto) 88.1 %; Platelet Count 112 K/uL (130-400); Red Blood Count 3.71 M/uL (4.2-5.4); White Blood Count 4.46 K/uL (4.8-10.8)
[2018-12-17 13:51] LABS: Appearance Urine Clear (Clear); Bilirubin Urine Negative (Negative); Blood Urine Negative (Negative); Color Urine Yellow; Glucose Urine UA Negative (Negative); Ketones Urine Negative (Negative); Leukocyte Esterase Urine Negative (Negative); Nitrite Urine Negative (Negative); Protein Urine Negative (Negative); Specific Gravity Urine 1.012 (1.000-1.030); Urobilinogen Urine Negative (Negative)
[2018-12-17 13:54] LABS: Alanine Aminotransferase 27 U/L (12-78); Albumin Level 3.5 gm/dl (3.4-5.0); Aspartate Aminotransferase 22 U/L (15-37); BUN Creatinine Ratio 10.4 (10-20); Blood Urea Nitrogen 9 mg/dl (7-18); Calcium 8.3 mg/dl (8.5-10.1); Carbon Dioxide 21 mmol/L (21-32); Chloride 110 mmol/L (98-107); Creatinine Clr Calc Pharmacy 89.9 ml/min; Est GFR (African American) 93.9; Glucose 128 mg/dl (70-99); Magnesium 1.7 mg/dl (1.8-2.4); Potassium 3.4 mmol/L (3.5-5.1); Sodium 137 mmol/L (136-145)
[2018-12-17 13:56] LABS: Partial Thromboplastin Time 26.5 Seconds (21.0-31.0); Prothrombin Time 10.5 Seconds (9.0-12.0)
[2018-12-17] MEDS ORDERED: ONDANSETRON INJ 2 MG/ML 2 ML VIAL IV STA (13:58)
[2018-12-17 13:59] LABS: Albumin Globulin Ratio 1.2 (0.9-2); Alkaline Phosphatase 159 U/L (45-117); Bilirubin,Total 0.5 mg/dl (0.2-1); Globulin 2.9 gm/dl (2.5-4.0); Total Protein 6.4 gm/dl (6.4-8.2); Troponin I < 0.015 ng/ml (0-0.045)
[2018-12-17 14:22] LABS: Pregnancy Test, Serum Negative (Negative)
[2018-12-17] MEDS: MAGNESIUM SULFATE / D5W 1 GM/100 ML BAG IV SCH ×2 (14:22→16:15)
[2018-12-17] MEDS ORDERED: MoRPHine SULFATE 10 MG/ML CARP/VIAL IV STA (14:27)
[2018-12-17] MEDS ORDERED: LORazepam 1 MG TAB SL STA (14:27)
[2018-12-17 14:38] LABS: Bilirubin Direct 0.2 mg/dl (0-0.2); Phosphorus 1.1 mg/dl (2.5-4.9)
[2018-12-17] MEDS ORDERED: POTASSIUM PHOS 3 MMOL/1 ML INFUSION IV STA ×2 (14:42→22:19)
[2018-12-17 14:52] LABS: Lyme Ab IgG w/WB Rflx Negative (Negative); Lyme Ab IgM w/WB Rflx Negative (Negative)
[2018-12-17] MEDS ORDERED: POTASSIUM PHOSPHATE 15 MMOL in SODIUM CHLORIDE 0.9% 250 ML IV ONE (15:00)
--- NOTE | 2018-12-17 15:03 | CT Scan Report ---
CT SCAN OF THE BRAIN WITHOUT IV CONTRAST CLINICAL HISTORY: Headache. COMPARISON STUDY: CT of the brain dated 01/07/2018. TECHNIQUE: Unenhanced axial CT scan of the brain is performed from the vertex to the skull base. A d ose lowering technique was utilized adhering to the principles of ALARA. The examination is modestly degraded by motion artifact. The skull base was scanned twice to improve image quality. FINDINGS: Brain parenchyma: The brain parenchyma is normal in appearance. There is no hemorrhage, mass effect, or evidence of acute territorial ischemia by CT criteria. Gunn-white matter differentiation is preser patrice. No extra-axial fluid collection is seen. Ventricles, sulci, cisterns: Normal in configuration. Intracranial vasculature: The visualized intracranial vasculature at the skull base is normal in appe arance. Calvarium: Unremarkable. Sinuses and mastoids: The visualized paranasal sinuses are clear. The mastoid air cells are well pneu matized. Orbits: The bony orbits are grossly intact. IMPRESSION: No acute intracranial abnormality. Electronically signed by: Cali Maharaj M.D. 12/17/2018 3:01 PM
[2018-12-17 15:11] LABS: Procalcitonin 4.86 ng/ml (0-0.5)
[2018-12-17] MEDS ORDERED: LORazepam 2 MG/4 ML VIAL ONE (16:57)
[2018-12-17] MEDS ORDERED: MoRPHine SULFATE 4 MG/ML 1 ML CARP\\VIAL ONE (16:57)
[2018-12-17] MEDS ORDERED: LORazepam 1 MG TAB ONE (17:01)
--- NOTE | 2018-12-17 18:15 | Emergency Department Note ---
Entered by Francisco Presley acting as a scribe for Nicholas Pablo MD History of Present Illness General Chief complaint: Illness Time Seen by Provider: 12/17/18 13:20 Source: patient History of Present Illness Onset (ago): week(s) 1 Location: head (global) Pain Consistency: + other (persistent) Quality: + other (fevers/chills) Relieved By: not by medication (Tylenol) Associated symptoms: + other (nausea, thirst) Treatments prior to arrival: other (discharged from hospitalization for sepsis one week ago) The patient is a 48 year old female who presents to the Emergency Room with complaints of persistent fevers. The patient reports that she was recently hospitalized for about 2.5 weeks with sepsis and was discharged one week ago on amoxicillin. She states that despite taking the amoxicillin as prescribed, she soon developed fevers again reaching 103.7 that were not significantly improved with Tylenol. She also reports chills, nausea and thirst. The patient notes that she was also admitted 7 months ago over a 3-day period with sepsis. The patient reports a history of a 2-week period of IV drug use. She reports a history of chronic lower back pain. Home Medications Home Medications Medication Instructions Recorded Confirmed Type albuterol sulfate 2 puff INHALATION Q4 PRN 06/12/18 12/17/18 History docusate sodium [Colace] 100 mg PO BID PRN 06/12/18 12/17/18 History ergocalciferol (vitamin D2) 50,000 unit PO WK 06/12/18 12/17/18 History fluoxetine 20 mg PO QAM 06/12/18 12/17/18 History gabapentin 600 mg PO TID 06/12/18 12/17/18 History olanzapine 5 mg TRANSLINGUAL HS 06/12/18 12/17/18 History propranolol 10 mg PO DAILY PRN 06/12/18 12/17/18 History topiramate 50 mg PO QAM 06/12/18 12/17/18 History topiramate 100 mg PO HS 06/12/18 12/17/18 History diphenoxylate-atropine [Lomotil] 1 tab PO Q8H PRN #15 tab 06/27/18 12/17/18 Rx amoxicillin 500 mg PO TID #40 cap 06/18/19 06/25/19 Rx clonazepam 1 mg PO DAILY PRN #15 tab 12/10/18 12/17/18 Rx oxycodone 5 mg PO Q6H PRN #20 tab 12/10/18 12/17/18 Rx potassium chloride [Klor-Con M10] 20 meq PO BID #14 tab 12/10/18 12/17/18 Rx tapentadol [Nucynta ER] 50 mg PO Q12@0600,1800 #30 tab 12/10/18 12/17/18 Rx acetaminophen [Tylenol Extra 500 mg PO Q6H PRN 12/17/18 12/17/18 History Strength] ibuprofen 200 mg PO Q6H PRN 12/17/18 12/17/18 History lidocaine 1 patch TOPICAL UD 12/17/18 12/17/18 History methylphenidate HCl 40 mg PO DAILY@0900,1600 12/17/18 12/17/18 History pantoprazole 40 mg PO QAM 12/17/18 12/17/18 History Allergies Allergy/AdvReac Type Severity Reaction Status Date / Time tramadol Allergy U SEIZURE Verified 12/17/18 15:12 promethazine AdvReac AK JITTERY Verified 12/17/18 15:12 Past Med/Surg History Medical History DVT prophylaxis Opioid abuse (Chronic) Acute gastritis (Acute) Transaminitis (Acute) IV drug user (Acute) Sepsis (Acute) Gastroparesis (Chronic) Sarcoid (Chronic) Migraine Surgical History Hx of cholecystectomy (Resolved) History of cholecystectomy History of esophagogastroduodenoscopy (EGD) History of open reduction and internal fixation (ORIF) procedure LEFT ANKLE History of tonsillectomy Family History Other Cancer Diabetes Heart disease Hypertension Lung disease Social History Preferred Language: Chadian Communication Ability: Effective 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 Resource 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 Required: No Beliefs That Will Affect Care: None marital status: Single Current Living Situation: Parent Current Living Situation Comment: lives w/ mom current occupational status: employed Other Information That Helps Us Care for You: No Feels Safe at Home: Yes Safety Concerns: Feels Safe At This Time Smoking Status: Current every day smoker Tobacco Type: cigarettes Cigarettes P er Day: 20 Do You Dip or Chew Tobacco: No Second Hand Exposure: No Hx Alcohol Use: No Hx Substance Use: Yes (Takes methadone) substance use type: other Substance Use Type Other:: prescribed methodone, h/o drug abuse Review of Systems See HPI for pertinent positives & negatives. and A total of 10 systems reviewed and were otherwise negative Physical Exam Vital Signs Vital Signs - 24 hr 12/17/18 12:37 12/17/18 12:58 12/17/18 13:00 Temperature 39.3 C H Temperature Source Oral Sepsis Recent Fever Within 48 Hours Yes Sepsis New/Unexplained Change in Mental Status No Sepsis Action Taken by Nursing Physician Notified Pulse Rate 119 H 132 H 126 H Pulse Rate [Apical] Pulse Rate from SpO2 Sensor 132 H 124 H Pulse Rhythm Regular Pulse Rhythm [Apical] Pulse Strength Normal Pulse Strength [Apical] Respiratory Rate 22 21 25 H Respiratory Effort / Characteristics Non-Labored Spontaneous Respiratory Depth Normal Respiratory Pattern Regular Blood Pressure 134/65 Blood Pressure [Right Arm] Blood Pressure Mean 88 Blood Pressure Mean [Right Arm] Blood Pressure Position Sitting Blood Pressure Position [Right Arm] Pulse Oximetry 97 98 97 Oxygen Delivery Method Room Air 12/17/18 13:09 12/17/18 13:14 12/17/18 13:16 Temperature Temperature Source Sepsis Recent Fever Within 48 Hours Sepsis New/Unexplained Change in Mental Status Sepsis Action Taken by Nursing Pulse Rate 116 H 118 H Pulse Rate [Apical] Pulse Rate from SpO2 Sensor 115 H 119 H Pulse Rhythm Pulse Rhythm [Apical] Pulse Strength Pulse Strength [Apical] Respiratory Rate 23 19 Respiratory Effort / Characteristics Respiratory Depth Respiratory Pattern Blood Pressure 134/65 138/61 Blood Pressure [Right Arm] Blood Pressure Mean 88 86 Blood Pressure Mean [Right Arm] Blood Pressure Position Blood Pressure Position [Right Arm] Pulse Oximetry 97 97 96 Oxygen Delivery Method Room Air 12/17/18 13:30 12/17/18 13:31 12/17/18 13:45 Temperature Temperature Source Sepsis Recent Fever Within 48 Hours Sepsis New/Unexplained Change in Mental Status Sepsis Action Taken by Nursing Pulse Rate 121 H 114 H 116 H Pulse Rate [Apical] Pulse Rate from SpO2 Sensor 126 H 113 H 116 H Pulse Rhythm Pulse Rhythm [Apical] Pulse Strength Pulse Strength [Apical] Respiratory Rate 19 19 29 H Respiratory Effort / Characteristics Respiratory Depth Respiratory Pattern Blood Pressure 134/86 Blood Pressure [Right Arm] Blood Pressure Mean 102 Blood Pressure Mean [Right Arm] Blood Pressure Position Blood Pressure Position [Right Arm] Pulse Oximetry 97 98 93 Oxygen Delivery Method 12/17/18 13:46 12/17/18 14:00 12/17/18 14:01 Temperature Temperature Source Sepsis Recent Fever Within 48 Hours Sepsis New/Unexplained Change in Mental Status Sepsis Action Taken by Nursing Pulse Rate 112 H 120 H 108 H Pulse Rate [Apical] Pulse Rate from SpO2 Sensor 114 H 120 H 108 H Pulse Rhythm Pulse Rhythm [Apical] Pulse Strength Pulse Strength [Apical] Respiratory Rate 17 16 18 Respiratory Effort / Characteristics Respiratory Depth Respiratory Pattern Blood Pressure 125/55 L 104/74 Blood Pressure [Right Arm] Blood Pressure Mean 78 84 Blood Pressure Mean [Right Arm] Blood Pressure Position Blood Pressure Position [Right Arm] Pulse Oximetry 95 97 97 Oxygen Delivery Method 12/17/18 14:15 12/17/18 14:30 12/17/18 14:36 Temperature Temperature Source Sepsis Recent Fever Within 48 Hours Sepsis New/Unexplained Change in Mental Status Sepsis Action Taken by Nursing Pulse Rate 105 H 103 H Pulse Rate [Apical] Pulse Rate from SpO2 Sensor 124 H 106 H 103 H Pulse Rhythm Pulse Rhythm [Apical] Pulse Strength Pulse Strength [Apical] Respiratory Rate 28 H 20 Respiratory Effort / Characteristics Respiratory Depth Respiratory Pattern Blood Pressure 110/54 L Blood Pressure [Right Arm] Blood Pressure Mean 72 Blood Pressure Mean [Right Arm] Blood Pressure Position Blood Pressure Position [Right Arm] Pulse Oximetry 99 95 95 Oxygen Delivery Method 12/17/18 14:45 12/17/18 15:00 12/17/18 15:15 Temperature Temperature Source Sepsis Recent Fever Within 48 Hours Sepsis New/Unexplained Change in Mental Status Sepsis Action Taken by Nursing Pulse Rate 111 H 99 H 103 H Pulse Rate [Apical] Pulse Rate from SpO2 Sensor 110 H Pulse Rhythm Pulse Rhythm [Apical] Pulse Strength Pulse Strength [Apical] Respiratory Rate 25 H 13 19 Respiratory Effort / Characteristics Respiratory Depth Respiratory Pattern Blood Pressure Blood Pressure [Right Arm] Blood Pressure Mean Blood Pressure Mean [Right Arm] Blood Pressure Position Blood Pressure Position [Right Arm] Pulse Oximetry 95 Oxygen Delivery Method 12/17/18 15:30 12/17/18 15:47 12/17/18 16:00 Temperature Temperature Source Sepsis Recent Fever Within 48 Hours Sepsis New/Unexplained Change in Mental Status Sepsis Action Taken by Nursing Pulse Rate 96 H 96 H 93 H Pulse Rate [Apical] Pulse Rate from SpO2 Sensor 93 H 94 H Pulse Rhythm Pulse Rhythm [Apical] Pulse Strength Pulse Strength [Apical] Respiratory Rate 17 18 17 Respiratory Effort / Characteristics Respiratory Depth Respiratory Pattern Blood Pressure Blood Pressure [Right Arm] Blood Pressure Mean Blood Pressure Mean [Right Arm] Blood Pressure Position Blood Pressure Position [Right Arm] Pulse Oximetry 94 95 Oxygen Delivery Method 12/17/18 16:01 12/17/18 16:15 12/17/18 16:16 Temperature Temperature Source Sepsis Recent Fever Within 48 Hours Sepsis New/Unexplained Change in Mental Status Sepsis Action Taken by Nursing Pulse Rate 91 H 89 94 H Pulse Rate [Apical] Pulse Rate from SpO2 Sensor 93 H 90 94 H Pulse Rhythm Pulse Rhythm [Apical] Pulse Strength Pulse Strength [Apical] Respiratory Rate 17 17 22 Respiratory Effort / Characteristics Respiratory Depth Respiratory Pattern Blood Pressure 110/65 98/57 L Blood Pressure [Right Arm] Blood Pressure Mean 80 70 Blood Pressure Mean [Right Arm] Blood Pressure Position Blood Pressure Position [Right Arm] Pulse Oximetry 95 97 96 Oxygen Delivery Method 12/17/18 16:30 12/17/18 16:31 12/17/18 16:40 Temperature Temperature Source Sepsis Recent Fever Within 48 Hours Sepsis New/Unexplained Change in Mental Status Sepsis Action Taken by Nursing Pulse Rate 87 87 90 Pulse Rate [Apical] Pulse Rate from SpO2 Sensor 90 89 89 Pulse Rhythm Pulse Rhythm [Apical] Pulse Strength Pulse Strength [Apical] Respiratory Rate 19 19 19 Respiratory Effort / Characteristics Respiratory Depth Respiratory Pattern Blood Pressure 109/55 L 109/55 L Blood Pressure [Right Arm] Blood Pressure Mean 73 73 Blood Pressure Mean [Right Arm] Blood Pressure Position Blood Pressure Position [Right Arm] Pulse Oximetry 95 95 95 Oxygen Delivery Method 12/17/18 16:41 12/17/18 16:45 12/17/18 19:16 Temperature Temperature Source Sepsis Recent Fever Within 48 Hours Sepsis New/Unexplained Change in Mental Status Sepsis Action Taken by Nursing Pulse Rate 91 H 86 Pulse Rate [Apical] 68 Pulse Rate from SpO2 Sensor 91 H 87 Pulse Rhythm Pulse Rhythm [Apical] Regular Pulse Strength Pulse Strength [Apical] Normal Respiratory Rate 19 19 16 Respiratory Effort / Characteristics Non-Labored Respiratory Depth Normal Respiratory Pattern Regular Blood Pressure 109/55 L 102/60 Blood Pressure [Right Arm] 91/61 L Blood Pressure Mean 73 74 Blood Pressure Mean [Right Arm] 71 Blood Pressure Position Blood Pressure Position [Right Arm] Lying Pulse Oximetry 94 96 96 Oxygen Delivery Method Room Air GENERAL: Awake, alert, ill-appearing, in no distress HENT: Normocephalic, atraumatic. Mucous membranes dry. EYES: Normal conjunctiva. Sclera non-icteric. EOMI. No nystamgus. PEARRL. NECK: Positive Kernig-Brudzinski. Supple. No nuchal rigidity. FROM. No JVD. RESPIRATORY: Clear to auscultation bilaterally. CARDIAC: Tachycardic rate, normal rhythm. Extremities warm and well perfused. Pulses equal. ABDOMEN: Soft, non-distended. No tenderness to palpation. No rebound or guarding. No masses. RECTAL: Deferred. MUSCULOSKELETAL: Chest examination reveals no tenderness. The back is symmetrical on inspection without obvious abnormality. There is no CVA tenderness to palpation. No joint edema. LOWER EXTREMITIES: Positive Kernig-Brudzinski. Calves are equal size bilaterally and non-tender. No edema. No discoloration. NEURO: Normal sensorium. No sensory or motor deficits noted. Intact finger to nose. SKIN: No rash or jaundice noted. Procedures Lumbar Puncture Time Out Performed: Yes Patient Position: right lateral decubitus Skin Prep: 0.5% Chlorhexidine/Alcohol Local Anesthetic: lidocaine 1% Amount of anesthesia used (mL): 5 Spinal Needle Gauge: 20G Interspace Used: L4-L5 Opening Pressure (cmH20): 19 Fluid Initially Obtained: clear Complications: none Additional Comments: 12cc removed to ensure availability of specimen for additional testing as needed. Course 1326: The patient was evaluated in room A10. A complete history and physical examination were performed. 2000: I consulted Dr. Espinoza [facility] Hospitalist. The patient will be reevaluated for hospitalization. Administered Medications Discontinued Medications Gadobutrol (Gadavist 65ml) 8 ml IV ONCE PRN PRN Reason: Interaction Checking Stop: 12/21/18 18:19 Last Admin: 12/17/18 18:20 Dose: 8 ml Documented by: [id number] Sodium Chloride (Nss) 500 mls @ 999 mls/hr IV .Q31M STA Stop: 12/17/18 13:38 Last Infusion: 12/17/18 15:00 Dose: 0 mls/hr Documented by: [id number] Admin: 12/17/18 13:56 Dose: 999 mls/hr Documented by: [id number] Sodium Chloride (Nss 1000ml) 2,000 mls @ 999 mls/hr IV .Q2H1M ONE Stop: 12/17/18 15:29 Last Infusion: 12/17/18 16:15 Dose: 0 mls/hr Documented by: [id number] Admin: 12/17/18 13:55 Dose: 999 mls/hr Documented by: [id number] Acetaminophen (Ofirmev) 1,000 mg in 100 mls @ 400 mls/hr IV NOW STA Stop: 12/17/18 13:43 Last Infusion: 12/17/18 14:22 Dose: 0 mls/hr Documented by: [id number] Admin: 12/17/18 13:55 Dose: 400 mls/hr Documented by: [id number] Magnesium Sulfate/Dextrose (Magnesium Sulfate / D5w) 1 gm in 100 mls @ 100 mls/hr IV Q1H BARB Stop: 12/17/18 15:59 Last Infusion: 12/17/18 17:15 Dose: 0 mls/hr Documented by: [id number] Admin: 12/17/18 16:15 Dose: 100 mls/hr Documented by: [id number] Infusion: 12/17/18 16:14 Dose: 0 mls/hr Documented by: [id number] Admin: 12/17/18 14:22 Dose: 100 mls/hr Documented by: [id number] Potassium Phosphate 15 mmol/ (Sodium Chloride) 255 mls @ 88 mls/hr IV ONE ONE Stop: 12/17/18 17:53 Last Infusion: 12/17/18 20:24 Dose: 0 mls/hr Documented by: [id number] Admin: 12/17/18 15:17 Dose: 88 mls/hr Documented by: [id number] Sodium Chloride (Nss 1000ml) 1,000 mls @ 999 mls/hr IV .Q1H1M ONE Stop: 12/17/18 20:21 Last Admin: 12/17/18 19:27 Dose: 999 mls/hr Documented by: [id number] Vancomycin HCl 2,000 mg/ (Sodium Chloride) 540 mls @ 200 mls/hr IV NOW STA Stop: 12/17/18 22:23 Last Admin: 12/17/18 19:57 Dose: 200 mls/hr Documented by: [id number] Cefepime HCl 2,000 mg/ Syringe 20 mls @ 5 mls/min IV NOW STA Stop: 12/17/18 19:46 Last Admin: 12/17/18 19:57 Dose: 5 mls/min Documented by: [id number] Lidocaine HCl (Buffered Lidocaine 1%) 20 ml INFIL NOW ONE Stop: 12/17/18 20:33 Last Admin: 12/17/18 21:24 Dose: 20 ml Documented by: [id number] Lorazepam (Ativan) 1 mg SL NOW STA Stop: 12/17/18 14:28 Last Admin: 12/17/18 17:02 Dose: 1 mg Documented by: [id number] Lorazepam (Ativan) Confirm Administered Dose 2 mg .ROUTE .STK-MED ONE Stop: 12/17/18 16:58 Last Admin: 12/17/18 17:02 Dose: Not Given Documented by: [id number] Lorazepam (Ativan) Confirm Administered Dose 1 mg .ROUTE .STK-MED ONE Stop: 12/17/18 17:02 Last Admin: 12/17/18 17:08 Dose: Not Given Documented by: [id number] Morphine Sulfate (Morphine Sulfate) 8 mg IV NOW STA Stop: 12/17/18 14:28 Last Admin: 12/17/18 16:59 Dose: Not Given Documented by: [id number] Morphine Sulfate (Morphine Sulfate) Confirm Administered Dose 8 mg .ROUTE .STK- MED ONE Stop: 12/17/18 16:58 Last Admin: 12/17/18 16:58 Dose: 8 mg Documented by: [id number] Ondansetron HCl (Zofran) 4 mg IV NOW STA Stop: 12/17/18 13:59 Last Admin: 12/17/18 14:21 Dose: 4 mg Documented by: [id number] Oxycodone HCl (Roxicodone Immediate Rel) Confirm Administered Dose 5 mg .ROUTE .STK-MED ONE Stop: 12/17/18 21:38 Last Admin: 12/17/18 21:39 Dose: 5 mg Documented by: [id number] Potassium Phosphate (Potassium Phosphate Replace) 15 mmol IV NOW STA Stop: 12/17/18 14:43 Last Admin: 12/17/18 15:18 Dose: 15 mmol Documented by: [id number] Medical Decision Making Differential Diagnosis Differential diagnosis includes: sepsis, UTI, pneumonia, metabolic, electrolyte abnormalities, cardiac sources, intracerebral event, toxicologic, neurologic, as well as others were entertained. Medical Records Attestation: I reviewed the patient's medical records. Home Medications Current Medication List: was personally reviewed by me Laboratory Data Attestation: I reviewed the patient's lab results. Result diagrams: 12/17/18 13:11 12/17/18 13:11 Lab Results 12/17/18 12/17/18 12/17/18 Range/Units 13:00 13:11 13:11 WBC 4.46 L (4.8-10.8) K/uL RBC 3.71 L (4.2-5.4) M/uL Hgb 10.6 L (12.0-16.0) g/dL Hct 31.8 L (37-47) % MCV 85.7 (80-100) fL MCH 28.6 (25-34) pg MCHC 33.3 (32-36) g/dL RDW Std Deviation 47.0 H (36.4-46.3) fL RDW Coeff of Zoë 15.0 H (11.5-14.5) % Plt Count 112 L (130-400) K/uL MPV 10.3 (7.4-10.4) fL Immature Gran % (Auto) 0.7 % Neut % (Auto) 88.1 % Lymph % (Auto) 6.5 % Collier % (Auto) 2.9 % Eos % (Auto) 1.6 % Baso % (Auto) 0.2 % Immature Gran # (Auto) 0.03 H (0.00-0.02) K/uL Neut # (Auto) 3.93 (1.4-6.5) K/uL Lymph # (Auto) 0.29 L (1.2-3.4) K/uL Collier # (Auto) 0.13 (0.11-0.59) K/uL Eos # (Auto) 0.07 (0-0.5) K/uL Baso # (Auto) 0.01 (0-0.2) K/uL PT 10.5 (9.0-12.0) Seconds INR 1.0 (0.9-1.1) APTT 26.5 (21.0-31.0) Seconds PTT Ratio 1.0 Sodium (136-145) mmol/L Potassium (3.5-5.1) mmol/L Chloride (98-107) mmol/L Carbon Dioxide (21-32) mmol/L Anion Gap (3-11) BUN (7-18) mg/dl Creatinine (0.6-1.2) mg/dl Est Cr Clr Drug Dosing ml/min Est GFR ( Amer) Est GFR (Non-Af Amer) BUN/Creatinine Ratio (10-20) Glucose (70-99) mg/dl Lactate (0.4-2.0) mmol/L Calcium (8.5-10.1) mg/dl Phosphorus (2.5-4.9) mg/dl Magnesium (1.8-2.4) mg/dl Total Bilirubin (0.2-1) mg/dl Direct Bilirubin (0-0.2) mg/dl AST (15-37) U/L ALT (12-78) U/L Alkaline Phosphatase (45-117) U/L Troponin I (0-0.045) ng/ml Total Protein (6.4-8.2) gm/dl Albumin (3.4-5.0) gm/dl Globulin (2.5-4.0) gm/dl Albumin/Globulin Ratio (0.9-2) Procalcitonin (0-0.5) ng/ml HCG, Qual (Negative) Urine Color Yellow Urine Appearance Clear (Clear) Urine pH 7.0 (4.5-7.5) Ur Specific [place] 1.012 (1.000-1.030) Urine Protein Negative (Negative) Urine Glucose (UA) Negative (Negative) Urine Ketones Negative (Negative) Urine Blood Negative (Negative) Urine Nitrite Negative (Negative) Urine Bilirubin Negative (Negative) Urine Urobilinogen Negative (Negative) Ur Leukocyte Esterase Negative (Negative) Lyme Disease IgG Ab (Negative) Lyme Disease IgM Ab (Negative) 12/17/18 12/17/18 12/17/18 Range/Units 13:11 13:11 13:11 WBC (4.8-10.8) K/uL RBC (4.2-5.4) M/uL Hgb (12.0-16.0) g/dL Hct (37-47) % MCV (80-100) fL MCH (25-34) pg MCHC (32-36) g/dL RDW Std Deviation (36.4-46.3) fL RDW Coeff of Zoë (11.5-14.5) % Plt Count (130-400) K/uL MPV (7.4-10.4) fL Immature Gran % (Auto) % Neut % (Auto) % Lymph % (Auto) % Collier % (Auto) % Eos % (Auto) % Baso % (Auto) % Immature Gran # (Auto) (0.00-0.02) K/uL Neut # (Auto) (1.4-6.5) K/uL Lymph # (Auto) (1.2-3.4) K/uL Collier # (Auto) (0.11-0.59) K/uL Eos # (Auto) (0-0.5) K/uL Baso # (Auto) (0-0.2) K/uL PT (9.0-12.0) Seconds INR (0.9-1.1) APTT (21.0-31.0) Seconds PTT Ratio Sodium 137 (136-145) mmol/L Potassium 3.4 L (3.5-5.1) mmol/L Chloride 110 H (98-107) mmol/L Carbon Dioxide 21 (21-32) mmol/L Anion Gap 6.0 (3-11) BUN 9 (7-18) mg/dl Creatinine 0.85 (0.6-1.2) mg/dl Est Cr Clr Drug Dosing 89.9 ml/min Est GFR ( Amer) 93.9 Est GFR (Non-Af Amer) 81.0 BUN/Creatinine Ratio 10.4 (10-20) Glucose 128 H (70-99) mg/dl Lactate 2.4 H* (0.4-2.0) mmol/L Calcium 8.3 L (8.5-10.1) mg/dl Phosphorus 1.1 L* (2.5-4.9) mg/dl Magnesium 1.7 L (1.8-2.4) mg/dl Total Bilirubin 0.5 (0.2-1) mg/dl Direct Bilirubin 0.2 (0-0.2) mg/dl AST 22 (15-37) U/L ALT 27 (12-78) U/L Alkaline Phosphatase 159 H (45-117) U/L Troponin I < 0.015 (0-0.045) ng/ml Total Protein 6.4 (6.4-8.2) gm/dl Albumin 3.5 (3.4-5.0) gm/dl Globulin 2.9 (2.5-4.0) gm/dl Albumin/Globulin Ratio 1.2 (0.9-2) Procalcitonin (0-0.5) ng/ml HCG, Qual (Negative) Urine Color Urine Appearance (Clear) Urine pH (4.5-7.5) Ur Specific [place] (1.000-1.030) Urine Protein (Negative) Urine Glucose (UA) (Negative) Urine Ketones (Negative) Urine Blood (Negative) Urine Nitrite (Negative) Urine Bilirubin (Negative) Urine Urobilinogen (Negative) Ur Leukocyte Esterase (Negative) Lyme Disease IgG Ab (Negative) Lyme Disease IgM Ab (Negative) 12/17/18 Range/Units 13:11 WBC (4.8-10.8) K/uL RBC (4.2-5.4) M/uL Hgb (12.0-16.0) g/dL Hct (37-47) % MCV (80-100) fL MCH (25-34) pg MCHC (32-36) g/dL RDW Std Deviation (36.4-46.3) fL RDW Coeff of Zoë (11.5-14.5) % Plt Count (130-400) K/uL MPV (7.4-10.4) fL Immature Gran % (Auto) % Neut % (Auto) % Lymph % (Auto) % Collier % (Auto) % Eos % (Auto) % Baso % (Auto) % Immature Gran # (Auto) (0.00-0.02) K/uL Neut # (Auto) (1.4-6.5) K/uL Lymph # (Auto) (1.2-3.4) K/uL Collier # (Auto) (0.11-0.59) K/uL Eos # (Auto) (0-0.5) K/uL Baso # (Auto) (0-0.2) K/uL PT (9.0-12.0) Seconds INR (0.9-1.1) APTT (21.0-31.0) Seconds PTT Ratio Sodium (136-145) mmol/L Potassium (3.5-5.1) mmol/L Chloride (98-107) mmol/L Carbon Dioxide (21-32) mmol/L Anion Gap (3-11) BUN (7-18) mg/dl Creatinine (0.6-1.2) mg/dl Est Cr Clr Drug Dosing ml/min Est GFR ( Amer) Est GFR (Non-Af Amer) BUN/Creatinine Ratio (10-20) Glucose (70-99) mg/dl Lactate (0.4-2.0) mmol/L Calcium (8.5-10.1) mg/dl Phosphorus (2.5-4.9) mg/dl Magnesium (1.8-2.4) mg/dl Total Bilirubin (0.2-1) mg/dl Direct Bilirubin (0-0.2) mg/dl AST (15-37) U/L ALT (12-78) U/L Alkaline Phosphatase (45-117) U/L Troponin I (0-0.045) ng/ml Total Protein (6.4-8.2) gm/dl Albumin (3.4-5.0) gm/dl Globulin (2.5-4.0) gm/dl Albumin/Globulin Ratio (0.9-2) Procalcitonin 4.86 H (0-0.5) ng/ml HCG, Qual Negative (Negative) Urine Color Urine Appearance (Clear) Urine pH (4.5-7.5) Ur Specific [place] (1.000-1.030) Urine Protein (Negative) Urine Glucose (UA) (Negative) Urine Ketones (Negative) Urine Blood (Negative) Urine Nitrite (Negative) Urine Bilirubin (Negative) Urine Urobilinogen (Negative) Ur Leukocyte Esterase (Negative) Lyme Disease IgG Ab Negative (Negative) Lyme Disease IgM Ab Negative (Negative) Imaging Data Radiologist's Impression: Radiology results as stated below per my review and the radiologist's interpretation: MR cervical spine wo/w con CLINICAL HISTORY: 48 years-old Female presenting with pain, meningismus, fevers x 1 month, sepsis and fever, pain in the entire spine radiating down the legs, no history of surgery, concern for metastatic disease. TECHNIQUE: Multisequence, multiplanar MR imaging of the cervical spine was performed before and after the administration of intravenous contrast. IV contrast: 8 mL of Gadavist. COMPARISON: 06/14/2018. FINDINGS: Localizer images: Benign hemangioma noted in T11. 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 Normal cervical lordosis. Vertebral bodies maintain normal height, alignment, and bone marrow signal intensity. Diffuse intervertebral disc desiccation with only mild height loss evident at C5-6 and C6-7. There are trace disc osteophyte complexes at these levels. Mild effacement of the ventral thecal sac if any is present as a result. Allowing for motion irritation of the axial T2 weighted javier ging, no significant neural foraminal or spinal canal narrowing. Cervical spinal cord morphology and signal intensity. No epidural collection. No abnormal enhancement on postcontrast imaging. No paraspinal muscle edema. T2 flow-voids within the vasculature preserved. Remaining visualized soft tissues within normal limits. IMPRESSION: Minimal multilevel degenerative changes at C5-6 and C6-7. No evidence of metastatic disease. Electronically signed by: Loc Jenkins M.D. 12/17/2018 7:12 PM MR thoracic spine wo/w con CLINICAL HISTORY: 48 years-old Female presenting with pain, meningismus, fevers x 1 month, fever and sepsis, clinical concern for metastatic disease. TECHNIQUE: Multisequence, multiplanar MR imaging of the thoracic spine was per formed before and after the administration of intravenous contrast. IV contrast: 8 mL of Gadavist. COMPARISON: 11/26/2018. FINDINGS: Localizer images: Unremarkable. Normal thoracic kyphosis. Mildly exaggerated endplate concavities in the mid thoracic spine. Apart from this, remaining vertebral body symmetry normal height, alignment, and bone marrow signal intensity. Benign hemangioma noted in T11. Intervertebral disks are preserved. Postcontrast imaging does not demonstrate an enhancing osseous lesion. No neural foraminal or spinal canal narrowing. No epidural collection. Thoracic spinal cord normal in morphology and signal intensity. No abnormal enhancement of the spinal cord on postcontrast imaging. No paraspinal muscle edema. Remaining visualized soft tissues demonstrate normal T2 flow voids within the vasculature. IMPRESSION: 1. No evidence of metastatic disease. 2. No significant degenerative change. 3. Mildly exaggerated endplate concavities in the midthoracic spine. Correlate for possible underlying osteopenia/osteoporosis. Alternatively, this could be a normal variant. A DEXA scan may be appropriate if there is clinical concern for osteoporosis screening. Electronically signed by: Loc Jenkins M.D. 12/17/2018 7:[address] SCAN OF THE BRAIN WITHOUT IV CONTRAST CLINICAL HISTORY: Headache. COMPARISON STUDY: CT of the brain dated 01/07/2018. TECHNIQUE: Unenhanced axial CT scan of the brain is performed from the vertex to the skull base. A dose lowering technique was utilized adhering to the principles of ALARA. The examination is modestly degraded by motion artifact. The skull base was scanned twice to improve image quality. FINDINGS: Brain parenchyma: The brain parenchyma is normal in appearance. There is no hemorrhage, mass effect, or evidence of acute territorial ischemia by CT criteria. Gunn-white matter differentiation is preserved. No extra-axial fluid collection is seen. Ventricles, sulci, cisterns: Normal in configuration. Intracranial vasculature: The visualized intracranial vasculature at the skull base is normal in appearance. Calvarium: Unremarkable. Sinuses and mastoids: The visualized paranasal sinuses are clear. The mastoid air cells are well pneumatized. Orbits: The bony orbits are grossly intact. IMPRESSION: No acute intracranial abnormality. Electronically signed by: Cali Maharaj M.D. 12/17/2018 3:01 PM MR lumbar spine wo/w con CLINICAL HISTORY: 48 years-old Female presenting with pain, meningismus, fevers x 1 month, fever and sepsis, clinical concern for metastatic disease. TECHNIQUE: Multisequence, multiplanar MR imaging of the lumbar spine was performed before and after the administration of intravenous contrast. IV contrast: 8 mL of Gadavist. COMPARISON: 12/06/2018. 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 Vertebral bodies maintain normal height and alignment. Mildly exaggerated inf erior endplate concavity at L2 and superior endplate concavity at L3. This may imply underlying osteopenia/osteoporosis or normal variation. No focal lesion. Intervertebral disks demonstrate desiccation and mild height loss at L4-5 and L5-S1. An annular fissure may be present at L4-5. Mild right and moderate left neural foraminal narrowing at L4-5 and moderate bilateral neural foraminal narrowing at L5-S1. Eccentric disc bulge at L5-S1 exerts mass effect on the exiting right L5 nerve root. Mild effacement of the ventral thecal sac at L4-5 without significant result. These findings are unchanged from the most recent prior exam. The spinal cord terminates in good position at L2. Cauda equina normal in morphology. No abnormal enhancement of the cauda equina on postcontrast imaging. No paraspinal muscle edema. Visualized portions of the sacrum normal part from the presence of a Tarlov cysts. No epidural collection. IMPRESSION: 1. No evidence of metastatic disease. 2. Degenerative changes at L4-5 and L5-S1, including annular fissure at L4-5. Suspected mass effect on the exiting right L5 nerve root. These findings are unchanged from most recent prior. 3. Exaggerated endplate concavity at L2 and L3 may suggest underlying osteopenia/osteoporosis or normal variation. Consider DEXA scan if appropriate. Electronically signed by: Loc Jenkins M.D. 12/17/2018 7:55 PM ECG Data Attestation: I personally reviewed and interpreted this ECG as follows: Indication: tachycardia Rate (beats per minute): 120 Rhythm: sinus tachycardia Findings: + other (no overt acute ischemia), + nonspecific-ST abn and + RBBB (incomplete) Comparison ECG Date: from (11/24/18) Change: no significant change Blood Pressure Blood Pressure Findings: Low blood pressure Blood Pressure Disposition: further management by hospitalist VIKRAM Narrative The patient is a pleasant 40-year-old woman with a comp gated recent past medical history of sepsis/bacteremia in the setting of IV drug use discharged on 12/10 on course of amoxicillin who presents emergency department with recurrence of her fevers and persistent of her chronic neck and back pain per hpi. Patient did have echo on her last admission negative for vegetations. On arrival the patient is uncomfortable appearing but no acute distress, febrile to 39.3, tachycardic to 120s and vital signs otherwise stable. On exam the patient appears clinically dry. She is neurologically intact. The patient does exhibit some rigidity in her neck and back with pain with neck and hip flexion. EKG without overt acute ischemia. WBC 4.4, nonspecific. H/H 10.6/31.8 approximate 2 range of recent values. Platelets 112 also approximate 2 range of recent values. Lactate 2.4 however chemistry without acidosis. Medium 1.7 and phosphorus 1.1 with repletion provided. LFTs unremarkable. Procalcitonin is elevated at 4.8. UA without evidence of infection. Lyme screen negative. The patient reports that her neck and back pain are similar to her prior admission and she did have MRIs at that time of her cervical, thoracic, lumbar spine that were without contrast. Given the patient's meningismus on exam, and 3 weeks since her prior MRIs, reasonable to repeat MRI studies with/without contrast to exclude abscess/transverse myelitis. If there is no evidence of lumbar abscess then will proceed with lumbar puncture. MRI with and without contrast of the cervical, thoracic, lumbar spine unremarkable/unchanged. Lumbar puncture subsequently performed with informed consent per procedure note with opening pressure of 19 with clear CSF. Ordered for Cefepime and Vancomycin. Heart improved to 60s with IVF hydration. BP soft 90s/40 however in the setting of receiving morphine for MRI and lying flat for several hours -- patient appears clinically improved and mentating normally. Additional IVF being administered. Case was discussed with Dr. Espinoza, [facility] hospitalist, who will evaluated the patient for admission. Subsequently, CSF cell counts reassuring and not c/w infection. Impression & Plan Sepsis Critical Care Time Critical Care Time: Yes Total Critical Care Time: 125 I have personally spent greater than 125 minutes of critical care time in the direct management of this patient. This includes bedside care, interpretation of diagnostic studies, and testing, discussion with consultants, patient, and family members, and other required patient management activities. This 125 minutes is in excess of all separately billable procedures. Discharge Plan Visit Data *Final* Discharge Date/Time: 12/17/18 22:06 Chief Complaint: Illness ED Provider: Nicholas Pablo Discharge Problem: Sepsis Patient Disposition: Admitted As Inpatient Discharge Instructions Interventions: ED Discharge Assessment Last Done: 12/17/18 22:06 Discharge Problem: Sepsis Qualifiers: Sepsis type: sepsis due to unspecified organism Qualified Code(s): A41.9 - Sepsis, unspecified organism The scribe's documentation has been prepared under my direction and personally reviewed by me in its entirety. I confirm that the note above accurately reflects all work, treatment, procedures, and medical decision making performed by me.
[2018-12-17] MEDS ORDERED: GADOBUTROL 65ML VIAL IV PRN (18:20)
--- NOTE | 2018-12-17 19:13 | Magnetic Resonance Report ---
MR cervical spine wo/w con CLINICAL HISTORY: 48 years-old Female presenting with pain, meningismus, fevers x 1 month, sepsis and fever, pain in the entire spine radiating down the legs, no history of surgery, concern for metastat ic disease. TECHNIQUE: Multisequence, multiplanar MR imaging of the cervical spine was performed before and after the administration of intravenous contrast. IV contrast: 8 mL of Gadavist. COMPARISON: 06/14/2018. FINDINGS: Localizer images: Benign hemangioma noted in T11. 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 Normal cervical lordosis. Vertebral bodies maintain normal height, alignment, and bone marrow signal intensity. Diffuse intervertebral disc desiccation with only mild height loss evident at C5-6 and C6- 7. There are trace disc osteophyte complexes at these levels. Mild effacement of the ventral thecal s ac if any is present as a result. Allowing for motion irritation of the axial T2 weighted imaging, no significant neural foraminal or spinal canal narrowing. Cervical spinal cord morphology and signal intensity. No epidural collection. No abnormal enhancement on postcontrast imaging. No paraspinal muscle edema. T2 flow-voids within the vasculature preserved. Remaining visualized soft tissues within normal limits. IMPRESSION: Minimal multilevel degenerative changes at C5-6 and C6-7. No evidence of metastatic disease. Electronically signed by: Loc Jenkins M.D. 12/17/2018 7:12 PM
[2018-12-17] MEDS ORDERED: SODIUM CHLORIDE 0.9% 1000ML 1,000 ML IV ONE (19:21)
--- NOTE | 2018-12-17 19:40 | Magnetic Resonance Report ---
MR thoracic spine wo/w con CLINICAL HISTORY: 48 years-old Female presenting with pain, meningismus, fevers x 1 month, fever and sepsis, clinical concern for metastatic disease. TECHNIQUE: Multisequence, multiplanar MR imaging of the thoracic spine was performed before and after the administration of intravenous contrast. IV contrast: 8 mL of Gadavist. COMPARISON: 11/26/2018. FINDINGS: Localizer images: Unremarkable. Normal thoracic kyphosis. Mildly exaggerated endplate concavities in the mid thoracic spine. Apart fr om this, remaining vertebral body symmetry normal height, alignment, and bone marrow signal intensity . Benign hemangioma noted in T11. Intervertebral disks are preserved. Postcontrast imaging does not d emonstrate an enhancing osseous lesion. No neural foraminal or spinal canal narrowing. No epidural co llection. Thoracic spinal cord normal in morphology and signal intensity. No abnormal enhancement of the spinal cord on postcontrast imaging. No paraspinal muscle edema. Remaining visualized soft tissue s demonstrate normal T2 flow voids within the vasculature. IMPRESSION: 1. No evidence of metastatic disease. 2. No significant degenerative change. 3. Mildly exaggerated endplate concavities in the midthoracic spine. Correlate for possible underlyi ng osteopenia/osteoporosis. Alternatively, this could be a normal variant. A DEXA scan may be appropr iate if there is clinical concern for osteoporosis screening. Electronically signed by: Loc Jenkins M.D. 12/17/2018 7:39 PM
[2018-12-17] MEDS ORDERED: VANCOMYCIN HCL 2,000 MG in SODIUM CHLORIDE 0.9% 500 ML IV STA (19:42)
[2018-12-17] MEDS ORDERED: CEFEPIME 2,000 MG in SYRINGE 7.5 ML IV STA (19:43)
--- NOTE | 2018-12-17 19:56 | Magnetic Resonance Report ---
MR lumbar spine wo/w con CLINICAL HISTORY: 48 years-old Female presenting with pain, meningismus, fevers x 1 month, fever and sepsis, clinical concern for metastatic disease. TECHNIQUE: Multisequence, multiplanar MR imaging of the lumbar spine was performed before and after t he administration of intravenous contrast. IV contrast: 8 mL of Gadavist. COMPARISON: 12/06/2018. 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 Vertebral bodies maintain normal height and alignment. Mildly exaggerated inferior endplate concavity at L2 and superior endplate concavity at L3. This may imply underlying osteopenia/osteoporosis or no rmal variation. No focal lesion. Intervertebral disks demonstrate desiccation and mild height loss at L4-5 and L5-S1. An annular fissure may be present at L4-5. Mild right and moderate left neural lewis inal narrowing at L4-5 and moderate bilateral neural foraminal narrowing at L5-S1. Eccentric disc bul ge at L5-S1 exerts mass effect on the exiting right L5 nerve root. Mild effacement of the ventral the tiarra sac at L4-5 without significant result. These findings are unchanged from the most recent prior e xam. The spinal cord terminates in good position at L2. Cauda equina normal in morphology. No abnormal enh ancement of the cauda equina on postcontrast imaging. No paraspinal muscle edema. Visualized portions of the sacrum normal part from the presence of a Tarlov cysts. No epidural collection. IMPRESSION: 1. No evidence of metastatic disease. 2. Degenerative changes at L4-5 and L5-S1, including annular fissure at L4-5. Suspected mass effect on the exiting right L5 nerve root. These findings are unchanged from most recent prior. 3. Exaggerated endplate concavity at L2 and L3 may suggest underlying osteopenia/osteoporosis or nor mal variation. Consider DEXA scan if appropriate. Electronically signed by: Loc Jenkins M.D. 12/17/2018 7:55 PM
[2018-12-17] MEDS ORDERED: XYLOCAINE 1%/SOD BICARB 20 ML VIAL INFIL ONE (20:32)
--- NOTE | 2018-12-17 20:36 | XRay Report ---
XR chest 1V portable CLINICAL HISTORY: 48 years-old Female presenting with sepsis. TECHNIQUE: Portable upright AP view of the chest was obtained. COMPARISON: 11/26/2018. FINDINGS: Cardiomediastinal silhouette normal. No focal opacity. No large effusion or pneumothorax. Osseous str uctures normal. Upper abdomen normal. IMPRESSION: 1. No acute cardiopulmonary disease. Electronically signed by: Loc Jenkins M.D. 12/17/2018 8:35 PM
[2018-12-17] MEDS ORDERED: OXYCODONE HCL IR 5 MG TAB (IMMEDIATE RELEASE) ONE (21:37)
[2018-12-17 21:40] LABS: Appearance CSF Clear; CSF Count Tube # 4; CSF Xanthrochromic No xanthochromia; Color CSF Colorless; Red Blood Cell CSF (A) 0 /uL (0-); Red Blood Cell CSF (B) 2 /uL (0-); White Blood Cell CSF (B) 2 /uL (0-5)
[2018-12-17 21:41] LABS: White Blood Cell CSF (A) 0 /uL (0-5)
[2018-12-17 21:44] LABS: Total Protein CSF 42.2 mg/dl (15-45)
--- NOTE | 2018-12-17 22:21 | History & Physical Report ---
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 Echocardiogram on 11/26 was negative for vegetation. MRI is ordered tonight of cervical spine, lumbar spine, and thoracic spine were all negative for paraspinal abscess. CT of head negative for acute event. Patient is mildly hypotensive, has responded IV fluid rehydration, and will therefore not need ICU admission at this time. Lumbar puncture performed in the ED initially looks clean. Follow blood cultures and lumbar spinal fluid studies. Continue vancomycin IV begun in the ED. She was given cefepime IV in ED, and will be continued on Zosyn 4.5 g IV every 8 hours. Consult infectious disease. Present on Admission?: Yes (2) Gram-negative bacteremia: See above Present on Admission?: Yes (3) IV drug user: Patient with history of IV drug abuse, known to have a history of crushing morphine and injecting. Follow-up for signs of withdrawal. Present on Admission?: Yes (4) Opioid abuse: See above Present on Admission?: Yes (5) Bacteremia due to Enterobacter species: Bacteremia due to Enterobacter was noted on 06/11/2018 during hospitalization. We will cover for the species with above antibiotics. Present on Admission?: Yes (6) Sepsis: Monitor for further signs of sepsis. Has responded to IV fluids related to low blood pressure at this time. Present on Admission?: Yes (7) C. difficile diarrhea: History of C. difficile colitis. High risk for recurrence on above antibiotics. We will let infectious disease decide if patient should be placed on empiric treatment or wait until symptoms. Present on Admission?: Yes (8) Chronic back pain: Continue usual medications: Topical lidocaine, oxycodone, Nucynta, topiramate and gabapentin. Present on Admission?: Yes (9) Tobacco abuse: Place on NicoDerm patch. Present on Admission?: Yes (10) PUD (peptic ulcer disease): Continue pantoprazole 40 mg every morning. None Present on Admission?: Yes (11) Depression: Continue fluoxetine, gabapentin, topiramate and olanzapine. Present on Admission?: Yes History of Present Illness Chief Complaint: The patient presents to the emergency department with recurrent fevers since being discharged from hospital on 12/10. Primary Care Provider: Ney Mendenhall PA-C The patient is a 48-year-old female with a past medical history including IV drug abuse, sepsis from Enterobacter aerogenes on 06/11/2018, and most recent hospitalization for bacillus cereus/thuringiensis bacteremia from 11/24-12/10/2018. She presents to the emergency department with recurrent temperatures began shortly after discharge, that she was reports took place in spite of her taking the amoxicillin that she was discharged on as directed. She has no specific complaints, other than her chronic low back pain. Allergies Allergy/AdvReac Type Severity Reaction Status Date / Time tramadol Allergy U SEIZURE Verified 12/17/18 15:12 promethazine AdvReac AK JITTERY Verified 12/17/18 15:12 Home Medications Home Medications Medication Instructions Recorded Confirmed Type albuterol sulfate 2 puff INHALATION Q4 PRN 06/12/18 12/17/18 History docusate sodium [Colace] 100 mg PO BID PRN 06/12/18 12/17/18 History ergocalciferol (vitamin D2) 50,000 unit PO WK 06/12/18 12/17/18 History fluoxetine 20 mg PO QAM 06/12/18 12/17/18 History gabapentin 600 mg PO TID 06/12/18 12/17/18 History olanzapine 5 mg TRANSLINGUAL HS 06/12/18 12/17/18 History propranolol 10 mg PO DAILY PRN 06/12/18 12/17/18 History topiramate 50 mg PO QAM 06/12/18 12/17/18 History topiramate 100 mg PO HS 06/12/18 12/17/18 History diphenoxylate-atropine [Lomotil] 1 tab PO Q8H PRN #15 tab 06/27/18 12/17/18 Rx amoxicillin 500 mg PO TID #40 cap 12/10/18 12/17/18 Rx clonazepam 1 mg PO DAILY PRN #15 tab 12/10/18 12/17/18 Rx oxycodone 5 mg PO Q6H PRN #20 tab 12/10/18 12/17/18 Rx potassium chloride [Klor-Con M10] 20 meq PO BID #14 tab 12/10/18 12/17/18 Rx tapentadol [Nucynta ER] 50 mg PO Q12@0600,1800 #30 tab 12/10/18 12/17/18 Rx acetaminophen [Tylenol Extra 500 mg PO Q6H PRN 12/17/18 12/17/18 History Strength] ibuprofen 200 mg PO Q6H PRN 12/17/18 12/17/18 History lidocaine 1 patch TOPICAL UD 12/17/18 12/17/18 History methylphenidate HCl 40 mg PO DAILY@0900,1600 12/17/18 12/17/18 History pantoprazole 40 mg PO QAM 12/17/18 12/17/18 History Past Med/Surg History Medical History DVT prophylaxis Opioid abuse (Chronic) Acute gastritis (Acute) Transaminitis (Acute) IV drug user (Acute) Sepsis (Acute) Gastroparesis (Chronic) Sarcoid (Chronic) Migraine Surgical History Hx of cholecystectomy (Resolved) History of cholecystectomy History of esophagogastroduodenoscopy (EGD) History of open reduction and internal fixation (ORIF) procedure LEFT ANKLE History of tonsillectomy Family History Other Cancer Diabetes Heart disease Hypertension Lung disease Social History Preferred Language: Turkmen Communication Ability: Effective Cement Mason Required: No Beliefs That Will Affect Care: None marital status: Single Current Living Situation: Parent Current Living Situation Comment: lives w/ mom current occupational status: employed Other Information That Helps Us Care for You: No Feels Safe at Home: Yes Safety Concerns: Feels Safe At This Time Smoking Status: Current every day smoker Tobacco Type: cigarettes Cigarettes Per Day: 20 Do You Dip or Chew Tobacco: No Second Hand Exposure: No Hx Alcohol Use: No Hx Substance Use: Yes (Takes methadone) substance use type: other Substance Use Type Other:: prescribed methodone, h/o drug abuse Review of Systems Review of Systems: The patient denies chest pain, palpitations, shortness of breath, dyspnea on exertion, cough, lower extremity swelling, sore throat, nausea, vomiting, diarrhea , constipation, abdominal pain, pelvic pain, blood in urine or stool, dysuria, urinary frequency or urgency, lightheadedness, dizziness, headache, memory loss, loss of consciousness, rash, abnormal bruising or bleeding, imbalance, focal weakness in arms or legs, or night sweats. The review of systems is otherwise negative other than for that already noted above, and at least 10 systems have been reviewed. Physical Exam Physical Exam: The patient is awake, alert and oriented 3, well developed and well nourished, normocephalic and atraumatic, lying in bed and in no acute distress. HEENT--PERRL, EOMI, mucous membranes and oropharynx dry. Neck--supple. No JVD. No bruits. Thyroid normal, trachea midline, no adenopathy. Heart--normal S1 and S2. No murmurs, rubs or gallops. Lungs--clear bilaterally, no respiratory distress, no accessory muscle use. Abdomen--normal bowel sounds and soft. Nontender. Nondistended, no hernias or masses, no organomegaly. Extremities--no cyanosis or clubbing. No edema. There are good distal pulses b/l. Dermatologic--normal skin turgor, normal color, no abnormal lymph nodes, no rash. Neurologic--cranial nerves II through XII grossly intact. Rheumatologic--normal range of motion. Psychiatric--normal affect. Results & Data Vital Signs (Past 12 Hours) Vital Signs Temp Pulse Pulse Resp BP BP Pulse Ox 12/17/18 22:00 98.2 F 12/17/18 21:43 65 16 96/48 L 96 12/17/18 19:16 68 16 91/61 L 96 12/17/18 16:45 86 19 102/60 96 12/17/18 16:41 91 H 19 109/55 L 94 12/17/18 16:40 90 19 109/55 L 95 12/17/18 16:31 87 19 109/55 L 95 12/17/18 16:30 87 19 95 12/17/18 16:16 94 H 22 98/57 L 96 12/17/18 16:15 89 17 97 12/17/18 16:01 91 H 17 110/65 95 12/17/18 16:00 93 H 17 95 12/17/18 15:47 96 H 18 94 12/17/18 15:30 96 H 17 12/17/18 15:15 103 H 19 12/17/18 15:00 99 H 13 12/17/18 14:45 111 H 25 H 95 12/17/18 14:36 103 H 20 110/54 L 95 12/17/18 14:30 105 H 28 H 95 12/17/18 14:15 99 12/17/18 14:01 108 H 18 104/74 97 12/17/18 14:00 120 H 16 97 12/17/18 13:46 112 H 17 125/55 L 95 12/17/18 13:45 116 H 29 H 93 12/17/18 13:31 114 H 19 134/86 98 12/17/18 13:30 121 H 19 97 12/17/18 13:16 118 H 19 138/61 96 12/17/18 13:14 116 H 23 134/65 97 12/17/18 13:09 97 12/17/18 13:00 126 H 25 H 97 12/17/18 12:58 132 H 21 98 12/17/18 12:37 102.7 F H 119 H 22 134/65 97 Laboratory Results Laboratory Results WBC 4.46 K/uL (4.8-10.8) L 12/17/18 13:11 RBC 3.71 M/uL (4.2-5.4) L 12/17/18 13:11 Hgb 10.6 g/dL (12.0-16.0) L 12/17/18 13:11 Hct 31.8 % (37-47) L 12/17/18 13:11 MCV 85.7 fL (80-100) 12/17/18 13:11 MCH 28.6 pg (25-34) 12/17/18 13:11 MCHC 33.3 g/dL (32-36) 12/17/18 13:11 RDW Std Deviation 47.0 fL (36.4-46.3) H 12/17/18 13:11 RDW Coeff of Zoë 15.0 % (11.5-14.5) H 12/17/18 13:11 Plt Count 112 K/uL (130-400) L 12/17/18 13:11 MPV 10.3 fL (7.4-10.4) 12/17/18 13:11 Immature Gran % (Auto) 0.7 % 12/17/18 13:11 Neut % (Auto) 88.1 % 12/17/18 13:11 Lymph % (Auto) 6.5 % 12/17/18 13:11 Morrison % (Auto) 2.9 % 12/17/18 13:11 Eos % (Auto) 1.6 % 12/17/18 13:11 Baso % (Auto) 0.2 % 12/17/18 13:11 Immature Gran # (Auto) 0.03 K/uL (0.00-0.02) H 12/17/18 13:11 Neut # (Auto) 3.93 K/uL (1.4-6.5) 12/17/18 13:11 Lymph # (Auto) 0.29 K/uL (1.2-3.4) L 12/17/18 13:11 Morrison # (Auto) 0.13 K/uL (0.11-0.59) 12/17/18 13:11 Eos # (Auto) 0.07 K/uL (0-0.5) 12/17/18 13:11 Baso # (Auto) 0.01 K/uL (0-0.2) 12/17/18 13:11 PT 10.5 Seconds (9.0-12.0) 12/17/18 13:11 INR 1.0 (0.9-1.1) 12/17/18 13:11 APTT 26.5 Seconds (21.0-31.0) 12/17/18 13:11 PTT Ratio 1.0 12/17/18 13:11 Sodium 137 mmol/L (136-145) 12/17/18 13:11 Potassium 3.4 mmol/L (3.5-5.1) L 12/17/18 13:11 Chloride 110 mmol/L (98-107) H 12/17/18 13:11 Carbon Dioxide 21 mmol/L (21-32) 12/17/18 13:11 Anion Gap 6.0 (3-11) 12/17/18 13:11 BUN 9 mg/dl (7-18) 12/17/18 13:11 Creatinine 0.85 mg/dl (0.6-1.2) 12/17/18 13:11 Est Cr Clr Drug Dosing 89.9 ml/min 12/17/18 13:11 Est GFR ( Amer) 93.9 12/17/18 13:11 Est GFR (Non-Af Amer) 81.0 12/17/18 13:11 BUN/Creatinine Ratio 10.4 (10-20) 12/17/18 13:11 Glucose 128 mg/dl (70-99) H 12/17/18 13:11 Lactate 2.4 mmol/L (0.4-2.0) H* 12/17/18 13:11 Calcium 8.3 mg/dl (8.5-10.1) L 12/17/18 13:11 Phosphorus 1.1 mg/dl (2.5-4.9) L* 12/17/18 13:11 Magnesium 1.7 mg/dl (1.8-2.4) L 12/17/18 13:11 Total Bilirubin 0.5 mg/dl (0.2-1) 12/17/18 13:11 Direct Bilirubin 0.2 mg/dl (0-0.2) 12/17/18 13:11 AST 22 U/L (15-37) 12/17/18 13:11 ALT 27 U/L (12-78) 12/17/18 13:11 Alkaline Phosphatase 159 U/L (45-117) H 12/17/18 13:11 Troponin I < 0.015 ng/ml (0-0.045) 12/17/18 22:58 Total Protein 6.4 gm/dl (6.4-8.2) 12/17/18 13:11 Albumin 3.5 gm/dl (3.4-5.0) 12/17/18 13:11 Globulin 2.9 gm/dl (2.5-4.0) 12/17/18 13:11 Albumin/Globulin Ratio 1.2 (0.9-2) 12/17/18 13:11 Procalcitonin 4.86 ng/ml (0-0.5) H 12/17/18 13:11 HCG, Qual Negative (Negative) 12/17/18 13:11 Urine Color Yellow 12/17/18 13:00 Urine Appearance Clear (Clear) 12/17/18 13:00 Urine pH 7.0 (4.5-7.5) 12/17/18 13:00 Ur Specific [place] 1.012 (1.000-1.030) 12/17/18 13:00 Urine Protein Negative (Negative) 12/17/18 13:00 Urine Glucose (UA) Negative (Negative) 12/17/18 13:00 Urine Ketones Negative (Negative) 12/17/18 13:00 Urine Blood Negative (Negative) 12/17/18 13:00 Urine Nitrite Negative (Negative) 12/17/18 13:00 Urine Bilirubin Negative (Negative) 12/17/18 13:00 Urine Urobilinogen Negative (Negative) 12/17/18 13:00 Ur Leukocyte Esterase Negative (Negative) 12/17/18 13:00 CSF Appearance Clear 12/17/18 Unknown CSF Color Colorless 12/17/18 Unknown Xanthrochromic No xanthochromia 12/17/18 Unknown CSF WBC 0 /uL (0-5) 12/17/18 Unknown CSF RBC 0 /uL (0-) 12/17/18 Unknown CSF Cell Count Tube # 4 12/17/18 Unknown CSF Chemistry Tube # 2 12/17/18 Unknown CSF Glucose 59 mg/dl (40-70) 12/17/18 Unknown CSF Total Protein 42.2 mg/dl (15-45) 12/17/18 Unknown CSF Lyme IgG (Immblot) Cancelled 12/17/18 Unknown CSF Lyme IgG Bands Det Cancelled 12/17/18 Unknown CSF Lyme IgM (Immblot) Cancelled 12/17/18 Unknown CSF Lyme IgM Bands Det Cancelled 12/17/18 Unknown Lyme Disease IgG Ab Negative (Negative) 12/17/18 13:11 Lyme Disease IgM Ab Negative (Negative) 12/17/18 13:11 Diagnostic Findings [place], [place] [phone] Magnetic Resonance Report Patient: SWAPNA MCKEON HAdmit Date: 12/17/18 MR#: [id number]: [address] [facility] Acct ID:[id number]: [address] Date: 1970[facility] Zip: [place] [address] Age: 48Location: ED Sex: F Room/Bed: Att Phy: Diagnosis: ILLNESS Bobbi Phy: Ney Mendenhall PA-CService Date: 12/17/18 Fam Phy: Interpreting Phy: Loc Jenkins MD Admit Phy: Ordering Phy: Nicholas Pablo M.D. cc: ~ MR thoracic spine wo/w con CLINICAL HISTORY: 48 years-old Female presenting with pain, meningismus, fevers x 1 month, fever and sepsis, clinical concern for metastatic disease. TECHNIQUE: Multisequence, multiplanar MR imaging of the thoracic spine was performed before and after the administration of intravenous contrast. IV contrast: 8 mL of Gadavist. COMPARISON: 11/26/2018. FINDINGS: Localizer images: Unremarkable. Normal thoracic kyphosis. Mildly exaggerated endplate concavities in the mid thoracic spine. Apart from this, remaining vertebral body symmetry normal height, alignment, and bone marrow signal intensity. Benign hemangioma noted in T11. Intervertebral disks are preserved. Postcontrast imaging does not demonstrate an enhancing osseous lesion. No neural foraminal or spinal canal narrowing. No epidural collection. Thoracic spinal cord normal in morphology and signal intensity. No abnormal enhancement of the spinal cord on postcontrast imaging. No paraspinal muscle edema. Remaining visualized soft tissues demonstrate normal T2 flow voids within the vasculature. IMPRESSION: 1. No evidence of metastatic disease. 2. No significant degenerative change. 3. Mildly exaggerated endplate concavities in the midthoracic spine. Correlate for possible underlying osteopenia/osteoporosis. Alternatively, this could be a normal variant. A DEXA scan may be appropriate if there is clinical concern for osteoporosis screening. Electronically signed by: Loc Jenkins M.D. 12/17/2018 7:39 PM Dictated: 12/17/181932 Transcribed: 12/17/181932 [place], [place] [phone] Magnetic Resonance Report Patient: SWAPNA MCKEON Date: 12/17/18 MR#: [id number]: [address] [facility] Acct ID:[id number]: [address] Date: 1970[facility] Zip: [place] [address] Age: 48Location: ED Sex: F Room/Bed: Att Phy: Diagnosis: ILLNESS Bobbi Phy: Ney Mendenhall PA-CService Date: 12/17/18 Fam Phy: Interpreting Phy: Loc Jenkins MD Admit Phy: Ordering Phy: Cross, Nicholas E., M.D. cc: ~ MR lumbar spine wo/w con CLINICAL HISTORY: 48 years-old Female presenting with pain, meningismus, fevers x 1 month, fever and sepsis, clinical concern for metastatic disease. TECHNIQUE: Multisequence, multiplanar MR imaging of the lumbar spine was performed before and after the administration of intravenous contrast. IV contrast: 8 mL of Gadavist. COMPARISON: 12/06/2018. 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 Vertebral bodies maintain normal height and alignment. Mildly exaggerated inferior endplate concavity at L2 and superior endplate concavity at L3. This may imply underlying osteopenia/osteoporosis or normal variation. No focal lesion. Intervertebral disks demonstrate desiccation and mild height loss at L4- 5 and L5-S1. An annular fissure may be present at L4-5. Mild right and moderate left neural foraminal narrowing at L4-5 and moderate bilateral neural foraminal narrowing at L5-S1. Eccentric disc bulge at L5-S1 exerts mass effect on the exiting right L5 nerve root. Mild effacement of the ventral thecal sac at L4-5 without significant result. These findings are unchanged from the most recent prior exam. The spinal cord terminates in good position at L2. Cauda equina normal in morphology. No abnormal enhancement of the cauda equina on postcontrast imaging. No paraspinal muscle edema. Visualized portions of the sacrum normal part from the presence of a Tarlov cysts. No epidural collection. IMPRESSION: 1. No evidence of metastatic disease. 2. Degenerative changes at L4-5 and L5-S1, including annular fissure at L4-5. Suspected mass effect on the exiting right L5 nerve root. These findings are unchanged from most recent prior. 3. Exaggerated endplate concavity at L2 and L3 may suggest underlying osteopenia/osteoporosis or normal variation. Consider DEXA scan if appropriate. Electronically signed by: Loc Jenkins M.D. 12/17/2018 7:55 PM Dictated: 12/17/181949 Transcribed: 12/17/181949 [place], [place] [phone] Magnetic Resonance Report Patient: SWAPNA MCKEON Date: 12/17/18 MR#: [id number]: [address] [facility] Acct ID:[id number]: [address] Date: 1970[facility] Zip: [place] [address] Age: 48Location: ED Sex: F Room/Bed: Att Phy: Diagnosis: ILLNESS Bobbi Phy: Ney Mendenhall PA-CService Date: 12/17/18 [facility] Phy: Interpreting Phy: Loc Jenkins MD Admit Phy: Ordering Phy: Nicholas Pablo M.D. cc: ~ MR cervical spine wo/w con CLINICAL HISTORY: 48 years-old Female presenting with pain, meningismus, fevers x 1 month, sepsis and fever, pain in the entire spine radiating down the legs, no history of surgery, concern for metastatic disease. TECHNIQUE: Multisequence, multiplanar MR imaging of the cervical spine was performed before and after the administration of intravenous contrast. IV contrast: 8 mL of Gadavist. COMPARISON: 06/14/2018. FINDINGS: Localizer images: Benign hemangioma noted in T11. 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 Normal cervical lordosis. Vertebral bodies maintain normal height, alignment, and bone marrow signal intensity. Diffuse intervertebral disc desiccation with only mild height loss evident at C5-6 and C6-7. There are trace disc osteophyte complexes at these levels. Mild effacement of the ventral thecal sac if any is present as a result. Allowing for motion irritation of the axial T2 weighted imaging, no significant neural foraminal or spinal canal narrowing. Cervical spinal cord morphology and signal intensity. No epidural collection. No abnormal enhancement on postcontrast imaging. No paraspinal muscle edema. T2 flow-voids within the vasculature preserved. Remaining visualized soft tissues within normal limits. IMPRESSION: Minimal multilevel degenerative changes at C5-6 and C6-7. No evidence of metastatic disease. Electronically signed by: Loc Jenkins M.D. 12/17/2018 7:12 PM Dictated: 12/17/181904 Transcribed: 12/17/181904 [facility], [place] [phone] CT Scan Report Patient: SWAPNA MCKEON Date: 12/17/18 MR#: [id number]: [address] [facility] Acct ID:[id number]: [address] Date: 1970[facility] Zip: [place] [address] Age: 48Location: ED Sex: F Room/Bed: Att Phy: Diagnosis: ILLNESS Bobbi Phy: Ney Mendenhall PA-CService Date: 12/17/18 Fam Phy: Interpreting Phy: Cali Maharaj MD Admit Phy: Ordering Phy: Nicholas Pablo M.D. cc: ~ CT SCAN OF THE BRAIN WITHOUT IV CONTRAST CLINICAL HISTORY: Headache. COMPARISON STUDY: CT of the brain dated 01/07/2018. TECHNIQUE: Unenhanced axial CT scan of the brain is performed from the vertex to the skull base. A dose lowering technique was utilized adhering to the principles of ALARA. The examination is modestly degraded by motion artifact. The skull base was scanned twice to improve image quality. FINDINGS: Brain parenchyma: The brain parenchyma is normal in appearance. There is no hemorrhage, mass effect, or evidence of acute territorial ischemia by CT criteria. Gunn-white matter differentiation is preserved. No extra-axial fluid collection is seen. Ventricles, sulci, cisterns: Normal in configuration. Intracranial vasculature: The visualized intracranial vasculature at the skull base is normal in appearance. Calvarium: Unremarkable. Sinuses and mastoids: The visualized paranasal sinuses are clear. The mastoid air cells are well pneumatized. Orbits: The bony orbits are grossly intact. IMPRESSION: No acute intracranial abnormality. Electronically signed by: Cali Maharaj M.D. 12/17/2018 3:01 PM Dictated: 12/17/18 1459 Transcribed: 12/17/18 1459 [place], [place] [phone] XRay Report Patient: SWAPNA MCKEON Date: 12/17/18 MR#: [id number]: [address] Acct ID:[id number]: [address] Date: 1970[facility] Zip: [place] [address] Age: 48Location: ED Sex: F Room/Bed: Att Phy: Diagnosis: ILLNESS Bobbi Phy: Ney Mendenhall PA-CService Date: 12/17/18 Fam Phy: Interpreting Phy: Loc Jenkins MD Admit Phy: Ordering Phy: Nicholas Pablo M.D. cc: ~ XR chest 1V portable CLINICAL HISTORY: 48 years-old Female presenting with sepsis. TECHNIQUE: Portable upright AP view of the chest was obtained. COMPARISON: 11/26/2018. FINDINGS: Cardiomediastinal silhouette normal. No focal opacity. No large effusion or pneumothorax. Osseous structures normal. Upper abdomen normal. IMPRESSION: 1. No acute cardiopulmonary disease. Electronically signed by: Loc Jenkins M.D. 12/17/2018 8:35 PM Dictated: 12/17/182033 Transcribed: 12/17/182033 Code Status & VTE Plan Code Status Full code VTE Prophylaxis Plan VTE Prophylaxis will be ordered: Yes PG Care Time/CCT Total # of Minutes Spent Total Time Spent with Patient: Total time spent is greater than 50% in coordination of care (as documented) at patient's floor/unit and/or counseling patient: (1) Sepsis Sepsis type: sepsis due to unspecified organism Qualified Code(s): A41.9 - Sepsis, unspecified organism
[2018-12-17] MEDS ORDERED: POTASSIUM PHOSPHATE 30 MMOL in SODIUM CHLORIDE 0.9% 500 ML IV ONE (22:45)
[2018-12-17] MEDS ORDERED: ACETAMINOPHEN 325 MG TAB PO PRN (22:49)
[2018-12-17] MEDS ORDERED: OXYCODONE HCL IR 5 MG TAB (IMMEDIATE RELEASE) PO PRN (22:49)
[2018-12-17] MEDS ORDERED: ONDANSETRON INJ 2 MG/ML 2 ML VIAL IV PRN (22:49)
[2018-12-17] MEDS ORDERED: VANCOMYCIN CONSULT ACTIVE PRN (22:49)
[2018-12-17] MEDS ORDERED: PIPERACILL/TAZOBAC CONSULT ACTIVE PRN (22:49)
[2018-12-17] MEDS ORDERED: VANCOMYCIN HCL 1,000 MG/270 ML BAG IV STA (22:49)
[2018-12-17] MEDS ORDERED: ALBUTEROL HFA 8 GM INHALER INH PRN (22:49)
[2018-12-17] MEDS ORDERED: clonazePAM 1 MG TAB PO PRN (22:49)
[2018-12-17] MEDS ORDERED: MAGNESIUM HYDROXIDE SUSP 30 ML UDC PO PRN (22:49)
[2018-12-17] MEDS ORDERED: POLYETHYLENE (MIRALAX) 17 GM PACK PO PRN (22:49)
[2018-12-17] MEDS ORDERED: ALUMINUM/MAGNESIUM SUSP 30 ML UDC PO PRN (22:49)
[2018-12-17] MEDS ORDERED: PIPERACILLIN/TAZOBACTAM 4.5 GM in DEXTROSE 5% 100 ML IV ONE (22:49)
[2018-12-17] MEDS ORDERED: ACETAMINOPHEN 1000 MG/100 ML IV IV PRN (22:49)
[2018-12-17] MEDS ORDERED: DOCUSATE SODIUM 100 MG CAP PO PRN (22:49)
[2018-12-17] MEDS: NSS + 20MEQ KCL 20 MEQ/1,000 ML BAG IV SCH ×2 (23:30→23:41)
[2018-12-17] MEDS: GABAPENTIN 600 MG TAB PO SCH (23:40)
[2018-12-17] MEDS: POTASSIUM CHLORIDE 10 MEQ TABCR PO SCH (23:40)
[2018-12-17] MEDS: OLANZAPINE ZYDIS 5 MG ORALLY DIS. TAB PO SCH (23:47)
[2018-12-17] MEDS: TOPIRAMATE 100 MG TAB PO SCH (23:48)
[2018-12-18] MEDS: PIPERACILLIN/TAZOBACTAM 3.375 GM in DEXTROSE 5% 100 ML IV SCH ×3 (04:05→21:15)
[2018-12-18] MEDS: NSS + 20MEQ KCL 20 MEQ/1,000 ML BAG IV SCH ×3 (04:31→15:52)
[2018-12-18] MEDS: TAPENTADOL HCL ER 50 MG TABCR PO SCH ×2 (06:04→18:15)
[2018-12-18 06:39] LABS: Hematocrit (blood only) 27.9 % (37-47); Hemoglobin 9.3 g/dL (12.0-16.0); Mean Corpuscular Hgb Conc 33.3 g/dL (32-36); RDW Coefficient of Variation 15.5 % (11.5-14.5); RDW Standard Deviation 49.8 fL (36.4-46.3); Red Blood Count 3.17 M/uL (4.2-5.4); White Blood Count 4.14 K/uL (4.8-10.8)
[2018-12-18 06:52] LABS: INR 1.1 (0.9-1.1); Partial Thromboplastin Ratio 1.1; Partial Thromboplastin Time 28.5 Seconds (21.0-31.0); Prothrombin Time 11.1 Seconds (9.0-12.0)
[2018-12-18 06:59] LABS: Mean Platelet Volume 9.9 fL (7.4-10.4); Platelet Count 91 K/uL (130-400)
[2018-12-18 07:01] LABS: Basophils # (auto) 0.03 K/uL (0-0.2); Basophils % (auto) 0.7 %; Eosinophils # (auto) 0.16 K/uL (0-0.5); Eosinophils % (auto) 3.9 %; Immature Granulocytes # (auto) 0.01 K/uL (0.00-0.02); Immature Granulocytes % (auto) 0.2 %; Lymphocytes # (auto) 1.57 K/uL (1.2-3.4); Lymphocytes % (auto) 37.9 %; Monocytes # (auto) 0.49 K/uL (0.11-0.59); Monocytes % (auto) 11.8 %; Neutrophils # (auto) 1.88 K/uL (1.4-6.5); Neutrophils % (auto) 45.5 %; Platelet Estimate Decreased (Normal)
[2018-12-18 07:20] LABS: Albumin Level 2.6 gm/dl (3.4-5.0); BUN Creatinine Ratio 8.4 (10-20); Bilirubin,Total 0.3 mg/dl (0.2-1); Calcium 7.5 mg/dl (8.5-10.1); Creatinine Clr Calc Pharmacy 114.2 ml/min; Est GFR (African American) 119.9; Est GFR (Non-African American) 103.4; Globulin 2.5 gm/dl (2.5-4.0); Total Protein 5.1 gm/dl (6.4-8.2)
[2018-12-18] MEDS: POTASSIUM CHLORIDE 10 MEQ TABCR PO SCH ×2 (08:22→21:07)
[2018-12-18] MEDS: GABAPENTIN 600 MG TAB PO SCH ×3 (08:22→21:07)
[2018-12-18] MEDS: VANCOMYCIN HCL 1,250 MG in SODIUM CHLORIDE 0.9% 250 ML IV SCH ×2 (08:28→21:16)
[2018-12-18] MEDS ORDERED: TOPIRAMATE 50 MG TAB PO SCH (09:00)
[2018-12-18] MEDS ORDERED: PANTOprazole 40 MG TAB PO SCH (09:00)
[2018-12-18] MEDS ORDERED: LIDOCAINE 5% 1 PATCH TD SCH (09:00)
[2018-12-18] MEDS ORDERED: FLUOXETINE HCL 20 MG CAP PO SCH (09:00)
[2018-12-18] MEDS ORDERED: NICOTINE 14 MG/24 HR PATCH TD SCH (09:00)
--- NOTE | 2018-12-18 09:46 | Pharmacy Report ---
Pharmacy Abx Dose Short Note - Date of Service December 18, 2018 - Assessment & Plan Assessment 48 year old F receiving vancomycin/zosyn for treatment of bacteremia (recently treated for bacillus species earlier this month, discharged on amoxicillin) with persistent fevers. Day # 2 of antimicrobial therapy. Below regimen was ordered based on last admission data that produced a consistently therapeutic level. Plan Vancomycin * Loading dose 2000mg (given 12/17 @ 1957) * Maintenance dose 1250 mg IV every 12 hours * Goal trough level : 15 to 20 mcg/mL * Trough or random level ordered for: 12/19/18 @ 0730. Pharmacy will continue to follow and will adjust dose/frequency as necessary. Thank you.
--- NOTE | 2018-12-18 10:27 | Infectious Disease Consult ---
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 CSF negative, clinically no signs of meningitis. No uds done this admission, ? repeat IVDA. will follow cultures. History of Present Illness Attending Physician: Gal Grant MD pt admitted with fevers, had isolated 39 temp upon admission, has otherwise been afebrile. Resting comfortably in bed but states she is having severe diffuse body pain, can not pinpoint. blood cultures obtained in ER, pending, LP done in ER 0 wbc, normal glucose and protein, CSF culture pending but gram stain with no organisms or wbc. CXR and head CT negative, had MRI cervical, thoracic and lumbar spine, all negative. wbc 4.1. Placed on zosyn and vanco emperically, tolerating well. Currently denies kumar, visual change, neck pain, no n/v/abd pain, min diarrhea, no cough, cp, sob, wheeze, no joint swelling, no rash but diffuse pain. Was recently admitted in early November with fevers after crushing morphine and injecting it. She had + blood cultures 11/24, 11/25, 11/26 - all gpr. 11/27 negative and final. She was treated with vanco with plans for IV Dalvance x 2 at [facility] however, she has no insurance and Dalvance could not be approved. She was deemed unsafe to leave with picc line due to IVDA so she was placed on po amox at d/c. States she was taking at home. Her cultures were sent to [facility] for further ID and final culture results available on 12/07 revealed gpr as B.cereus, no sensitivities provided. Echo done on 11/26 negative for veg. Current blood cultures pending. Allergies Allergy/AdvReac Type Severity Reaction Status Date / Time tramadol Allergy U SEIZURE Verified 12/17/18 15:12 promethazine AdvReac [place] JITTERY Verified 12/17/18 15:12 Home Medications Home Medications Medication Instructions Recorded Confirmed Type albuterol sulfate 2 puff INHALATION Q4 PRN 06/12/18 12/17/18 History docusate sodium [Colace] 100 mg PO BID PRN 06/12/18 12/17/18 History ergocalciferol (vitamin D2) 50,000 unit PO WK 06/12/18 12/17/18 History fluoxetine 20 mg PO QAM 06/12/18 12/17/18 History gabapentin 600 mg PO TID 06/12/18 12/17/18 History olanzapine 5 mg TRANSLINGUAL HS 06/12/18 12/17/18 History propranolol 10 mg PO DAILY PRN 06/12/18 12/17/18 History topiramate 50 mg PO QAM 06/12/18 12/17/18 History topiramate 100 mg PO HS 06/12/18 12/17/18 History diphenoxylate-atropine [Lomotil] 1 tab PO Q8H PRN #15 tab 06/27/18 12/17/18 Rx amoxicillin 500 mg PO TID #40 cap 12/10/18 12/17/18 Rx clonazepam 1 mg PO DAILY PRN #15 tab 12/10/18 12/17/18 Rx oxycodone 5 mg PO Q6H PRN #20 tab 12/10/18 12/17/18 Rx potassium chloride [Klor-Con M10] 20 meq PO BID #14 tab 12/10/18 12/17/18 Rx tapentadol [Nucynta ER] 50 mg PO Q12@0600,1800 #30 tab 12/10/18 12/17/18 Rx acetaminophen [Tylenol Extra 500 mg PO Q6H PRN 12/17/18 12/17/18 History Strength] ibuprofen 200 mg PO Q6H PRN 12/17/18 12/17/18 History lidocaine 1 patch TOPICAL UD 12/17/18 12/17/18 History methylphenidate HCl 40 mg PO DAILY@0900,1600 12/17/18 12/17/18 History pantoprazole 40 mg PO QAM 12/17/18 12/17/18 History Patient History Medical History DVT prophylaxis Opioid abuse (Chronic) Acute gastritis (Acute) Transaminitis (Acute) IV drug user (Acute) Sepsis (Acute) Gastroparesis (Chronic) Sarcoid (Chronic) Migraine Surgical History Hx of cholecystectomy (Resolved) History of cholecystectomy History of esophagogastroduodenoscopy (EGD) History of open reduction and internal fixation (ORIF) procedure LEFT ANKLE History of tonsillectomy Family History Other Cancer Diabetes Heart disease Hypertension Lung disease Social History Preferred Language: Urdu Communication Ability: Effective Communication Coordinator Required: No Beliefs That Will Affect Care: None marital status: Single Current Living Situation: Parent Current Living Situation Comment: lives w/ mom current occupational status: employed Other Information That Helps Us Care for You: No Feels Safe at Home: Yes Safety Concerns: Feels Safe At This Time Smoking Status: Current every day smoker Tobacco Type: cigarettes Cigarettes Per Day: 20 Do You Dip or Chew Tobacco: No Second Hand Exposure: No Hx Alcohol Use: No Hx Substance Use: Yes (Takes methadone) substance use type: other Substance Use Type Other:: prescribed methodone, h/o drug abuse Review of Systems Review of Systems: All systems reviewed & are unremarkable except as noted in HPI & below Physical Exam Constitutional: WD/WN, vitals as above Eyes: PERRL, conjunctivae normal, anicteric sclerae ENMT: external ear and nose normal, oropharynx normal Neck: normal visual inspection Respiratory: normal respiratory effort, lungs clear to auscultation Cardiovascular: RRR, no murmur, no edema Gastrointestinal (Abdomen): normal bowel sounds, soft, nontender, no hepatosplenomegaly Musculoskeletal: no cyanosis or clubbing, extremities motor strength 5/5 Skin: no rashes, warm and dry Psychiatric: A+Ox3, euthymic affect Results & Data Vital Signs (Past 12 Hours) Vital Signs Temp Pulse Pulse Resp BP Pulse Ox 12/18/18 08:00 36.6 C 76 18 98/62 L 99 12/18/18 04:27 36.6 C 64 16 105/63 97 12/18/18 01:50 74 12/17/18 23:37 36.6 C 61 18 82/52 L 99 Laboratory Results Microbiology 12/17/18 Unknown Cerebral Spinal Fluid Gram Stain - Final
--- NOTE | 2018-12-18 11:03 | Hospitalist Progress Note ---
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 Echocardiogram on 11/26 was negative for vegetation, repeat Echo results pending. MRI is ordered tonight of cervical spine, lumbar spine, and thoracic spine were all negative for paraspinal abscess. CT of head negative for acute event. Patient is mildly hypotensive, has responded IV fluid rehydration. Lumbar puncture performed in the ED initially looks clean. Follow blood cultures and lumbar spinal fluid studies. Continue vancomycin IV begun in the ED. She was given cefepime IV in ED, and will be continued on Zosyn 4.5 g IV every 8 hours. Consult infectious disease. Given history of C. difficile we will repeat a C. difficile if she has loose bowel movements (2) Gram-negative bacteremia: See above (3) IV drug user: Patient with history of IV drug abuse, known to have a history of crushing morphine and injecting. Follow-up for signs of withdrawal. (4) Opioid abuse: See above (5) Bacteremia due to Enterobacter species: Bacteremia due to Enterobacter was noted on 06/11/2018 during hospitalization. We will cover for the species with above antibiotics. (6) Sepsis: Monitor for further signs of sepsis. Has responded to IV fluids related to low blood pressure at this time. (7) C. difficile diarrhea: History of C. difficile colitis. High risk for recurrence on above antibiotics. We will let infectious disease decide if patient should be placed on empiric tr eatment or wait until symptoms. (8) Chronic back pain: Continue usual medications: Topical lidocaine, oxycodone, Nucynta, topiramate and gabapentin. In the past patient had done better with scheduled Tylenol and Celebrex we will add these to her medical recipe (9) Tobacco abuse: Place on NicoDerm patch. (10) PUD (peptic ulcer disease): Continue pantoprazole 40 mg every morning. None (11) Depression: Continue fluoxetine, gabapentin, topiramate and olanzapine. Subjective Patient feels improved when she arrived she is less fever her back pain from where her lumbar puncture was is not significantly uncomfortable for her. She expressed frustration with having her fevers recur almost 24 hours from discharge. Review of Systems Review of Systems: ROS: well nourished well developed. No double vision blurry vision No problems with speech or swallowing No palpitations, chest pain or pressure No Wheezing or breathing issues No abdominal pain nausea vomiting diarrhea changes in appetite or weight No burning urine urine frequency or changes in color No focal joint pain or muscle pain No skin rashes or oral lesions No unusual bruising or bleeding On a daily focused back pain but no numbness or loss of strength No changes in memory or confusion Physical Exam Physical Exam: The patient appeared well nourished and normally developed she is in mild to moderate distress. Vital signs as documented. Head exam is unremarkable. normocephalic, atraumatic Neck is without jugular venous distension, thyromegaly, or lymphademopathy Lungs are clear to auscultation and percussion. Cardiac exam reveals Rhythm is regular. Her does no peripheral stigmata of endocarditis Abdominal exam reveals normal bowel sounds, no masses, no organomegaly Extremities are nonedematous and both pedal pulses are present Neurologic exam is A&Ox3, no focal deficits, strength is equal bilateral her back is point tender to the lower thoracic upper lumbar area Psychologically seems neither anxious or depressed Skin is warm Dry Results & Data Vital Signs (Past 12 Hours) Vital Signs Temp Pulse Pulse Resp BP Pulse Ox 12/18/18 08:00 36.6 C 76 18 98/62 L 99 12/18/18 04:27 36.6 C 64 16 105/63 97 12/18/18 01:50 74 12/17/18 23:37 36.6 C 61 18 82/52 L 99 PG Care Time/CCT Total # of Minutes Spent Total Time Spent with Patient: Total time spent is greater than 50% in coordinat ion of care (as documented) at patient's floor/unit and/or counseling patient: (1) Sepsis Sepsis type: sepsis due to unspecified organism Qualified Code(s): A41.9 - Sepsis, unspecified organism
[2018-12-18] MEDS ORDERED: OXYCODONE HCL IR 5 MG TAB (IMMEDIATE RELEASE) PO PRN (11:32)
[2018-12-18] MEDS ORDERED: MoRPHine SULFATE 2 MG/ML CARP IV PRN (11:48)
[2018-12-18] MEDS: CELECOXIB 100 MG CAP PO SCH ×2 (12:24→21:06)
[2018-12-18] MEDS: ACETAMINOPHEN 500 MG TAB PO SCH ×2 (14:44→21:06)
[2018-12-18] MEDS ORDERED: METHYLPHENIDATE HCL 10 MG TABLET PO SCH (16:00)
[2018-12-18] MEDS ORDERED: LOPERAMIDE HCL 2 MG CAP PO PRN (17:47)
[2018-12-18] MEDS: OLANZAPINE ZYDIS 5 MG ORALLY DIS. TAB PO SCH (21:06)
[2018-12-18] MEDS: TOPIRAMATE 100 MG TAB PO SCH (21:07)
[2018-12-18 23:32] VITALS: BP 109/72; TEMP 98.1; O2SAT 100
--- NOTE | 2018-12-19 01:32 | Progress Note ---
Date of Service December 19, 2018 Subjective RN called around 11:20 PM 12/18/2018 Reported IV was beeping and RN went to evaluate when she noticed white powdery stuff in IV tubing RN asked patient if she knew what it was and patient had denied knowing anything about it -patient had last received IV morphine around 2 PM through tubing and was receiving IV fluids after that RN was suspicious given patient's drug use and paged me Urine drug screen was ordered Lab was called to see if tubing could be tested for possible drug use -no answer obtained I evaluated patient around 12:30am who denied putting any substance in IV and notified her that per protocol we have to scan the room by security to look for concerning substances and patient was in agreement When I stepped out of the room patient went into the bathroom shortly after which security arrived Security could only look around the room but could not search her items given lack of permission -no item was found RN paged again regarding patient being upset and wanting to leave AMA Patient left AMA Results & Data Vital Signs (Past 12 Hours) Vital Signs Temp Pulse Pulse Resp BP Pulse Ox 12/18/18 23:30 36.7 C 79 16 109/72 100 12/18/18 19:19 36.9 C 97 H 22 113/65 96 12/18/18 15:18 37.2 C 78 20 125/78 97 PG Care Time/CCT Total # of Minutes Spent Total Time Spent with Patient: Total time spent is greater than 50% in coordination of care (as documented) at patient's floor/unit and/or counseling patient: Resident Activity Tracking Resident Involvement: Resident Care Provided Care Provided: Adult Hospital Medicine
[2018-12-19 01:33] VITALS: PULSE 78
[2018-12-19] MEDS ORDERED: VANCOMYCIN TROUGH ONE (07:30)
[2018-12-23 10:37] LABS: HSV Type 1 DNA Not Detected (Not Detected); HSV Type 1&2 DNA Source CSF; HSV Type 2 DNA Not Detected (Not Detected); Lyme DNA PCR CSF or Synovial Not detected (Not Detected); Lyme DNA Source CSF; Lyme IgG CSF NO BANDS DETECTED; Lyme IgM CSF NO BANDS DETECTED
--- NOTE | 2018-12-24 10:29 | Discharge Summary ---
Date of Service 2018 Admission HPI Per Admitting Provider The patient is a 48-year-old female with a past medical history including IV drug abuse, sepsis from Enterobacter aerogenes on 06/11/2018, and most recent hospitalization for bacillus cereus/thuringiensis bacteremia from 11/24-12/10/2018. She presents to the emergency department with recurrent temperatures began shortly after discharge, that she was reports took place in spite of her taking the amoxicillin that she was discharged on as directed. She has no specific complaints, other than her chronic low back pain. Principal Diagnosis pt left ama bacillus bacteremia suspected ivda Discharge Exam Pt left ama Discharge Data Allergies Allergy/AdvReac Type Severity Reaction Status Date / Time tramadol Allergy U SEIZURE Verified 12/17/18 15:12 promethazine AdvReac [place] JITTERY Verified 12/17/18 15:12 Consultations 12/17/18 20:07 ED Decision to Admit Stat 12/17/18 22:49 Consult Case Management - Discharge Planning Routine Consult Infectious Diseases Routine Ordered Studies 12/17/18 13:45 MR cervical spine wo/w con Stat MR lumbar spine wo/w con Stat MR thoracic spine wo/w con Stat 12/17/18 13:48 CT head/brain wo con Stat Hospital Course (1) 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 Echocardiogram on 11/26 was negative for vegetation, repeat Echo results pending. MRI is ordered tonight of cervical spine, lumbar spine, and thoracic spine were all negative for paraspinal abscess. CT of head negative for acute event. Patient is mildly hypotensive, has responded IV fluid rehydration. Lumbar puncture performed in the ED initially looks clean. Follow blood cultures and lumbar spinal fluid studies. Continue vancomycin IV begun in the ED. She was given cefepime IV in ED, and will be continued on Zosyn 4.5 g IV every 8 hours. Pt left ama and I called in [email or web address] po for her and spoke to her sister as she would not answer phone (2) Gram-negative bacteremia: See above (3) IV drug user: Patient with history of IV drug abuse, known to have a history of crushing morphine and injecting. (4) Opioid abuse: See above (5) Bacteremia due to Enterobacter species: Bacteremia due to Enterobacter was noted on 06/11/2018 during hospitalization. We will cover for the species with above antibiotics. (6) Sepsis: Monitor for further signs of sepsis. Has responded to IV fluids related to low blood pressure at this time. (7) C. difficile diarrhea: History of C. difficile colitis. High risk for recurrence on above antibiotics. We will let infectious disease decide if patient should be placed on empiric treatment or wait until symptoms. (8) Chronic back pain: Continue usual medications: Topical lidocaine, oxycodone, Nucynta, topiramate and gabapentin. In the past patient had done better with scheduled Tylenol and Celebrex we will add these to her medical recipe (9) Tobacco abuse: Place on NicoDerm patch. (10) PUD (peptic ulcer disease): Continue pantoprazole 40 mg every morning. None (11) Depression: Continue fluoxetine, gabapentin, topiramate and olanzapine. Total Time Total Time Spent Total Time Spent (In Minutes): 0 Discharge Plan Discharge Items Disposition: Against Medical Advice Reason For Visit: BACTEREMIA,FEVER Discharge Diagnosis: bacteremia Discharge Goals: Decrease discomfort Activity: Resume your previous activity Non-emergency contact: Primary Care Provider Follow-up/Referrals: Ney Mendenhall PA-C [Primary Care Provider] - Diet: Regular Addtl Provider Instructions: please follow up with pcp Prescriptions: New ciprofloxacin HCl 500 mg tablet 500 mg PO BID Qty: 30 RF: 0 Continued diphenoxylate-atropine [Lomotil] 2.5-0.025 mg tablet 1 tab PO Q8H PRN (Reason: diarrhea) Qty: 15 RF: 0 potassium chloride [Klor-Con M10] 10 mEq Tablet,Er Particles/Crystals 20 meq PO BID Qty: 14 RF: 0 Nucynta ER 50 mg Tablet Extended Release 12 Hr 50 mg PO Q12@0600,1800 Qty: 30 RF: 0 oxycodone 5 mg tablet 5 mg PO Q6H PRN (Reason: pain) Qty: 20 RF: 0 clonazepam 1 mg tablet 1 mg PO DAILY PRN (Reason: Anxiety) Qty: 15 RF: 0 fluoxetine 20 mg capsule 20 mg PO QAM RF: 0 docusate sodium [Colace] 100 mg Capsule 100 mg PO BID PRN (Reason: Constipation) RF: 0 albuterol sulfate 90 mcg/actuation Hfa Aerosol Inhaler 2 puff INHALATION Q4 PRN (Reason: Shortness Of Breath) RF: 0 gabapentin 600 mg tablet 600 mg PO TID RF: 0 olanzapine 5 mg tablet,disintegrating 5 mg Translingual HS RF: 0 propranolol 10 mg tablet 10 mg PO DAILY PRN (Reason: Anxiety) RF: 0 topiramate 100 mg tablet 100 mg PO HS RF: 0 topiramate 50 mg tablet 50 mg PO QAM RF: 0 ergocalciferol (vitamin D2) 50,000 unit capsule 50,000 unit PO WK RF: 0 acetaminophen [Tylenol Extra Strength] 500 mg Tablet 500 mg PO Q6H PRN (Reason: Pain) RF: 0 ibuprofen 200 mg Tablet 200 mg PO Q6H PRN (Reason: Pain) RF: 0 lidocaine 4 % adhesive patch,medicated 1 patch topical UD RF: 0 methylphenidate HCl 10 mg tablet 40 mg PO DAILY@0900,1600 RF: 0 pantoprazole 40 mg tablet,delayed release (DR/EC) 40 mg PO QAM RF: 0 Discontinued amoxicillin 500 mg Capsule 500 mg PO TID Qty: 40 RF: 0 Stand-Alone Forms: [facility] Discharge Orders: Left Against Medical Advice (Routine); Ordered 12/19/18 Ordered By: Amna Garber Admission Data Admit Date/Time: 12/17/18 21:10 Attending Provider: Gal Grant Admit Provider: Naman Espinoza Primary Care Provider: Ney Mendenhall Other Providers: Asad Summers ; Naman Espinoza Service: Telemetry Medical Other Interventions: Discharge Summary Assessment (RN) Last Done: 12/19/18 01:32 DC Date/Time DO NOT enter until pt leaves facility: 12/19/18 01:46
== END 2018-12-19 01:46 | disposition left against medical advice (07) ==
LOC: 2W 12:49 → ED 12:49 → SUATTDRO 21:10 → 2W 22:06